=== PATIENT | male | born 1930 | race Caucasian/White ===

== ENCOUNTER → 2017-02-20 | Outpatient (CLI) | payer BC ==
[~2017-02-20] MED LIST: AMLODIPINE PO; ASPI81TA28 PO; ATOR80TA PO; CHOL20009 PO; CIPR250T3 PO; DOCU50CA10 PO; FLUT1AER5 INH; GLIP5TAB3 PO; ISOS60TA2 PO; LOSA50TA6 PO; METHPOW7 PO; METO-551 PO; METR-162 PO; NTRGSL/4 UT; POLY335025 PO; SNT/10 PO; ZNTT/150 PO
--- NOTE | 2017-02-20 13:08 | DIAGNOSTIC IMAGING REPORT ---
CT SCAN OF THE ABDOMEN AND PELVIS WITHOUT CONTRAST CLINICAL HISTORY: DIVERTICULITIS LEFT LOWER QUADRANT ABDOMINAL PAIN COMPARISON STUDY: 01/13/2015 TECHNIQUE: CT scan of the abdomen and pelvis was performed from the lung bases to the proximal femurs. Images are reviewed in the axial, sagittal, and coronal planes. IV contrast was not administered for this examination. A dose lowering technique was utilized adhering to the principles of ALARA. CT DOSE: 975.52 mGycm FINDINGS: Lower chest: Is calcified right lower lobe granuloma. There is dependent interstitial thickening. There is a stable 5 mm left lower lobe point nodule. Liver: The unenhanced liver is normal in size, contour, and attenuation. There is no intrahepatic biliary ductal dilatation. Gallbladder: Cholelithiasis Spleen: There is scattered granulomatous calcifications. Pancreas: Unremarkable. Adrenal glands: Unremarkable. Kidneys: The right kidney appears surgically absent. There are 2 dominant left renal cyst measuring 36 mm and 36 mm respectively. No renal or ureteral calculi are visualized. There is minimal left-sided perinephric stranding. Bowel: There are no transition zones indicate bowel obstruction. There is no acute diverticulitis. By history the appendix is surgically absent. Peritoneum: There is no intraperitoneal free air or abdominal ascites. There is small fat-containing inguinal hernias. Vasculature: The abdominal aorta is normal in course and caliber. Adenopathy: None. Pelvic viscera: The bladder is decompressed. There is mild perivesical stranding similar to the prior study. The prostate is mildly enlarged. Skeletal structures: No destructive osseous lesions are seen. IMPRESSION: 1. Surgically absent right kidney 2. Left renal cysts 3. Cholelithiasis 4. No renal, ureteral, or bladder calculi identified 5. Stable mild left-sided perinephric stranding 6. No evidence of acute diverticulitis 7. No evidence of bowel obstruction. No evidence of free air Electronically signed by: Mark Mckeon M.D. 02/20/2017 1:07 PM Dictated Date/Time: 02/20/2017 1:02 PM
== END | disposition home or self-care (01) ==
LOC: C.CTS 10:40
PROVIDERS: ATTEND Internal Medicine
DX: K57.32 Diverticulitis of large intestine without perforation or abscess without bleeding (principal)

== ENCOUNTER → 2017-09-18 | Outpatient (CLI) | payer BC ==
[~2017-09-18] MED LIST changes: +RANI150T85 PO; -ZNTT/150 PO
== END | disposition home or self-care (01) ==
LOC: C.PATHSPEC 17:10
PROVIDERS: ATTEND Urology
DX: C67.9 Malignant neoplasm of bladder, unspecified (principal); N40.1 Benign prostatic hyperplasia with lower urinary tract symptoms

== ENCOUNTER 2019-01-01 17:23 | Inpatient (IN) ==
--- OUTSIDE RECORDS SUMMARY | 2019-01-01 17:26 | External Medical Summary | Continuity of Care Document ---
:1930 Author Name Geovanny Lobo, Provider Address Unavailable Unavailable , Care Team Providers Name Role Phone Unavailable Unavailable Unavailable LIBERTAD WORTHY Unavailable Unavailable Unavailable Unavailable Unavailable Problems BPH (benign prostatic hyperplasia) (600.00) (N40.0) Cataract (366.9) (H26.9) Acquired renal cyst of left kidney (593.2) (N28.1) Bilateral kidney stones (592.0) (N20.0) Seborrheic keratosis (702.19) (L82.1) Dyslipidemia (272.4) (E78.5) Anginal pain (413.9) (I20.9) Chronic kidney disease, stage 3 (585.3) (N18.3) Controlled diabetes mellitus (250.00) (E11.9) Chronic hypertension (401.9) (I10) Nasal congestion (478.19) (R09.81) Constipation (564.00) (K59.00) Esophageal reflux (530.81) (K21.9) Type 2 diabetes mellitus (250.00) (E11.9) Insomnia (780.52) (G47.00) Chronic ischemic heart disease (414.9) (I25.9) Pulmonary nodule (793.11) (R91.1) Asthma (493.90) (J45.909) Cough (786.2) (R05) 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 , M.D. Refills: 0 glipiZIDE 5 MG Oral Tablet; TAKE 1 TABLET TWICE DAILY. , M.D . Refills: 0 Isosorbide Mononitrate 30 MG TB24 , M.D. Refills: 0 Aspirin 81 MG TABS , M.D. Refills: 0 Tradjenta TABS , M.D. Refills: 0 Iron TABS , M.D. Refills: 0 amLODIPine Besylate 5 MG Oral Tablet , M.D. Refills: 0 Mirtazapine 15 MG Oral Tablet , M.D. Refills: 0 Ciprofloxacin HCl TABS , M.D. Refills: 0 Citrucel POWD; USE DIRECTED. takes once daily , M.D. Refills: 0 MiraLax Oral Powder; MIX 17 GRAMS IN 8 OUNCES OF WATER AND DRINK ONCE DAILY. , M.D. 510 GM Bottle Quantity: 2 Refills: 5 Atorvastatin Calcium 80 MG Oral Tablet; TAKE 1 TABLET AT BED TIME. , M.D. Refills: 0 Vitamin D3 2000 UNIT Oral Tablet; take 1 tab daily , M.D. Refills: 0 raNITIdine HCl - 150 MG Oral Capsule; TAKE 1 CAPSULE E VERY 12 HOURS DAILY. , M.D. Refills: 0 Metoprolol Tartrate 50 MG Oral Tablet; TAKE 1 TABLET EVERY DAILY. , M.D. Quantity: 60 Refills: 5 Losartan Potassium 50 MG Oral Tablet; TAKE 1 TABLET DAILY. , M.D. Quantity: 90 Refills: 3 Procedures History of CABG Status: Completed History of Appendectomy Status: Complete d History of Card Cath Post-Proc Data: ___ Lesions Successfull y Status: Completed Dilated History of Nephrectomy Status: Completed History of Ureterectomy Status: Complete d History of Colonoscopy (Fiberoptic) Stat us: Completed History of Cystoscopy With Biopsy Status : Completed Immunizations Influenza On: 2013 Family History Mother Family history of cardiac disorder (V17.49) (Z82.49) Status: Active Family history of diabetes mellitus (V18.0) (Z83.3) Status: Active Father Family history of cardiac disorder (V17.49) (Z82.49) Status: Active Social History - Smoking Status Former smoker Plan of Treatment Planned Observations Planned Goals not documented Results No Known Results Results not documented Encounters Appointment; Broderick Delgadillo M.D. 01-Jan-2018 10:10 Encounter Diagnosis: Problem not documented Appointment; Urology, Room 8 01-Jan-2018 10:00 Encounter Diagnosis: Problem not documented Appointment; Urology, Room 8 06-Dec-2017 10:30 Encounter Diagnosis: Problem not documented Appointment; Broderick Delgadillo M.D. 18-Sep-2017 14:00 Encounter Diagnosis: Problem not documented
[2019-01-01] MEDS ORDERED: SODIUM CHLORIDE 0.9% 1000ML 1,000 ML IV SCH (18:15)
[2019-01-01 18:25] LABS: Hematocrit (blood only) 29.7 % (42-52); Mean Corpuscular Hemoglobin 31.5 pg (25-34); Mean Corpuscular Hgb Conc 33.7 g/dL (32-36); Mean Corpuscular Volume 93.7 fL (80-100); Mean Platelet Volume 10.3 fL (7.4-10.4); Platelet Count 338 K/uL (130-400); RDW Coefficient of Variation 14.9 % (11.5-14.5); Red Blood Count 3.17 M/uL (4.7-6.1); White Blood Count 10.11 K/uL (4.8-10.8)
--- NOTE | 2019-01-01 18:35 | XRay Report ---
XR chest 1V portable CLINICAL HISTORY: 88 years-old Male presenting with weakness. TECHNIQUE: Portable upright AP view of the chest was obtained. COMPARISON: 02/09/2015. FINDINGS: Median sternotomy wires and mediastinal surgical clips. Atherosclerosis of the aortic arch. Excellent mildly enlarged. Pulmonary vascular prominence. A calcified granuloma is noted at the right lung bas e as on prior exam. Mild reticular and irregular linear opacities at the left lung base. No large eff usion or pneumothorax. Degenerative changes of the thoracic spine. Upper abdomen normal. IMPRESSION: 1. Mild cardiomegaly and mild volume overload. 2. Irregular reticular and linear opacities at the left lung base may represent atelectasis, scarrin g, or a developing infiltrate. Consider PA and lateral views for better assessment. Electronically signed by: Pasquale Haynes M.D. 01/01/2019 6:34 PM
[2019-01-01 18:37] LABS: INR 1.1 (0.9-1.1); Prothrombin Time 11.5 Seconds (9.0-12.0)
[2019-01-01 18:48] LABS: Basophils # (auto) 0.02 K/uL (0-0.2); Basophils % (auto) 0.2 %; Eosinophils # (auto) 0.03 K/uL (0-0.5); Eosinophils % (auto) 0.3 %; Immature Granulocytes # (auto) 0.03 K/uL (0.00-0.02); Immature Granulocytes % (auto) 0.3 %; Lymphocytes # (auto) 0.79 K/uL (1.2-3.4); Lymphocytes % (auto) 7.8 %; Monocytes # (auto) 1.07 K/uL (0.11-0.59); Monocytes % (auto) 10.6 %; Neutrophils # (auto) 8.17 K/uL (1.4-6.5); Neutrophils % (auto) 80.8 %; Polychromasia 1+; Toxic Granulation 1+
[2019-01-01 18:49] LABS: Alanine Aminotransferase 56 U/L (12-78); Albumin Globulin Ratio 0.6 (0.9-2); Albumin Level 2.4 gm/dl (3.4-5.0); Aspartate Aminotransferase 40 U/L (15-37); BUN Creatinine Ratio 24.9 (10-20); Blood Urea Nitrogen 57 mg/dl (7-18); Calcium 9.2 mg/dl (8.5-10.1); Carbon Dioxide 22 mmol/L (21-32); Chloride 107 mmol/L (98-107); Creatinine Clr Calc Pharmacy 23.9 ml/min; Est GFR (African American) 28.6; Est GFR (Non-African American) 24.7; Globulin 4.3 gm/dl (2.5-4.0); Glucose 275 mg/dl (70-99); Magnesium 2.6 mg/dl (1.8-2.4); Potassium 4.3 mmol/L (3.5-5.1); Sodium 137 mmol/L (136-145); Total Protein 6.7 gm/dl (6.4-8.2)
[2019-01-01 18:58] LABS: Alkaline Phosphatase 120 U/L (45-117); Bilirubin,Total 0.9 mg/dl (0.2-1); Creatine Kinase 80 U/L (39-308); Troponin I < 0.015 ng/ml (0-0.045)
[2019-01-01 19:03] LABS: Appearance Urine Turbid (Clear); Bacteria Urine Automated Negative (Negative); Blood Urine 3+ (Negative); Color Urine Red; Epithelial Cell Urine Auto >30 /lpf (0-5); Glucose Urine UA Trace (Negative); Ketones Urine Negative (Negative); Leukocyte Esterase Urine 2+ (Negative); Nitrite Urine Positive (Negative); Protein Urine 2+ (Negative); Specific Gravity Urine 1.024 (1.000-1.030); Urobilinogen Urine Negative (Negative); WBC Urine Automated >30 /hpf (0-5)
[2019-01-01 19:14] LABS: Bilirubin Urine Negative (Negative); Ictotest Urine Negative (Negative)
[2019-01-01 19:20] LABS: RBC Urine Automated >30 /hpf (0-4)
[2019-01-01 19:23] LABS: Renal Epithelial Cells Urine 0-5 /lpf (0-5)
[2019-01-01] MEDS ORDERED: LEVOFLOXACIN/D5W 750 MG/150 ML BAG IV SCH (19:30)
[2019-01-01] MEDS ORDERED: METOPROLOL TARTRATE 1 MG/ML VIAL IV STA (19:39)
--- NOTE | 2019-01-01 19:45 | Emergency Department Note ---
Entered by Yaz Mancia acting as a scribe for Frankie Hanley DO History of Present Illness General Chief complaint: Hematuria Stated complaint: HEMATURIA Time Seen by Provider: 01/01/19 17:45 Source: patient History of Present Illness Onset (ago): day(s) 3 Location: head (Weakness) Pain Consistency: + other (Persistent) Quality: + other (Weakness) Exacerbated By: + other (Immunotherapy treatments) Associated symptoms: + loss of appetite, + weakness and + other (Positive frequent bowel movements, bleeding from anus. Negative abdominal pain.) The patient is a 88 year old male presenting to the Emergency Department complaining of persistent weakness starting 3 days ago. The patient reports that he has been experiencing frequent bowel movements. He states that he has about 6 bowel movements per day and that this has been going on for the past 3 days. He explains that there is bright red blood coming from his rectum. He notes that he is weak and has lost his appetite. He adds that he has no history of hemorrhoids. He denies abdominal pain. 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 She states that the patient gets immunotherapy treatments at [facility] every 3 weeks and usually doesnt feel well after. She explains that his last treatment was 2 weeks ago and that the patient got 2 units of blood at that time because his hemoglobin was 8.5. She notes that the patient has been experiencing hematuria. She adds that the patient isnt currently on a blood thinner. Home Medications Home Medications Medication Instructions Recorded Confirmed Type acetaminophen [Tylenol Extra 500 mg PO Q6H PRN 01/01/19 01/01/19 History Strength] allopurinol 0 mg PO QAM 01/01/19 01/01/19 History amlodipine 5 mg PO QAM 01/01/19 01/01/19 History atorvastatin 80 mg PO QAM 01/01/19 01/01/19 History cholecalciferol (vitamin D3) 2,000 unit PO 01/01/19 01/01/19 History [Vitamin D3] docusate sodium [Colace] 100 mg PO QAM 01/01/19 01/01/19 History ferrous sulfate 325 mg PO 01/01/19 01/01/19 History glipizide 10 mg PO BID 01/01/19 01/01/19 History isosorbide mononitrate 180 mg PO QAM 01/01/19 01/01/19 History linagliptin [Tradjenta] 5 mg PO QAM 01/01/19 01/01/19 History methylcellulose (laxative) 2 g PO QAM 01/01/19 01/01/19 History metoprolol tartrate 50 mg PO QAM 01/01/19 01/01/19 History mirtazapine 15 mg PO HS PRN 01/01/19 01/01/19 History nitroglycerin [Nitrostat] 0.4 mg SUBLINGUAL UD 01/01/19 01/01/19 History oxybutynin chloride 5 mg PO TID PRN 01/01/19 01/01/19 History polyethylene glycol 3350 [Miralax] 17 g PO QAM 01/01/19 01/01/19 History ranitidine HCl 150 mg PO BID 01/01/19 01/01/19 History tamsulosin 0.4 mg PO HS 01/01/19 01/01/19 History Allergies Allergy/AdvReac Type Severity Reaction Status Date / Time erythromycin base AdvReac Mild upset Verified 01/01/19 18:25 stomach BCG VACCINE AdvReac Unknown "painful" Uncoded 01/01/19 18:25 Past Med/Surg History Medical History Coronary artery disease (Chronic) "s/p CABG 2006" History of bladder carcinoma (Chronic) History of prostate cancer (Chronic) History of renal cell carcinoma (Chronic) Hypertension (Chronic) BPH (benign prostatic hyperplasia) (Chronic) Diverticular disease of colon (Chronic) Dyslipidemia (Chronic) Asthma (Chronic) Surgical History Status post cardiac catheterization (Chronic) "01/13/2010 [facility] [place] 60[place]70% stenosis left main 100% occlusion RCA severe proximal disease diagonal patent MENDOZA to LAD and SVG's to RCA and circ" Status post cataract extraction (Chronic) Status post coronary artery bypass grafting (Chronic) "2006 [place]: MENDOZA-LAD, SVG-RCA, SVG-circ" Status post nephrectomy (Chronic) "[facility] ~ 2013 renal Ca" Status post appendectomy (Chronic) Social History Feels Safe at Home: Yes Smoking Status: Former smoker Review of Systems See HPI for pertinent positives & negatives. and A total of 10 systems reviewed and were otherwise negative Physical Exam Vital Signs Vital Signs - 24 hr 01/01/19 17:25 01/01/19 17:47 01/01/19 17:50 Temperature 36.8 C Temperature Source Oral Sepsis Recent Fever Within 48 Hours No Sepsis Action Taken by Nursing No Action Required Pulse Rate 117 H 110 H 97 H Pulse Rate [Apical] Pulse Rate from SpO2 Sensor Pulse Rhythm Regular Pulse Rhythm [Apical] Pulse Strength Normal Respiratory Rate 28 H 27 H 28 H Respiratory Effort / Characteristics Non-Labored Respiratory Depth Normal Respiratory Pattern Regular Blood Pressure 131/82 Blood Pressure [Left Arm] Blood Pressure Mean 98 Blood Pressure Mean [Left Arm] Blood Pressure Position Sitting Pulse Oximetry 96 Oxygen Delivery Method Room Air 01/01/19 18:00 01/01/19 18:10 01/01/19 18:20 Temperature Temperature Source Sepsis Recent Fever Within 48 Hours Sepsis Action Taken by Nursing Pulse Rate 113 H 127 H 100 H Pulse Rate [Apical] Pulse Rate from SpO2 Sensor Pulse Rhythm Pulse Rhythm [Apical] Pulse Strength Respiratory Rate 30 H 27 H 24 Respiratory Effort / Characteristics Respiratory Depth Respiratory Pattern Blood Pressure Blood Pressure [Left Arm] Blood Pressure Mean Blood Pressure Mean [Left Arm] Blood Pressure Position Pulse Oximetry Oxygen Delivery Method 01/01/19 18:30 01/01/19 18:40 01/01/19 18:47 Temperature Temperature Source Sepsis Recent Fever Within 48 Hours Sepsis Action Taken by Nursing Pulse Rate 120 H 115 H 101 H Pulse Rate [Apical] 113 H Pulse Rate from SpO2 Sensor 128 H Pulse Rhythm Pulse Rhythm [Apical] Irregular Pulse Strength Respiratory Rate 25 H 25 H 28 H Respiratory Effort / Characteristics Non-Labored Spontaneous Respiratory Depth Normal Respiratory Pattern Regular Blood Pressure 141/85 H Blood Pressure [Left Arm] 141/85 H Blood Pressure Mean 103 Blood Pressure Mean [Left Arm] 103 Blood Pressure Position Pulse Oximetry 94 Oxygen Delivery Method Room Air 01/01/19 18:50 01/01/19 19:00 01/01/19 19:10 Temperature Temperature Source Sepsis Recent Fever Within 48 Hours Sepsis Action Taken by Nursing Pulse Rate 121 H 106 H 132 H Pulse Rate [Apical] Pulse Rate from SpO2 Sensor 120 H 137 H Pulse Rhythm Pulse Rhythm [Apical] Pulse Strength Respiratory Rate 25 H 25 H 29 H Respiratory Effort / Characteristics Respiratory Depth Respiratory Pattern Blood Pressure 149/95 H Blood Pressure [Left Arm] Blood Pressure Mean 113 Blood Pressure Mean [Left Arm] Blood Pressure Position Pulse Oximetry 94 94 Oxygen Delivery Method 01/01/19 19:20 01/01/19 19:30 01/01/19 19:40 Temperature 37.0 C Temperature Source Oral Sepsis Recent Fever Within 48 Hours Sepsis Action Taken by Nursing Pulse Rate 108 H 113 H 105 H Pulse Rate [Apical] Pulse Rate from SpO2 Sensor 113 H 111 H 117 H Pulse Rhythm Pulse Rhythm [Apical] Pulse Strength Respiratory Rate 27 H 28 H 30 H Respiratory Effort / Characteristics Respiratory Depth Respiratory Pattern Blood Pressure 143/98 H Blood Pressure [Left Arm] Blood Pressure Mean 113 Blood Pressure Mean [Left Arm] Blood Pressure Position Pulse Oximetry 93 95 94 Oxygen Delivery Method 01/01/19 19:50 01/01/19 20:00 01/01/19 20:10 Temperature Temperature Source Sepsis Recent Fever Within 48 Hours Sepsis Action Taken by Nursing Pulse Rate 114 H 109 H 118 H Pulse Rate [Apical] Pulse Rate from SpO2 Sensor 118 H 105 H 109 H Pulse Rhythm Pulse Rhythm [Apical] Pulse Strength Respiratory Rate 29 H 27 H 26 H Respiratory Effort / Characteristics Respiratory Depth Respiratory Pattern Blood Pressure 123/94 Blood Pressure [Left Arm] Blood Pressure Mean 103 Blood Pressure Mean [Left Arm] Blood Pressure Position Pulse Oximetry 95 95 94 Oxygen Delivery Method 01/01/19 20:15 Temperature Temperature Source Sepsis Recent Fever Within 48 Hours Sepsis Action Taken by Nursing Pulse Rate 111 H Pulse Rate [Apical] Pulse Rate from SpO2 Sensor 111 H Pulse Rhythm Pulse Rhythm [Apical] Pulse Strength Respiratory Rate 27 H Respiratory Effort / Characteristics Respiratory Depth Respiratory Pattern Blood Pressure 124/82 Blood Pressure [Left Arm] Blood Pressure Mean 96 Blood Pressure Mean [Left Arm] Blood Pressure Position Pulse Oximetry 94 Oxygen Delivery Method CONSTITUTIONAL/VITAL SIGNS: Reviewed / noted above. GENERAL: Patient is tired appearing. INTEGUMENTARY: Warm and dry. Slightly pale. HEAD: Normocephalic. EYES: without scleral icterus or trauma. ENT/OROPHARYNX: clear and moist. LYMPHADENOPATHY/NECK: Is supple without lymphadenopathy or meningismus. RESPIRATORY: Lungs clear and equal. CARDIOVASCULAR: Regular rate and rhythm. GI/ABDOMEN: Soft and nontender. No organomegaly or pulsatile mass. No rebound or guarding. Normal bowel sounds. EXTREMITIES: Warm and well perfused. BACK: No CVA tenderness. NEUROLOGICAL: Intact without focal deficits. PSYCHIATRIC: normal affect. MUSCULOSKELETAL: Normally developed with good muscle tone. Course 1747: The patient was evaluated in room B9, and a complete history and physical examination were performed. 1928: I discussed the patient's case with Dr. Jeff [facility]. He will evaluate the patient for further management. 1931: I updated the patient at this time. Consultations Consultation #1: I discussed the patient's case with Dr. Jeff manzano. He will evaluate the patient for further management. Time: : Administered Medications Discontinued Medications Sodium Chloride (Nss 1000ml) 1,000 mls @ 999 mls/hr IV .Q1H1M ULISES Stop: 01/01/19 19:15 Last Admin: 01/01/19 18:49 Dose: 999 mls/hr Documented by: [id number] Levofloxacin/Dextrose (Levaquin/D5w) 750 mg in 150 mls @ 100 mls/hr IV Q24H ULISES Stop: 01/03/19 19:29 Last Infusion: 01/01/19 20:45 Dose: 0 mls/hr Documented by: [id number] Admin: 01/01/19 19:35 Dose: 100 mls/hr Documented by: [id number] Metoprolol Tartrate (Lopressor) 2.5 mg IV NOW STA Stop: 01/01/19 19:40 Last Admin: 01/01/19 20:00 Dose: 2.5 mg Documented by: [id number] Medical Decision Making Differential Diagnosis Differential includes acute coronary syndrome, myocardial infarction, CVA, TIA, anemia, infection, pneumonia, UTI, pyelonephritis, poor nutrition, dehydration, electrolyte disturbance,hypoglycemia. Medical Records Attestation: I reviewed the patient's medical records. Home Medications Current Medication List: was personally reviewed by me Laboratory Data Attestation: I reviewed the patient's lab results. Result diagrams: 01/01/19 18:14 01/01/19 18:14 Lab Results 01/01/19 01/01/19 01/01/19 Range/Units 18:14 18:14 18:14 WBC 10.11 (4.8-10.8) K/uL RBC 3.17 L (4.7-6.1) M/uL Hgb 10.0 L (14.0-18.0) g/dL Hct 29.7 L (42-52) % MCV 93.7 (80-100) fL MCH 31.5 (25-34) pg MCHC 33.7 (32-36) g/dL RDW Std Deviation 51.0 H (36.4-46.3) fL RDW Coeff of Froilan 14.9 H (11.5-14.5) % Plt Count 338 (130-400) K/uL MPV 10.3 (7.4-10.4) fL Immature Gran % (Auto) 0.3 % Neut % (Auto) 80.8 % Lymph % (Auto) 7.8 % Carver % (Auto) 10.6 % Eos % (Auto) 0.3 % Baso % (Auto) 0.2 % Immature Gran # (Auto) 0.03 H (0.00-0.02) K/uL Neut # (Auto) 8.17 H (1.4-6.5) K/uL Lymph # (Auto) 0.79 L (1.2-3.4) K/uL Carver # (Auto) 1.07 H (0.11-0.59) K/uL Eos # (Auto) 0.03 (0-0.5) K/uL Baso # (Auto) 0.02 (0-0.2) K/uL Toxic Granulation 1+ Polychromasia 1+ PT 11.5 (9.0-12.0) Seconds INR 1.1 (0.9-1.1) Sodium 137 (136-145) mmol/L Potassium 4.3 (3.5-5.1) mmol/L Chloride 107 (98-107) mmol/L Carbon Dioxide 22 (21-32) mmol/L Anion Gap 8.0 (3-11) BUN 57 H (7-18) mg/dl Creatinine 2.31 H (0.6-1.4) mg/dl Est Cr Clr Drug Dosing 23.9 ml/min Est GFR ( Amer) 28.6 Est GFR (Non-Af Amer) 24.7 BUN/Creatinine Ratio 24.9 H (10-20) Glucose 275 H (70-99) mg/dl POC Lactic Acid Tristen (0.90-1.70) mmol/L Calcium 9.2 (8.5-10.1) mg/dl Magnesium 2.6 H (1.8-2.4) mg/dl Total Bilirubin 0.9 (0.2-1) mg/dl AST 40 H (15-37) U/L ALT 56 (12-78) U/L Alkaline Phosphatase 120 H (45-117) U/L Total Creatine Kinase 80 (39-308) U/L Troponin I < 0.015 (0-0.045) ng/ml Total Protein 6.7 (6.4-8.2) gm/dl Albumin 2.4 L (3.4-5.0) gm/dl Globulin 4.3 H (2.5-4.0) gm/dl Albumin/Globulin Ratio 0.6 L (0.9-2) TSH 1.060 (0.300-4.500) uIu/ml Urine Color Urine Appearance (Clear) Urine pH (4.5-7.5) Ur Specific [place] (1.000-1.030) Urine Protein (Negative) Urine Glucose (UA) (Negative) Urine Ketones (Negative) Urine Blood (Negative) Urine Nitrite (Negative) Urine Bilirubin (Negative) Urine Urobilinogen (Negative) Ur Leukocyte Esterase (Negative) Urine WBC (Auto) (0-5) /hpf Urine RBC (Auto) (0-4) /hpf U Hyaline Cast (Auto) (0-5) /lpf U Epithel Cells (Auto) (0-5) /lpf Urine Bacteria (Auto) (Negative) Ur Renal Epithelial Cell (0-5) /lpf Urine Yeast 01/01/19 01/01/19 Range/Units 18:22 Unknown WBC (4.8-10.8) K/uL RBC (4.7-6.1) M/uL Hgb (14.0-18.0) g/dL Hct (42-52) % MCV (80-100) fL MCH (25-34) pg MCHC (32-36) g/dL RDW Std Deviation (36.4-46.3) fL RDW Coeff of Froilan (11.5-14.5) % Plt Count (130-400) K/uL MPV (7.4-10.4) fL Immature Gran % (Auto) % Neut % (Auto) % Lymph % (Auto) % Carver % (Auto) % Eos % (Auto) % Baso % (Auto) % Immature Gran # (Auto) (0.00-0.02) K/uL Neut # (Auto) (1.4-6.5) K/uL Lymph # (Auto) (1.2-3.4) K/uL Carver # (Auto) (0.11-0.59) K/uL Eos # (Auto) (0-0.5) K/uL Baso # (Auto) (0-0.2) K/uL Toxic Granulation Polychromasia PT (9.0-12.0) Seconds INR (0.9-1.1) Sodium (136-145) mmol/L Potassium (3.5-5.1) mmol/L Chloride (98-107) mmol/L Carbon Dioxide (21-32) mmol/L Anion Gap (3-11) BUN (7-18) mg/dl Creatinine (0.6-1.4) mg/dl Est Cr Clr Drug Dosing ml/min Est GFR ( Amer) Est GFR (Non-Af Amer) BUN/Creatinine Ratio (10-20) Glucose (70-99) mg/dl POC Lactic Acid Tristen 1.04 (0.90-1.70) mmol/L Calcium (8.5-10.1) mg/dl Magnesium (1.8-2.4) mg/dl Total Bilirubin (0.2-1) mg/dl AST (15-37) U/L ALT (12-78) U/L Alkaline Phosphatase (45-117) U/L Total Creatine Kinase (39-308) U/L Troponin I (0-0.045) ng/ml Total Protein (6.4-8.2) gm/dl Albumin (3.4-5.0) gm/dl Globulin (2.5-4.0) gm/dl Albumin/Globulin Ratio (0.9-2) TSH (0.300-4.500) uIu/ml Urine Color Red Urine Appearance Turbid A (Clear) Urine pH 5.0 (4.5-7.5) Ur Specific [place] 1.024 (1.000-1.030) Urine Protein 2+ H (Negative) Urine Glucose (UA) Trace H (Negative) Urine Ketones Negative (Negative) Urine Blood 3+ H (Negative) Urine Nitrite Positive A (Negative) Urine Bilirubin Negative (Negative) Urine Urobilinogen Negative (Negative) Ur Leukocyte Esterase 2+ H (Negative) Urine WBC (Auto) >30 H (0-5) /hpf Urine RBC (Auto) >30 H (0-4) /hpf U Hyaline Cast (Auto) 1-5 (0-5) /lpf U Epithel Cells (Auto) >30 H (0-5) /lpf Urine Bacteria (Auto) Negative (Negative) Ur Renal Epithelial Cell 0-5 (0-5) /lpf Urine Yeast Not Reportable Imaging Data Radiologist's Impression: Radiology results as stated below per my review and the radiologist's interpretation: XR chest 1V portable CLINICAL HISTORY: 88 years-old Male presenting with weakness. TECHNIQUE: Portable upright AP view of the chest was obtained. COMPARISON: 02/09/2015. FINDINGS: Median sternotomy wires and mediastinal surgical clips. Atherosclerosis of the aortic arch. Excellent mildly enlarged. Pulmonary vascular prominence. A calcified granuloma is noted at the right lung base as on prior exam. Mild reticular and irregular linear opacities at the left lung base. No large effusion or pneumothorax. Degenerative changes of the thoracic spine. Upper abdomen normal. IMPRESSION: 1. Mild cardiomegaly and mild volume overload. 2. Irregular reticular and linear opacities at the left lung base may represent atelectasis, scarring, or a developing infiltrate. Consider PA and lateral views for better assessment. Electronically signed by: Pasquale Haynes M.D. 01/01/2019 6:34 PM ECG Data Attestation: I personally reviewed and interpreted this ECG as follows: Indication: weakness Rate (beats per minute): 116 Rhythm: atrial fibrillation Findings: + RBBB; no ST elevation Comparison ECG Date: from (02/09/15) Change: the following changes noted (A-fib is new compared to prior.) Blood Pressure Blood Pressure Findings: Elevated blood pressure Blood Pressure Disposition: further management by hospitalist [facility] Narrative This is a 88-year-old male who presents to the ED with a chief complaint of feeling worn out and having generalized weakness. The patient also reports that he has had soft stools about 6 times per day. He states that he noticed a little blood in the stool today. It was mostly on his underwear. The patient also has a history of right nephrectomy. 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 He gets this every 3 weeks. He last had it last . The patient's hemoglobin at that time was 8.5. He was given 2 units of blood at that time. The patient has had cystoscopy by urologist 2 weeks ago at [facility]. The patient's vital signs reveal tachycardia. He looks a little pale on exam. He otherwise appears tired and falls asleep easily. His twelve-lead EKG shows A. fib at a rate of 116. The patient does have a history of A. fib starting this past June. His chest x-ray may show an infiltrate versus atelectasis. Urine shows evidence of urinary tract infection. Hemoglobin is 10. BUN is 57 and creatinine is 2.3. The daughter states that this creatinine is baseline for the patient. Glucose is 275. Magnesium is 2.6. Troponin was negative. The patient was hydrated with some IV fluids. He was also given IV Levaquin. The patient was seen by the hospitalist for further inpatient evaluation and care. Impression & Plan UTI (urinary tract infection), Weakness, Pneumonia Discharge Plan Visit Data Chief Complaint: Hematuria Stated Complaint: HEMATURIA ED Provider: Fraknie Hanley Discharge Problem: UTI (urinary tract infection), Weakness, Pneumonia Patient Disposition: Being Evaluated by Hospitalist Forms Stand Alone Forms: My [facility] Prescriptions Prescriptions: No Action atorvastatin 80 mg Tablet 80 mg PO QAM RF: 0 polyethylene glycol 3350 [Miralax] 17 gram Powder In Packet 17 g PO QAM RF: 0 glipizide 10 mg Tablet 10 mg PO BID RF: 0 amlodipine 5 mg Tablet 5 mg PO QAM RF: 0 allopurinol 100 mg Tablet PO QAM RF: 0 acetaminophen [Tylenol Extra Strength] 500 mg Tablet 500 mg PO Q6H PRN (Reason: Pain) RF: 0 isosorbide mononitrate 60 mg Tablet Extended Release 24 Hr 180 mg PO QAM RF: 0 tamsulosin 0.4 mg capsule 0.4 mg PO HS RF: 0 ferrous sulfate 325 mg (65 mg iron) Tablet 325 mg PO HS RF: 0 ranitidine HCl 150 mg Tablet 150 mg PO BID RF: 0 metoprolol tartrate 50 mg Tablet 50 mg PO QAM RF: 0 nitroglycerin [Nitrostat] 0.4 mg Tablet, Sublingual 0.4 mg sublingual UD RF: 0 docusate sodium [Colace] 100 mg Capsule 100 mg PO QAM RF: 0 mirtazapine 15 mg Tablet 15 mg PO HS PRN (Reason: Sleep) RF: 0 oxybutynin chloride 5 mg tablet 5 mg PO TID PRN (Reason: Muscle Spasm) RF: 0 methylcellulose (laxative) Powder 2 g PO QAM RF: 0 cholecalciferol (vitamin D3) [Vitamin D3] 2,000 unit Tablet 2,000 unit PO HS RF: 0 Tradjenta 5 mg tablet 5 mg PO QAM RF: 0 Referrals Referrals: Reed Real DO [Primary Care Provider] - Discharge Problem: UTI (urinary tract infection) Qualifiers: Urinary tract infection type: site unspecified Hematuria presence: with hematuria Qualified Code(s): N39.0 - Urinary tract infection, site not specified Pneumonia Qualifiers: Pneumonia type: due to unspecified organism Laterality: unspecified laterality Lung location: unspecified part of lung Qualified Code(s): J18.9 - Pneumonia, unspecified organism The scribe's documentation has been prepared under my direction and personally reviewed by me in its entirety. I confirm that the note above accurately reflects all work, treatment, procedures, and medical decision making performed by me.
[2019-01-01] MEDS ORDERED: PIPERACILL/TAZOBAC CONSULT ACTIVE PRN (20:09)
[2019-01-01] MEDS ORDERED: PIPERACILLIN/TAZOBACTAM 4.5 GM/120 ML BAG IV ONE (20:09)
--- NOTE | 2019-01-01 20:40 | History & Physical Report ---
Date of Service January 01, 2019 Assessment & Plan (1) Atrial fibrillation with rapid ventricular response: New onset A. fib found on preop cardiac testing in [place] June 2018 as per patient Patient currently not on anticoagulation. Multifactorial : Complicated UTI, hx recent instrumentation for recurrent urothelial carcinoma status post surgery ongoing immunotherapy Painless LGIB possibly laxative induced, immunotherapy related rule out C. difficile hx diverticulosis, colonic polyps as per records No sepsis for now Pulmonary congestion on x-ray Patient denies CP, S OB ? CHF hx CAD status post CABG hypertension, slightly elevated hyperlipidemia on statin Rx CRI, creatinine at baseline chronic anemia, hemoglobin at baseline after transfusion last week DM 2 on oral meds, BSG is markedly elevated at home as per patient most recent outpatient hemoglobin A1c was 6.1 last November 2018 past tobacco abuse PCU Increase beta-dian to appropriate twice daily frequency Retrieve outpatient Cardiology records from [place] TTE RE pulmonary congestion on CXR rule out CHF May need inpatient cardiology eval pending 2D echo results, outpatient cardiology records acquisition CT abdomen pelvis RE hematuria Follow urine cultures, IV Zosyn (hx Enterococcus on previous urine cultures) Stool C. difficile Hold home laxatives for now Trend H&H, transfuse PRBC if hemoglobin less than 8 and/or for symptomatic anemia Basal insulin, ISS BG goal 1 40-1 80, update hemoglobin A1c given recent elevation of blood sugars DVT prophylaxis. SCDs RE L GIB Full code Patient requesting updates from providers. Mrs. Rosanne Torres, contact #[phone]. History of Present Illness Chief Complaint: Weakness, rectal bleeding Primary Care Provider: Reed Real, History obtained from patient, family, and records. History somewhat limited from patient by hearing impairment and episodic lethargy. Medical history significant for CAD status post CABG, A. fib not on anticoagulation as per patient/family, hypertension, hyperlipidemia, recurrent urothelial carcinoma (initially R collecting system w/ recent recurrence later noted L collecting system last 08/2018) status post surgery status post BCG ongoing immunotherapy, CRI (baseline creatinine of 1.6), chronic anemia (baseline hemoglobin of 10), DM 2 on oral meds, history diverticulosis/colonic polyps as per records, past tobacco abuse. Recent confinement October 2014 for chest pain. Last June 2018, patient found to have A. fib on preop testing by [place] [employer] for contemplated ureteroscopic biopsy procedure at [facility] slated 08/2018. No discussion regarding anticoagulation as per patient . 3 weeks ago, patient had cystoscopy and left ureteral stent exchange at [facility]. Preop MRI abdomen pelvis December 04 showed slightly limited evaluation secondary to left ureteral stent. No evidence of metastatic disease in the abdomen pelvis. Transient postop hematuria noted as per records. Patient seen on follow-up [place] [facility] [place]. Hemoglobin noted to be 8 as per patient's for which patient was transfused 2 units of packed RBC. Patient also completed third immunotherapy session. The last few days, patient noted to be sick as per patient . Patient somewhat weak, very tired, episodic sleepiness and disorientation. Poor appetite. Blood sugars 200-300s. Loose bloody stools without abdominal pain. Gross hematuria noted without fever and chills. Patient denies chest pain, S OB, Unable to see PCP for visit. At the ER, patient received Levaquin for UTI. 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 Allergies Allergy/AdvReac Type Severity Reaction Status Date / Time erythromycin base AdvReac Mild upset Verified 01/01/19 18:25 stomach BCG (Bacillus AdvReac PAINFUL Verified 01/01/19 22:17 [place]) vacc Home Medications Home Medications Medication Instructions Recorded Confirmed Type acetaminophen [Tylenol Extra 500 mg PO Q6H PRN 01/01/19 01/01/19 History Strength] allopurinol 0 mg PO QAM 01/01/19 01/01/19 History amlodipine 5 mg PO QAM 01/01/19 01/01/19 History atorvastatin 80 mg PO QAM 01/01/19 01/01/19 History cholecalciferol (vitamin D3) 2,000 unit PO HS 01/01/19 01/01/19 History [Vitamin D3] docusate sodium [Colace] 100 mg PO QAM 01/01/19 01/01/19 History ferrous sulfate 325 mg PO HS 01/01/19 01/01/19 History glipizide 10 mg PO BID 01/01/19 01/01/19 History isosorbide mononitrate 180 mg PO QAM 01/01/19 01/01/19 History linagliptin [Tradjenta] 5 mg PO QAM 01/01/19 01/01/19 History methylcellulose (laxative) 2 g PO QAM 01/01/19 01/01/19 History metoprolol tartrate 50 mg PO QAM 01/01/19 01/01/19 History mirtazapine 15 mg PO HS PRN 01/01/19 01/01/19 History nitroglycerin [Nitrostat] 0.4 mg SUBLINGUAL UD 01/01/19 01/01/19 History oxybutynin chloride 5 mg PO TID PRN 01/01/19 01/01/19 History polyethylene glycol 3350 [Miralax] 17 g PO QAM 01/01/19 01/01/19 History ranitidine HCl 150 mg PO BID 01/01/19 01/01/19 History tamsulosin 0.4 mg PO HS 01/01/19 01/01/19 History Past Med/Surg History Medical History Coronary artery disease (Chronic) "s/p CABG 2006" History of bladder carcinoma (Chronic) History of prostate cancer (Chronic) History of renal cell carcinoma (Chronic) Hypertension (Chronic) BPH (benign prostatic hyperplasia) (Chronic) Diverticular disease of colon (Chronic) Dyslipidemia (Chronic) Asthma (Chronic) Surgical History Status post cardiac catheterization (Chronic) "01/13/2010 [facility]: 60-70% stenosis left main 100% occlusion RCA severe proximal disease diagonal patent MENDOZA to LAD and SVG's to RCA and circ" Status post cataract extraction (Chronic) Status post coronary artery bypass grafting (Chronic) "2006 [place]: MENDOZA-LAD, SVG-RCA, SVG-circ" Status post nephrectomy (Chronic) "[facility] ~ 2013 renal Ca" Status post appendectomy (Chronic) Social History Preferred Language: Persian 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 Supervisor Required: No Beliefs That Will Affect Care: None Current Living Situation: Spouse Other Information That Helps Us Care for You: No Feels Safe at Home: Yes Smoking Status: Former smoker Tobacco Type: cigarettes ; Do You Dip or Chew Tobacco: No ; Second Hand Exposure: No ; Tobacco Cessation Education Requested by Patient: No Hx Alcohol Use: No Hx Substance Use: No Review of Systems Review of Systems: Could not be reliably obtained Physical Exam Physical Exam: GENERAL: Lethargic, slightly hard of hearing, obese, no respiratory distress SKIN: Pallor , warm HEENT: Pale palpebral conjunctivae, no ptosis, dry buccal mucosa NECK : Supple, short neck, no tenderness CHEST : Decreased breath sounds, no tenderness HEART : Tachycardic, irregular no obvious murmurs ABDOMEN: Some distention, nontender EXTREMITIES : No LE swelling, no LE tenderness, no other conspicuous deformities noted NEUROLOGIC : Lethargic, slightly hard of hearing, no facial asymmetry, no other gross focality Results & Data Vital Signs (Past 12 Hours) Vital Signs Temp Pulse Pulse Resp BP BP Pulse Ox 01/01/19 20:15 111 H 27 H 124/82 94 01/01/19 20:10 118 H 26 H 94 01/01/19 20:00 109 H 27 H 123/94 95 01/01/19 19:50 114 H 29 H 95 01/01/19 19:40 37.0 C 105 H 30 H 94 01/01/19 19:30 113 H 28 H 143/98 H 95 01/01/19 19:20 108 H 27 H 93 01/01/19 19:10 132 H 29 H 94 01/01/19 19:00 106 H 25 H 149/95 H 01/01/19 18:50 121 H 25 H 94 01/01/19 18:47 101 H 113 H 28 H 141/85 H 141/85 H 94 01/01/19 18:40 115 H 25 H 01/01/19 18:30 120 H 25 H 01/01/19 18:20 100 H 24 01/01/19 18:10 127 H 27 H 01/01/19 18:00 113 H 30 H 01/01/19 17:50 97 H 28 H 01/01/19 17:47 110 H 27 H 01/01/19 17:25 36.8 C 117 H 28 H 131/82 96 Laboratory Results Laboratory Results WBC 10.11 K/uL (4.8-10.8) 01/01/19 18:14 RBC 3.17 M/uL (4.7-6.1) L 01/01/19 18:14 Hgb 10.0 g/dL (14.0-18.0) L 01/01/19 18:14 Hct 29.7 % (42-52) L 01/01/19 18:14 MCV 93.7 fL (80-100) 01/01/19 18:14 MCH 31.5 pg (25-34) 01/01/19 18:14 MCHC 33.7 g/dL (32-36) 01/01/19 18:14 RDW Std Deviation 51.0 fL (36.4-46.3) H 01/01/19 18:14 RDW Coeff of [place] 14.9 % (11.5-14.5) H 01/01/19 18:14 Plt Count 338 K/uL (130-400) 01/01/19 18:14 MPV 10.3 fL (7.4-10.4) 01/01/19 18:14 Immature Gran % (Auto) 0.3 % 01/01/19 18:14 Neut % (Auto) 80.8 % 01/01/19 18:14 Lymph % (Auto) 7.8 % 01/01/19 18:14 [place] % (Auto) 10.6 % 01/01/19 18:14 Eos % (Auto) 0.3 % 01/01/19 18:14 Baso % (Auto) 0.2 % 01/01/19 18:14 Immature Gran # (Auto) 0.03 K/uL (0.00-0.02) H 01/01/19 18:14 Neut # (Auto) 8.17 K/uL (1.4-6.5) H 01/01/19 18:14 Lymph # (Auto) 0.79 K/uL (1.2-3.4) L 01/01/19 18:14 Louisa # (Auto) 1.07 K/uL (0.11-0.59) H 01/01/19 18:14 Eos # (Auto) 0.03 K/uL (0-0.5) 01/01/19 18:14 Baso # (Auto) 0.02 K/uL (0-0.2) 01/01/19 18:14 Toxic Granulation 1+ 01/01/19 18:14 Polychromasia 1+ 01/01/19 18:14 PT 11.5 Seconds (9.0-12.0) 01/01/19 18:14 INR 1.1 (0.9-1.1) 01/01/19 18:14 Sodium 137 mmol/L (136-145) 01/01/19 18:14 Potassium 4.3 mmol/L (3.5-5.1) 01/01/19 18:14 Chloride 107 mmol/L (98-107) 01/01/19 18:14 Carbon Dioxide 22 mmol/L (21-32) 01/01/19 18:14 Anion Gap 8.0 (3-11) 01/01/19 18:14 BUN 57 mg/dl (7-18) H 01/01/19 18:14 Creatinine 2.31 mg/dl (0.6-1.4) H 01/01/19 18:14 Est Cr Clr Drug Dosing 23.9 ml/min 01/01/19 18:14 Est GFR ( Amer) 28.6 01/01/19 18:14 Est GFR (Non-Af Amer) 24.7 01/01/19 18:14 BUN/Creatinine Ratio 24.9 (10-20) H 01/01/19 18:14 Glucose 275 mg/dl (70-99) H 01/01/19 18:14 POC Lactic Acid Tristen 1.04 mmol/L (0.90-1.70) 01/01/19 18:22 Calcium 9.2 mg/dl (8.5-10.1) 01/01/19 18:14 Magnesium 2.6 mg/dl (1.8-2.4) H 01/01/19 18:14 Total Bilirubin 0.9 mg/dl (0.2-1) 01/01/19 18:14 AST 40 U/L (15-37) H 01/01/19 18:14 ALT 56 U/L (12-78) 01/01/19 18:14 Alkaline Phosphatase 120 U/L (45-117) H 01/01/19 18:14 Total Creatine Kinase 80 U/L (39-308) 01/01/19 18:14 Troponin I < 0.015 ng/ml (0-0.045) 01/01/19 18:14 Total Protein 6.7 gm/dl (6.4-8.2) 01/01/19 18:14 Albumin 2.4 gm/dl (3.4-5.0) L 01/01/19 18:14 Globulin 4.3 gm/dl (2.5-4.0) H 01/01/19 18:14 Albumin/Globulin Ratio 0.6 (0.9-2) L 01/01/19 18:14 TSH 1.060 uIu/ml (0.300-4.500) 01/01/19 18:14 Urine Color Red 01/01/19 Unknown Urine Appearance Turbid (Clear) A 01/01/19 Unknown Urine pH 5.0 (4.5-7.5) 01/01/19 Unknown Ur Specific [place] 1.024 (1.000-1.030) 01/01/19 Unknown Urine Protein 2+ (Negative) H 01/01/19 Unknown Urine Glucose (UA) Trace (Negative) H 01/01/19 Unknown Urine Ketones Negative (Negative) 01/01/19 Unknown Urine Blood 3+ (Negative) H 01/01/19 Unknown Urine Nitrite Positive (Negative) A 01/01/19 Unknown Urine Bilirubin Negative (Negative) 01/01/19 Unknown Urine Urobilinogen Negative (Negative) 01/01/19 Unknown Ur Leukocyte Esterase 2+ (Negative) H 01/01/19 Unknown Urine WBC (Auto) >30 /hpf (0-5) H 01/01/19 Unknown Urine RBC (Auto) >30 /hpf (0-4) H 01/01/19 Unknown U Hyaline Cast (Auto) 1-5 /lpf (0-5) 01/01/19 Unknown U Epithel Cells (Auto) >30 /lpf (0-5) H 01/01/19 Unknown Urine Bacteria (Auto) Negative (Negative) 01/01/19 Unknown Ur Renal Epithelial Cell 0-5 /lpf (0-5) 01/01/19 Unknown Urine Yeast Not Reportable 01/01/19 Unknown Diagnostic Findings Chest x-ray showed 1. Mild cardiomegaly and mild volume overload. 2. Irregular reticular and linear opacities at the left lung base may represent atelectasis, scarring, or a developing infiltrate. EKG as per my interpretation : Rate 115, A. fib, LAD, LAFB, RBBB, nonspecific T wave abnormalities inferior leads CT head: Chronic small vessel ischemic change. No acute intracranial abnormality.
[2019-01-01] MEDS ORDERED: XOPENEX/ATROVENT 1.25mg/0.5MG NEB COMBO NEB STA (21:36)
--- NOTE | 2019-01-01 21:40 | CT Scan Report ---
CT head/brain wo con CLINICAL HISTORY: 88 years-old Male presenting with lethargy. TECHNIQUE: Multidetector CT imaging of the head was performed without the use of intravenous contrast . IV contrast: None. One or more dose lowering techniques were used consistent with the principles of ALARA (as low as reasonably achievable), including automatic exposure control, mA or kV adjustment t o individual patient size, and/or use of iterative reconstruction. COMPARISON: None. CT DOSE (mGy.cm): The estimated cumulative dose is 1074.96 mGy.cm. 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 Proportional ventricular and sulcal prominence, likely age-related parenchymal volume loss. No hemorr елена. Periventricular and subcortical white matter hypoattenuation, nonspecific but likely indicative of chronic small vessel ischemic change. No acute territorial infarct. No mass effect or midline braulio ft. No extra-axial fluid collection. Paranasal sinuses and mastoid air cells clear. Calvarium intact. IMPRESSION: 1. Chronic small vessel ischemic change. No acute intracranial abnormality. Electronically signed by: Pasquale Haynes M.D. 01/01/2019 9:37 PM
[2019-01-01] MEDS ORDERED: LEVALBUTEROL 1.25MG/0.5ML NEB INH STA (21:41)
[2019-01-01] MEDS ORDERED: IPRATROPIUM BROMIDE NEB SOLN 0.02% 2.5 ML VIAL INH STA (21:41)
[2019-01-01] MEDS ORDERED: PROMETHAZINE HCL 12.5 MG in SODIUM CHLORIDE 0.9% 50 ML IV PRN (22:08)
[2019-01-01] MEDS ORDERED: TRAMADOL HCL 50 MG TABLET PO PRN (22:08)
[2019-01-01] MEDS ORDERED: CARBOHYDRATES FOR HYPOGLYCEMIA PO PRN (22:08)
[2019-01-01] MEDS ORDERED: GLUCOSE 10 TABS/TUBE PO PRN (22:08)
[2019-01-01] MEDS ORDERED: GLUCAGON FOR INJ 1 MG VIAL SQ PRN (22:08)
[2019-01-01] MEDS ORDERED: TAMSULOSIN HCL 0.4 MG CAP PO SCH (22:08)
[2019-01-01] MEDS ORDERED: METOPROLOL TARTRATE 50 MG TAB PO SCH (22:08)
[2019-01-01] MEDS ORDERED: DEXTROSE 50% 50 ML SYRINGE IV PRN (22:08)
[2019-01-01] MEDS ORDERED: NITROGLYCERIN SL 0.4 MG/TAB TAB SL PRN (22:08)
[2019-01-01] MEDS ORDERED: GLUCOSE 40% GEL 15 GM TUBE PO PRN (22:08)
[2019-01-01] MEDS ORDERED: FERROUS SULFATE 325 MG TAB PO SCH (22:30)
[2019-01-01 22:34] LABS: Hematocrit (blood only) 29.1 % (42-52); Hemoglobin 9.7 g/dL (14.0-18.0)
[2019-01-01] MEDS: INSULIN ASPART 100 UNITS/ML 3 ML PEN SC SCH (22:51)
[2019-01-02] MEDS ORDERED: INSULIN GLARGINE SOLOSTAR 100 UNITS/ML 3 ML PEN SQ STA (00:03)
[2019-01-02] MEDS: ACETAMINOPHEN 325 MG TAB PO PRN ×2 (00:06→16:35)
[2019-01-02] MEDS: PIPERACILLIN/TAZOBACTAM 3.375 GM in DEXTROSE 5% 100 ML IV SCH ×3 (02:01→18:38)
--- NOTE | 2019-01-02 04:47 | Hospitalist Progress Note ---
Date of Service January 02, [address] of CT abdomen pelvis initial read results. Large mixed density fluid collection adjacent to left kidney measuring 12 x 12 x 7 cm representing subcapsular hematoma. Mass-effect and compression of left kidney. Hemorrhage extending into an exophytic cyst in the inferior left kidney measuring 4.9 cm. Differential diagnosis includes subcapsular abscess although less likely. Distal portion of left double-J ureteral stent appears to be satisfactory position. Upper coil appears to be in the extrarenal pelvis/UPJ. No hydronephrosis. Status post right nephrectomy. Diverticulosis. AP Subcapsular hematoma, left kidney Recent outpatient urologic procedure at [facility] [place] Urology consult Case discussed with Dr. Kaur. She recommends continuing present management. May need transfer to [facility] [place] if patient becomes septic. Will relay to AM provider. Results & Data Vital Signs (Past 12 Hours) Vital Signs Temp Pulse Pulse Resp BP BP BP 01/02/19 04:13 36.9 C 111 H 17 120/79 01/01/19 23:34 37.0 C 108 H 18 137/90 01/01/19 23:20 129 H 01/01/19 22:29 112 H 01/01/19 22:12 37.5 C 131 H 22 156/98 H 01/01/19 21:27 110 H 01/01/19 21:20 108 H 28 H 01/01/19 21:15 116 H 28 H 134/86 01/01/19 21:10 100 H 27 H 01/01/19 21:00 116 H 28 H 140/96 01/01/19 20:50 121 H 29 H 01/01/19 20:45 141 H 30 H 136/95 01/01/19 20:30 111 H 28 H 148/81 H 01/01/19 20:20 122 H 27 H 01/01/19 20:15 111 H 27 H 124/82 01/01/19 20:10 118 H 26 H 01/01/19 20:00 109 H 27 H 123/94 01/01/19 19:50 114 H 29 H 01/01/19 19:40 37.0 C 105 H 30 H 01/01/19 19:30 113 H 28 H 143/98 H 01/01/19 19:20 108 H 27 H 01/01/19 19:10 132 H 29 H 01/01/19 19:00 106 H 25 H 149/95 H 01/01/19 18:50 121 H 25 H 01/01/19 18:47 101 H 113 H 28 H 141/85 H 141/85 H 01/01/19 18:40 115 H 25 H 01/01/19 18:30 120 H 25 H 01/01/19 18:20 100 H 24 01/01/19 18:10 127 H 27 H 01/01/19 18:00 113 H 30 H 01/01/19 17:50 97 H 28 H 01/01/19 17:47 110 H 27 H 01/01/19 17:25 36.8 C 117 H 28 H 131/82 Pulse Ox 01/02/19 04:13 95 01/01/19 23:34 93 01/01/19 23:20 01/01/19 22:29 01/01/19 22:12 94 01/01/19 21:27 01/01/19 21:20 94 01/01/19 21:15 95 01/01/19 21:10 95 01/01/19 21:00 94 01/01/19 20:50 95 01/01/19 20:45 96 01/01/19 20:30 95 01/01/19 20:20 95 01/01/19 20:15 94 01/01/19 20:10 94 01/01/19 20:00 95 01/01/19 19:50 95 01/01/19 19:40 94 01/01/19 19:30 95 01/01/19 19:20 93 01/01/19 19:10 94 01/01/19 19:00 01/01/19 18:50 94 01/01/19 18:47 94 01/01/19 18:40 01/01/19 18:30 01/01/19 18:20 01/01/19 18:10 01/01/19 18:00 01/01/19 17:50 01/01/19 17:47 01/01/19 17:25 96
[2019-01-02] MEDS ORDERED: METOPROLOL TARTRATE 50 MG TAB PO SCH ×3 (05:00→22:00)
[2019-01-02 05:26] LABS: Hematocrit (blood only) 29.5 % (42-52); Hemoglobin 9.9 g/dL (14.0-18.0); Mean Corpuscular Hemoglobin 31.8 pg (25-34); Mean Corpuscular Hgb Conc 33.6 g/dL (32-36); Mean Corpuscular Volume 94.9 fL (80-100); Mean Platelet Volume 10.4 fL (7.4-10.4); Platelet Count 343 K/uL (130-400); RDW Coefficient of Variation 14.9 % (11.5-14.5); RDW Standard Deviation 50.4 fL (36.4-46.3); Red Blood Count 3.11 M/uL (4.7-6.1); White Blood Count 10.11 K/uL (4.8-10.8)
[2019-01-02] MEDS ORDERED: ALBUMIN 25% 50 ML IV ONE (05:45)
[2019-01-02 05:56] LABS: Basophils # (auto) 0.02 K/uL (0-0.2); Basophils % (auto) 0.2 %; Echinocytes 2+; Eosinophils # (auto) 0.05 K/uL (0-0.5); Eosinophils % (auto) 0.5 %; Immature Granulocytes # (auto) 0.06 K/uL (0.00-0.02); Immature Granulocytes % (auto) 0.6 %; Lymphocytes # (auto) 0.98 K/uL (1.2-3.4); Lymphocytes % (auto) 9.7 %; Monocytes # (auto) 1.03 K/uL (0.11-0.59); Monocytes % (auto) 10.2 %; Neutrophils # (auto) 7.97 K/uL (1.4-6.5); Neutrophils % (auto) 78.8 %; Toxic Granulation 2+
[2019-01-02 05:59] LABS: BUN Creatinine Ratio 26.8 (10-20); Creatinine Clr Calc Pharmacy 26.3 ml/min; Est GFR (African American) 31.9; Est GFR (Non-African American) 27.5; Potassium 4.4 mmol/L (3.5-5.1)
[2019-01-02] MEDS ORDERED: METOPROLOL TARTRATE 25 MG TAB PO ONE (06:00)
[2019-01-02 06:36] LABS: Estimated Average Glucose 160 mg/dl; Hemoglobin A1C 7.2 % (4.5-5.6)
--- NOTE | 2019-01-02 07:01 | CT Scan Report ---
CT abd pelvis wo con CT DOSE: 1731.28 mGy.cm HISTORY: Bleeding hematuria TECHNIQUE: Multiaxial CT images of the abdomen and pelvis were performed without contrast. A dose lo wering technique was utilized adhering to the principles of ALARA. COMPARISON STUDY: 02/20/2017 FINDINGS: Interval development of a left pleural effusion. Mild bibasilar interstitial prominence. Interval development of a large left renal subcapsular hematoma. This shows components of active as w ell as pre-existing bleeding. This measures 12 cm at maximum. Interval placement of a left ureteral stent. Proximal aspect of the stent is within the inferior aspe ct of the left renal pelvis. Moderate perinephric fat stranding. Partial hemorrhage of a upper pole as well as lower pole left ejrome al cyst. Trace amount of perinephric hepatic free fluid. Several gallstones. Nonobstructive bowel pattern. Postoperative changes to the anterior mid abdomen. Bladder is midline. No significant anteromedial trace amount of free fluid within the pelvic cul-de-s ac. IMPRESSION: 1. A large left perinephric and/or subcapsular hematoma. 2. This has maximum dimensions of 12 cm with progressive infiltrative change of the perinephric fat. 3. Left ureteral stent within the left ureter. 4. Gallstones. 5. Trace amount of free fluid within the paracolic gutter and pelvic regions. 6. Unchanging findings of a right nephrectomy. 7. Left pleural effusion. The above report was generated using voice recognition software. It may contain grammatical, syntax or spelling errors. Electronically signed by: Phil Rebolledo M.D. 01/02/2019 6:59 AM
[2019-01-02] MEDS ORDERED: PERFLUTREN LIPID MICROSPHERE (DEFINITY) IV ONE (07:07)
[2019-01-02] MEDS: INSULIN ASPART 100 UNITS/ML 3 ML PEN SC SCH ×3 (07:49→17:13)
[2019-01-02] MEDS ORDERED: PNEUMOCOCCAL POLYSACCHARIDES 25 MCG/0.5 ML VIAL/SYR IM ONE (08:00)
[2019-01-02] MEDS ORDERED: PNEUMOCOCCAL ADMINISTRATION CHARGE ONE (08:00)
[2019-01-02] MEDS ORDERED: AMLODIPINE BESYLATE 5 MG TAB PO SCH (09:00)
[2019-01-02] MEDS ORDERED: PANTOprazole 40 MG TAB PO SCH (09:00)
[2019-01-02] MEDS ORDERED: ISOSORBIDE MONO EXTENDED REL 60 MG TABCR PO SCH (09:00)
[2019-01-02] MEDS ORDERED: ALLOPURINOL 100 MG TAB PO SCH (09:00)
[2019-01-02] MEDS ORDERED: ATORVASTATIN 40 MG TAB PO SCH (09:00)
--- NOTE | 2019-01-02 09:33 | Gastrointestinal Consultation ---
Date of Consultation January 02, 2019 Assessment & Plan (1) Weakness: 88 year old male with history of CAD s/p CABG, HTN, T2DM, dyslipidemia, AFIB not on AC, recurrent urothelial carcinoma s/p surgery status post BCG ongoing immunotherapy, chronic anemia w/ baseline hemoglobin of 10 who is ad mitted w/ weakness, hematuria and painless rectal bleeding limited to the toilet tissue/water w/ semi-formed brown stools. He is currently tolerating a clear liquid diet. DDX disccused, hemorrhoidal, infectious, diverticular, polyp etc. He has remained hemodynamically stable w/ stable VS and HGB overnight, - Agree w/ stool culture and stool for c.diff if bleeding persists - Trend HGB - Monitor and document all GI output - Transfuse PRN - No role for IV PPI - No plan for endoscopic evaluation today Consider OP EGD/Colonoscopy pending clinical course for evaluation of chronic anemia Thank you for allowing us to participate in the care of this patient. Please call with any acute changes, questions or concerns. Please see addendum below with additional recommendation from my supervising physician. Present on Admission?: Yes Supervising Physician Co-Signing Physician Notes I saw and evaluated the patient. We are consulted for question of scant hematochezia. The patient has a history of recurrent bladder cancer and is on chemotherapy presently. He denies having dark sticky stool coffee-ground emesis hematemesis nor recurrence of the bleeding. His last colonoscopy was performed in 2009 and notable for mild diverticulosis in addition to hemorrhoids. His past surgical history is notable for a sigmoid colectomy performed as a result of diverticular disease. Physical examination Patient is somewhat ill-appearing, somewhat weakened Abdomen: Soft nontender Impression: Patient with a history of anemia likely related to his bladder cancer and perhaps ongoing chemotherapy. He does have a history of scant hematochezia we are certainly happy to provide endoscopic evaluation for this over the next few weeks as an outpatient. The patient and his are somewhat reluctant to undergo bowel prep at the present time given his weakened condition. They would prefer to see our office in the next few weeks to discuss endoscopic evaluation. Recommendations Consider use of MiraLAX 17 g 1 time daily Patient to follow-up with our office as an outpatient to arrange outpatient colonoscopy and upper endoscopy per his and his 's wishes Please call with any additional questions or concerns during the remainder of the hospital admission History of Present Illness Reason for Consultation: rectal bleeding Requesting Physician: Amanda Attending Physician: Layo Patel MD History of Present Illness 88 year old male with history of CAD s/p CABG, HTN, T2DM, dyslipidemia, AFIB not on AC, recurrent urothelial carcinoma s/p surgery status post BCG ongoing immunotherapy, chronic anemia w/ baseline hemoglobin of 10 who presented through the ED for evaluation of weakness, hematuria and rectal bleeding - GI asked to evaluate. Pt was seen and evaluated, chart reviewed. He is awake, alert and oriented x 3 althouhg appears to be a poor historian. He notes that he typically moves his bowels daily. Over the past few months he has had smaller, more frequent stoosl w/ sensation of incomplete evacuation and some straining. He notes his stools are brown but over the past few days has had some BRB limited to the toilet tissue or the toilet bowl water. He notes his stools have remained brown. Denies any melena. No rectal pain/pressure. No abdominal pain. No nausea, vomiting. Has had decreased appetite of recent but notes that his weight has gone up. No CP. Does have chronic SOB. Just finished a clear liquid tray. CT: Interval development of a left pleural effusion. Mild bibasilar interstitial prominence. Interval development of a large left renal subcapsular hematoma. This shows components of active as well as pre-existing bleeding. This measures 12 cm at maximum. Interval placement of a left ureteral stent. Proximal aspect of the stent is within the inferior aspect of the left renal pelvis. Moderate perinephric fat stranding. Partial hemorrhage of a upper pole as well as lower pole left renal cyst. Trace amount of perinephric hepatic free fluid. Several gallstones. Nonobstructive bowel pattern. Postoperative changes to the anterior mid abdomen. Bladder is midline. No significant anteromedial trace amount of free fluid within the pelvic cul-de-sac. Colon 2010: One 2 mm polyp in the sigmoid colon. Resected and retrieved. Diverticulosis from sigmoid to descending colon. The exam was otherwise normal to the cecum. Allergies Allergy/AdvReac Type Severity Reaction Status Date / Time erythromycin base AdvReac Mild upset Verified 01/01/19 18:25 stomach BCG (Bacillus AdvReac PAINFUL Verified 01/01/19 22:17 [place]Catalino) vacc Home Medications Home Medications Medication Instructions Recorded Confirmed Type acetaminophen [Tylenol Extra 500 mg PO Q6H PRN 01/01/19 01/01/19 History Strength] allopurinol 0 mg PO QAM 01/01/19 01/01/19 History amlodipine 5 mg PO QAM 01/01/19 01/01/19 History atorvastatin 80 mg PO QAM 01/01/19 01/01/19 History cholecalciferol (vitamin D3) 2,000 unit PO HS 01/01/19 01/01/19 History [Vitamin D3] docusate sodium [Colace] 100 mg PO QAM 01/01/19 01/01/19 History ferrous sulfate 325 mg PO HS 01/01/19 01/01/19 History glipizide 10 mg PO BID 01/01/19 01/01/19 History isosorbide mononitrate 180 mg PO QAM 01/01/19 01/01/19 History linagliptin [Tradjenta] 5 mg PO QAM 01/01/19 01/01/19 History methylcellulose (laxative) 2 g PO QAM 01/01/19 01/01/19 History metoprolol tartrate 50 mg PO QAM 01/01/19 01/01/19 History mirtazapine 15 mg PO HS PRN 01/01/19 01/01/19 History nitroglycerin [Nitrostat] 0.4 mg SUBLINGUAL UD 01/01/19 01/01/19 History oxybutynin chloride 5 mg PO TID PRN 01/01/19 01/01/19 History polyethylene glycol 3350 [Miralax] 17 g PO QAM 01/01/19 01/01/19 History ranitidine HCl 150 mg PO BID 01/01/19 01/01/19 History tamsulosin 0.4 mg PO HS 01/01/19 01/01/19 History Patient History Medical History Coronary artery disease (Chronic) "s/p CABG 2006" History of bladder carcinoma (Chronic) History of prostate cancer (Chronic) History of renal cell carcinoma (Chronic) Hypertension (Chronic) BPH (benign prostatic hyperplasia) (Chronic) Diverticular disease of colon (Chronic) Dyslipidemia (Chronic) Asthma (Chronic) Surgical History Status post cardiac catheterization (Chronic) "01/13/2010 [facility]: 60-70% stenosis left main 100% occlusion RCA severe proximal disease diagonal patent MENDOZA to LAD and SVG's to RCA and circ" Status post cataract extraction (Chronic) Status post coronary artery bypass grafting (Chronic) "2006 [place]: MENDOZA-LAD, SVG-RCA, SVG-circ" Status post nephrectomy (Chronic) "[facility] ~ 2013 renal Ca" Status post appendectomy (Chronic) Social History Preferred Language: Ethiopian Communication Ability: Effective 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 Beliefs That Will Affect Care: None Current Living Situation: Spouse Other Information That Helps Us Care for You: No Feels Safe at Home: Yes Smoking Status: Former smoker Tobacco Type: cigarettes ; Do You Dip or Chew Tobacco: No ; Second Hand Exposure: No ; Tobacco Cessation Education Requested by Patient: No Hx Alcohol Use: No Hx Substance Use: No Review of Systems Constitutional: no fever, no chills and no fatigue Respiratory: + dyspnea (chronic, unchanged); no cough and no chest congestion Cardiovascular: + dyspnea; no chest pain and no chest pain at rest Gastrointestinal: + change in bowel habits and + blood in stools (BRB on toilet tissue or in toilet bowl with semi-formed brown stools); no abdominal pain and no melena Physical Exam Constitutional: WD/WN, vitals as above Neck: trachea midline Respiratory: normal respiratory effort, lungs clear to auscultation Cardiovascular: Rate/Rhythm: regular rate and regular rhythm Gastrointestinal (Abdomen): normal bowel sounds, soft, nontender, no hepatosplenomegaly Results & Data Vital Signs (Past 12 Hours) Vital Signs Temp Pulse Pulse Resp BP BP Pulse Ox 01/02/19 07:42 37.3 C 111 H 12 129/86 94 01/02/19 06:25 92 H 126/81 01/02/19 04:13 36.9 C 111 H 17 120/79 95 01/01/19 23:34 37.0 C 108 H 18 137/90 93 01/01/19 23:20 129 H 01/01/19 22:29 112 H 01/01/19 22:12 37.5 C 131 H 22 156/98 H 94 Laboratory Results 01/02/19 01/02/19 01/02/19 Range/Units 07:32 04:56 04:56 WBC 10.11 (4.8-10.8) K/uL RBC 3.11 L (4.7-6.1) M/uL Hgb 9.9 L (14.0-18.0) g/dL Hct 29.5 L (42-52) % MCV 94.9 (80-100) fL MCH 31.8 (25-34) pg MCHC 33.6 (32-36) g/dL RDW Std Deviation 50.4 H (36.4-46.3) fL RDW Coeff of Froilan 14.9 H (11.5-14.5) % Plt Count 343 (130-400) K/uL MPV 10.4 (7.4-10.4) fL Immature Gran % (Auto) 0.6 % Neut % (Auto) 78.8 % Lymph % (Auto) 9.7 % Meeker % (Auto) 10.2 % Eos % (Auto) 0.5 % Baso % (Auto) 0.2 % Immature Gran # (Auto) 0.06 H (0.00-0.02) K/uL Neut # (Auto) 7.97 H (1.4-6.5) K/uL Lymph # (Auto) 0.98 L (1.2-3.4) K/uL Meeker # (Auto) 1.03 H (0.11-0.59) K/uL Eos # (Auto) 0.05 (0-0.5) K/uL Baso # (Auto) 0.02 (0-0.2) K/uL Toxic Granulation 2+ Polychromasia Echinocytes 2+ PT (9.0-12.0) Seconds INR (0.9-1.1) Sodium 138 (136-145) mmol/L Potassium 4.4 (3.5-5.1) mmol/L Chloride 108 H (98-107) mmol/L Carbon Dioxide 23 (21-32) mmol/L Anion Gap 7.0 (3-11) BUN 57 H (7-18) mg/dl Creatinine 2.11 H (0.6-1.4) mg/dl Est Cr Clr Drug Dosing 26.3 ml/min Est GFR ( Amer) 31.9 Est GFR (Non-Af Amer) 27.5 BUN/Creatinine Ratio 26.8 H (10-20) Glucose 221 H (70-99) mg/dl POC Glucose 237 H (70-99) Estimat Average Glucose mg/dl Hemoglobin A1c (4.5-5.6) % POC Lactic Acid Tristen (0.90-1.70) mmol/L Calcium 9.0 (8.5-10.1) mg/dl Magnesium (1.8-2.4) mg/dl Total Bilirubin (0.2-1) mg/dl AST (15-37) U/L ALT (12-78) U/L Alkaline Phosphatase (45-117) U/L Ammonia (11-32) umol/L Total Creatine Kinase (39-308) U/L Troponin I (0-0.045) ng/ml Total Protein (6.4-8.2) gm/dl Albumin (3.4-5.0) gm/dl Globulin (2.5-4.0) gm/dl Albumin/Globulin Ratio (0.9-2) TSH (0.300-4.500) uIu/ml Urine Color Urine Appearance (Clear) Urine pH (4.5-7.5) Ur Specific Vernon (1.000-1.030) Urine Protein (Negative) Urine Glucose (UA) (Negative) Urine Ketones (Negative) Urine Blood (Negative) Urine Nitrite (Negative) Urine Bilirubin (Negative) Urine Urobilinogen (Negative) Ur Leukocyte Esterase (Negative) Urine WBC (Auto) (0-5) /hpf Urine RBC (Auto) (0-4) /hpf U Hyaline Cast (Auto) (0-5) /lpf U Epithel Cells (Auto) (0-5) /lpf Urine Bacteria (Auto) (Negative) Ur Renal Epithelial Cell (0-5) /lpf Urine Yeast Blood Type Antibody Screen Antibody Identification Antibody ID Comment 01/02/19 01/02/19 01/01/19 Range/Units 04:56 00:22 Unknown WBC (4.8-10.8) K/uL RBC (4.7-6.1) M/uL Hgb (14.0-18.0) g/dL Hct (42-52) % MCV (80-100) fL MCH (25-34) pg MCHC (32-36) g/dL RDW Std Deviation (36.4-46.3) fL RDW Coeff of Froilan (11.5-14.5) % Plt Count (130-400) K/uL MPV (7.4-10.4) fL Immature Gran % (Auto) % Neut % (Auto) % Lymph % (Auto) % Meeker % (Auto) % Eos % (Auto) % Baso % (Auto) % Immature Gran # (Auto) (0.00-0.02) K/uL Neut # (Auto) (1.4-6.5) K/uL Lymph # (Auto) (1.2-3.4) K/uL Meeker # (Auto) (0.11-0.59) K/uL Eos # (Auto) (0-0.5) K/uL Baso # (Auto) (0-0.2) K/uL Toxic Granulation Polychromasia Echinocytes PT (9.0-12.0) Seconds INR (0.9-1.1) Sodium (136-145) mmol/L Potassium (3.5-5.1) mmol/L Chloride (98-107) mmol/L Carbon Dioxide (21-32) mmol/L Anion Gap (3-11) BUN (7-18) mg/dl Creatinine (0.6-1.4) mg/dl Est Cr Clr Drug Dosing ml/min Est GFR ( Amer) Est GFR (Non-Af Amer) BUN/Creatinine Ratio (10-20) Glucose (70-99) mg/dl POC Glucose 226 H (70-99) Estimat Average Glucose 160 mg/dl Hemoglobin A1c 7.2 H (4.5-5.6) % POC Lactic Acid Tristen (0.90-1.70) mmol/L Calcium (8.5-10.1) mg/dl Magnesium (1.8-2.4) mg/dl Total Bilirubin (0.2-1) mg/dl AST (15-37) U/L ALT (12-78) U/L Alkaline Phosphatase (45-117) U/L Ammonia (11-32) umol/L Total Creatine Kinase (39-308) U/L Troponin I (0-0.045) ng/ml Total Protein (6.4-8.2) gm/dl Albumin (3.4-5.0) gm/dl Globulin (2.5-4.0) gm/dl Albumin/Globulin Ratio (0.9-2) TSH (0.300-4.500) uIu/ml Urine Color Red Urine Appearance Turbid A (Clear) Urine pH 5.0 (4.5-7.5) Ur Specific [place] 1.024 (1.000-1.030) Urine Protein 2+ H (Negative) Urine Glucose (UA) Trace H (Negative) Urine Ketones Negative (Negative) Urine Blood 3+ H (Negative) Urine Nitrite Positive A (Negative) Urine Bilirubin Negative (Negative) Urine Urobilinogen Negative (Negative) Ur Leukocyte Esterase 2+ H (Negative) Urine WBC (Auto) >30 H (0-5) /hpf Urine RBC (Auto) >30 H (0-4) /hpf U Hyaline Cast (Auto) 1-5 (0-5) /lpf U Epithel Cells (Auto) >30 H (0-5) /lpf Urine Bacteria (Auto) Negative (Negative) Ur Renal Epithelial Cell 0-5 (0-5) /lpf Urine Yeast Not Reportable Blood Type Antibody Screen Antibody Identification Antibody ID Comment 01/01/19 01/01/19 01/01/19 Range/Units 22:44 22:20 22:20 WBC (4.8-10.8) K/uL RBC (4.7-6.1) M/uL Hgb 9.7 L (14.0-18.0) g/dL Hct 29.1 L (42-52) % MCV (80-100) fL MCH (25-34) pg MCHC (32-36) g/dL RDW Std Deviation (36.4-46.3) fL RDW Coeff of Froilan (11.5-14.5) % Plt Count (130-400) K/uL MPV (7.4-10.4) fL Immature Gran % (Auto) % Neut % (Auto) % Lymph % (Auto) % Meeker % (Auto) % Eos % (Auto) % Baso % (Auto) % Immature Gran # (Auto) (0.00-0.02) K/uL Neut # (Auto) (1.4-6.5) K/uL Lymph # (Auto) (1.2-3.4) K/uL Meeker # (Auto) (0.11-0.59) K/uL Eos # (Auto) (0-0.5) K/uL Baso # (Auto) (0-0.2) K/uL Toxic Granulation Polychromasia Echinocytes PT (9.0-12.0) Seconds INR (0.9-1.1) Sodium (136-145) mmol/L Potassium (3.5-5.1) mmol/L Chloride (98-107) mmol/L Carbon Dioxide (21-32) mmol/L Anion Gap (3-11) BUN (7-18) mg/dl Creatinine (0.6-1.4) mg/dl Est Cr Clr Drug Dosing ml/min Est GFR ( Amer) Est GFR (Non-Af Amer) BUN/Creatinine Ratio (10-20) Glucose (70-99) mg/dl POC Glucose 293 H (70-99) Estimat Average Glucose mg/dl Hemoglobin A1c (4.5-5.6) % POC Lactic Acid Tristen (0.90-1.70) mmol/L Calcium (8.5-10.1) mg/dl Magnesium (1.8-2.4) mg/dl Total Bilirubin (0.2-1) mg/dl AST (15-37) U/L ALT (12-78) U/L Alkaline Phosphatase (45-117) U/L Ammonia < 10.0 L (11-32) umol/L Total Creatine Kinase (39-308) U/L Troponin I (0-0.045) ng/ml Total Protein (6.4-8.2) gm/dl Albumin (3.4-5.0) gm/dl Globulin (2.5-4.0) gm/dl Albumin/Globulin Ratio (0.9-2) TSH (0.300-4.500) uIu/ml Urine Color Urine Appearance (Clear) Urine pH (4.5-7.5) Ur Specific Vernon (1.000-1.030) Urine Protein (Negative) Urine Glucose (UA) (Negative) Urine Ketones (Negative) Urine Blood (Negative) Urine Nitrite (Negative) Urine Bilirubin (Negative) Urine Urobilinogen (Negative) Ur Leukocyte Esterase (Negative) Urine WBC (Auto) (0-5) /hpf Urine RBC (Auto) (0-4) /hpf U Hyaline Cast (Auto) (0-5) /lpf U Epithel Cells (Auto) (0-5) /lpf Urine Bacteria (Auto) (Negative) Ur Renal Epithelial Cell (0-5) /lpf Urine Yeast Blood Type Antibody Screen Antibody Identification Antibody ID Comment 01/01/19 01/01/19 01/01/19 Range/Units 18:22 18:14 18:14 WBC (4.8-10.8) K/uL RBC (4.7-6.1) M/uL Hgb (14.0-18.0) g/dL Hct (42-52) % MCV (80-100) fL MCH (25-34) pg MCHC (32-36) g/dL RDW Std Deviation (36.4-46.3) fL RDW Coeff of Froilan (11.5-14.5) % Plt Count (130-400) K/uL MPV (7.4-10.4) fL Immature Gran % (Auto) % Neut % (Auto) % Lymph % (Auto) % Meeker % (Auto) % Eos % (Auto) % Baso % (Auto) % Immature Gran # (Auto) (0.00-0.02) K/uL Neut # (Auto) (1.4-6.5) K/uL Lymph # (Auto) (1.2-3.4) K/uL Meeker # (Auto) (0.11-0.59) K/uL Eos # (Auto) (0-0.5) K/uL Baso # (Auto) (0-0.2) K/uL Toxic Granulation Polychromasia Echinocytes PT (9.0-12.0) Seconds INR (0.9-1.1) Sodium 137 (136-145) mmol/L Potassium 4.3 (3.5-5.1) mmol/L Chloride 107 (98-107) mmol/L Carbon Dioxide 22 (21-32) mmol/L Anion Gap 8.0 (3-11) BUN 57 H (7-18) mg/dl Creatinine 2.31 H (0.6-1.4) mg/dl Est Cr Clr Drug Dosing 23.9 ml/min Est GFR ( Amer) 28.6 Est GFR (Non-Af Amer) 24.7 BUN/Creatinine Ratio 24.9 H (10-20) Glucose 275 H (70-99) mg/dl POC Glucose (70-99) Estimat Average Glucose mg/dl Hemoglobin A1c (4.5-5.6) % POC Lactic Acid Tristen 1.04 (0.90-1.70) mmol/L Calcium 9.2 (8.5-10.1) mg/dl Magnesium 2.6 H (1.8-2.4) mg/dl Total Bilirubin 0.9 (0.2-1) mg/dl AST 40 H (15-37) U/L ALT 56 (12-78) U/L Alkaline Phosphatase 120 H (45-117) U/L Ammonia (11-32) umol/L Total Creatine Kinase 80 (39-308) U/L Troponin I < 0.015 (0-0.045) ng/ml Total Protein 6.7 (6.4-8.2) gm/dl Albumin 2.4 L (3.4-5.0) gm/dl Globulin 4.3 H (2.5-4.0) gm/dl Albumin/Globulin Ratio 0.6 L (0.9-2) TSH 1.060 (0.300-4.500) uIu/ml Urine Color Urine Appearance (Clear) Urine pH (4.5-7.5) Ur Specific Vernon (1.000-1.030) Urine Protein (Negative) Urine Glucose (UA) (Negative) Urine Ketones (Negative) Urine Blood (Negative) Urine Nitrite (Negative) Urine Bilirubin (Negative) Urine Urobilinogen (Negative) Ur Leukocyte Esterase (Negative) Urine WBC (Auto) (0-5) /hpf Urine RBC (Auto) (0-4) /hpf U Hyaline Cast (Auto) (0-5) /lpf U Epithel Cells (Auto) (0-5) /lpf Urine Bacteria (Auto) (Negative) Ur Renal Epithelial Cell (0-5) /lpf Urine Yeast Blood Type O Positive Antibody Screen POSITIVE A Antibody Identification Pending Antibody ID Comment Pending 01/01/19 01/01/19 Range/Units 18:14 18:14 WBC 10.11 (4.8-10.8) K/uL RBC 3.17 L (4.7-6.1) M/uL Hgb 10.0 L (14.0-18.0) g/dL Hct 29.7 L (42-52) % MCV 93.7 (80-100) fL MCH 31.5 (25-34) pg MCHC 33.7 (32-36) g/dL RDW Std Deviation 51.0 H (36.4-46.3) fL RDW Coeff of Froilan 14.9 H (11.5-14.5) % Plt Count 338 (130-400) K/uL MPV 10.3 (7.4-10.4) fL Immature Gran % (Auto) 0.3 % Neut % (Auto) 80.8 % Lymph % (Auto) 7.8 % Meeker % (Auto) 10.6 % Eos % (Auto) 0.3 % Baso % (Auto) 0.2 % Immature Gran # (Auto) 0.03 H (0.00-0.02) K/uL Neut # (Auto) 8.17 H (1.4-6.5) K/uL Lymph # (Auto) 0.79 L (1.2-3.4) K/uL Meeker # (Auto) 1.07 H (0.11-0.59) K/uL Eos # (Auto) 0.03 (0-0.5) K/uL Baso # (Auto) 0.02 (0-0.2) K/uL Toxic Granulation 1+ Polychromasia 1+ Echinocytes PT 11.5 (9.0-12.0) Seconds INR 1.1 (0.9-1.1) Sodium (136-145) mmol/L Potassium (3.5-5.1) mmol/L Chloride (98-107) mmol/L Carbon Dioxide (21-32) mmol/L Anion Gap (3-11) BUN (7-18) mg/dl Creatinine (0.6-1.4) mg/dl Est Cr Clr Drug Dosing ml/min Est GFR ( Amer) Est GFR (Non-Af Amer) BUN/Creatinine Ratio (10-20) Glucose (70-99) mg/dl POC Glucose (70-99) Estimat Average Glucose mg/dl Hemoglobin A1c (4.5-5.6) % POC Lactic Acid Tristen (0.90-1.70) mmol/L Calcium (8.5-10.1) mg/dl Magnesium (1.8-2.4) mg/dl Total Bilirubin (0.2-1) mg/dl AST (15-37) U/L ALT (12-78) U/L Alkaline Phosphatase (45-117) U/L Ammonia (11-32) umol/L Total Creatine Kinase (39-308) U/L Troponin I (0-0.045) ng/ml Total Protein (6.4-8.2) gm/dl Albumin (3.4-5.0) gm/dl Globulin (2.5-4.0) gm/dl Albumin/Globulin Ratio (0.9-2) TSH (0.300-4.500) uIu/ml Urine Color Urine Appearance (Clear) Urine pH (4.5-7.5) Ur Specific [place] (1.000-1.030) Urine Protein (Negative) Urine Glucose (UA) (Negative) Urine Ketones (Negative) Urine Blood (Negative) Urine Nitrite (Negative) Urine Bilirubin (Negative) Urine Urobilinogen (Negative) Ur Leukocyte Esterase (Negative) Urine WBC (Auto) (0-5) /hpf Urine RBC (Auto) (0-4) /hpf U Hyaline Cast (Auto) (0-5) /lpf U Epithel Cells (Auto) (0-5) /lpf Urine Bacteria (Auto) (Negative) Ur Renal Epithelial Cell (0-5) /lpf Urine Yeast Blood Type Antibody Screen Antibody Identification Antibody ID Comment
[2019-01-02 12:09] LABS: Hematocrit (blood only) 28.9 % (42-52); Hemoglobin 9.9 g/dL (14.0-18.0)
[2019-01-02] MEDS ORDERED: METOPROLOL TARTRATE 50 MG TAB PO STA (14:47)
[2019-01-02] MEDS ORDERED: SODIUM CHLORIDE 0.9% 1000ML 1,000 ML IV SCH (14:50)
--- NOTE | 2019-01-02 15:02 | Cardiology Consultation ---
Date of Consultation January 02, 2019 Assessment & Plan (1) Atrial fibrillation with rapid ventricular response: (2) Coronary artery disease: (3) UTI (urinary tract infection): (4) Acute kidney injury superimposed on CKD: Atrial fibrillation with rapid ventricular response noted on telemetry. Heart rate exacerbated by volume depletion, anemia, UTI. Recommend gentle IV hydration with normal saline, 80 cc/h x 500 mL. Discontinue metoprolol 75 mg twice daily. Metoprolol 50 mg 3 times daily ordered. Patient will see 1 dose now. Continue telemetry monitoring. Repeat BMP in a.m. Replace electrolytes as indicated. Antibiotics per internal medicine. Anticoagulation currently contraindicated in the setting of hematuria and rectal bleeding. Continue to monitor H&H. Thank you for allowing to participate in the care of your patient. History of Present Illness Reason for Consultation: Atrial fibrillation with rapid ventricular response Requesting Physician: Dr. Patel Attending Physician: Layo Patel MD History of Present Illness 88-year-old patient admitted with weakness, and rectal bleeding. Cardiology consultation requested for management of rapid atrial fibrillation. Cardiac history significant for coronary artery disease status post coronary artery bypass grafting in 2006. Recent diagnosis of atrial fibrillation August 2018 while residing in [place]. Details of management unknown, although, patient was not prescribed anticoagulation at that time. Medical history significant for recurrent urothelial carcinoma treated with immunotherapy at [facility]. 3 weeks ago, patient underwent cystoscopy and left ureteral stent exchange at [facility]. No evidence of reported metastatic disease of the abdomen pelvis at that time. Continues to note problems with hematuria intermittently. Rectal bleeding noted on admission and gastroenterology consultation obtained. Patient found to be atrial fibrillation with rapid ventricular response on presentation. Resting 2D transthoracic echocardiogram demonstrates borderline reduced LV systolic function without significant valvular pathology. Patient admits to poor p.o. intake since admission. Notes lack of appetite. Denies orthopnea or PND. Chronic bilateral ankle edema unchanged. Outpatient dose of metoprolol 50 mg daily titrated to 75 mg twice daily today. His most recent dose of beta-dian was at 6 AM this morning. Telemetry demonstrates atrial fibrillation with heart rate ranging from 100 to 130 bpm. Patient denies any palpitations however becomes dyspneic with minimal exertion. Denies orthopnea or PND. No chest discomfort or tightness. 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 Most recently evaluated by [facility] [employer] cardiology in 2016 undergoing dobutamine stress echocardiography negative for inducible ischemia. Patient somewhat of a poor historian. present at bedside to aid with history. Allergies Allergy/AdvReac Type Severity Reaction Status Date / Time erythromycin base AdvReac Mild upset Verified 01/01/19 18:25 stomach BCG (Bacillus AdvReac PAINFUL Verified 01/01/19 22:17 Calmette-Catalino) vacc Home Medications Home Medications Medication Instructions Recorded Confirmed Type acetaminophen [Tylenol Extra 500 mg PO Q6H PRN 01/01/19 01/01/19 History Strength] allopurinol 0 mg PO QAM 01/01/19 01/01/19 History amlodipine 5 mg PO QAM 01/01/19 01/01/19 History atorvastatin 80 mg PO QAM 01/01/19 01/01/19 History cholecalciferol (vitamin D3) 2,000 unit PO HS 01/01/19 01/01/19 History [Vitamin D3] docusate sodium [Colace] 100 mg PO QAM 01/01/19 01/01/19 History ferrous sulfate 325 mg PO HS 01/01/19 01/01/19 History glipizide 10 mg PO BID 01/01/19 01/01/19 History isosorbide mononitrate 180 mg PO QAM 01/01/19 01/01/19 History linagliptin [Tradjenta] 5 mg PO QAM 01/01/19 01/01/19 History methylcellulose (laxative) 2 g PO QAM 01/01/19 01/01/19 History metoprolol tartrate 50 mg PO QAM 01/01/19 01/01/19 History mirtazapine 15 mg PO HS PRN 01/01/19 01/01/19 History nitroglycerin [Nitrostat] 0.4 mg SUBLINGUAL UD 01/01/19 01/01/19 History oxybutynin chloride 5 mg PO TID PRN 01/01/19 01/01/19 History polyethylene glycol 3350 [Miralax] 17 g PO QAM 01/01/19 01/01/19 History ranitidine HCl 150 mg PO BID 01/01/19 01/01/19 History tamsulosin 0.4 mg PO HS 01/01/19 01/01/19 History Patient History Medical History Coronary artery disease (Chronic) "s/p CABG 2006" History of bladder carcinoma (Chronic) History of prostate cancer (Chronic) History of renal cell carcinoma (Chronic) Hypertension (Chronic) BPH (benign prostatic hyperplasia) (Chronic) Diverticular disease of colon (Chronic) Dyslipidemia (Chronic) Asthma (Chronic) Surgical History Status post cardiac catheterization (Chronic) "01/13/2010 [facility]: 60-70% stenosis left main 100% occlusion RCA severe proximal disease diagonal patent MENDOZA to LAD and SVG's to RCA and circ" Status post cataract extraction (Chronic) Status post coronary artery bypass grafting (Chronic) "2006 [place]: MENDOZA-LAD, SVG-RCA, SVG-circ" Status post nephrectomy (Chronic) "[facility] ~ 2013 renal Ca" Status post appendectomy (Chronic) Social History Preferred Language: Urdu Communication Ability: Effective Manager Multicultural Required: No Beliefs That Will Affect Care: None Current Living Situation: Spouse Other Information That Helps Us Care for You: No Feels Safe at Home: Yes Smoking Status: Former smoker Tobacco Type: cigarettes ; Do You Dip or Chew Tobacco: No ; Second Hand Exposure: No ; Tobacco Cessation Education Requested by Patient: No Hx Alcohol Use: No Hx Substance Use: No Review of Systems Review of Systems: All systems reviewed & are unremarkable except as noted in HPI & below Physical Exam Physical Exam: General: NAD, AAO x3, well nourished. HEENT: Normocephalic. Atraumatic. Conjunctiva pink, no scleral icterus. Neck: No carotid bruits, the carotid upstrokes are brisk. No JVD. No HJR Heart: Regular normal S-1 and S-2 no S-3 or S-4 gallop. No murmurs or rub appreciated. PMI is not displaced. No RV heave. Lungs: Clear bilateral without rales , rhonchi, or wheeze. Abdomen: Normal bowel sounds. Soft. Nontender. No masses or organomegaly. No abdominal bruits. Extremities: No clubbing, cyanosis, or edema. Pulses: radial=2/4, Dorsalis pedis =2/4, posterior tibial=2/4. Neuro: Cranial nerves grossly intact. No focal motor deficit. Results & Data Vital Signs (Past 12 Hours) Vital Signs Temp Pulse Resp BP BP Pulse Ox 01/02/19 11:50 36.9 C 77 20 116/78 93 01/02/19 07:42 37.3 C 111 H 12 129/86 94 01/02/19 06:25 92 H 126/81 01/02/19 04:13 36.9 C 111 H 17 120/79 95 Laboratory Results Laboratory Results - last 24 hr 01/01/19 01/01/19 01/01/19 18:14 18:14 18:14 WBC 10.11 RBC 3.17 L Hgb 10.0 L Hct 29.7 L MCV 93.7 MCH 31.5 MCHC 33.7 RDW Std Deviation 51.0 H RDW Coeff of Froilan 14.9 H Plt Count 338 MPV 10.3 Immature Gran % (Auto) 0.3 Neut % (Auto) 80.8 Lymph % (Auto) 7.8 Dade % (Auto) 10.6 Eos % (Auto) 0.3 Baso % (Auto) 0.2 Immature Gran # (Auto) 0.03 H Neut # (Auto) 8.17 H Lymph # (Auto) 0.79 L Dade # (Auto) 1.07 H Eos # (Auto) 0.03 Baso # (Auto) 0.02 Toxic Granulation 1+ Polychromasia 1+ Echinocytes PT 11.5 INR 1.1 Sodium 137 Potassium 4.3 Chloride 107 Carbon Dioxide 22 Anion Gap 8.0 BUN 57 H Creatinine 2.31 H Est Cr Clr Drug Dosing 23.9 Est GFR ( Amer) 28.6 Est GFR (Non-Af Amer) 24.7 BUN/Creatinine Ratio 24.9 H Glucose 275 H POC Glucose Estimat Average Glucose Hemoglobin A1c POC Lactic Acid Tristen Calcium 9.2 Magnesium 2.6 H Total Bilirubin 0.9 AST 40 H ALT 56 Alkaline Phosphatase 120 H Ammonia Total Creatine Kinase 80 Troponin I < 0.015 Total Protein 6.7 Albumin 2.4 L Globulin 4.3 H Albumin/Globulin Ratio 0.6 L TSH 1.060 Urine Color Urine Appearance Urine pH Ur Specific Morral Urine Protein Urine Glucose (UA) Urine Ketones Urine Blood Urine Nitrite Urine Bilirubin Urine Urobilinogen Ur Leukocyte Esterase Urine WBC (Auto) Urine RBC (Auto) U Hyaline Cast (Auto) U Epithel Cells (Auto) Urine Bacteria (Auto) Ur Renal Epithelial Cell Urine Yeast Blood Type Antibody Screen Antibody Identification Antibody ID Comment 01/01/19 01/01/19 01/01/19 18:14 18:22 22:20 WBC RBC Hgb 9.7 L Hct 29.1 L MCV MCH MCHC RDW Std Deviation RDW Coeff of Froilan Plt Count MPV Immature Gran % (Auto) Neut % (Auto) Lymph % (Auto) Dade % (Auto) Eos % (Auto) Baso % (Auto) Immature Gran # (Auto) Neut # (Auto) Lymph # (Auto) Dade # (Auto) Eos # (Auto) Baso # (Auto) Toxic Granulation Polychromasia Echinocytes PT INR Sodium Potassium Chloride Carbon Dioxide Anion Gap BUN Creatinine Est Cr Clr Drug Dosing Est GFR ( Amer) Est GFR (Non-Af Amer) BUN/Creatinine Ratio Glucose POC Glucose Estimat Average Glucose Hemoglobin A1c POC Lactic Acid Tristen 1.04 Calcium Magnesium Total Bilirubin AST ALT Alkaline Phosphatase Ammonia Total Creatine Kinase Troponin I Total Protein Albumin Globulin Albumin/Globulin Ratio TSH Urine Color Urine Appearance Urine pH Ur Specific Morral Urine Protein Urine Glucose (UA) Urine Ketones Urine Blood Urine Nitrite Urine Bilirubin Urine Urobilinogen Ur Leukocyte Esterase Urine WBC (Auto) Urine RBC (Auto) U Hyaline Cast (Auto) U Epithel Cells (Auto) Urine Bacteria (Auto) Ur Renal Epithelial Cell Urine Yeast Blood Type O Positive Antibody Screen POSITIVE A Antibody Identification Anti-P1 Antibody ID Comment Pending 01/01/19 01/01/19 01/01/19 22:20 22:44 Unknown WBC RBC Hgb Hct MCV MCH MCHC RDW Std Deviation RDW Coeff of Froilan Plt Count MPV Immature Gran % (Auto) Neut % (Auto) Lymph % (Auto) Dade % (Auto) Eos % (Auto) Baso % (Auto) Immature Gran # (Auto) Neut # (Auto) Lymph # (Auto) Dade # (Auto) Eos # (Auto) Baso # (Auto) Toxic Granulation Polychromasia Echinocytes PT INR Sodium Potassium Chloride Carbon Dioxide Anion Gap BUN Creatinine Est Cr Clr Drug Dosing Est GFR ( Amer) Est GFR (Non-Af Amer) BUN/Creatinine Ratio Glucose POC Glucose 293 H Estimat Average Glucose Hemoglobin A1c POC Lactic Acid Tristen Calcium Magnesium Total Bilirubin AST ALT Alkaline Phosphatase Ammonia < 10.0 L Total Creatine Kinase Troponin I Total Protein Albumin Globulin Albumin/Globulin Ratio TSH Urine Color Red Urine Appearance Turbid A Urine pH 5.0 Ur Specific Morral 1.024 Urine Protein 2+ H Urine Glucose (UA) Trace H Urine Ketones Negative Urine Blood 3+ H Urine Nitrite Positive A Urine Bilirubin Negative Urine Urobilinogen Negative Ur Leukocyte Esterase 2+ H Urine WBC (Auto) >30 H Urine RBC (Auto) >30 H U Hyaline Cast (Auto) 1-5 U Epithel Cells (Auto) >30 H Urine Bacteria (Auto) Negative Ur Renal Epithelial Cell 0-5 Urine Yeast Not Reportable Blood Type Antibody Screen Antibody Identification Antibody ID Comment 01/02/19 01/02/19 01/02/19 00:22 04:56 04:56 WBC 10.11 RBC 3.11 L Hgb 9.9 L Hct 29.5 L MCV 94.9 MCH 31.8 MCHC 33.6 RDW Std Deviation 50.4 H RDW Coeff of Froilan 14.9 H Plt Count 343 MPV 10.4 Immature Gran % (Auto) 0.6 Neut % (Auto) 78.8 Lymph % (Auto) 9.7 Dade % (Auto) 10.2 Eos % (Auto) 0.5 Baso % (Auto) 0.2 Immature Gran # (Auto) 0.06 H Neut # (Auto) 7.97 H Lymph # (Auto) 0.98 L Dade # (Auto) 1.03 H Eos # (Auto) 0.05 Baso # (Auto) 0.02 Toxic Granulation 2+ Polychromasia Echinocytes 2+ PT INR Sodium Potassium Chloride Carbon Dioxide Anion Gap BUN Creatinine Est Cr Clr Drug Dosing Est GFR ( Amer) Est GFR (Non-Af Amer) BUN/Creatinine Ratio Glucose POC Glucose 226 H Estimat Average Glucose 160 Hemoglobin A1c 7.2 H POC Lactic Acid Tristen Calcium Magnesium Total Bilirubin AST ALT Alkaline Phosphatase Ammonia Total Creatine Kinase Troponin I Total Protein Albumin Globulin Albumin/Globulin Ratio TSH Urine Color Urine Appearance Urine pH Ur Specific Morral Urine Protein Urine Glucose (UA) Urine Ketones Urine Blood Urine Nitrite Urine Bilirubin Urine Urobilinogen Ur Leukocyte Esterase Urine WBC (Auto) Urine RBC (Auto) U Hyaline Cast (Auto) U Epithel Cells (Auto) Urine Bacteria (Auto) Ur Renal Epithelial Cell Urine Yeast Blood Type Antibody Screen Antibody Identification Antibody ID Comment 01/02/19 01/02/19 01/02/19 04:56 07:32 11:00 WBC RBC Hgb Hct MCV MCH MCHC RDW Std Deviation RDW Coeff of Froilan Plt Count MPV Immature Gran % (Auto) Neut % (Auto) Lymph % (Auto) Dade % (Auto) Eos % (Auto) Baso % (Auto) Immature Gran # (Auto) Neut # (Auto) Lymph # (Auto) Dade # (Auto) Eos # (Auto) Baso # (Auto) Toxic Granulation Polychromasia Echinocytes PT INR Sodium 138 Potassium 4.4 Chloride 108 H Carbon Dioxide 23 Anion Gap 7.0 BUN 57 H Creatinine 2.11 H Est Cr Clr Drug Dosing 26.3 Est GFR ( Amer) 31.9 Est GFR (Non-Af Amer) 27.5 BUN/Creatinine Ratio 26.8 H Glucose 221 H POC Glucose 237 H 232 H Estimat Average Glucose Hemoglobin A1c POC Lactic Acid Tristen Calcium 9.0 Magnesium Total Bilirubin AST ALT Alkaline Phosphatase Ammonia Total Creatine Kinase Troponin I Total Protein Albumin Globulin Albumin/Globulin Ratio TSH Urine Color Urine Appearance Urine pH Ur Specific Morral Urine Protein Urine Glucose (UA) Urine Ketones Urine Blood Urine Nitrite Urine Bilirubin Urine Urobilinogen Ur Leukocyte Esterase Urine WBC (Auto) Urine RBC (Auto) U Hyaline Cast (Auto) U Epithel Cells (Auto) Urine Bacteria (Auto) Ur Renal Epithelial Cell Urine Yeast Blood Type Antibody Screen Antibody Identification Antibody ID Comment 01/02/19 11:51 WBC RBC Hgb 9.9 L Hct 28.9 L MCV MCH MCHC RDW Std Deviation RDW Coeff of Froilan Plt Count MPV Immature Gran % (Auto) Neut % (Auto) Lymph % (Auto) Dade % (Auto) Eos % (Auto) Baso % (Auto) Immature Gran # (Auto) Neut # (Auto) Lymph # (Auto) Dade # (Auto) Eos # (Auto) Baso # (Auto) Toxic Granulation Polychromasia Echinocytes PT INR Sodium Potassium Chloride Carbon Dioxide Anion Gap BUN Creatinine Est Cr Clr Drug Dosing Est GFR ( Amer) Est GFR (Non-Af Amer) BUN/Creatinine Ratio Glucose POC Glucose Estimat Average Glucose Hemoglobin A1c POC Lactic Acid Tristen Calcium Magnesium Total Bilirubin AST ALT Alkaline Phosphatase Ammonia Total Creatine Kinase Troponin I Total Protein Albumin Globulin Albumin/Globulin Ratio TSH Urine Color Urine Appearance Urine pH Ur Specific Morral Urine Protein Urine Glucose (UA) Urine Ketones Urine Blood Urine Nitrite Urine Bilirubin Urine Urobilinogen Ur Leukocyte Esterase Urine WBC (Auto) Urine RBC (Auto) U Hyaline Cast (Auto) U Epithel Cells (Auto) Urine Bacteria (Auto) Ur Renal Epithelial Cell Urine Yeast Blood Type Antibody Screen Antibody Identification Antibody ID Comment ECG Additional Comments: ECG demonstrates atrial fibrillation with rapid ventricular response, right bundle branch block, left anterior fascicular block. (1) UTI (urinary tract infection) Hematuria presence: with hematuria Urinary tract infection type: site unspecified Qualified Code(s): N39.0 - Urinary tract infection, site not specified; R31.9 - Hematuria, unspecified
[2019-01-02] MEDS ORDERED: Nursing to Pharmacy Communication ONE ×2 (15:11→16:08)
[2019-01-02] MEDS ORDERED: METOPROLOL TARTRATE 50 MG TAB PO ONE (15:15)
[2019-01-02] MEDS ORDERED: LEVALBUTEROL HCL 0.63 MG/3 ML NEB NEB PRN (16:01)
[2019-01-02] MEDS ORDERED: METOPROLOL TARTRATE 1 MG/ML VIAL IV PRN (16:03)
--- NOTE | 2019-01-02 16:14 | Urology Consultation ---
Date of Consultation January 02, 2019 Assessment & Plan (1) Renal hematoma, left: I suspect this is a very rare complication from his recent ureteroscopy. It does not seem to be worsening. It will probably involute slowly over time. I think this is responsible for his 2 g hemoglobin drop. The hematoma is at risk to get infected. If he fevers he needs to be re-scanned and sent to [place] for possible IR drain placement His urine culture should be followed to determine if he needs antibiotics. His stent is in good position. His renal function seems to be at baseline even with the pressure of the renal hematoma. Further follow per his urologist in [place]. I suggest a copy of the CT be made available to patient to take to his next appointment. Present on Admission?: Yes History of Present Illness Reason for Consultation: left renal hematoma Requesting Physician: Dr Anton Attending Physician: Layo Patel MD History of Present Illness I am asked by Dr Anton to evaluate and treat patient for left subcapsular renal hematoam. He is admitted with several issues which are being evaluated concurrently. He had a long history of urothelial cancer and is s/p right nephroureterectomy remotely. 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 He had a redo left ureteroscopy with laser ablation of tumor and stent exchange at [place] about 2 weeks ago. he is also having iv infusions of an immunotherapy med at [place] q 3 weeks. He was noted to have increased left upper quadrant pain post-op 2 weeks ago but he has had diverticulitis in past and attributed it to this. He was noted to be anemic to 8g from his usual 10g last week and received 2 units pRBCs. He has held that HGb of [address] upon admission shows an appropriately positioned left ureteral stent and a large 12cm left subcaspular hematoma. There is no air to suggest infection of the collection. Serial labs to not suggest continue bleeding. He is not having pain today. Allergies Allergy/AdvReac Type Severity Reaction Status Date / Time erythromycin base AdvReac Mild upset Verified 01/01/19 18:25 stomach BCG (Bacillus AdvReac PAINFUL Verified 01/01/19 22:17 Calmette-Catalino) vacc Home Medications Home Medications Medication Instructions Recorded Confirmed Type acetaminophen [Tylenol Extra 500 mg PO Q6H PRN 08/29/19 08/29/19 History Strength] allopurinol 0 mg PO QAM 01/01/19 01/01/19 History amlodipine 5 mg PO QAM 01/01/19 01/01/19 History atorvastatin 80 mg PO QAM 01/01/19 01/01/19 History cholecalciferol (vitamin D3) 2,000 unit PO HS 01/01/19 01/01/19 History [Vitamin D3] docusate sodium [Colace] 100 mg PO QAM 01/01/19 01/01/19 History ferrous sulfate 325 mg PO HS 01/01/19 01/01/19 History glipizide 10 mg PO BID 01/01/19 01/01/19 History isosorbide mononitrate 180 mg PO QAM 01/01/19 01/01/19 History linagliptin [Tradjenta] 5 mg PO QAM 01/01/19 01/01/19 History methylcellulose (laxative) 2 g PO QAM 01/01/19 01/01/19 History metoprolol tartrate 50 mg PO QAM 01/01/19 01/01/19 History mirtazapine 15 mg PO HS PRN 01/01/19 01/01/19 History nitroglycerin [Nitrostat] 0.4 mg SUBLINGUAL UD 01/01/19 01/01/19 History oxybutynin chloride 5 mg PO TID PRN 01/01/19 01/01/19 History polyethylene glycol 3350 [Miralax] 17 g PO QAM 01/01/19 01/01/19 History ranitidine HCl 150 mg PO BID 01/01/19 01/01/19 History tamsulosin 0.4 mg PO HS 01/01/19 01/01/19 History Patient History Medical History Coronary artery disease (Chronic) "s/p CABG 2006" History of bladder carcinoma (Chronic) History of prostate cancer (Chronic) History of renal cell carcinoma (Chronic) Hypertension (Chronic) BPH (benign prostatic hyperplasia) (Chronic) Diverticular disease of colon (Chronic) Dyslipidemia (Chronic) Asthma (Chronic) Surgical History Status post cardiac catheterization (Chronic) "01/13/2010 [facility]: 60-70% stenosis left main 100% occlusion RCA severe proximal disease diagonal patent MENDOZA to LAD and SVG's to RCA and circ" Status post cataract extraction (Chronic) Status post coronary artery bypass grafting (Chronic) "2006 [place]: MENDOZA-LAD, SVG-RCA, SVG-circ" Status post nephrectomy (Chronic) "[facility] ~ 2013 renal Ca" Status post appendectomy (Chronic) Social History Preferred Language: Ukrainian Communication Ability: Effective Nuclear Unit Operator Required: No Beliefs That Will Affect Care: None Current Living Situation: Spouse Other Information That Helps Us Care for You: No Feels Safe at Home: Yes Smoking Status: Former smoker Tobacco Type: cigarettes ; Do You Dip or Chew Tobacco: No ; Second Hand Exposure: No ; Tobacco Cessation Education Requested by Patient: No Hx Alcohol Use: No Hx Substance Use: No Review of Systems Review of Systems: PMH- DM, HTN, urothelial cancer diverticulosis renal insufficiency PSH- right neprho-u, multiple left ureteroscopies Allergy- erthromycin, BCG Soc- no tobacco surrently no alcohol, has adult children , retired Fam Hx- not contributory due to advanced age ROS_ no fever no chills, + weakness, + excessive sleeping, fair to poor appetite, + hematuria post-op, + blood in stools, + loose stools, no chest pain, + SOB with exertion, no rash no siezures Physical Exam Constitutional: WD/WN, vitals as above + well hydrated, average body habitus, + frail appearing and comfortable Respiratory: able to speak in complete sentences; no respiratory distress, no labored breathing and no retractions Gastrointestinal (Abdomen): normal bowel sounds, soft, nontender, no hepatosplenomegaly Percussion/Palpation: abdomen soft; abdomen nontender and no guarding no ecchymosis left flank Skin: no rashes, warm and dry no calf tenderness no edema Psychiatric: A+Ox3, euthymic affect Results & Data Vital Signs (Past 12 Hours) Vital Signs Temp Pulse Pulse Resp BP BP Pulse Ox 01/02/19 15:44 37.5 C 113 H 20 151/102 H 93 01/02/19 11:50 36.9 C 77 20 116/78 93 01/02/19 07:42 37.3 C 111 H 12 129/86 94 01/02/19 06:25 92 H 126/81 01/02/19 04:13 36.9 C 111 H 17 120/79 95
--- NOTE | 2019-01-02 16:26 | XRay Report ---
XR chest 1V portable HISTORY: Shortness of breath. COMPARISON: Chest 01/01/2019. FINDINGS: No pneumothorax. The heart remains borderline enlarged. There are poststernotomy changes. S table calcified canal with the right lung base. Small left pleural effusion and left basilar densitie s have progressed. There is mild diffuse interstitial thickening which is similar to the prior study. This favors mild congestive change. IMPRESSION: 1. Interval progression of the small left pleural effusion and left basilar densities. This may repre sent atelectasis or pneumonia. 2. Mild congestive change persists. Electronically signed by: Angel Galvan M.D. 01/02/2019 4:25 PM
[2019-01-02] MEDS ORDERED: FUROSEMIDE 20 MG in SYRINGE 0 ML IV ONE (17:15)
[2019-01-02] MEDS ORDERED: VANCOMYCIN CONSULT ACTIVE PRN (18:06)
--- NOTE | 2019-01-02 18:14 | Hospitalist Progress Note ---
Date of Service January 02, 2019 Assessment & Plan (1) Atrial fibrillation with rapid ventricular response: Afib RVR H/O A. fib found on preop cardiac testing in [place] June 2018 Was on aspirin 81 mg daily previously Currently not on any anticoagulation Metoprolol was increased to 50 mg 3 times daily Lopressor PRN Currently aspirin on hold due to hematuria/renal subcapsular hematoma ECHO reviewed Appreciate Cardiology Input Left sub-capsular renal hematoma Suspected complication from recent redo left ureteroscopy with laser ablation of tumor and stent exchange at [place] about 2 weeks ago ---CT ABD:A large left perinephric and/or subcapsular hematoma. This has maximum dimensions of 12 cm with progressive infiltrative change of the perinephric fat. Left ureteral stent within the left ureter. Gallstones. Trace amount of free fluid within the paracolic gutter and pelvic regions. Unchanging findings of a right nephrectomy. Left pleural effusion. --Monitor H&H, Transfuse PRBC s PRN May need IR drain placement for possible infected hematoma Continue antibiotics for now Appreciate urology input May need repeat imaging if patient decompensates Plan to transfer to [facility] when bed available Complicate UTI Possible HCAP CXR:Interval progression of the small left pleural effusion and left basilar densities. This may represent atelectasis or pneumonia. Mild congestive change persists. Started on Vancomycin, Zosyn Blood/Urine cultures:pending Mild Volume Overload Saturating well on room air Monitor Volume status EF: 50% on ECHO Lasix PRN Painless rectal Bleeding (Possible Lower GI bleeding) H/O diverticulitis, polyps as per record Baseline Hb around 10 No active bleeding Aspirin held Started on Protonix Monitor H&H, transfuse PRBCs as needed No plan for emergent endoscopy, colonoscopy. Check stool culture, stool for C. difficile if bleeding persists Appreciate GI Input History of recurrent urothelial cancer S/P right nephroureterectomy CKD IV H/O redo left ureteroscopy with laser ablation of tumor and stent exchange at [place] about 2 weeks ago. Baseline Cr around 2.0 Currently on immunotherapy Follows with Oncology at [place] H/O CAD S/P CABG Aspirin on hold secondary to hematuria Continue metoprolol, isosorbide, Lipitor Hypertension Bp stable Continue current meds Hyperlipidemia on statin Rx Anemia of chronic disease Hb at baseline Monitor CBC DM II: Hold p.o. meds A1C 6.03 November 2018 Continue insulin sliding scale, basal insulin Monitor blood glucose levels Past tobacco abuse DVT Px: SCDs Re: Hematuria/Rectal Bleeding Code Status Full code Disposition: Transfer to [facility] for further management Accepted by Hospitalist Dr.Ami Lr and Urology (--Can be reached at [phone]) if patient decompensates Subjective Patient is seen and examined at bedside Complains of mild left lower quadrant abdominal pain No gross hematuria today Chest x-ray suggestive of congestion, and developing left basilar pneumonia Developed fever today Denies any chest pain, shortness of breath, dizziness, nausea Discussed with urology and GI today Plan to be transferred to [facility] for possible IR drain placement Patient is accepted by Dr. Lr (Hospitalist) and Dr. Shaw (Urology) at [facility] Review of Systems Review of Systems: All systems reviewed & are unremarkable except as noted in HPI & below Physical Exam Physical Exam: Physical Exam: Vitals signs as noted above General Appearance:Moderately built and nourished, ill appearing, mild respiratory distress Head: normocephalic, Atraumatic Eyes: normal inspection, EOMI Neck: supple, Trachea midline Respiratory/Chest: Normal breath sounds, + Scattered crackles Cardiovascular: Irregularly irregular rhythm, + tachycardia, No murmur Abdomen/GI:Soft, Non tender, Bowel sounds present Extremities/Musculoskelatal:normal inspection, B/L LE trace edema Neurologic/Psych:AAOX3, grossly no focal neurological deficits Skin: normal color, warm Results & Data Vital Signs (Past 12 Hours) Vital Signs Temp Pulse Pulse Pulse Resp BP BP 01/02/19 17:16 37.5 C 01/02/19 16:35 120 H 136/98 01/02/19 16:28 38.3 C H 120 H 26 H 136/98 01/02/19 15:44 37.5 C 113 H 20 151/102 H 01/02/19 11:50 36.9 C 77 20 01/02/19 07:42 37.3 C 111 H 12 01/02/19 06:25 92 H 126/81 BP Pulse Ox 01/02/19 17:16 01/02/19 16:35 01/02/19 16:28 92 01/02/19 15:44 93 01/02/19 11:50 116/78 93 01/02/19 07:42 129/86 94 01/02/19 06:25 Laboratory Results Short CBC 01/01/19 01/01/19 01/02/19 Range/Units 18:14 22:20 04:56 WBC 10.11 10.11 (4.8-10.8) K/uL Hgb 10.0 L 9.7 L 9.9 L (14.0-18.0) g/dL Hct 29.7 L 29.1 L 29.5 L (42-52) % Plt Count 338 343 (130-400) K/uL 01/02/19 Range/Units 11:51 WBC (4.8-10.8) K/uL Hgb 9.9 L (14.0-18.0) g/dL Hct 28.9 L (42-52) % Plt Count (130-400) K/uL BMP 01/01/19 01/02/19 18:14 04:56 Sodium 137 138 Potassium 4.3 4.4 Chloride 107 108 H Carbon Dioxide 22 23 BUN 57 H 57 H Creatinine 2.31 H 2.11 H Glucose 275 H 221 H Calcium 9.2 9.0 Cardiac Enzymes 01/01/19 Range/Units 18:14 Total Creatine Kinase 80 (39-308) U/L Troponin I < 0.015 (0-0.045) ng/ml Liver Function 01/01/19 Range/Units 18:14 Total Bilirubin 0.9 (0.2-1) mg/dl AST 40 H (15-37) U/L ALT 56 (12-78) U/L Alkaline Phosphatase 120 H (45-117) U/L Albumin 2.4 L (3.4-5.0) gm/dl Urine 01/01/19 Range/Units Unknown Urine Color Red Urine Appearance Turbid A (Clear) Urine pH 5.0 (4.5-7.5) Ur Specific [place] 1.024 (1.000-1.030) Urine Protein 2+ H (Negative) Urine Glucose (UA) Trace H (Negative) Diagnostic Findings CXR: 1. Interval progression of the small left pleural effusion and left basilar densities. This may represent atelectasis or pneumonia. 2. Mild congestive change persists.
[2019-01-02] MEDS ORDERED: VANCOMYCIN HCL 2,000 MG in SODIUM CHLORIDE 0.9% 500 ML IV STA (18:15)
--- NOTE | 2019-01-02 18:37 | Pharmacy Report ---
Pharmacy Abx Dose Short Note - Date of Service January 02, 2019 - Assessment & Plan Assessment 88 year old M already receiving IV Zosyn, now being started on Vancomycin for treatment of UTI, possible HCAP Day # 2 of antimicrobial therapy. * Patient with changing renal function; sCr was 2.31 mg/dL upon admission, now 2.11 mg/dL today. Unclear if he has baseline CKD. Estimated half-life is >24 hours. Will dose Vancomycin based on random levels due to uncertain renal function. Plan Vancomycin * Give Vancomycin 2000mg (~22mg/kg) IV x 1 as a loading dose * Goal trough level for UTI/HCAP : 15 to 20 mcg/mL * Random level ordered for: 01/02/19 with AM labs Pharmacy will continue to follow and will adjust dose/frequency as necessary. Thank you.
--- NOTE | 2019-01-02 18:45 | Discharge Summary ---
Date of Service January 02, 2019 Admission HPI Per Admitting Provider History obtained from patient, family, and records. History somewhat limited from patient by hearing impairment and episodic lethargy. Medical history significant for CAD status post CABG, A. fib not on anticoagulation as per patient/family, hypertension, hyperlipidemia, recurrent urothelial carcinoma (initially R collecting system 1990s w/ recent recurrence later noted L collecting system last 08/2018) status post surgery status post BCG ongoing immunotherapy, CRI (baseline creatinine of 1.6), chronic anemia (baseline hemoglobin of 10), DM 2 on oral meds, history diverticulosis/colonic polyps as per records, past tobacco abuse. Recent confinement October 2014 for chest pain. Last June 2018, patient found to have A. fib on preop testing by [place] rock room worker for contemplated ureteroscopic biopsy procedure at [facility] slated 08/2018. No discussion regarding anticoagulation as per patient . 3 weeks ago, patient had cystoscopy and left ureteral stent exchange at [facility]. Preop MRI abdomen pelvis December 04 showed slightly limited evaluation secondary to left ureteral stent. No evidence of metastatic disease in the abdomen pelvis. Transient postop hematuria noted as per records. Patient seen on follow-up at [facility] Oncology clinic last week. Hemoglobin noted to be 8 as per patient's for which patient was transfused 2 units of packed RBC. Patient also completed third immunotherapy session. The last few days, patient noted to be sick as per patient . Patient somewhat weak, very tired, episodic sleepiness and disorientation. Poor appetite. Blood sugars 200-300s. Loose bloody stools without abdominal pain. Gross hematuria noted without fever and chills. Patient denies chest pain, S OB, Unable to see PCP for visit. At the ER, patient received Levaquin for UTI. 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 Admission Exam Per Admitting Provider GENERAL: Lethargic, slightly hard of hearing, obese, no respiratory distress SKIN: Pallor , warm HEENT: Pale palpebral conjunctivae, no ptosis, dry buccal mucosa NECK : Supple, short neck, no tenderness CHEST : Decreased breath sounds, no tenderness HEART : Tachycardic, irregular no obvious murmurs ABDOMEN: Some distention, nontender EXTREMITIES : No LE swelling, no LE tenderness, no other conspicuous deformities noted NEUROLOGIC : Lethargic, slightly hard of hearing, no facial asymmetry, no other gross focality Principal Diagnosis Discharge Information Discharge Diagnosis Atrial fibrillation with rapid ventricular response Left sub-capsular renal hematoma Complicate UTI Possible HCAP Painless rectal Bleeding Discharge Goals Decrease discomfort,Improve disease control, Improve function Discharge Activity Limitations Per instructions/follow-up Discharge Data Allergies Allergy/AdvReac Type Severity Reaction Status Date / Time erythromycin base AdvReac Mild upset Verified 01/01/19 18:25 stomach BCG (Bacillus AdvReac PAINFUL Verified 01/01/19 22:17 [place]) vacc Consultations 01/01/19 20:13 ED Decision to Admit Stat 01/01/19 23:56 Consult Health Information Management Routine 01/02/19 04:44 Consult Urology Routine 01/02/19 07:53 Consult Gastroenterology Routine 01/02/19 13:57 Consult Cardiology Routine 01/02/19 18:27 Burn CD for patient Routine Procedures Performed CT ABD: 1. A large left perinephric and/or subcapsular hematoma. 2. This has maximum dimensions of 12 cm with progressive infiltrative change of the perinephric fat. 3. Left ureteral stent within the left ureter. 4. Gallstones. 5. Trace amount of free fluid within the paracolic gutter and pelvic regions. 6. Unchanging findings of a right nephrectomy. 7. Left pleural effusion. CT head: Chronic small vessel ischemic change. No acute intracranial abnormality. CXR: 1. Interval progression of the small left pleural effusion and left basilar densities. This may represent atelectasis or pneumonia. 2. Mild congestive change persists. Ordered Studies 01/01/19 20:39 CT head/brain wo con [facility] 01/02/19 02:07 CT abd pelvis wo con [facility] Hospital Course (1) Atrial fibrillation with rapid ventricular response: Afib RVR H/O A. fib found on preop cardiac testing in [place] June 2018 Was on aspirin 81 mg daily previously Currently not on any anticoagulation Metoprolol was increased to 50 mg 3 times daily Lopressor PRN Currently aspirin on hold due to hematuria/renal subcapsular hematoma ECHO reviewed Appreciate Cardiology Input Left sub-capsular renal hematoma Suspected complication from recent redo left ureteroscopy with laser ablation of tumor and stent exchange at [place] about 2 weeks ago ---CT ABD:A large left perinephric and/or subcapsular hematoma. This has maximum dimensions of 12 cm with progressive infiltrative change of the perinephric fat. Left ureteral stent within the left ureter. Gallstones. Trace amount of free fluid within the paracolic gutter and pelvic regions. Unchanging findings of a right nephrectomy. Left pleural effusion. --Monitor H&H, Transfuse PRBC s PRN May need IR drain placement for possible infected hematoma Continue antibiotics for now Appreciate urology input May need repeat imaging if patient decompensates Plan to transfer to [facility] when bed available Complicate UTI Possible HCAP CXR:Interval progression of the small left pleural effusion and left basilar densities. This may represent atelectasis or pneumonia. Mild congestive change persists. Started on Vancomycin, Zosyn Blood/Urine cultures:pending Mild Volume Overload Saturating well on room air Monitor Volume status EF: 50% on ECHO Lasix PRN Painless rectal Bleeding (Possible Lower GI bleeding) H/O diverticulitis, polyps as per record Baseline Hb around 10 No active bleeding Aspirin held Started on Protonix Monitor H&H, transfuse PRBCs as needed No plan for emergent endoscopy, colonoscopy. Check stool culture, stool for C. difficile if bleeding persists Appreciate GI Input History of recurrent urothelial cancer S/P right nephroureterectomy CKD IV H/O redo left ureteroscopy with laser ablation of tumor and stent exchange at [place] about 2 weeks ago. Baseline Cr around 2.0 Currently on immunotherapy Follows with Oncology at [place] H/O CAD S/P CABG Aspirin on hold secondary to hematuria Continue metoprolol, isosorbide, Lipitor Hypertension Bp stable Continue current meds Hyperlipidemia on statin Rx Anemia of chronic disease Hb at baseline Monitor CBC DM II: Hold p.o. meds A1C 6.03 November 2018 Continue insulin sliding scale, basal insulin Monitor blood glucose levels Past tobacco abuse DVT Px: SCDs Re: Hematuria/Rectal Bleeding Code Status Full code Disposition: Transfer to [facility] for further management Accepted by Hospitalist Dr.Ami Lr and Urology (--Can be reached at [phone]) if patient decompensates Family is updated about the patient's condition. Agrees with the above management and plan. Total Time Total Time Spent Total Time Spent (In Minutes): 45 minutes Total Time Includes: Examination of the Patient, Discharge Planning, Medication Reconciliation, Communication With Other Providers and Other Discharge Plan Discharge Items Patient Disposition: Transfer Acute Care Hospital Reason For Visit: RAPID AF Discharge Diagnosis: Atrial fibrillation with rapid ventricular response Left sub-capsular renal hematoma Complicate UTI Possible HCAP Painless rectal Bleeding Discharge Goals: Decrease discomfort, Improve disease control and Improve function Activity: Per 'Additional Instructions' section Exercise/Sports: Wait until after follow-up appointment Non-emergency contact: Primary Care Provider, Customer Service Advisor, Spray Ii Painter, Oncologist and Urologist Call non-emergency contact if: you have any medication questions, your symptoms worsen, your pain is not controlled, your pain is worsening, your pain is unusual for you, your pain is concerning for you and you have a fever Follow-up/Referrals: Reed Real, [Primary Care Provider] - Diet: Nothing by mouth Addtl Provider Instructions: Follow up with Dr.Ami Lr (Hospitalist) and (Urologist) at [facility] for further management Follow-up with your primary care physician Dr. Real in 1 week upon discharge from [facility] Follow-up with your remote control assembler for colonoscopy, endoscopy as outpatient Follow-up with your rock room worker for management of atrial fibrillation Follow-up with your oncologist as advised Seek immediate medical attention if your symptoms reoccur or worsen Prescriptions: New pantoprazole 40 mg Tablet,Delayed Release (Dr/Ec) 40 mg PO QAM 30 Days Qty: 30 RF: 0 Continued atorvastatin 80 mg Tablet 80 mg PO QAM RF: 0 polyethylene glycol 3350 [Miralax] 17 gram Powder In Packet 17 g PO QAM RF: 0 glipizide 10 mg Tablet 10 mg PO BID RF: 0 amlodipine 5 mg Tablet 5 mg PO QAM RF: 0 allopurinol 100 mg Tablet PO QAM RF: 0 acetaminophen [Tylenol Extra Strength] 500 mg Tablet 500 mg PO Q6H PRN (Reason: Pain) RF: 0 isosorbide mononitrate 60 mg Tablet Extended Release 24 Hr 180 mg PO QAM RF: 0 tamsulosin 0.4 mg capsule 0.4 mg PO HS RF: 0 ferrous sulfate 325 mg (65 mg iron) Tablet 325 mg PO HS RF: 0 ranitidine HCl 150 mg Tablet 150 mg PO BID RF: 0 metoprolol tartrate 50 mg Tablet 50 mg PO QAM RF: 0 nitroglycerin [Nitrostat] 0.4 mg Tablet, Sublingual 0.4 mg sublingual UD RF: 0 docusate sodium [Colace] 100 mg Capsule 100 mg PO QAM RF: 0 mirtazapine 15 mg Tablet 15 mg PO HS PRN (Reason: Sleep) RF: 0 oxybutynin chloride 5 mg tablet 5 mg PO TID PRN (Reason: Muscle Spasm) RF: 0 methylcellulose (laxative) Powder 2 g PO QAM RF: 0 cholecalciferol (vitamin D3) [Vitamin D3] 2,000 unit Tablet 2,000 unit PO HS RF: 0 Tradjenta 5 mg tablet 5 mg PO QAM RF: 0 Stand-Alone Forms: [facility] Discharge Orders: Discharge Order (Routine); Ordered 01/02/19 Ordered By: Layo Patel Admission Data Admit Date/Time: 01/01/19 20:44 Attending Provider: Layo Patel Admit Provider: Zheng Aguilar Primary Care Provider: Reed Real Other Providers: Zheng Aguilar ; Katie Kaur ; Papo Robbins ; Andrew Mackay Service: Telemetry
[2019-01-03] MEDS ORDERED: INSULIN GLARGINE SOLOSTAR 100 UNITS/ML 3 ML PEN SQ SCH (09:00)
== END 2019-01-02 20:38 | disposition short-term general hospital (02) | DRG 308 ==
LOC: ED 17:23 → 2E 20:44
DX: N39.0 Urinary tract infection, site not specified; Z79.84 Long term (current) use of oral hypoglycemic drugs; Y83.9 Surgical procedure, unspecified as the cause of abnormal reaction of the patient, or of later complication, without mention of misadventure at the time of the procedure; N99.840 Postprocedural hematoma of a genitourinary system organ or structure following a genitourinary system procedure; N17.9 Acute kidney failure, unspecified; D63.8 Anemia in other chronic diseases classified elsewhere; E87.70 Fluid overload, unspecified; I12.9 Hypertensive chronic kidney disease with stage 1 through stage 4 chronic kidney disease, or unspecified chronic kidney disease; Z87.891 Personal history of nicotine dependence; I48.91 Unspecified atrial fibrillation; T81.40XA Infection following a procedure, unspecified, initial encounter; N18.9 Chronic kidney disease, unspecified; C67.9 Malignant neoplasm of bladder, unspecified; R53.1 Weakness; K92.1 Melena; E78.5 Hyperlipidemia, unspecified; E11.22 Type 2 diabetes mellitus with diabetic chronic kidney disease; Z95.1 Presence of aortocoronary bypass graft; J18.9 Pneumonia, unspecified organism; Z79.899 Other long term (current) drug therapy; I25.10 Atherosclerotic heart disease of native coronary artery without angina pectoris

== ENCOUNTER 2019-01-30 13:53 | Inpatient (IN) ==
[2019-01-30] MEDS ORDERED: SODIUM CHLORIDE 0.9% 1000ML 250 ML IV ONE (14:24)
[2019-01-30 14:25] LABS: iSTAT Hemoglobin 9.2 g/dl (14.0-18.0); iSTAT Ionized Calcium 1.03 mmol/l (1.12-1.32); iSTAT Potassium 3.3 mEq/L (3.3-5.0)
[2019-01-30] MEDS ORDERED: SODIUM CHLORIDE 0.9% 1000ML 1,000 ML IV SCH (14:30)
[2019-01-30 14:41] LABS: INR 1.1 (0.9-1.1); Prothrombin Time 11.6 Seconds (9.0-12.0)
[2019-01-30 14:46] LABS: Albumin Level 2.1 gm/dl (3.4-5.0); BUN Creatinine Ratio 7.6 (10-20); Calcium 8.3 mg/dl (8.5-10.1); Creatinine Clr Calc Pharmacy 26.2 ml/min; Est GFR (Non-African American) 29.3; Magnesium 1.9 mg/dl (1.8-2.4); Potassium 3.3 mmol/L (3.5-5.1)
--- NOTE | 2019-01-30 14:53 | CT Scan Report ---
CT head/brain wo con CLINICAL HISTORY: 89 years-old Male with Fall.AMS.. Acute fall with altered mental status TECHNIQUE: Multiple axial CT images of the head were obtained without contrast. A dose lowering tech nique was utilized adhering to the principles of ALARA. CT DOSE: 638.56 mGycm COMPARISON: Head CT 01/01/2019. FINDINGS: No acute intracranial hemorrhage, midline shift, intracranial mass, hydrocephalus, territorial ischem ia or abnormal extra-axial collection. Age-related involutional changes. Patchy white matter hypodens ities suggest chronic microvascular ischemic disease. The calvarium is intact. Prior bilateral maxillary antrostomy with partial ethmoid air cell resectio n. Unchanged ovoid sclerotic lesion about the right supraorbital frontal bone, 6 mm is likely benign. Prior bilateral cataract repair. IMPRESSION: No acute intracranial abnormality or calvarial fracture. The above report was generated using voice recognition software. It may contain grammatical, syntax o r spelling errors. Electronically signed by: Rock Mckeon M.D. 01/30/2019 2:52 PM
[2019-01-30 14:56] LABS: ALC (manual) 0.44 K/uL (1.2-3.4); ANC (manual) 16.09 K/uL (1.4-6.5); Albumin Globulin Ratio 0.6 (0.9-2); Bilirubin,Total 0.6 mg/dl (0.2-1); Globulin 3.8 gm/dl (2.5-4.0); Hematocrit (blood only) 28.9 % (42-52); Hemoglobin 9.3 g/dL (14.0-18.0); Lymphocytes # (manual) 0.44 K/uL (1.2-3.4); Lymphocytes % (manual) 2.6 %; Mean Corpuscular Hemoglobin 28.5 pg (25-34); Mean Corpuscular Hgb Conc 32.2 g/dL (32-36); Mean Corpuscular Volume 88.7 fL (80-100); Mean Platelet Volume 10.8 fL (7.4-10.4); Monocytes # (manual) 0.29 K/uL (0.11-0.59); Monocytes % (manual) 1.7 %; Neutrophils # (manual) 16.09 K/uL (1.4-6.5); Neutrophils % (manual) 95.7 %; Ovalocytes 1+; Platelet Count 235 K/uL (130-400); Platelet Estimate Normal (Normal); RDW Coefficient of Variation 15.1 % (11.5-14.5); RDW Standard Deviation 49.1 fL (36.4-46.3); Red Blood Count 3.26 M/uL (4.7-6.1); Tear Drop Cells 1+; Thyroid Stimulating Hormone 1.42 uIu/ml (0.300-4.500); Total Protein 5.9 gm/dl (6.4-8.2); White Blood Count 16.81 K/uL (4.8-10.8)
[2019-01-30] MEDS ORDERED: SODIUM CHLORIDE 0.9% 1000ML 1,000 ML IV ONE (14:56)
[2019-01-30] MEDS ORDERED: DAPTOmycin 425 MG in SYRINGE 0 ML IV ONE (14:56)
[2019-01-30] MEDS ORDERED: PIPERACILL/TAZOBAC CONSULT ACTIVE PRN ×2 (14:56→21:13)
[2019-01-30] MEDS ORDERED: PIPERACILLIN/TAZOBACTAM 4.5 GM/120 ML BAG IV ONE (14:56)
[2019-01-30 15:14] LABS: Appearance Urine Turbid (Clear); Bacteria Urine Automated Negative (Negative); Blood Urine 3+ (Negative); Color Urine Orange; Epithelial Cell Urine Auto 0-5 /lpf (0-5); Glucose Urine UA Negative (Negative); Ketones Urine Trace (Negative); Leukocyte Esterase Urine 3+ (Negative); Nitrite Urine Positive (Negative); Protein Urine 2+ (Negative); RBC Urine Automated >30 /hpf (0-4); Specific Gravity Urine 1.019 (1.000-1.030); Urobilinogen Urine Negative (Negative); WBC Urine Automated >30 /hpf (0-5)
--- NOTE | 2019-01-30 15:14 | CT Scan Report ---
CT OF THE ABDOMEN AND PELVIS WITHOUT CONTRAST CLINICAL HISTORY: AMS, hypotension. 12.8x6.4cm perinephric hematoma COMPARISON STUDY: CT of the abdomen and pelvis January 02, 2019. TECHNIQUE: Axial images of the abdomen and pelvis were obtained without IV contrast. Images were revi ewed in the axial, sagittal, and coronal planes. Automated exposure control was utilized for the debby dy. A dose lowering technique was utilized adhering to the principles of ALARA. FINDINGS: A small left pleural effusion with associated atelectasis is similar to CT of January 02. Evaluation of the abdomen and pelvis is suboptimal on this unenhanced exam. There are gallstones within the gallbladder without evidence for acute cholecystitis. Granulomas within the liver and sple en are noted. There is no biliary or pancreatic ductal dilatation. A left ureteral stent is in place. There is mild dilatation of the left ureter. No ureteral calculi are identified. Large left subcapsu lar fluid collection has increased in size since CT of January 02, 2019. This now measures 12.2 x 9.3 x 13.7 cm. It previously measured 11.5 x 7.6 x 12.2 cm. A component extends along the lateral aspect of the left psoas. Mild adjacent infiltration is unchanged. Minimal nondependent low-attenuation mate rial within this collection is noted. The attenuation of this collection has decreased since prior CT . The right kidney is surgically absent. Minimal presacral infiltration is noted. Is no evidence for a bowel obstruction. There are no suspicious osseous lesions. IMPRESSION: 1. Mild increase in size of a large left renal subcapsular fluid collection since CT of January 02. Attenuation of this evolving hematoma has decreased. Minimal nondependent low-attenuation materia l within this collection could reflect trace gas or fat and an infected hematoma cannot be excluded. Increase in size of the small associated fluid collection along the lateral aspect of the left psoas muscle. Stable mild adjacent infiltration. The findings could be correlated with clinical evidence fo r an infectious process. 2. Left ureteral stent in place with mild ureteral dilatation. No ureteral calculi. 3. Small left pleural effusion. 4. Cholelithiasis without evidence for acute cholecystitis. Electronically signed by: Prakash Bee M.D. 01/30/2019 3:13 PM
[2019-01-30 15:23] LABS: Bilirubin Urine Negative (Negative); Ictotest Urine Negative (Negative)
--- NOTE | 2019-01-30 15:37 | XRay Report ---
XR chest 1V portable HISTORY: 89 years-old Male weakness, AMS acute weakness with altered mental status COMPARISON: Chest radiograph 01/02/2019 TECHNIQUE: Portable AP view of the chest FINDINGS: Cardiac silhouette is enlarged, unchanged. Prior median sternotomy. Calcified plaque of the thoracic aortic arch. A right pectoral dual lumen hemodialysis catheter is noted with distal tip terminating i n the expected location of the right atrium. No pneumothorax. Calcified granuloma of the lateral righ t lung base. Ill-defined left lung base opacities with blunting of left costophrenic angle appears un changed. No overt pulmonary edema. Degenerative changes of the shoulders and spine. IMPRESSION: 1. Cardiomegaly without overt pulmonary edema. 2. Persistent left lung base opacities suggestive of atelectasis or pneumonia with probable trace lef t pleural effusion. The above report was generated using voice recognition software. It may contain grammatical, syntax o r spelling errors. Electronically signed by: Rock Mckeon M.D. 01/30/2019 3:36 PM
--- NOTE | 2019-01-30 18:30 | History & Physical Report ---
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 fib not on anticoagulation as per patient/family wishes, hypertension, hyperlipidemia, recurrent urothelial carcinoma (initially R collecting system 1990s w/ recent recurrence later noted L collecting system last 08/2018) s/p surgery and ongoing immunotherapy, chronic anemia, DM II, recent left renal subcapsular fluid collection and hematoma presented to ER from [facility] for altered mental status. Patient with recent hospitalization at [facility] and transferred to [facility] for left renal subcapsular fluid collection and hematoma with questionable surrounding infection. Reported while at [facility] no IR intervention required and patient was treated with Zosyn and doxycycline. In ER patient afebrile, P: 147, BP: 90/51, RR: 28, 94% on room air. Patient received 1 L NSS bolus then ran out 125 mL/h, daptomycin, Zosyn. Patient vitals improved to pulse varying low 100s to 120, RR: 20, BP: 105/53 WBC: 16, POC lactic acid: 3.6. UA: 3+nitrite, >30 WBC, >30 RBC CXR: Cardiomegaly without overt pulmonary edema. Persistent left lung base opacities suggestive of atelectasis or pneumonia with probable trace left pleural effusion. CT ABD/PELVIS: 1. Mild increase in size of a large left renal subcapsular fluid collection since CT of January 02, 2019. Attenuation of this evolving hematoma has decreased. Minimal nondependent low-attenuation material within this collection could reflect trace gas or fat and an infected hematoma cannot be excluded. Increase in size of the small associated fluid collection along the lateral aspect of the left psoas muscle. Stable mild adjacent infiltration. The findings could be correlated with clinical evidence for an infectious process. 2. Left ureteral stent in place with mild ureteral dilatation. No ureteral calculi. 3. Small left pleural effusion. DDX: sepsis secondary to UTI vs infected hematoma -Pending urine culture -Blood cultures -trend lactic acid -Zosyn, daptomycin -Will hold on further IVF currently secondary to improved BP and patient with ES RD on HD -Spoke with urology Dr Kaur - She reports will be out of town this weekend and suggests pt to be seen by his urologist in [place] -Spoke with Dr Milly Maldonado at [facility] who is tongue and groove machine feeder for pt's urologist Dr Linn to discuss case and CT abd/pelvis findings and discussed that we will not have urology coverage this weekend. Dr Maldonado states that pt does not currently except patient as states nothing would be different in the initial 24- hour hospital course and recommends antibiotics for 24 hours and if patient is not improving clinically or any worsening to call her back as she is tongue and groove machine feeder all weekend to further discuss case. Phone number: -LI consult -monitor CBC, BMP (2) Metabolic encephalopathy: Pt with altered mental status in setting of sepsis CT HEAD: No acute intracranial abnormality or calvarial fracture. -hold Seroquel tonight -monitor (3) Atrial fibrillation with rapid ventricular response: H/O a-fib not on anticoagulation secondary to pt and family wishes Recent atrial fibrillation RVR requiring Cardizem drip during hospitalization at [facility]. Recent echo 12/2018: EF 50% In ER initial pulse 147 down to low 100s after 1 L NSS -Continue metoprolol succinate p.o. -Lopressor IV as needed HR>120 -Cardiology consult (4) Hypotension: Reported noted hypotension while at rehab and is reported patient's BP meds have been discontinued In ER BP: 90/51 up to 105/53 after 1L NSS bolus -Monitor BP -Hold on additional IVF at this time since ESRD on HD (5) 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: Had MARI during recent hospitalization. Patient was started on hemodialysis during hospitalization at [facility] On HD on MWF schedule Had HD today on 01/30/19 -Nephrology consult (6) CAD (coronary artery disease): Follow troponin -Continue metoprolol -Hold statin while on (7) Diabetes mellitus, type II: A1c: 7.3 on 12/2018 -Continue Lantus 6 units HS -NovoLog sliding scale per protocol DVT Prophylaxis -SCDs Full Code as per discussion with pt's Follows with Dr Real for routine care Pt was seen and care coordinated with Dr Sibley. 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 fib not on anticoagulation as per patient/family wishes, hypertension, hyperlipidemia, recurrent urothelial carcinoma (initially R collecting system 1990s w/ recent recurrence later noted L collecting system last 08/2018) s/p surgery and ongoing immunotherapy, chronic anemia, DM II, recent left renal subcapsular fluid collection and hematoma presented to ER from [facility] for altered mental status. History obtained from and previous inpatient and outpatient record review. patient with recent hospitalization at [facility] and transferred to [facility] for left renal subcapsular fluid collection and hematoma with question surrounding infection. Reported while at [facility] no IR intervention required and patient was treated with Zosyn and doxycycline. It is reported that patient developed atrial fibrillation RVR requiring Cardizem drip. Had MARI. Patient was started on hemodialysis. Patient was discharged to [facility]. There it is reported that patient has been having hypotension and some of his BP medications have been altered. Reported SBP in the 90s and pt was started on midodrine. Reported that patient had a fall yesterday and hit his head and reported since patient has had altered mental status. Had dialysis today. Reports patient still makes urine and has been urinating past several days. Patient's reports has had intermittent altered mental status with neuro sepsis in the past. She states while patient has been in rehab he has "not been as sharp as he was previously" however was alert and oriented. Unsure if there has been a cough or fevers. Unsure when last BM. In ER patient afebrile, P: 147, BP: 90/51, RR: 28, 94% on room air. Patient received 1 L NSS bolus then ran out 125 mL/h, daptomycin, Zosyn. Patient vitals improved to pulse varying low 100s to 120, RR: 20, BP: 105/53 Allergies Allergy/AdvReac Type Severity Reaction Status Date / Time erythromycin base AdvReac Mild upset Verified 01/30/19 16:32 stomach BCG (Bacillus AdvReac PAINFUL Verified 01/30/19 16:32 [place]) vacc Home Medications Home Medications Medication Instructions Recorded Confirmed Type atorvastatin 80 mg PO PM 01/30/19 01/30/19 History cholecalciferol (vitamin D3) 2,000 unit PO HS 01/30/19 01/30/19 History [Vitamin D3] famotidine [Pepcid] 20 mg PO UD 01/30/19 01/30/19 History insulin aspart U-100 [Novolog 1 sliding scale dose SUBCUT 01/30/19 01/30/19 History U-100 Insulin aspart] USEASDIRECTD insulin glargine [Lantus U-100 6 unit SUBCUT HS 01/30/19 01/30/19 History Insulin] ipratropium-albuterol 3 ml INHALATION QID PRN 01/30/19 01/30/19 History metoprolol succinate 50 mg PO DAILY 01/30/19 01/30/19 History midodrine 5 mg PO TID 01/30/19 01/30/19 History quetiapine [Seroquel] 12.5 mg PO HS 01/30/19 01/30/19 History sevelamer HCl 800 mg PO DAILY 01/30/19 01/30/19 History tamsulosin 0.4 mg PO HS 01/30/19 01/30/19 History umeclidinium [Incruse Ellipta] 1 inh INHALATION DAILY 01/30/19 01/30/19 History Past Med/Surg History Medical History Coronary artery disease (Chronic) "s/p CABG 2006" History of bladder carcinoma (Chronic) History of prostate cancer (Chronic) History of renal cell carcinoma (Chronic) Hypertension (Chronic) BPH (benign prostatic hyperplasia) (Chronic) Diverticular disease of colon (Chronic) Dyslipidemia (Chronic) Asthma (Chronic) CHF (congestive heart failure) Cancer of ureter Diabetes Hematoma of kidney Hypotension Surgical History Status post cardiac catheterization (Chronic) "01/13/2010 [facility]: 60-70% stenosis left main 100% occlusion RCA severe proximal disease diagonal patent MENDOZA to LAD and SVG's to RCA and circ" Status post cataract extraction (Chronic) Status post coronary artery bypass grafting (Chronic) "2006 [place]: MENDOZA-LAD, SVG-RCA, SVG-circ" Status post nephrectomy (Chronic) "[facility] 2013 renal Ca" Status post appendectomy (Chronic) Hx of CABG Family History Other Coronary heart disease Social History Preferred Language: [place] Communication Ability: Effective Blog Writer Required: No Beliefs That Will Affect Care: None Current Living Situation: Spouse Feels Safe at Home: Yes Smoking Status: Unknown if ever smoked Hx Alcohol Use: No Hx Substance Use: No Review of Systems Review of Systems: Unobtainable due to cognitive status Physical Exam Physical Exam: General: lethargic, pleasantly confused, WDWN Head: normocephalic, atraumatic Eyes: PERRL, EOM's intact, conjunctiva non-injected, anicteric ENT: normal inspection external ears, nose, mucous membranes moist Neck: supple, trachea midline Lungs: clear, no respiratory distress, no wheezing/rhonchi/rales CV: RRR, no murmur, no pretibial edema Abd: normal BS, soft, non-tender Ext: no cyanosis, no calf tenderness Neuro: Alert but lethargic, oriented to self and knows , knows in hospital but does know location, not oriented to year however knows the president. Skin: warm, dry Results & Data Vital Signs (Past 12 Hours) Vital Signs Temp Pulse Pulse Resp BP BP Pulse Ox 01/30/19 16:48 121 H 105/53 L 01/30/19 16:34 120 H 18 97/59 L 96 01/30/19 15:38 110 H 20 90/52 L 95 01/30/19 14:24 95 01/30/19 13:55 36.5 C 147 H 28 H 90/51 L 94 Laboratory Results Short CBC 01/30/19 Range/Units 14:10 WBC 16.81 H (4.8-10.8) K/uL Hgb 9.3 L (14.0-18.0) g/dL Hct 28.9 L (42-52) % Plt Count 235 (130-400) K/uL BMP 01/30/19 14:10 Sodium 136 Potassium 3.3 L Chloride 97 L Carbon Dioxide 29 BUN 15 Creatinine 1.99 H Glucose 145 H Calcium 8.3 L Cardiac Enzymes 01/30/19 Range/Units 14:10 Total Creatine Kinase 66 (39-308) U/L Liver Function 01/30/19 Range/Units 14:10 Total Bilirubin 0.6 (0.2-1) mg/dl AST 40 H (15-37) U/L ALT 39 (12-78) U/L Alkaline Phosphatase 144 H (45-117) U/L Albumin 2.1 L (3.4-5.0) gm/dl Urine 01/30/19 Range/Units 15:00 Urine Color [place] Urine Appearance Turbid A (Clear) Urine pH 5.0 (4.5-7.5) Ur Specific [place] 1.019 (1.000-1.030) Urine Protein 2+ H (Negative) Urine Glucose (UA) Negative (Negative) Diagnostic Findings CXR: IMPRESSION: 1. Cardiomegaly without overt pulmonary edema. 2. Persistent left lung base opacities suggestive of atelectasis or pneumonia with probable trace left pleural effusion. CT HEAD: IMPRESSION: No acute intracranial abnormality or calvarial fracture. CT ABD/PELVIS: IMPRESSION: 1. Mild increase in size of a large left renal subcapsular fluid collection since CT of January 02, 2019. Attenuation of this evolving hematoma has decreased. Minimal nondependent low-attenuation material within this collection could reflect trace gas or fat and an infected hematoma cannot be excluded. Increase in size of the small associated fluid collection along the lateral aspect of the left psoas muscle. Stable mild adjacent infiltration. The findings could be correlated with clinical evidence for an infectious process. 2. Left ureteral stent in place with mild ureteral dilatation. No ureteral calculi. 3. Small left pleural effusion. 4. Cholelithiasis without evidence for acute cholecystitis. Code Status & VTE Plan VTE Prophylaxis Plan VTE Prophylaxis will be ordered: Yes Supervising Physician Co-Signing Physician Notes I saw this patient with the physician assistant coach, I participated in the history, physical, review of systems, and physical exam. I reviewed the medications with the patient and the physician assistant coach and helped reconcile the medications. I helped take a detailed family and social history as well. I formulated the assessment and plan personally with the physician assistant coach and went over it with the patient. ROS-Offered no reliable history Physical Exam Gen-AAO x 1, NAD, Afebrile, Altered Head-NCAT, EOMI, PERRLA, Anicteric Sclera, No Posterior Pharyngeal Erythema Neck-Supple, No JVD, No Thyromegaly, No Masses, No LAD, No Bruits Lungs-Clear to Auscultation Bilaterally, No Rales, No Rhonchi, No Wheezing, No Crepitus Chest-No S4, +S1, +S2, No S3, No Murmurs, No Rubs, No Gallops, No Ectopy Abdomen-Soft, Bowel Sounds Present, Non Tender, Non Distended, No Hepatomegaly, No Splenomegaly, No Palpable Masses, No Rebound, No Rigidity, No Guarding Musculoskeletal-Full Range of Motion Bilaterally, No CVAT Extremities-No Cyanosis, No Clubbing, No Edema Nuero-Cranial Nerves II-XII grossly intact, Motor WNL, DTRs WNL, Strength WNL, Non Focal Psych-Altered (1) Sepsis Sepsis acute organ dysfunction status: unspecified Sepsis type: sepsis due to unspecified organism Qualified Code(s): A41.9 - Sepsis, unspecified organism
[2019-01-30] MEDS ORDERED: SODIUM CHLORIDE 0.9% 1000ML 500 ML IV ONE (19:20)
[2019-01-30] MEDS ORDERED: GLUCOSE 40% GEL 15 GM TUBE PO PRN (20:35)
[2019-01-30] MEDS ORDERED: GLUCOSE 10 TABS/TUBE PO PRN (20:35)
[2019-01-30] MEDS ORDERED: ALBUT/IPRATROP 3MG/0.5MG NEB 3 ML VIAL INH PRN (20:35)
[2019-01-30] MEDS ORDERED: METOPROLOL TARTRATE 1 MG/ML VIAL IV PRN (20:35)
[2019-01-30] MEDS ORDERED: CARBOHYDRATES FOR HYPOGLYCEMIA PO PRN (20:35)
[2019-01-30] MEDS ORDERED: DEXTROSE 50% 50 ML SYRINGE IV PRN (20:35)
[2019-01-30] MEDS ORDERED: GLUCAGON FOR INJ 1 MG VIAL SQ PRN (20:35)
[2019-01-30] MEDS ORDERED: ACETAMINOPHEN 325 MG TAB PO PRN (20:35)
[2019-01-30] MEDS ORDERED: DAPTOMYCIN CONSULT ACTIVE PRN (21:09)
[2019-01-30] MEDS: INSULIN ASPART 100 UNITS/ML 3 ML PEN SC SCH (21:45)
[2019-01-30] MEDS: TAMSULOSIN HCL 0.4 MG CAP PO SCH (21:46)
[2019-01-30] MEDS: INSULIN GLARGINE SOLOSTAR 100 UNITS/ML 3 ML PEN SQ SCH (21:47)
[2019-01-30] MEDS: PIPERACILLIN/TAZOBACTAM 3.375 GM in DEXTROSE 5% 100 ML IV SCH (21:47)
--- NOTE | 2019-01-30 22:40 | Emergency Department Note ---
Entered by Malathi Lr acting as a scribe for ED Provider Note CHIEF COMPLAINT: Altered mental status HISTORY OF PRESENT ILLNESS: The patient is a 89 year old male who presents to the Emergency Room with complaints of altered mental status that started 1 day ago. Per son, the patient fell yesterday and has been altered ever since. The patient son states that he does not believe the patient suffered any injuries from the fall. Per son, the patient was recently hospitalized for 3 weeks at [facility] for kidney issues. The patients son states that he visited the patient at dialysis this morning, and he seemed more lethargic than usual. Per son, the patent has a history of syncope secondary to low blood pressure. The patient's son states that he does not believe the patient has had a fever. History limited secondary to altered mental status. Records were reviewed and it appears that the patient has a 12.5 x 6.5 cm perinephric hematoma. REVIEW OF SYSTEMS: See HPI for pertinent positives and negatives. HPI and ROS limited secondary to altered mental status. PMHx/PSHx: Hypotension, cancer of ureter, CHF, CABG, coronary artery disease, hematoma of kidney. SOCIAL HISTORY: Patient lives at home. PHYSICAL EXAM: GENERAL: Awake, sleepy, somewhat arousable well-appearing, in no distress HENT: Normocephalic, atraumatic. Oropharynx unremarkable. EYES: PERRL. Normal conjunctiva. Sclera non-icteric. NECK: Inspection normal. Non-tender. Supple. No nuchal rigidity. FROM. No ma sses. RESPIRATORY: Clear to auscultation. No wheezes. No rales. Normal respiratory effort. CARDIAC: Tachycardic rate. Irregular rhythm. No murmurs. No rubs. Extremities warm and well perfused. Pulses equal. No JVD. GI: Soft, non-distended. No tenderness to palpation. No rebound or guarding. No masses. RECTAL: Deferred. MUSCULOSKELETAL: Dialysis catheter in right upper chest. Atraumatic. Chest examination reveals no tenderness. The back is symmetrical on inspection without obvious abnormality. There is no CVA tenderness to palpation. No joint edema. LOWER EXTREMITIES: 1+ lower extremity edema. Calves are equal size bilaterally and non-tender. No discoloration. NEURO: Sensorium altered. No sensory or motor deficits noted. SKIN: No rash or jaundice noted EMERGENCY DEPARTMENT COURSE: 1403: Past medical records reviewed. The patient was evaluated in room A3, and a complete history and physical examination were performed. 1447: I was updated and made aware that the patient has an elevated lactate 1507: I updated the patient on the test results. I paged the [facility] Hospitalist. 1534: I discussed the patient's case with Luzma Lama PA-C[facility] the [facility] for further management. 1548: I updated the patient on the plan. He verbally agrees and understands. 1614: I discussed the patient's case with Dr. Maldonado- Urology. She recommends giving the patient antibiotics. She states that the patient can stay here, but recommends transfer if his condition worsens. 1658: I spoke with Dr. Cullen who is the doctor currently treating the patient's medical conditions at [facility]. She updated me about the patient's past few days with her and told me that she is computer operations supervisor all weekend if we need to contact her. MEDICAL DECISION MAKING: Prior records/ancillary studies reviewed and summarized above. Nursing notes reviewed and agree them. Additional history obtained from family and treating provider at [facility]. The patient's history was concerning for altered mental status. Differential diagnosis: Etiologies such as infection, hypoglycemia, electrolyte abnormalities, cardiac sources, intracerebral event, toxicologic, neurologic, as well as others were entertained. Physical examination: As above. Altered mental status. ER treatment provided: IV Lock Normal saline hydration with normal saline. Bolus of 250 mL and then 125 mL an hour IV. Additional bolus of 1000 mL and 500 mL given. IV Zosyn IV daptomycin On reassessment the patient felt better. He was still confused but was more awake and alert. Diagnostics interpretation by me: ECG: No acute ischemia. The labs revealed a significant leukocytosis of 16,000. Chemistry panel did show some renal insufficiency consistent with baseline. Urinalysis concerning for infection. First lactate elevated over 3. Repeat lactate after fluids and antibiotics was much improved down to 1.4. Blood and urine cultures pending. Imaging studies: CT scan of the head was performed and was negative. Chest x-ray shows some basilar atelectasis/consolidation CT scan of the abdomen and pelvis reveal a slightly enlarged and involving left perinephric hematoma. Radiology raise some concern about infection present. Consultation: I did consult with the hospitalist service. Given his findings they asked that [facility] be contacted. I did discuss the case with Dr. Maldonado. Diagnostics, history and presentation reviewed. She agreed with IV antibiotics and felt that that was the most appropriate aspect for treatment and that he could remain here at this facility. She is available all weekend if transfer is necessary. I did discuss the case with the [facility] hospitalist team about the consult and recommendation. They evaluated the patient in the emergency department for further care. IMPRESSION: Sepsis, metabolic encephalopathy, left perinephric hematoma, lactic acidosis, leukocytosis, anemia. PLAN: Being evaluated by Hospitalist CRITICAL CARE: I have personally spent 40 minutes of critical care time in the direct management of this patient. This includes bedside care, interpretation of diagnostic studies, and testing, discussion with consultants, and family members, and other required patient management activities. This 40 minutes is in excess of all separately billable procedures. The scribe's documentation has been prepared under my direction and personally reviewed by me in its entirety. I confirm that the note above accurately reflects all work, treatment, procedures, and medical decision making performed by me. Impression & Plan Sepsis, Metabolic encephalopathy, Perinephric hematoma, Lactic acidosis, L eukocytosis, Anemia Past Med/Surg History Medical History Coronary artery disease (Chronic) "s/p CABG 2006" History of bladder carcinoma (Chronic) History of prostate cancer (Chronic) History of renal cell carcinoma (Chronic) Hypertension (Chronic) BPH (benign prostatic hyperplasia) (Chronic) Diverticular disease of colon (Chronic) Dyslipidemia (Chronic) Asthma (Chronic) CHF (congestive heart failure) Cancer of ureter Diabetes Hematoma of kidney Hypotension Surgical History Status post cardiac catheterization (Chronic) "01/13/2010 [facility] [place]: 60-70% stenosis left main 100% occlusion RCA severe proximal disease diagonal patent MENDOZA to LAD and SVG's to RCA and circ" Status post cataract extraction (Chronic) Status post coronary artery bypass grafting (Chronic) "2006 [place]: MENDOZA-LAD, SVG-RCA, SVG-circ" Status post nephrectomy (Chronic) "[facility] ~ 2013 renal Ca" Status post appendectomy (Chronic) Hx of CABG Family History Other Coronary heart disease Social History Preferred Language: Divehi Communication Ability: Effective Multifocal Button Grinder Required: No Beliefs That Will Affect Care: None Current Living Situation: Rehab Other Information That Helps Us Care for You: No Feels Safe at Home: Yes Safety Concerns: Feels Safe At This Time Smoking Status: Former smoker Tobacco Type: cigarettes ; Second Hand Exposure: No ; Hx Alcohol Use: No Hx Substance Use: No Results & Data Vital Signs Vital Signs - 24 hr 01/30/19 13:55 01/30/19 14:24 01/30/19 15:38 Temperature 36.5 C Temperature Source Oral Sepsis Recent Fever Within 48 Hours No Sepsis New/Unexplained Change in Mental Status Yes Sepsis Action Taken by Nursing No Action Required Pulse Rate 147 H Pulse Rate [Right Finger] 110 H Pulse Rhythm Irregular Pulse Rhythm [Right Finger] Pulse Strength Normal Pulse Strength [Right Finger] Normal Respiratory Rate 28 H 20 Respiratory Effort / Characteristics Non-Labored Spontaneous Non-Labored Spontaneous Respiratory Depth Normal Normal Respiratory Pattern Regular Tachypnea Regular Blood Pressure 90/51 L Blood Pressure [Right Arm] 90/52 L Blood Pressure Mean 64 Blood Pressure Mean [Right Arm] 64 Blood Pressure Position Sitting Blood Pressure Position [Right Arm] Lying Pulse Oximetry 94 95 95 Oxygen Delivery Method Room Air Room Air Room Air 01/30/19 16:34 01/30/19 16:48 Temperature Temperature Source Sepsis Recent Fever Within 48 Hours Sepsis New/Unexplained Change in Mental Status Sepsis Action Taken by Nursing Pulse Rate Pulse Rate [Right Finger] 120 H 121 H Pulse Rhythm Pulse Rhythm [Right Finger] Regular Pulse Strength Pulse Strength [Right Finger] Normal Respiratory Rate 18 Respiratory Effort / Characteristics Non-Labored Spontaneous Respiratory Depth Normal Respiratory Pattern Regular Blood Pressure Blood Pressure [Right Arm] 97/59 L 105/53 L Blood Pressure Mean Blood Pressure Mean [Right Arm] 71 70 Blood Pressure Position Blood Pressure Position [Right Arm] Lying Lying Pulse Oximetry 96 Oxygen Delivery Method Room Air Home Medications Current Medication List: was personally reviewed by me Laboratory Data Attestation: I reviewed the patient's lab results. Result diagrams: 01/30/19 14:10 01/30/19 14:10 Lab Results 01/30/19 01/30/19 01/30/19 Range/Units 14:10 14:10 14:10 WBC 16.81 H (4.8-10.8) K/uL RBC 3.26 L (4.7-6.1) M/uL Hgb 9.3 L (14.0-18.0) g/dL POC Hgb (14.0-18.0) g/dl Hct 28.9 L (42-52) % POC Hct (42-52) % MCV 88.7 (80-100) fL MCH 28.5 (25-34) pg MCHC 32.2 (32-36) g/dL RDW Std Deviation 49.1 H (36.4-46.3) fL RDW Coeff of Froilan 15.1 H (11.5-14.5) % Plt Count 235 (130-400) K/uL MPV 10.8 H (7.4-10.4) fL Neutrophils % (Manual) 95.7 % Lymphocytes % (Manual) 2.6 % Monocytes % (Manual) 1.7 % Neutrophils # (Manual) 16.09 H (1.4-6.5) K/uL Total Absolute Neuts 16.09 H (1.4-6.5) K/uL Lymphocytes # (Manual) 0.44 L (1.2-3.4) K/uL Total Abs Lymphocytes 0.44 L (1.2-3.4) K/uL Monocytes # (Manual) 0.29 (0.11-0.59) K/uL Platelet Estimate Normal (Normal) Tear Drop Cells 1+ Ovalocytes 1+ PT 11.6 (9.0-12.0) Seconds INR 1.1 (0.9-1.1) POC Sodium (135-144) mEq/L Sodium 136 (136-145) mmol/L POC Potassium (3.3-5.0) mEq/L Potassium 3.3 L (3.5-5.1) mmol/L POC Chloride (101-112) mEq/L Chloride 97 L (98-107) mmol/L Carbon Dioxide 29 (21-32) mmol/L POC Total CO2 (24-31) mEq/l Anion Gap 10.0 (3-11) POC Anion Gap (16-25) mmol/L POC BUN (7-18) mg/dl BUN 15 (7-18) mg/dl Creatinine 1.99 H (0.6-1.4) mg/dl POC Creatinine (0.6-1.3) mg/dl Est Cr Clr Drug Dosing 26.2 ml/min Est GFR ( Amer) 34.0 Est GFR (Non-Af Amer) 29.3 BUN/Creatinine Ratio 7.6 L (10-20) Glucose 145 H (70-99) mg/dl POC Glucose (other) (70-99) mg/dl POC Lactic Acid Tristen (0.90-1.70) mmol/L Calcium 8.3 L (8.5-10.1) mg/dl POC Ioniz Calcium Anette (1.12-1.32) mmol/l Magnesium 1.9 (1.8-2.4) mg/dl Total Bilirubin 0.6 (0.2-1) mg/dl AST 40 H (15-37) U/L ALT 39 (12-78) U/L Alkaline Phosphatase 144 H (45-117) U/L Total Creatine Kinase 66 (39-308) U/L Total Protein 5.9 L (6.4-8.2) gm/dl Albumin 2.1 L (3.4-5.0) gm/dl Globulin 3.8 (2.5-4.0) gm/dl Albumin/Globulin Ratio 0.6 L (0.9-2) TSH 1.420 (0.300-4.500) uIu/ml Urine Color Urine Appearance (Clear) Urine pH (4.5-7.5) Ur Specific [place] (1.000-1.030) Urine Protein (Negative) Urine Glucose (UA) (Negative) Urine Ketones (Negative) Urine Blood (Negative) Urine Nitrite (Negative) Urine Bilirubin (Negative) Urine Urobilinogen (Negative) Ur Leukocyte Esterase (Negative) Urine WBC (Auto) (0-5) /hpf Urine RBC (Auto) (0-4) /hpf U Hyaline Cast (Auto) (0-5) /lpf U Epithel Cells (Auto) (0-5) /lpf Urine Bacteria (Auto) (Negative) Blood Type Antibody Screen 09/27/19 09/27/19 09/27/19 Range/Units 14:11 14:38 14:42 WBC (4.8-10.8) K/uL RBC (4.7-6.1) M/uL Hgb (14.0-18.0) g/dL POC Hgb 9.2 L (14.0-18.0) g/dl Hct (42-52) % POC Hct 27 L (42-52) % MCV (80-100) fL MCH (25-34) pg MCHC (32-36) g/dL RDW Std Deviation (36.4-46.3) fL RDW Coeff of Froilan (11.5-14.5) % Plt Count (130-400) K/uL MPV (7.4-10.4) fL Neutrophils % (Manual) % Lymphocytes % (Manual) % Monocytes % (Manual) % Neutrophils # (Manual) (1.4-6.5) K/uL Total Absolute Neuts (1.4-6.5) K/uL Lymphocytes # (Manual) (1.2-3.4) K/uL Total Abs Lymphocytes (1.2-3.4) K/uL Monocytes # (Manual) (0.11-0.59) K/uL Platelet Estimate (Normal) Tear Drop Cells Ovalocytes PT (9.0-12.0) Seconds INR (0.9-1.1) POC Sodium 135 (135-144) mEq/L Sodium (136-145) mmol/L POC Potassium 3.3 (3.3-5.0) mEq/L Potassium (3.5-5.1) mmol/L POC Chloride 93 L (101-112) mEq/L Chloride (98-107) mmol/L Carbon Dioxide (21-32) mmol/L POC Total CO2 31 (24-31) mEq/l Anion Gap (3-11) POC Anion Gap 14.0 L (16-25) mmol/L POC BUN 13 (7-18) mg/dl BUN (7-18) mg/dl Creatinine (0.6-1.4) mg/dl POC Creatinine 2.0 H (0.6-1.3) mg/dl Est Cr Clr Drug Dosing ml/min Est GFR ( Amer) Est GFR (Non-Af Amer) BUN/Creatinine Ratio (10-20) Glucose (70-99) mg/dl POC Glucose (other) 144 H (70-99) mg/dl POC Lactic Acid Tristen 3.62 H (0.90-1.70) mmol/L Calcium (8.5-10.1) mg/dl POC Ioniz Calcium Anette 1.03 L (1.12-1.32) mmol/l Magnesium (1.8-2.4) mg/dl Total Bilirubin (0.2-1) mg/dl AST (15-37) U/L ALT (12-78) U/L Alkaline Phosphatase (45-117) U/L Total Creatine Kinase (39-308) U/L Total Protein (6.4-8.2) gm/dl Albumin (3.4-5.0) gm/dl Globulin (2.5-4.0) gm/dl Albumin/Globulin Ratio (0.9-2) TSH (0.300-4.500) uIu/ml Urine Color Urine Appearance (Clear) Urine pH (4.5-7.5) Ur Specific [place] (1.000-1.030) Urine Protein (Negative) Urine Glucose (UA) (Negative) Urine Ketones (Negative) Urine Blood (Negative) Urine Nitrite (Negative) Urine Bilirubin (Negative) Urine Urobilinogen (Negative) Ur Leukocyte Esterase (Negative) Urine WBC (Auto) (0-5) /hpf Urine RBC (Auto) (0-4) /hpf U Hyaline Cast (Auto) (0-5) /lpf U Epithel Cells (Auto) (0-5) /lpf Urine Bacteria (Auto) (Negative) Blood Type O Positive Antibody Screen NEGATIVE 01/30/19 Range/Units 15:00 WBC (4.8-10.8) K/uL RBC (4.7-6.1) M/uL Hgb (14.0-18.0) g/dL POC Hgb (14.0-18.0) g/dl Hct (42-52) % POC Hct (42-52) % MCV (80-100) fL MCH (25-34) pg MCHC (32-36) g/dL RDW Std Deviation (36.4-46.3) fL RDW Coeff of Froilan (11.5-14.5) % Plt Count (130-400) K/uL MPV (7.4-10.4) fL Neutrophils % (Manual) % Lymphocytes % (Manual) % Monocytes % (Manual) % Neutrophils # (Manual) (1.4-6.5) K/uL Total Absolute Neuts (1.4-6.5) K/uL Lymphocytes # (Manual) (1.2-3.4) K/uL Total Abs Lymphocytes (1.2-3.4) K/uL Monocytes # (Manual) (0.11-0.59) K/uL Platelet Estimate (Normal) Tear Drop Cells Ovalocytes PT (9.0-12.0) Seconds INR (0.9-1.1) POC Sodium (135-144) mEq/L Sodium (136-145) mmol/L POC Potassium (3.3-5.0) mEq/L Potassium (3.5-5.1) mmol/L POC Chloride (101-112) mEq/L Chloride (98-107) mmol/L Carbon Dioxide (21-32) mmol/L POC Total CO2 (24-31) mEq/l Anion Gap (3-11) POC Anion Gap (16-25) mmol/L POC BUN (7-18) mg/dl BUN (7-18) mg/dl Creatinine (0.6-1.4) mg/dl POC Creatinine (0.6-1.3) mg/dl Est Cr Clr Drug Dosing ml/min Est GFR ( Amer) Est GFR (Non-Af Amer) BUN/Creatinine Ratio (10-20) Glucose (70-99) mg/dl POC Glucose (other) (70-99) mg/dl POC Lactic Acid Tristen (0.90-1.70) mmol/L Calcium (8.5-10.1) mg/dl POC Ioniz Calcium Anette (1.12-1.32) mmol/l Magnesium (1.8-2.4) mg/dl Total Bilirubin (0.2-1) mg/dl AST (15-37) U/L ALT (12-78) U/L Alkaline Phosphatase (45-117) U/L Total Creatine Kinase (39-308) U/L Total Protein (6.4-8.2) gm/dl Albumin (3.4-5.0) gm/dl Globulin (2.5-4.0) gm/dl Albumin/Globulin Ratio (0.9-2) TSH (0.300-4.500) uIu/ml Urine Color Bond Urine Appearance Turbid A (Clear) Urine pH 5.0 (4.5-7.5) Ur Specific [place] 1.019 (1.000-1.030) Urine Protein 2+ H (Negative) Urine Glucose (UA) Negative (Negative) Urine Ketones Trace H (Negative) Urine Blood 3+ H (Negative) Urine Nitrite Positive A (Negative) Urine Bilirubin Negative (Negative) Urine Urobilinogen Negative (Negative) Ur Leukocyte Esterase 3+ H (Negative) Urine WBC (Auto) >30 H (0-5) /hpf Urine RBC (Auto) >30 H (0-4) /hpf U Hyaline Cast (Auto) 1-5 (0-5) /lpf U Epithel Cells (Auto) 0-5 (0-5) /lpf Urine Bacteria (Auto) Negative (Negative) Blood Type Antibody Screen Administered Medications Piperacillin Sod/Tazobactam (Sod 3.375 gm/ Dextrose) 115 mls @ 28.75 mls/hr IV Q12H ULISES; Protocol Stop: 02/09/19 21:59 Last Admin: 01/30/19 21:47 Dose: 28.8 mls/hr Documented by: [id number] Insulin Aspart (Novolog Flexpen) 0 units SC ACHS ULISES Stop: 03/01/19 20:59 Last Admin: 01/30/19 21:45 Dose: Not Given Documented by: [id number] Cosigned by: [id number] Insulin Glargine (Lantus Solostar Pen) 6 units SQ HS ULISES Stop: 03/01/19 20:59 Last Admin: 01/30/19 21:47 Dose: 6 units Documented by: [id number] Cosigned by: [id number] Miscellaneous (Order Awaiting Action) 1 ea N/A QS ULISES Stop: 03/01/19 21:29 Last Admin: 01/30/19 21:50 Dose: Not Given Documented by: [id number] Admin: 01/30/19 21:50 Dose: Not Given Documented by: [id number] Tamsulosin HCl (Flomax) 0.4 mg PO HS ULISES Stop: 03/01/19 20:59 Last Admin: 01/30/19 21:46 Dose: Not Given Documented by: [id number] Discontinued Medications Sodium Chloride (Nss 1000ml) 250 mls @ 999 mls/hr IV .Q16M ONE Stop: 01/30/19 14:39 Last Infusion: 01/30/19 15:01 Dose: 0 mls/hr Documented by: [id number] Infusion: 01/30/19 14:45 Dose: 999 mls/hr Documented by: [id number] Infusion: 01/30/19 14:34 Dose: 0 mls/hr Documented by: [id number] Admin: 01/30/19 14:30 Dose: 999 mls/hr Documented by: [id number] Sodium Chloride (Nss 1000ml) 1,000 mls @ 125 mls/hr IV .Q8H ULISES Stop: 01/30/19 22:29 Last Infusion: 01/30/19 20:36 Dose: 0 mls/hr Documented by: [id number] Infusion: 01/30/19 19:25 Dose: 0 mls/hr Documented by: [id number] Admin: 01/30/19 15:48 Dose: 125 mls/hr Documented by: [id number] Piperacillin Sod/Tazobactam Sod (Zosyn) 4.5 gm in 120 mls @ 240 mls/hr IV NOW ONE Stop: 01/30/19 15:25 Last Infusion: 01/30/19 15:48 Dose: 0 mls/hr Documented by: [id number] Admin: 01/30/19 15:12 Dose: 240 mls/hr Documented by: [id number] Daptomycin 425 mg/ Syringe 8.5 mls @ 4.25 mls/min IV NOW ONE; Protocol Stop: 01/30/19 14:57 Last Admin: 01/30/19 15:51 Dose: 4.25 mls/min Documented by: [id number] Sodium Chloride (Nss 1000ml) 1,000 mls @ 999 mls/hr IV .Q1H1M ONE Stop: 01/30/19 15:56 Last Infusion: 01/30/19 16:37 Dose: 0 mls/hr Documented by: [id number] Admin: 01/30/19 15:12 Dose: 999 mls/hr Documented by: [id number] Sodium Chloride (Nss 1000ml) 500 mls @ 999 mls/hr IV .Q31M ONE Stop: 01/30/19 19:50 Last Infusion: 01/30/19 19:57 Dose: 0 mls/hr Documented by: [id number] Admin: 01/30/19 19:25 Dose: 999 mls/hr Documented by: [id number] Imaging Data Radiologist's Impression: Radiology results as stated below per my review and the radiologist's interpretation: CT head/brain wo con CLINICAL HISTORY: 89 years-old Male with Fall.AMS.. Acute fall with altered mental status TECHNIQUE: Multiple axial CT images of the head were obtained without contrast. A dose lowering technique was utilized adhering to the principles of ALARA. CT DOSE: 638.56 mGycm COMPARISON: Head CT 01/01/2019. FINDINGS: No acute intracranial hemorrhage, midline shift, intracranial mass, hydrocephalus, territorial ischemia or abnormal extra-axial collection. Age- related involutional changes. Patchy white matter hypodensities suggest chronic microvascular ischemic disease. The calvarium is intact. Prior bilateral maxillary antrostomy with partial ethmoid air cell resection. Unchanged ovoid sclerotic lesion about the right supraorbital frontal bone, 6 mm is likely benign. Prior bilateral cataract repair. IMPRESSION: No acute intracranial abnormality or calvarial fracture. The above report was generated using voice recognition software. It may contain grammatical, syntax or spelling errors. Electronically signed by: Rock Mckeon M.D. 01/30/2019 2:[address] OF THE ABDOMEN AND PELVIS WITHOUT CONTRAST CLINICAL HISTORY: AMS, hypotension. 12.8x6.4cm perinephric hematoma COMPARISON STUDY: CT of the abdomen and pelvis January 02, 2019. TECHNIQUE: Axial images of the abdomen and pelvis were obtained without IV contrast. Images were reviewed in the axial, sagittal, and coronal planes. Automated exposure control was utilized for the study. A dose lowering technique was utilized adhering to the principles of ALARA. FINDINGS: A small left pleural effusion with associated atelectasis is similar to CT of January 02, 2019. Evaluation of the abdomen and pelvis is suboptimal on this unenhanced exam. There are gallstones within the gallbladder without evidence for acute cholecystitis. Granulomas within the liver and spleen are not ed. There is no biliary or pancreatic ductal dilatation. A left ureteral stent is in place. There is mild dilatation of the left ureter. No ureteral calculi are identified. Large left subcapsular fluid collection has increased in size since CT of January 02, 2019. This now measures 12.2 x 9.3 x 13.7 cm. It previously measured 11.5 x 7.6 x 12.2 cm. A component extends along the lateral aspect of the left psoas. Mild adjacent infiltration is unchanged. Minimal nondependent low-attenuation material within this collection is noted. The attenuation of this collection has decreased since prior CT. The right kidney is surgically absent. Minimal presacral infiltration is noted. Is no evidence for a bowel obstruction. There are no suspicious osseous lesions. IMPRESSION: 1. Mild increase in size of a large left renal subcapsular fluid collection since CT of January 02, 2019. Attenuation of this evolving hematoma has decreased. Minimal nondependent low-attenuation material within this collection could reflect trace gas or fat and an infected hematoma cannot be excluded. Increase in size of the small associated fluid collection along the lateral aspect of the left psoas muscle. Stable mild adjacent infiltration. The findings could be correlated with clinical evidence for an infectious process. 2. Left ureteral stent in place with mild ureteral dilatation. No ureteral calculi. 3. Small left pleural effusion. 4. Cholelithiasis without evidence for acute cholecystitis. Electronically signed by: Prakash Bee M.D. 01/30/2019 3:13 PM XR chest 1V portable HISTORY: 89 years-old Male weakness, AMS acute weakness with altered mental status COMPARISON: Chest radiograph 01/02/2019 TECHNIQUE: Portable AP view of the chest FINDINGS: Cardiac silhouette is enlarged, unchanged. Prior median sternotomy. Calcified plaque of the thoracic aortic arch. A right pectoral dual lumen hemodialysis catheter is noted with distal tip terminating in the expected location of the right atrium. No pneumothorax. Calcified granuloma of the lateral right lung base. Ill-defined left lung base opacities with blunting of left costophrenic angle appears unchanged. No overt pulmonary edema. Degenerative changes of the shoulders and spine. IMPRESSION: 1. Cardiomegaly without overt pulmonary edema. 2. Persistent left lung base opacities suggestive of atelectasis or pneumonia with probable trace left pleural effusion. The above report was generated using voice recognition software. It may contain grammatical, syntax or spelling errors. Electronically signed by: Rock Mckeon M.D. 01/30/2019 3:36 PM ECG Data Attestation: I personally reviewed and interpreted this ECG as follows: Indication: altered mental status Rate (beats per minute): 131 Rhythm: atrial fibrillation (with RVR) Findings: + LAFB, + PVC and + RBBB; no ST elevation Blood Pressure Blood Pressure Findings: Low blood pressure Blood Pressure Disposition: further management by hospitalist Discharge Plan Visit Data *Final* Discharge Date/Time: 01/30/19 20:14 Chief Complaint: Altered Mental Status ED Provider: Samson Lopez Discharge Problem: Sepsis, Metabolic encephalopathy, Perinephric hematoma, Lactic acidosis, Leukocytosis, Anemia Patient Disposition: Admitted As Inpatient Discharge Instructions Interventions: ED Discharge Assessment Last Done: 01/30/19 20:14 Discharge Problem: Sepsis Qualifiers: Sepsis type: sepsis due to unspecified organism Sepsis acute organ dysfunction status: unspecified Qualified Code(s): A41.9 - Sepsis, unspecified organism Leukocytosis Qualifiers: Leukocytosis type: unspecified Qualified Code(s): D72.829 - Elevated white blood cell count, unspecified Anemia Qualifiers: Anemia type: unspecified type Qualified Code(s): D64.9 - Anemia, unspecified The scribe's documentation has been prepared under my direction and personally reviewed by me in its entirety. I confirm that the note above accurately reflects all work, treatment, procedures, and medical decision making performed by me.
[2019-01-31 06:58] LABS: BUN Creatinine Ratio 8.4 (10-20); Calcium 7.9 mg/dl (8.5-10.1); Est GFR (African American) 18.1; Est GFR (Non-African American) 15.6; Potassium 3.3 mmol/L (3.5-5.1)
[2019-01-31 07:12] LABS: ALC (manual) 0.44 K/uL (1.2-3.4); ANC (manual) 11.82 K/uL (1.4-6.5); Eosinophils # (manual) 0.11 K/uL (0-0.5); Eosinophils % (manual) 0.9 %; Hematocrit (blood only) 24.5 % (42-52); Hemoglobin 7.9 g/dL (14.0-18.0); Lymphocytes # (manual) 0.44 K/uL (1.2-3.4); Lymphocytes % (manual) 3.5 %; Mean Corpuscular Hemoglobin 28.9 pg (25-34); Mean Corpuscular Hgb Conc 32.2 g/dL (32-36); Mean Corpuscular Volume 89.7 fL (80-100); Mean Platelet Volume 10.6 fL (7.4-10.4); Monocytes # (manual) 0.33 K/uL (0.11-0.59); Monocytes % (manual) 2.6 %; Neutrophils # (manual) 11.82 K/uL (1.4-6.5); Platelet Count 215 K/uL (130-400); Platelet Estimate Normal (Normal); RBC Morphology Unremarkable; RDW Coefficient of Variation 15.4 % (11.5-14.5); RDW Standard Deviation 50.2 fL (36.4-46.3); Red Blood Count 2.73 M/uL (4.7-6.1); White Blood Count 12.71 K/uL (4.8-10.8)
[2019-01-31] MEDS: INSULIN ASPART 100 UNITS/ML 3 ML PEN SC SCH ×4 (07:43→21:04)
[2019-01-31] MEDS: SEVELAMER HCL 800 MG TABLET PO SCH (07:44)
[2019-01-31] MEDS: MIDODRINE HCL 2.5 MG TAB PO SCH ×3 (07:44→17:15)
--- NOTE | 2019-01-31 07:44 | Urology Consultation ---
Date of Consultation January 31, 2019 Assessment & Plan (1) Perinephric hematoma: Perinephric hematoma long conversation with patient. Extensive review of history and recent events. Based Largely on charting and notes as patient does have some issues remember recent events. Reviewed imaging by myself and agree with radiology read. Patient appears to have a very large hematoma on the left which has increased in size since previous imaging. There are multiple areas that appear to be different from previous imaging and possibly gas formation within the fluid collection. Has not definitively turned into abscess however with events and possible UTI and altered mental status would be very concerned for this possibly progressing to an abscess. Is on broad-spectrum antibiotics. Patient is on dialysis. Is being managed for his multiple medical issues by the primary team. Would recommend continuing with broad-spectrum antibiotics. Will likely need this for a prolonged course. Would likely be looking at at least weeks of antibiotics if not longer. If patient's condition worsens, if vital signs start to destabilize, if white count increases, or if patient develops any fevers, the next step would be immediate interventional radiology drain placement. This may be needed in an emergent fashion. Agree with maximum drainage maintaining both ureteral stent and catheter. Currently draining clear but dark yellow. Will be available for any new or bothersome issues that develop. And will assist with observation. Repeat imaging likely in the next 1 to 2 days. Or immediately if condition worsens. Need to watch for gas formation within the large fluid collection. (2) Sepsis: History of Present Illness Attending Physician: Layo Patel MD History of Present Illness Acute consultation consultation on patient admitted for severe sepsis. Long complicated history of urologic issues. 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 Has been in and out of the hospital for the last few weeks for multiple issues largely related to a very large hematoma on the left kidney after ureteroscopy. Patient has been monitored for possible infection of this large fluid collection. Most recently was admitted with altered mental status and acute changes. Previously has been seen by [facility] urology at our facility. Patient has been stabilized. Last evening there was conversation a possible transfer to a higher level of care as there is concern for possible gas formation within this large hematoma/fluid collection very concerning for possible development of abscess. Patient has been on broad-spectrum antibiotics. At the time last evening it sounds that it was decided not to transfer the patient and to attempt IV antibiotics for management. Currently the patient is not with any major complaints. Has a improvement of his altered mental status. But is unable to give much information as far as recent history and events leading up to acute area. Does have occasional discomfort in flank and back into her groin. Left side significantly worse than right No recent fevers. Has stabilized his vitals. Pain comes in waves to back into flank and down into pelvis. Allergies Allergy/AdvReac Type Severity Reaction Status Date / Time erythromycin base AdvReac Mild upset Verified 01/30/19 16:32 stomach BCG (Bacillus AdvReac PAINFUL Verified 01/30/19 16:32 Calmette-Catalino) vacc Home Medications Home Medications Medication Instructions Recorded Confirmed Type atorvastatin 80 mg PO PM 01/30/19 01/30/19 History cholecalciferol (vitamin D3) 2,000 unit PO HS 01/30/19 01/30/19 History [Vitamin D3] famotidine [Pepcid] 20 mg PO UD 01/30/19 01/30/19 History insulin aspart U-100 [Novolog 1 sliding scale dose SUBCUT 01/30/19 01/30/19 History U-100 Insulin aspart] USEASDIRECTD insulin glargine [Lantus U-100 6 unit SUBCUT HS 01/30/19 01/30/19 History Insulin] ipratropium-albuterol 3 ml INHALATION QID PRN 01/30/19 01/30/19 History metoprolol succinate 50 mg PO DAILY 01/30/19 01/30/19 History midodrine 5 mg PO TID 01/30/19 01/30/19 History quetiapine [Seroquel] 12.5 mg PO HS 01/30/19 01/30/19 History sevelamer HCl 800 mg PO DAILY 01/30/19 01/30/19 History tamsulosin 0.4 mg PO HS 01/30/19 01/30/19 History umeclidinium [Incruse Ellipta] 1 inh INHALATION DAILY 01/30/19 01/30/19 History Patient History Medical History Coronary artery disease (Chronic) "s/p CABG 2006" History of bladder carcinoma (Chronic) History of prostate cancer (Chronic) History of renal cell carcinoma (Chronic) Hypertension (Chronic) BPH (benign prostatic hyperplasia) (Chronic) Diverticular disease of colon (Chronic) Dyslipidemia (Chronic) Asthma (Chronic) CHF (congestive heart failure) Cancer of ureter Diabetes Hematoma of kidney Hypotension Surgical History Status post cardiac catheterization (Chronic) "01/13/2010 [facility]: 60-70% stenosis left main 100% occlusion RCA severe proximal disease diagonal patent MENDOZA to LAD and SVG's to RCA and circ" Status post cataract extraction (Chronic) Status post coronary artery bypass grafting (Chronic) "2006 [place]: MENDOZA-LAD, SVG-RCA, SVG-circ" Status post nephrectomy (Chronic) "[facility] ~ 2013 renal Ca" Status post appendectomy (Chronic) Hx of CABG Family History Other Coronary heart disease Social History Preferred Language: [place] Communication Ability: Effective Supervisor [place] Required: No Beliefs That Will Affect Care: None Current Living Situation: Rehab Other Information That Helps Us Care for You: No Feels Safe at Home: Yes Safety Concerns: Feels Safe At This Time Smoking Status: Former smoker Tobacco Type: cigarettes ; Second Hand Exposure: No ; Hx Alcohol Use: No Hx Substance Use: No Review of Systems Review of Systems: All systems reviewed & are unremarkable except as noted in HPI & below Physical Exam Physical Exam: General: Alert in no acute distress. AMS largely improved. Advanced age. HEENT: Normocephalic Atraumatic. Inspection normal. Cranial Nerves 2-12 Grossly intact. Normal inspection of face. Normal inspection of neck. Psychologic: Normal affect. Respiratory: Nonlabored. No use of accessory muscles. No tachypnea or dyspnea. Cardiovascular: No tachycardia Skin: [place] and Dry. No rashes or visible lesions. Extremities/Lymphatics: No edema Abdomen: Soft Non-distended. No rebound or guarding. : Moderate flank discomfort on left Results & Data Vital Signs (Past 12 Hours) Vital Signs Temp Pulse Pulse Resp BP BP BP 01/31/19 07:07 36.8 C 122 H 20 127/63 01/31/19 04:03 36.7 C 119 H 20 112/67 01/30/19 23:04 36.7 C 110 H 18 108/64 01/30/19 20:14 110 H 89/53 L 01/30/19 20:00 37.1 C 119 H 20 127/60 Pulse Ox 01/31/19 07:07 95 01/31/19 04:03 95 01/30/19 23:04 94 01/30/19 20:14 95 01/30/19 20:00 94 PG Care Time/CCT Total # of Minutes Spent Total Time Spent with Patient: Total time spent is greater than 50% in coordination of care (as documented) at patient's floor/unit and/or counseling patient: (1) Sepsis Sepsis acute organ dysfunction status: unspecified Sepsis type: sepsis due to unspecified organism Qualified Code(s): A41.9 - Sepsis, unspecified organism
[2019-01-31] MEDS ORDERED: POTASSIUM CHLORIDE 10 MEQ TABCR PO STA (08:05)
--- NOTE | 2019-01-31 08:47 | Cardiology Consultation ---
Date of Consultation January 31, 2019 Assessment & Plan (1) Atrial fibrillation with rapid ventricular response: (2) Sepsis: (3) Hypotension: (4) UTI (urinary tract infection): (5) Anemia: (6) Hypokalemia: Complex 89-year-old patient admitted with change of mental status and sepsis s econdary to urinary tract infection. Atrial fibrillation with rapid ventricular response and hypotension noted on admission. Recommend discontinuation of Toprol-XL and transition to metoprolol tartrate 25 mg every 6 hours. Continue to monitor heart rate and blood pressure closely. Consider additional IV hydration with recurrent hypotension , however, recommend collaboration with nephrology prior to additional IVF. Anticoagulation will not be initiated due to recent hematuria, left subcapsular renal fluid collection and hematoma, evidence of lower GI bleeding, fall with head trauma, and worsening anemia. Recommend maintain hemoglobin greater than 8.0 given hemodynamic instability, chronic coronary disease, and rapid atrial fibrillation. Replace electrolytes as needed. Consider nephrology consultation. Antibiotics per internal medicine. Thank you for allowing me to participate in the care of your patient. History of Present Illness Reason for Consultation: Atrial fibrillation with rapid ventricular response Requesting Physician: Dr. Patel Attending Physician: Layo Patel MD History of Present Illness 88-year-old patient admitted through the emergency department secondary to altered mental status. Patient is a poor historian. History obtained primarily from chart. Patient recently hospitalized in December and transferred to [facility] for treatment of left renal subcapsular fluid collection and hematoma. Evaluated by the undersigned during recent hospitalization due to rapid atrial fibrillation. Patient not chronically anticoagulated due to hematuria, recent evidence of lower GI bleeding, fall risk, and chronic anemia. He was recently started on hemodialysis while under treatment at [facility]. Discharge to [facility] where he reportedly suffered hypotension and started on midodrine. Suffered a fall on 01/29/2019 striking his head. No acute pathology per CT on admission. Carries history of coronary artery disease status post coronary artery bypass grafting in 2006. Patient treated with IV fluid and antibiotics since admission. Blood pressure has improved. Treated with metoprolol 50 mg 3 times daily during recent hospitalization at [facility] with reports of IV Cardizem infusion while at [facility]. Current outpatient dose of beta-dian is Toprol-XL 50 mg once daily. Patient denies chest pain or shortness of breath currently. He is confused. Oriented to person only. Telemetry demonstrates atrial fibrillation with rapid ventricular response and heart rates ranging from 110 to 125 bpm. Blood pressure is stable. Allergies Allergy/AdvReac Type Severity Reaction Status Date / Time erythromycin base AdvReac Mild upset Verified 01/30/19 16:32 stomach BCG (Bacillus AdvReac PAINFUL Verified 01/30/19 16:32 Calmet[place]-Catalino) vacc Home Medications Home Medications Medication Instructions Recorded Confirmed Type atorvastatin 80 mg PO PM 01/30/19 01/30/19 History cholecalciferol (vitamin D3) 2,000 unit PO HS 01/30/19 01/30/19 History [Vitamin D3] famotidine [Pepcid] 20 mg PO UD 01/30/19 01/30/19 History insulin aspart U-100 [Novolog 1 sliding scale dose SUBCUT 01/30/19 01/30/19 History U-100 Insulin aspart] USEASDIRECTD insulin glargine [Lantus U-100 6 unit SUBCUT HS 01/30/19 01/30/19 History Insulin] ipratropium-albuterol 3 ml INHALATION QID PRN 01/30/19 01/30/19 History metoprolol succinate 50 mg PO DAILY 01/30/19 01/30/19 History midodrine 5 mg PO TID 01/30/19 01/30/19 History quetiapine [Seroquel] 12.5 mg PO HS 01/30/19 01/30/19 History sevelamer HCl 800 mg PO DAILY 01/30/19 01/30/19 History tamsulosin 0.4 mg PO HS 01/30/19 01/30/19 History umeclidinium [Incruse Ellipta] 1 inh INHALATION DAILY 01/30/19 01/30/19 History Patient History Medical History Coronary artery disease (Chronic) "s/p CABG 2006" History of bladder carcinoma (Chronic) History of prostate cancer (Chronic) History of renal cell carcinoma (Chronic) Hypertension (Chronic) BPH (benign prostatic hyperplasia) (Chronic) Diverticular disease of colon (Chronic) Dyslipidemia (Chronic) Asthma (Chronic) CHF (congestive heart failure) Cancer of ureter Diabetes Hematoma of kidney Hypotension Surgical History Status post cardiac catheterization (Chronic) "01/13/2010 [facility]: 60-70% stenosis left main 100% occlusion RCA severe proximal disease diagonal patent MENDOZA to LAD and SVG's to RCA and circ" Status post cataract extraction (Chronic) Status post coronary artery bypass grafting (Chronic) "2006 [place]: MENDOZA-LAD, SVG-RCA, SVG-circ" Status post nephrectomy (Chronic) "[facility] ~ 2013 renal Ca" Status post appendectomy (Chronic) Hx of CABG Family History Other Coronary heart disease Social History Preferred Language: Italian Communication Ability: Effective Shop Director Required: No Beliefs That Will Affect Care: None marital status: Current Living Situation: Rehab Other Information That Helps Us Care for You: No Feels Safe at Home: Yes Safety Concerns: Feels Safe At This Time Smoking Status: Former smoker Tobacco Type: cigarettes ; Second Hand Exposure: No ; Hx Alcohol Use: No Hx Substance Use: No Review of Systems Review of Systems: Unobtainable due to mental health condition and Unobtainable due to cognitive status Physical Exam Physical Exam: General: NAD, awake and alert, oriented to person only, well nourished. HEENT: Normocephalic. Atraumatic. Conjunctiva pink, no scleral icterus. Neck: No carotid bruits, the carotid upstrokes are brisk. No JVD. No HJR Heart: Irregular rhythm, tachycardic. Normal S-1 and S-2. No murmurs or rub appreciated. PMI is not displaced. No RV heave. Lungs: Scattered rhonchi, no wheeze. Abdomen: Normal bowel sounds. Soft. Nontender. No masses or organomegaly. No abdominal bruits. Extremities: No clubbing, cyanosis, or edema. Pulses: radial=2/4, Dorsalis pedis =2/4, posterior tibial=2/4. Neuro: Cranial nerves grossly intact. No focal motor deficit. Patient is confused. Results & Data Vital Signs (Past 12 Hours) Vital Signs Temp Pulse Resp BP Pulse Ox 01/31/19 07:07 36.8 C 122 H 20 127/63 95 01/31/19 04:03 36.7 C 119 H 20 112/67 95 01/30/19 23:04 36.7 C 110 H 18 108/64 94 Laboratory Results Laboratory Results - last 24 hr 01/30/19 01/30/19 01/30/19 14:10 14:10 14:10 WBC 16.81 H RBC 3.26 L Hgb 9.3 L POC Hgb Hct 28.9 L POC Hct MCV 88.7 MCH 28.5 MCHC 32.2 RDW Std Deviation 49.1 H RDW Coeff of Froilan 15.1 H Plt Count 235 MPV 10.8 H Neutrophils % (Manual) 95.7 Lymphocytes % (Manual) 2.6 Monocytes % (Manual) 1.7 Eosinophils % (Manual) Neutrophils # (Manual) 16.09 H Total Absolute Neuts 16.09 H Lymphocytes # (Manual) 0.44 L Total Abs Lymphocytes 0.44 L Monocytes # (Manual) 0.29 Eosinophils # (Manual) Platelet Estimate Normal RBC Morphology Tear Drop Cells 1+ Ovalocytes 1+ PT 11.6 INR 1.1 POC Sodium Sodium 136 POC Potassium Potassium 3.3 L POC Chloride Chloride 97 L Carbon Dioxide 29 POC Total CO2 Anion Gap 10.0 POC Anion Gap POC BUN BUN 15 Creatinine 1.99 H POC Creatinine Est Cr Clr Drug Dosing 26.2 Est GFR ( Amer) 34.0 Est GFR (Non-Af Amer) 29.3 BUN/Creatinine Ratio 7.6 L Glucose 145 H POC Glucose POC Glucose (other) POC Lactic Acid Tristen Lactate Calcium 8.3 L POC Ioniz Calcium Anette Phosphorus Magnesium 1.9 Total Bilirubin 0.6 AST 40 H ALT 39 Alkaline Phosphatase 144 H Total Creatine Kinase 66 Total Protein 5.9 L Albumin 2.1 L Globulin 3.8 Albumin/Globulin Ratio 0.6 L TSH 1.420 Urine Color Urine Appearance Urine pH Ur Specific [place] Urine Protein Urine Glucose (UA) Urine Ketones Urine Blood Urine Nitrite Urine Bilirubin Urine Urobilinogen Ur Leukocyte Esterase Urine WBC (Auto) Urine RBC (Auto) U Hyaline Cast (Auto) U Epithel Cells (Auto) Urine Bacteria (Auto) Blood Type Antibody Screen 01/30/19 01/30/19 01/30/19 14:11 14:38 14:42 WBC RBC Hgb POC Hgb 9.2 L Hct POC Hct 27 L MCV MCH MCHC RDW Std Deviation RDW Coeff of Froilan Plt Count MPV Neutrophils % (Manual) Lymphocytes % (Manual) Monocytes % (Manual) Eosinophils % (Manual) Neutrophils # (Manual) Total Absolute Neuts Lymphocytes # (Manual) Total Abs Lymphocytes Monocytes # (Manual) Eosinophils # (Manual) Platelet Estimate RBC Morphology Tear Drop Cells Ovalocytes PT INR POC Sodium 135 Sodium POC Potassium 3.3 Potassium POC Chloride 93 L Chloride Carbon Dioxide POC Total CO2 31 Anion Gap POC Anion Gap 14.0 L POC BUN 13 BUN Creatinine POC Creatinine 2.0 H Est Cr Clr Drug Dosing Est GFR ( Amer) Est GFR (Non-Af Amer) BUN/Creatinine Ratio Glucose POC Glucose POC Glucose (other) 144 H POC Lactic Acid Tristen 3.62 H Lactate Calcium POC Ioniz Calcium Anette 1.03 L Phosphorus Magnesium Total Bilirubin AST ALT Alkaline Phosphatase Total Creatine Kinase Total Protein Albumin Globulin Albumin/Globulin Ratio TSH Urine Color Urine Appearance Urine pH Ur Specific [place] Urine Protein Urine Glucose (UA) Urine Ketones Urine Blood Urine Nitrite Urine Bilirubin Urine Urobilinogen Ur Leukocyte Esterase Urine WBC (Auto) Urine RBC (Auto) U Hyaline Cast (Auto) U Epithel Cells (Auto) Urine Bacteria (Auto) Blood Type O Positive Antibody Screen NEGATIVE 01/30/19 01/30/19 01/30/19 15:00 20:42 21:19 WBC RBC Hgb POC Hgb Hct POC Hct MCV MCH MCHC RDW Std Deviation RDW Coeff of Froilan Plt Count MPV Neutrophils % (Manual) Lymphocytes % (Manual) Monocytes % (Manual) Eosinophils % (Manual) Neutrophils # (Manual) Total Absolute Neuts Lymphocytes # (Manual) Total Abs Lymphocytes Monocytes # (Manual) Eosinophils # (Manual) Platelet Estimate RBC Morphology Tear Drop Cells Ovalocytes PT INR POC Sodium Sodium POC Potassium Potassium POC Chloride Chloride Carbon Dioxide POC Total CO2 Anion Gap POC Anion Gap POC BUN BUN Creatinine POC Creatinine Est Cr Clr Drug Dosing Est GFR ( Amer) Est GFR (Non-Af Amer) BUN/Creatinine Ratio Glucose POC Glucose 147 H POC Glucose (other) POC Lactic Acid Tristen Lactate 1.7 Calcium POC Ioniz Calcium Anette Phosphorus Magnesium Total Bilirubin AST ALT Alkaline Phosphatase Total Creatine Kinase Total Protein Albumin Globulin Albumin/Globulin Ratio TSH Urine Color [place] Urine Appearance Turbid A Urine pH 5.0 Ur Specific [place] 1.019 Urine Protein 2+ H Urine Glucose (UA) Negative Urine Ketones Trace H Urine Blood 3+ H Urine Nitrite Positive A Urine Bilirubin Negative Urine Urobilinogen Negative Ur Leukocyte Esterase 3+ H Urine WBC (Auto) >30 H Urine RBC (Auto) >30 H U Hyaline Cast (Auto) 1-5 U Epithel Cells (Auto) 0-5 Urine Bacteria (Auto) Negative Blood Type Antibody Screen 01/31/19 01/31/19 01/31/19 05:57 05:57 07:41 WBC 12.71 H RBC 2.73 L Hgb 7.9 L POC Hgb Hct 24.5 L POC Hct MCV 89.7 MCH 28.9 MCHC 32.2 RDW Std Deviation 50.2 H RDW Coeff of Froilan 15.4 H Plt Count 215 MPV 10.6 H Neutrophils % (Manual) 93.0 Lymphocytes % (Manual) 3.5 Monocytes % (Manual) 2.6 Eosinophils % (Manual) 0.9 Neutrophils # (Manual) 11.82 H Total Absolute Neuts 11.82 H Lymphocytes # (Manual) 0.44 L Total Abs Lymphocytes 0.44 L Monocytes # (Manual) 0.33 Eosinophils # (Manual) 0.11 Platelet Estimate Normal RBC Morphology Unremarkable Tear Drop Cells Ovalocytes PT INR POC Sodium Sodium 138 POC Potassium Potassium 3.3 L POC Chloride Chloride 101 Carbon Dioxide 26 POC Total CO2 Anion Gap 11.0 POC Anion Gap POC BUN BUN 28 H D Creatinine 3.35 H D POC Creatinine Est Cr Clr Drug Dosing 14.0 Est GFR ( Amer) 18.1 Est GFR (Non-Af Amer) 15.6 BUN/Creatinine Ratio 8.4 L Glucose 166 H POC Glucose 180 H POC Glucose (other) POC Lactic Acid Tristen Lactate Calcium 7.9 L POC Ioniz Calcium Anette Phosphorus 3.0 Magnesium 2.0 Total Bilirubin AST ALT Alkaline Phosphatase Total Creatine Kinase Total Protein Albumin Globulin Albumin/Globulin Ratio TSH Urine Color Urine Appearance Urine pH Ur Specific [place] Urine Protein Urine Glucose (UA) Urine Ketones Urine Blood Urine Nitrite Urine Bilirubin Urine Urobilinogen Ur Leukocyte Esterase Urine WBC (Auto) Urine RBC (Auto) U Hyaline Cast (Auto) U Epithel Cells (Auto) Urine Bacteria (Auto) Blood Type Antibody Screen (1) UTI (urinary tract infection) Hematuria presence: with hematuria Urinary tract infection type: site unspecified Qualified Code(s): N39.0 - Urinary tract infection, site not specified; R31.9 - Hematuria, unspecified (2) Anemia Anemia type: unspecified type Qualified Code(s): D64.9 - Anemia, unspecified (3) Sepsis Sepsis acute organ dysfunction status: unspecified Sepsis type: sepsis due to unspecified organism Qualified Code(s): A41.9 - Sepsis, unspecified organism
[2019-01-31] MEDS ORDERED: METOPROLOL SUCC 50MG EXT REL TAB PO SCH (09:00)
[2019-01-31] MEDS: PIPERACILLIN/TAZOBACTAM 3.375 GM in DEXTROSE 5% 100 ML IV SCH ×2 (09:46→21:04)
--- NOTE | 2019-01-31 10:09 | Nephrology Consultation ---
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 He is now requiring dialysis for the past 2 weeks. He is on a Saturday schedule. Last dialysis was yesterday. Patient still with no signs of renal recovery. Electrolytes are stable today and no signs of volume overload. No indication for dialysis today. We will dialyze him on Saturday. (2) Anemia: Patient with multifactorial anemia including chronic inflammation and perinephric hematoma. Monitor and transfuse as needed. No role for Epogen in setting of cancer history (3) Sepsis: Patient with sepsis likely infected perinephric hematoma. Continue antibiotics per primary team. Renally dose antibiotics for GFR less than 25 mL/min (4) Perinephric hematoma: Patient with perinephric hematoma and possible infection. Urology is on board. They recommend conservative management with antibiotics. We will continue to monitor for possible abscess formation. He might require IR drainage. 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 fib not on anticoagulation as per patient/family wishes, hypertension, hyperlipidemia, recurrent urothelial carcinoma (initially R collecting system 1990s w/ recent recurrence later noted L collecting system last 08/2018) s/p surgery and ongoing immunotherapy, chronic anemia, DM II and recent left renal subcapsular hematoma who was admitted on 01/30/2019 with altered mental status. Patient was rehabbing at [facility] after long hospitalization at [facility] for sepsis and left subcapsular renal hematoma. He was treated conservatively with antibiotics. He has been doing well at [facility]. His last dialysis was on 01/30/2019. This morning he feels better denies any shortness of breath. No leg swelling. He has a Graf catheter and not making much urine. He is intermittently confused during the interview. He has a tunneled dialysis catheter on the right IJ. Allergies Allergy/AdvReac Type Severity Reaction Status Date / Time erythromycin base AdvReac Mild upset Verified 01/30/19 16:32 stomach BCG (Bacillus AdvReac PAINFUL Verified 01/30/19 16:32 Calmette-Catalino) vacc Home Medications Home Medications Medication Instructions Recorded Confirmed Type atorvastatin 80 mg PO PM 01/30/19 01/30/19 History cholecalciferol (vitamin D3) 2,000 unit PO HS 01/30/19 01/30/19 History [Vitamin D3] famotidine [Pepcid] 20 mg PO UD 01/30/19 01/30/19 History insulin aspart U-100 [Novolog 1 sliding scale dose SUBCUT 01/30/19 01/30/19 History U-100 Insulin aspart] USEASDIRECTD insulin glargine [Lantus U-100 6 unit SUBCUT HS 01/30/19 01/30/19 History Insulin] ipratropium-albuterol 3 ml INHALATION QID PRN 01/30/19 01/30/19 History metoprolol succinate 50 mg PO DAILY 01/30/19 01/30/19 History midodrine 5 mg PO TID 01/30/19 01/30/19 History quetiapine [Seroquel] 12.5 mg PO HS 01/30/19 01/30/19 History sevelamer HCl 800 mg PO DAILY 01/30/19 01/30/19 History tamsulosin 0.4 mg PO HS 01/30/19 01/30/19 History umeclidinium [Incruse Ellipta] 1 inh INHALATION DAILY 01/30/19 01/30/19 History Patient History Medical History Coronary artery disease (Chronic) "s/p CABG 2006" History of bladder carcinoma (Chronic) History of prostate cancer (Chronic) History of renal cell carcinoma (Chronic) Hypertension (Chronic) BPH (benign prostatic hyperplasia) (Chronic) Diverticular disease of colon (Chronic) Dyslipidemia (Chronic) Asthma (Chronic) CHF (congestive heart failure) Cancer of ureter Diabetes Hematoma of kidney Hypotension Surgical History Status post cardiac catheterization (Chronic) "01/13/2010 [facility]: 60-70% stenosis left main 100% occlusion RCA severe proximal disease diagonal patent MENDOZA to LAD and SVG's to RCA and circ" Status post cataract extraction (Chronic) Status post coronary artery bypass grafting (Chronic) "2006 [place]: MENDOZA-LAD, SVG-RCA, SVG-circ" Status post nephrectomy (Chronic) "[facility] ~ 2013 renal Ca" Status post appendectomy (Chronic) Hx of CABG Family History Other Coronary heart disease Social History Preferred Language: Estonian Communication Ability: Effective Legal Consultant Required: No Beliefs That Will Affect Care: None Current Living Situation: Rehab Other Information That Helps Us Care for You: No Feels Safe at Home: Yes Safety Concerns: Feels Safe At This Time Smoking Status: Former smoker Tobacco Type: cigarettes ; Second Hand Exposure: No ; Hx Alcohol Use: No Hx Substance Use: No Review of Systems Review of Systems: All systems reviewed & are unremarkable except as noted in HPI & below Physical Exam Physical Exam: General exam: Appears comfortable, no acute distress HEENT: Pupils are equal and reactive to light Neck: No JVD, neck is supple trachea is midline Respiratory system: Clear breath sounds bilaterally. Gastrointestinal: Abdomen is soft, non distended, non tender, bowel sounds are present CVS: Regular rate and rhythm. No murmurs, rubs or gallops Musculoskeletal: No joint or muscle tenderness Extremities: Non tender, no edema, peripheral pulses are present Neuro: Patient knows that he is in local hospital but says the year is 1999 and month of March, no tremors, no focal neurological deficits Skin: No rashes Access: Right tunneled IJ Results & Data Vital Signs (Past 12 Hours) Vital Signs Temp Pulse Resp BP Pulse Ox 01/31/19 07:07 36.8 C 122 H 20 127/63 95 01/31/19 04:03 36.7 C 119 H 20 112/67 95 01/30/19 23:04 36.7 C 110 H 18 108/64 94 Laboratory Results Laboratory Results - last 24 hr 01/30/19 01/30/19 01/30/19 14:10 14:10 14:10 WBC 16.81 H RBC 3.26 L Hgb 9.3 L POC Hgb Hct 28.9 L POC Hct MCV 88.7 MCH 28.5 MCHC 32.2 RDW Std Deviation 49.1 H RDW Coeff of Froilan 15.1 H Plt Count 235 MPV 10.8 H Neutrophils % (Manual) 95.7 Lymphocytes % (Manual) 2.6 Monocytes % (Manual) 1.7 Eosinophils % (Manual) Neutrophils # (Manual) 16.09 H Total Absolute Neuts 16.09 H Lymphocytes # (Manual) 0.44 L Total Abs Lymphocytes 0.44 L Monocytes # (Manual) 0.29 Eosinophils # (Manual) Platelet Estimate Normal RBC Morphology Tear Drop Cells 1+ Ovalocytes 1+ PT 11.6 INR 1.1 POC Sodium Sodium 136 POC Potassium Potassium 3.3 L POC Chloride Chloride 97 L Carbon Dioxide 29 POC Total CO2 Anion Gap 10.0 POC Anion Gap POC BUN BUN 15 Creatinine 1.99 H POC Creatinine Est Cr Clr Drug Dosing 26.2 Est GFR ( Amer) 34.0 Est GFR (Non-Af Amer) 29.3 BUN/Creatinine Ratio 7.6 L Glucose 145 H POC Glucose POC Glucose (other) POC Lactic Acid Tristen Lactate Calcium 8.3 L POC Ioniz Calcium Anette Phosphorus Magnesium 1.9 Total Bilirubin 0.6 AST 40 H ALT 39 Alkaline Phosphatase 144 H Total Creatine Kinase 66 Total Protein 5.9 L Albumin 2.1 L Globulin 3.8 Albumin/Globulin Ratio 0.6 L TSH 1.420 Urine Color Urine Appearance Urine pH Ur Specific Stow Urine Protein Urine Glucose (UA) Urine Ketones Urine Blood Urine Nitrite Urine Bilirubin Urine Urobilinogen Ur Leukocyte Esterase Urine WBC (Auto) Urine RBC (Auto) U Hyaline Cast (Auto) U Epithel Cells (Auto) Urine Bacteria (Auto) Blood Type Antibody Screen 01/30/19 01/30/19 01/30/19 14:11 14:38 14:42 WBC RBC Hgb POC Hgb 9.2 L Hct POC Hct 27 L MCV MCH MCHC RDW Std Deviation RDW Coeff of Froilan Plt Count MPV Neutrophils % (Manual) Lymphocytes % (Manual) Monocytes % (Manual) Eosinophils % (Manual) Neutrophils # (Manual) Total Absolute Neuts Lymphocytes # (Manual) Total Abs Lymphocytes Monocytes # (Manual) Eosinophils # (Manual) Platelet Estimate RBC Morphology Tear Drop Cells Ovalocytes PT INR POC Sodium 135 Sodium POC Potassium 3.3 Potassium POC Chloride 93 L Chloride Carbon Dioxide POC Total CO2 31 Anion Gap POC Anion Gap 14.0 L POC BUN 13 BUN Creatinine POC Creatinine 2.0 H Est Cr Clr Drug Dosing Est GFR ( Amer) Est GFR (Non-Af Amer) BUN/Creatinine Ratio Glucose POC Glucose POC Glucose (other) 144 H POC Lactic Acid Tristen 3.62 H Lactate Calcium POC Ioniz Calcium Anette 1.03 L Phosphorus Magnesium Total Bilirubin AST ALT Alkaline Phosphatase Total Creatine Kinase Total Protein Albumin Globulin Albumin/Globulin Ratio TSH Urine Color Urine Appearance Urine pH Ur Specific Stow Urine Protein Urine Glucose (UA) Urine Ketones Urine Blood Urine Nitrite Urine Bilirubin Urine Urobilinogen Ur Leukocyte Esterase Urine WBC (Auto) Urine RBC (Auto) U Hyaline Cast (Auto) U Epithel Cells (Auto) Urine Bacteria (Auto) Blood Type O Positive Antibody Screen NEGATIVE 01/30/19 01/30/19 01/30/19 15:00 20:42 21:19 WBC RBC Hgb POC Hgb Hct POC Hct MCV MCH MCHC RDW Std Deviation RDW Coeff of Froilan Plt Count MPV Neutrophils % (Manual) Lymphocytes % (Manual) Monocytes % (Manual) Eosinophils % (Manual) Neutrophils # (Manual) Total Absolute Neuts Lymphocytes # (Manual) Total Abs Lymphocytes Monocytes # (Manual) Eosinophils # (Manual) Platelet Estimate RBC Morphology Tear Drop Cells Ovalocytes PT INR POC Sodium Sodium POC Potassium Potassium POC Chloride Chloride Carbon Dioxide POC Total CO2 Anion Gap POC Anion Gap POC BUN BUN Creatinine POC Creatinine Est Cr Clr Drug Dosing Est GFR ( Amer) Est GFR (Non-Af Amer) BUN/Creatinine Ratio Glucose POC Glucose 147 H POC Glucose (other) POC Lactic Acid Tristen Lactate 1.7 Calcium POC Ioniz Calcium Anette Phosphorus Magnesium Total Bilirubin AST ALT Alkaline Phosphatase Total Creatine Kinase Total Protein Albumin Globulin Albumin/Globulin Ratio TSH Urine Color [place] Urine Appearance Turbid A Urine pH 5.0 Ur Specific Stow 1.019 Urine Protein 2+ H Urine Glucose (UA) Negative Urine Ketones Trace H Urine Blood 3+ H Urine Nitrite Positive A Urine Bilirubin Negative Urine Urobilinogen Negative Ur Leukocyte Esterase 3+ H Urine WBC (Auto) >30 H Urine RBC (Auto) >30 H U Hyaline Cast (Auto) 1-5 U Epithel Cells (Auto) 0-5 Urine Bacteria (Auto) Negative Blood Type Antibody Screen 01/31/19 01/31/19 01/31/19 05:57 05:57 07:41 WBC 12.71 H RBC 2.73 L Hgb 7.9 L POC Hgb Hct 24.5 L POC Hct MCV 89.7 MCH 28.9 MCHC 32.2 RDW Std Deviation 50.2 H RDW Coeff of Froilan 15.4 H Plt Count 215 MPV 10.6 H Neutrophils % (Manual) 93.0 Lymphocytes % (Manual) 3.5 Monocytes % (Manual) 2.6 Eosinophils % (Manual) 0.9 Neutrophils # (Manual) 11.82 H Total Absolute Neuts 11.82 H Lymphocytes # (Manual) 0.44 L Total Abs Lymphocytes 0.44 L Monocytes # (Manual) 0.33 Eosinophils # (Manual) 0.11 Platelet Estimate Normal RBC Morphology Unremarkable Tear Drop Cells Ovalocytes PT INR POC Sodium Sodium 138 POC Potassium Potassium 3.3 L POC Chloride Chloride 101 Carbon Dioxide 26 POC Total CO2 Anion Gap 11.0 POC Anion Gap POC BUN BUN 28 H D Creatinine 3.35 H D POC Creatinine Est Cr Clr Drug Dosing 14.0 Est GFR ( Amer) 18.1 Est GFR (Non-Af Amer) 15.6 BUN/Creatinine Ratio 8.4 L Glucose 166 H POC Glucose 180 H POC Glucose (other) POC Lactic Acid Tristen Lactate Calcium 7.9 L POC Ioniz Calcium Anette Phosphorus 3.0 Magnesium 2.0 Total Bilirubin AST ALT Alkaline Phosphatase Total Creatine Kinase Total Protein Albumin Globulin Albumin/Globulin Ratio TSH Urine Color Urine Appearance Urine pH Ur Specific Stow Urine Protein Urine Glucose (UA) Urine Ketones Urine Blood Urine Nitrite Urine Bilirubin Urine Urobilinogen Ur Leukocyte Esterase Urine WBC (Auto) Urine RBC (Auto) U Hyaline Cast (Auto) U Epithel Cells (Auto) Urine Bacteria (Auto) Blood Type Antibody Screen (1) Anemia Anemia type: unspecified type Qualified Code(s): D64.9 - Anemia, unspecified (2) Sepsis Sepsis acute organ dysfunction status: unspecified Sepsis type: sepsis due to unspecified organism Qualified Code(s): A41.9 - Sepsis, unspecified organism
[2019-01-31] MEDS: METOPROLOL TARTRATE 25 MG TAB PO SCH ×2 (11:46→17:15)
[2019-01-31] MEDS ORDERED: ALUMINUM/MAGNESIUM/SIMETH (MAALOX MAX) 30 ML UDC PO PRN (11:49)
[2019-01-31] MEDS ORDERED: SODIUM CHLORIDE 0.9% 250 ML IV PRN (12:08)
--- NOTE | 2019-01-31 13:09 | Hospitalist Progress Note ---
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 fib not on anticoagulation as per patient/family wishes, hypertension, hyperlipidemia, recurrent urothelial carcinoma (initially R collecting system 1990s w/ recent recurrence later noted L collecting system last 08/2018) s/p surgery and ongoing immunotherapy, chronic anemia, DM II, recent left renal subcapsular fluid collection and hematoma presented to [facility] for altered mental status. Sepsis Likely Sources:Pneumonia, Infected Hematoma --CXR: Cardiomegaly without overt pulmonary edema. Persistent left lung base opacities suggestive of atelectasis or pneumonia with probable trace left pleural effusion. --CT ABD:Mild increase in size of a large left renal subcapsular fluid collection since CT of January 02, 2019. Attenuation of this evolving hematoma has decreased. Minimal nondependent low-attenuation material within this collection could reflect trace gas or fat and an infected hematoma cannot be excluded. Increase in size of the small associated fluid collection along the lateral aspect of the left psoas muscle. Stable mild adjacent infiltration. The findings could be correlated with clinical evidence for an infectious process. Left ureteral stent in place with mild ureteral dilatation. No ureteral calculi. Small left pleural effusion. --Normal Lactate Levels --Received IV fluids --Blood cultures pending --Urine Culture: No growth --Continue empiric IV antibiotics--daptomycin, Zosyn Day #2 --Appreciate Urology Input --If patient's clinical condition worsens, need to be transferred to tertiary care center for drainage of infected hematoma by interventional radiology --Plan to repeat imaging in 1 to 2 days --ID consulted as well (2) Metabolic encephalopathy: Metabolic encephalopathy likely secondary to bowel CT HEAD: No acute intracranial abnormality or calvarial fracture. Seroquel held for now--Resume as able (3) Atrial fibrillation with rapid ventricular response: Afib RVR H/O A-fib Not on anticoagulation secondary renal subcapsular hematoma, and Patient/family Preference Recent echo 12/2018: EF 50% Continue metoprolol--increased to 25 mg Q6H Appreciate Cardiology Input Patient is asymptomatic (4) Hypotension: Has been hypotensive recently Blood pressure transiently improved with IV fluids Monitor (5) 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: Acute Kidney Injury on CKD IV H/O solitary kidney due to nephrectomy for urothelial cancer Likely ATN due to sepsis Recently started on hemodialysis during hospitalization at [facility] On HD on MWF schedule Had HD today on 01/30/19 Appreciate Nephrology Input Dialysis as per nephrology (6) CAD (coronary artery disease): Continue metoprolol Hold statin while on Daptomycin Hypokalemia: Replace electrolytes as needed (7) Diabetes mellitus, type II: A1c: 7.3 on 12/2018 Continue ISS, Lantus Monitor BGs DVT Px SCDs Re: Subcapsular hematoma Disposition: To be determined Subjective Patient is seen and examined at bedside Mental status improved today Denies any chest pain, shortness of breath, dizziness, nausea, abdominal pain, hematuria Discussed with family in detail Plan to give 1 unit of blood today Tachycardic, A. fib on monitor No other complaints Review of Systems Review of Systems: All systems reviewed & are unremarkable except as noted in HPI & below Physical Exam Physical Exam: Physical Exam: Vitals signs as noted above General Appearance:Moderately built and nourished Head: normocephalic, Atraumatic Eyes: normal inspection, EOMI Neck: supple, Trachea midline Respiratory/Chest: Normal breath sounds, CTA Cardiovascular: Irregularly irregular, tachycardia, No murmur Abdomen/GI:Soft, Non tender, Bowel sounds present Extremities/Musculoskelatal:normal inspection, no edema Neurologic/Psych:grossly no focal neurological deficits, oriented to place, person Skin: normal color, warm Results & Data Vital Signs (Past 12 Hours) Vital Signs Temp Pulse Resp BP Pulse Ox 01/31/19 11:12 36.7 C 107 H 18 89/54 L 96 01/31/19 07:07 36.8 C 122 H 20 127/63 95 01/31/19 04:03 36.7 C 119 H 20 112/67 95 Laboratory Results Short CBC 01/30/19 01/31/19 Range/Units 14:10 05:57 WBC 16.81 H 12.71 H (4.8-10.8) K/uL Hgb 9.3 L 7.9 L (14.0-18.0) g/dL Hct 28.9 L 24.5 L (42-52) % Plt Count 235 215 (130-400) K/uL BMP 01/30/19 01/31/19 14:10 05:57 Sodium 136 138 Potassium 3.3 L 3.3 L Chloride 97 L 101 Carbon Dioxide 29 26 BUN 15 28 H D Creatinine 1.99 H 3.35 H D Glucose 145 H 166 H Calcium 8.3 L 7.9 L Cardiac Enzymes 01/30/19 Range/Units 14:10 Total Creatine Kinase 66 (39-308) U/L Liver Function 01/30/19 Range/Units 14:10 Total Bilirubin 0.6 (0.2-1) mg/dl AST 40 H (15-37) U/L ALT 39 (12-78) U/L Alkaline Phosphatase 144 H (45-117) U/L Albumin 2.1 L (3.4-5.0) gm/dl Urine 01/30/19 Range/Units 15:00 Urine Color [place] Urine Appearance Turbid A (Clear) Urine pH 5.0 (4.5-7.5) Ur Specific [place] 1.019 (1.000-1.030) Urine Protein 2+ H (Negative) Urine Glucose (UA) Negative (Negative) (1) Sepsis Sepsis acute organ dysfunction status: unspecified Sepsis type: sepsis due to unspecified organism Qualified Code(s): A41.9 - Sepsis, unspecified organism
[2019-01-31] MEDS: FAMOTIDINE 20 MG TAB PO SCH ×2 (13:28→21:06)
[2019-01-31 16:18] LABS: Hematocrit (blood only) 24.6 % (42-52); Hemoglobin 7.9 g/dL (14.0-18.0)
[2019-01-31] MEDS: LACTOBACILLUS ACIDOPHILUS (FLORANEX) TAB PO SCH ×2 (17:14→21:07)
[2019-01-31] MEDS ORDERED: INFLUENZA ADMINISTRATION CHARGE ONE (20:15)
[2019-01-31] MEDS ORDERED: INFLUENZA VIRUS QUAD VACCINE 0.5 ML SYR IM ONE (20:15)
[2019-01-31] MEDS ORDERED: CHOLECALCIFEROL 1,000 UNITS TAB PO SCH (21:00)
[2019-01-31] MEDS: INSULIN GLARGINE SOLOSTAR 100 UNITS/ML 3 ML PEN SQ SCH (21:05)
[2019-01-31] MEDS: TAMSULOSIN HCL 0.4 MG CAP PO SCH (21:06)
[2019-01-31 21:58] LABS: Hematocrit (blood only) 29.4 % (42-52); Hemoglobin 9.4 g/dL (14.0-18.0)
[2019-02-01] MEDS: METOPROLOL TARTRATE 25 MG TAB PO SCH ×3 (00:05→12:20)
[2019-02-01 06:28] LABS: Hematocrit (blood only) 27.4 % (42-52); Hemoglobin 8.9 g/dL (14.0-18.0); Mean Corpuscular Hgb Conc 32.5 g/dL (32-36); Mean Corpuscular Volume 89.3 fL (80-100); Mean Platelet Volume 10.6 fL (7.4-10.4); Platelet Count 206 K/uL (130-400); RDW Coefficient of Variation 15.2 % (11.5-14.5); RDW Standard Deviation 49.1 fL (36.4-46.3); Red Blood Count 3.07 M/uL (4.7-6.1); White Blood Count 12.12 K/uL (4.8-10.8)
[2019-02-01 06:57] LABS: BUN Creatinine Ratio 10.8 (10-20); Creatinine Clr Calc Pharmacy 12.8 ml/min; Est GFR (African American) 14.5; Est GFR (Non-African American) 12.5; Potassium 3.8 mmol/L (3.5-5.1)
--- NOTE | 2019-02-01 07:37 | Infectious Disease Consult ---
Date of Consultation February 01, 2019 Assessment & Plan (1) Renal hematoma, left: cultures negative, wbc improving, could be elevated due to hematoma. if blood cultures remain negative in am, would suggest follow off of abx. History of Present Illness Attending Physician: Layo Patel MD pt admitted with change in mental status from snf. confused on my exam. Has been afebrile since admission. recent diagnosis or urothelial cancer, urology following. has hematoma around left kidney, ct done in ER, enlarged in size, [id number]. denies pain. was placed on IV zosyn and Dapto, tolerating well. blood and urine cultures negative. wbc 12, creat 1.9, on HD. C diff negative this admission. stent on left side in place. denies cp, sob, tee, cough, no abd pain, no n/v/d. eating well Allergies Allergy/AdvReac Type Severity Reaction Status Date / Time erythromycin base AdvReac Mild upset Verified 01/30/19 16:32 stomach BCG (Bacillus AdvReac PAINFUL Verified 01/30/19 16:32 Calmette-Catalino) vacc Home Medications Home Medications Medication Instructions Recorded Confirmed Type atorvastatin 80 mg PO PM 01/30/19 01/30/19 History cholecalciferol (vitamin D3) 2,000 unit PO HS 01/30/19 01/30/19 History [Vitamin D3] famotidine [Pepcid] 20 mg PO UD 01/30/19 01/30/19 History insulin aspart U-100 [Novolog 1 sliding scale dose SUBCUT 01/30/19 01/30/19 History U-100 Insulin aspart] USEASDIRECTD insulin glargine [Lantus U-100 6 unit SUBCUT HS 01/30/19 01/30/19 History Insulin] ipratropium-albuterol 3 ml INHALATION QID PRN 01/30/19 01/30/19 History metoprolol succinate 50 mg PO DAILY 01/30/19 01/30/19 History midodrine 5 mg PO TID 01/30/19 01/30/19 History quetiapine [Seroquel] 12.5 mg PO HS 01/30/19 01/30/19 History sevelamer HCl 800 mg PO DAILY 01/30/19 01/30/19 History tamsulosin 0.4 mg PO HS 01/30/19 01/30/19 History umeclidinium [Incruse Ellipta] 1 inh INHALATION DAILY 01/30/19 01/30/19 History Patient History Medical History Coronary artery disease (Chronic) "s/p CABG 2006" History of bladder carcinoma (Chronic) History of prostate cancer (Chronic) History of renal cell carcinoma (Chronic) Hypertension (Chronic) BPH (benign prostatic hyperplasia) (Chronic) Diverticular disease of colon (Chronic) Dyslipidemia (Chronic) Asthma (Chronic) CHF (congestive heart failure) Cancer of ureter Diabetes Hematoma of kidney Hypotension Surgical History Status post cardiac catheterization (Chronic) "01/13/2010 [facility]: 60-70% stenosis left main 100% occlusion RCA severe proximal disease diagonal patent MENDOZA to LAD and SVG's to RCA and circ" Status post cataract extraction (Chronic) Status post coronary artery bypass grafting (Chronic) "2006 [place]: MENDOZA-LAD, SVG-RCA, SVG-circ" Status post nephrectomy (Chronic) "[facility] ~ 2013 renal Ca" Status post appendectomy (Chronic) Hx of CABG Family History Other Coronary heart disease Social History Preferred Language: Barbadian Communication Ability: Effective Chief Digital Officer Required: No Beliefs That Will Affect Care: None marital status: Current Living Situation: Rehab Other Information That Helps Us Care for You: No Feels Safe at Home: Yes Safety Concerns: Feels Safe At This Time Smoking Status: Former smoker Tobacco Type: cigarettes ; Second Hand Exposure: No ; Hx Alcohol Use: No Hx Substance Use: No Review of Systems Review of Systems: All systems reviewed & are unremarkable except as noted in HPI & below Physical Exam Constitutional: WD/WN, vitals as above Eyes: PERRL, conjunctivae normal, anicteric sclerae ENMT: external ear and nose normal, oropharynx normal Neck: normal visual inspection Respiratory: normal respiratory effort, lungs clear to auscultation Cardiovascular: RRR, no murmur, no edema Gastrointestinal (Abdomen): normal bowel sounds, soft, nontender, no hepatosplenomegaly Musculoskeletal: no cyanosis or clubbing, extremities motor strength 5/5 Skin: no rashes, warm and dry Psychiatric: A+Ox3, euthymic affect Results & Data Vital Signs (Past 12 Hours) Vital Signs Temp Pulse Pulse Resp BP BP Pulse Ox 02/01/19 07:30 36.8 C 114 H 18 98/57 L 95 02/01/19 05:02 37 C 114 H 22 97/60 L 95 02/01/19 00:02 36.9 C 91 H 24 92/56 L 95 01/31/19 22:20 117 H 01/31/19 20:20 36.8 C 104 H 20 94/53 L 95 Laboratory Results Microbiology 01/30/19 14:38 Blood Aerobic Blood Culture - Preliminary No growth in Aerobic bottle after 24 hours. 01/30/19 14:38 Blood Anaerobic Blood Culture - Final 01/30/19 14:10 Blood Aerobic Blood Culture - Preliminary No growth in Aerobic bottle after 24 hours. 01/30/19 14:10 Blood Anaerobic Blood Culture - Preliminary No growth in Anaerobic bottle after 24 hours. 01/30/19 15:00 Urine,Straight Cath Urine Culture - Preliminary No growth - Less than 1,000 colonies/mL, Final report to follow. PG Care Time/CCT Total # of Minutes Spent Total Time Spent with Patient: Total time spent is greater than 50% in coordination of care (as documented) at patient's floor/unit and/or counseling patient:
[2019-02-01] MEDS: INSULIN ASPART 100 UNITS/ML 3 ML PEN SC SCH ×3 (08:00→17:27)
[2019-02-01] MEDS: LACTOBACILLUS ACIDOPHILUS (FLORANEX) TAB PO SCH ×3 (08:00→17:24)
[2019-02-01] MEDS: MIDODRINE HCL 2.5 MG TAB PO SCH ×3 (08:01→17:24)
[2019-02-01] MEDS: SEVELAMER HCL 800 MG TABLET PO SCH (08:01)
[2019-02-01] MEDS: FAMOTIDINE 20 MG TAB PO SCH (08:01)
[2019-02-01] MEDS ORDERED: TRAZODONE HCL 50 MG TAB PO PRN (09:30)
[2019-02-01] MEDS ORDERED: SODIUM CHLORIDE 0.9% 250 ML IV ONE (09:32)
--- NOTE | 2019-02-01 09:32 | Cardiology Progress Note ---
Date of Service February 01, 2019 Assessment & Plan (1) Atrial fibrillation with rapid ventricular response: (2) Sepsis: (3) Hypotension: (4) UTI (urinary tract infection): (5) Anemia: Patient has not received dose of metoprolol since yesterday. Hold parameters adjusted due to chronic hypotension. 25 mg ordered x 1 now. If subsequent hypotension ensues, will reduce dose to 12.5 mg every 6 hours. Patient received 1 unit of packed red cells yesterday with subsequent improvement of hemoglobin. Recommend maintaining hemoglobin greater than 8.0. Discussed case with internal medicine , due to poor p.o. intake and ongoing diarrhea recommend gentle hydration with IV normal saline. Continue to monitor closely. Antibiotics per infectious disease and IM. Follow cultures. Thank you for allowing me to participate in the care of your patient. I will continue to follow during ho spitalization. Subjective Patient seen and examined the bedside. More alert this morning however confusion reported by nursing. Patient has not received a dose of metoprolol since yesterday at approximately 4 PM. He became hypotensive after that dose. Nurse reports poor p.o. intake and diarrhea. Patient denies chest pain or shortness of breath. No palpitations or lightheadedness. Remains somewhat confused and oriented to person only. Review of Systems Review of Systems: Unobtainable due to cognitive status Physical Exam Physical Exam: General: NAD, awake and alert, oriented to person only, well nourished. HEENT: Normocephalic. Atraumatic. Conjunctiva pink, no scleral icterus. Neck: No carotid bruits, the carotid upstrokes are brisk. No JVD. No HJR Heart: Irregular rhythm, tachycardic. Normal S-1 and S-2. No murmurs or rub appreciated. PMI is not displaced. No RV heave. Lungs: Scattered rhonchi, no wheeze. Abdomen: Normal bowel sounds. Soft. Nontender. No masses or organomegaly. No abdominal bruits. Extremities: No clubbing, cyanosis, or edema. Pulses: radial=2/4, Dorsalis pedis =2/4, posterior tibial=2/4. Neuro: Cranial nerves grossly intact. No focal motor deficit. Confused. Results & Data Vital Signs (Past 12 Hours) Vital Signs Temp Pulse Pulse Resp BP Pulse Ox 02/01/19 09:14 124 H 02/01/19 07:30 36.8 C 114 H 18 98/57 L 95 02/01/19 05:02 37 C 114 H 22 97/60 L 95 02/01/19 00:02 36.9 C 91 H 24 92/56 L 95 01/31/19 22:20 117 H Laboratory Results Laboratory Results - last 24 hr 01/30/19 01/31/19 01/31/19 14:38 11:10 13:27 WBC RBC Hgb Hct MCV MCH MCHC RDW Std Deviation RDW Coeff of Froilan Plt Count MPV Sodium Potassium Chloride Carbon Dioxide Anion Gap BUN Creatinine Est Cr Clr Drug Dosing Est GFR ( Amer) Est GFR (Non-Af Amer) BUN/Creatinine Ratio Glucose POC Glucose 171 H Calcium Stl C. diff Tox B Gene Negative Cdiff Gene Blood Type O Positive Antibody Screen NEGATIVE Crossmatch See Detail 01/31/19 01/31/19 01/31/19 16:08 16:34 19:59 WBC RBC Hgb 7.9 L Hct 24.6 L MCV MCH MCHC RDW Std Deviation RDW Coeff of Froilan Plt Count MPV Sodium Potassium Chloride Carbon Dioxide Anion Gap BUN Creatinine Est Cr Clr Drug Dosing Est GFR ( Amer) Est GFR (Non-Af Amer) BUN/Creatinine Ratio Glucose POC Glucose 170 H 164 H Calcium Stl C. diff Tox B Gene Blood Type Antibody Screen Crossmatch 01/31/19 02/01/19 02/01/19 21:45 06:06 06:06 WBC 12.12 H RBC 3.07 L Hgb 9.4 L 8.9 L Hct 29.4 L 27.4 L MCV 89.3 MCH 29.0 MCHC 32.5 RDW Std Deviation 49.1 H RDW Coeff of Forilan 15.2 H Plt Count 206 MPV 10.6 H Sodium 138 Potassium 3.8 D Chloride 103 Carbon Dioxide 26 Anion Gap 9.0 BUN 44 H D Creatinine 4.03 H D Est Cr Clr Drug Dosing 12.8 Est GFR ( Amer) 14.5 Est GFR (Non-Af Amer) 12.5 BUN/Creatinine Ratio 10.8 Glucose 131 H POC Glucose Calcium 8.0 L Stl C. diff Tox B Gene Blood Type Antibody Screen Crossmatch 02/01/19 07:28 WBC RBC Hgb Hct MCV MCH MCHC RDW Std Deviation RDW Coeff of Froilan Plt Count MPV Sodium Potassium Chloride Carbon Dioxide Anion Gap BUN Creatinine Est Cr Clr Drug Dosing Est GFR ( Amer) Est GFR (Non-Af Amer) BUN/Creatinine Ratio Glucose POC Glucose 131 H Calcium Stl C. diff Tox B Gene Blood Type Antibody Screen Crossmatch (1) Sepsis Sepsis acute organ dysfunction status: unspecified Sepsis type: sepsis due to unspecified organism Qualified Code(s): A41.9 - Sepsis, unspecified organism (2) Hypotension Hypotension type: idiopathic hypotension Qualified Code(s): I95.0 - Idiopathic hypotension (3) UTI (urinary tract infection) Hematuria presence: with hematuria Urinary tract infection type: site unspecified Qualified Code(s): N39.0 - Urinary tract infection, site not specified; R31.9 - Hematuria, unspecified (4) Anemia Anemia type: unspecified type Qualified Code(s): D64.9 - Anemia, unspecified
[2019-02-01] MEDS: PIPERACILLIN/TAZOBACTAM 3.375 GM in DEXTROSE 5% 100 ML IV SCH (10:20)
[2019-02-01] MEDS: LOPERAMIDE HCL 2 MG CAP PO PRN ×2 (10:20→12:15)
--- NOTE | 2019-02-01 15:30 | Hospitalist Progress Note ---
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 fib not on anticoagulation as per patient/family wishes, hypertension, hyperlipidemia, recurrent urothelial carcinoma (initially R collecting system 1990s w/ recent recurrence later noted L collecting system last 08/2018) s/p surgery and ongoing immunotherapy, chronic anemia, DM II, recent left renal subcapsular fluid collection and hematoma presented to from [facility] for altered mental status. Perinephric Hematoma Possible Sepsis Likely Sources:Pneumonia, Infected Hematoma --CXR: Cardiomegaly without overt pulmonary edema. Persistent left lung base opacities suggestive of atelectasis or pneumonia with probable trace left pleural effusion. --CT ABD:Mild increase in size of a large left renal subcapsular fluid collection since CT of January 02, 2019. Attenuation of this evolving hematoma has decreased. Minimal nondependent low-attenuation material within this collection could reflect trace gas or fat and an infected hematoma cannot be excluded. Increase in size of the small associated fluid collection along the lateral aspect of the left psoas muscle. Stable mild adjacent infiltration. The findings could be correlated with clinical evidence for an infectious process. Left ureteral stent in place with mild ureteral dilatation. No ureteral calculi. Small left pleural effusion. --Normal Lactate Levels --Received IV fluids --Blood cultures: No growth to date --Urine Culture: No growth --Continue empiric IV antibiotics--daptomycin, Zosyn Day #3 --Appreciate Urology Input --If patient's clinical condition worsens, need to be transferred to tertiary care center for drainage of infected hematoma by interventional radiology --Plan to repeat imaging in 1 to 2 days --Appreciate ID input --Check procalcitonin in a.m. --Leukocytosis likely secondary to hematoma as per ID --Consider tapering down/discontinuing antibiotics if no obvious source of Infection (2) Metabolic encephalopathy: Metabolic encephalopathy likely secondary to above CT HEAD: No acute intracranial abnormality or calvarial fracture. 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 Likely ATN due to sepsis Recently started on hemodialysis during hospitalization at [place] On HD on MWF schedule Had HD today on 01/30/19 Appreciate Nephrology Input Dialysis as per nephrology (6) CAD (coronary artery disease): Continue metoprolol Hold statin while on Daptomycin Hypokalemia: Replace electrolytes as needed (7) Diabetes mellitus, type II: A1c: 7.3 on 12/2018 Continue ISS, Lantus Monitor BGs DVT Px SCDs Re: Subcapsular hematoma Disposition: To be determined Subjective Patient is seen and examined at bedside Intermittently confused as per staff Poor sleep overnight No new complaints Has diarrhea Denies any chest pain, shortness of breath, dizziness, nausea, abdominal pain, hematuria Discussed with family today Review of Systems Review of Systems: All systems reviewed & are unremarkable except as noted in HPI & below Physical Exam Physical Exam: Physical Exam: Vitals signs as noted above General Appearance:Moderately built and nourished Head: normocephalic, Atraumatic Eyes: normal inspection, EOMI Neck: supple, Trachea midline Respiratory/Chest: Normal breath sounds, CTA Cardiovascular: Irregularly irregular, tachycardia, No murmur Abdomen/GI:Soft, Non tender, Bowel sounds present Extremities/Musculoskelatal:normal inspection, no edema Neurologic/Psych:grossly no focal neurological deficits, oriented to place, person Skin: normal color, warm Results & Data Vital Signs (Past 12 Hours) Vital Signs Temp Pulse Pulse Resp BP BP Pulse Ox 02/01/19 13:45 37.0 C 112 H 22 82/45 L 88/56 L 96 02/01/19 09:14 124 H 02/01/19 07:30 36.8 C 114 H 18 98/57 L 95 02/01/19 05:02 37 C 114 H 22 97/60 L 95 Laboratory Results Short CBC 01/31/19 01/31/19 02/01/19 Range/Units 16:08 21:45 06:06 WBC 12.12 H (4.8-10.8) K/uL Hgb 7.9 L 9.4 L 8.9 L (14.0-18.0) g/dL Hct 24.6 L 29.4 L 27.4 L (42-52) % Plt Count 206 (130-400) K/uL BMP 02/01/19 06:06 Sodium 138 Potassium 3.8 D Chloride 103 Carbon Dioxide 26 BUN 44 H D Creatinine 4.03 H D Glucose 131 H Calcium 8.0 L (1) Sepsis Sepsis acute organ dysfunction status: unspecified Sepsis type: sepsis due to unspecified organism Qualified Code(s): A41.9 - Sepsis, unspecified organism (2) Hypotension Hypotension type: idiopathic hypotension Qualified Code(s): I95.0 - Idiopathic hypotension
[2019-02-01] MEDS ORDERED: DAPTOmycin 400 MG in SYRINGE 0 ML IV SCH (16:00)
--- NOTE | 2019-02-01 19:09 | Discharge Summary ---
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 fib not on anticoagulation as per patient/family wishes, hypertension, hyperlipidemia, recurrent urothelial carcinoma (initially R collecting system 1990s w/ recent recurrence later noted L collecting system last 08/2018) s/p surgery and ongoing immunotherapy, chronic anemia, DM II, recent left renal subcapsular fluid collection and hematoma presented to ER from [facility] for altered mental status. History obtained from and previous inpatient and outpatient record review. patient with recent hospitalization at [facility] and transferred to [facility] for left renal subcapsular fluid collection and hematoma with question surrounding infection. Reported while at [facility] no IR intervention required and patient was treated with Zosyn and doxycycline. It is reported that patient developed atrial fibrillation RVR requiring Cardizem drip. Had MARI. Patient was started on hemodialysis. Patient was discharged to [facility]. There it is reported that patient has been having hypotension and some of his BP medications have been altered. Reported SBP in the 90s and pt was started on midodrine. Reported that patient had a fall yesterday and hit his head and reported since patient has had altered mental status. Had dialysis today. Reports patient still makes urine and has been urinating past several days. Patient's reports has had intermittent altered mental status with neuro sepsis in the past. She states while patient has been in rehab he has "not been as sharp as he was previously" however was alert and oriented. Unsure if there has been a cough or fevers. Unsure when last BM. In ER patient afebrile, P: 147, BP: 90/51, RR: 28, 94% on room air. Patient received 1 L NSS bolus then ran out 125 mL/h, daptomycin, Zosyn. Patient vitals improved to pulse varying low 100s to 120, RR: 20, BP: 105/53 Admission Exam Per Admitting Provider General: lethargic, pleasantly confused, WDWN Head: normocephalic, atraumatic Eyes: PERRL, EOM's intact, conjunctiva non-injected, anicteric ENT: normal inspection external ears, nose, mucous membranes moist Neck: supple, trachea midline Lungs: clear, no respiratory distress, no wheezing/rhonchi/rales CV: RRR, no murmur, no pretibial edema Abd: normal BS, soft, non-tender Ext: no cyanosis, no calf tenderness Neuro: Alert but lethargic, oriented to self and knows , knows in hospital but does know location, not oriented to year however knows the president. Skin: warm, dry Principal Diagnosis Sepsis Perinephric Hematoma--Likely infected Afib RVR Metabolic Encephalopathy CKD--on Hemodialysis Discharge Data Allergies Allergy/AdvReac Type Severity Reaction Status Date / Time erythromycin base AdvReac Mild upset Verified 01/30/19 16:32 stomach BCG (Bacillus AdvReac PAINFUL Verified 01/30/19 16:32 [place]Catal[place]) vacc Consultations 01/30/19 19:36 ED Decision to Admit Stat 01/30/19 20:35 Consult Cardiology Routine Consult Case Management - Discharge Planning Routine Consult Infectious Diseases Routine Consult Nephrology Routine Consult Urology Routine 01/31/19 12:04 Burn CD for patient Routine Procedures Performed CT ABD: 1. Mild increase in size of a large left renal subcapsular fluid collection since CT of January 02, 2019. Attenuation of this evolving hematoma has decreased. Minimal nondependent low-attenuation material within this collection could reflect trace gas or fat and an infected hematoma cannot be excluded. Increase in size of the small associated fluid collection along the lateral aspect of the left psoas muscle. Stable mild adjacent infiltration. The findings could be correlated with clinical evidence for an infectious process. 2. Left ureteral stent in place with mild ureteral dilatation. No ureteral calculi. 3. Small left pleural effusion. 4. Cholelithiasis without evidence for acute cholecystitis. CT Head: No acute intracranial abnormality or calvarial fracture. CXR: 1. Cardiomegaly without overt pulmonary edema. 2. Persistent left lung base opacities suggestive of atelectasis or pneumonia with probable trace left pleural effusion. 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 fib not on anticoagulation as per patient/family wishes, hypertension, hyperlipidemia, recurrent urothelial carcinoma (initially R collecting system w/ recent recurrence later noted L collecting system last 08/2018) s/p surgery and ongoing immunotherapy, chronic anemia, DM II, recent left renal subcapsular fluid collection and hematoma presented to [facility] for altered mental status. Perinephric Hematoma Possible Sepsis Likely Sources:Pneumonia, Infected Hematoma --CXR: Cardiomegaly without overt pulmonary edema. Persistent left lung base opacities suggestive of atelectasis or pneumonia with probable trace left pleural effusion. --CT ABD:Mild increase in size of a large left renal subcapsular fluid collection since CT of January 02, 2019. Attenuation of this evolving hematoma has decreased. Minimal nondependent low-attenuation material within this collection could reflect trace gas or fat and an infected hematoma cannot be excluded. Increase in size of the small associated fluid collection along the lateral aspect of the left psoas muscle. Stable mild adjacent infiltration. The findings could be correlated with clinical evidence for an infectious process. Left ureteral stent in place with mild ureteral dilatation. No ureteral calculi. Small left pleural effusion. --Normal Lactate Levels --Received IV fluids --Blood cultures: No growth to date --Urine Culture: No growth --Continue empiric IV antibiotics--daptomycin, Zosyn Day #3 --Appreciate Urology Input --If patient's clinical condition worsens, need to be transferred to tertiary care center for drainage of infected hematoma by interventional radiology --Plan to repeat imaging in 1 to 2 days --Appreciate ID input --Check procalcitonin in a.m. --Leukocytosis likely secondary to hematoma as per ID (2) Metabolic encephalopathy: Metabolic encephalopathy likely secondary to above CT HEAD: No acute intracranial abnormality or calvarial fracture. 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 Discussed with ICU team, Urologist Dr.Susan Maldonado at [facility]. Given the possibility that the Perinephric hematoma could have infected, discussed with [facility] Water Truck Driver--. Also discussed with Dr.Susan Watkins (Urology ) and Dr.Venu Pfeiffer (Water Truck Driver) at [facility] for possible need for drainage by IR. Patient is accepted for further management at [facility] by Dr.Venu Pfeiffer--Water Truck Driver. Patient's family informed of the patient's change in condition. If transportation get delayed, Patient will be planned to be transferred to ICU for close monitoring and consult Water Truck Driver for further management. Will change him to NPO. Total Time Total Time Spent Total Time Spent (In Minutes): 45 minutes Total Time Includes: Examination of the Patient, Discharge Planning, Medication Reconciliation, Communication With Other Providers and Other Discharge Plan Discharge Items Patient Disposition: Transfer Acute Care Hospital Reason For Visit: SEPSIS Discharge Diagnosis: Sepsis Perinephric Hematoma--Likely infected Afib RVR Metabolic Encephalopathy CKD--on Hemodialysis Activity: Per Instructions section Non-emergency contact: Primary Care Provider, Specialist and Urologist Call non-emergency contact if: you have any medication questions, your symptoms worsen, your pain is not controlled, your pain is worsening, your pain is unusual for you, your pain is concerning for you and you have a fever Follow-up/Referrals: Reed Real, DO [Primary Care Provider] - Diet: Carb Consistent or DM2 and Dialysis Renal Addtl Attending Provider Instructions: Follow up with Dr.Susan Maldonado (Urology ) and Dr.Venu Pfeiffer (Water Truck Driver) at [facility] for further management Pending Studies at Discharge: Yes Studies:: Blood Culture Stand-Alone Forms: [facility] Sk[facility] Items Patient informed of condition?: Yes DNR: No Discharge Level of Care: Other Communicable Disease: No Discharge Prognosis: Deteriorating Lines: Peripheral IV Urinary Catheter: Yes Medications and DC Order Prescriptions: New metoprolol tartrate 25 mg Tablet 25 mg PO Q6 Qty: 0 RF: 0 Continued Novolog U-100 Insulin aspart 100 unit/mL Solution 1 sliding scale dose SUBCUT USEASDIRECTD RF: 0 quetiapine [Seroquel] 25 mg Tablet 12.5 mg PO HS RF: 0 atorvastatin 80 mg Tablet 80 mg PO PM RF: 0 ipratropium-albuterol 0.5 mg-3 mg(2.5 mg base)/3 mL Solution For Nebulization 3 ml INHALATION QID PRN (Reason: Shortness Of Breath Or Wheezing) RF: 0 Lantus U-100 Insulin 100 unit/mL Solution 6 unit SUBCUT HS RF: 0 sevelamer HCl 800 mg Tablet 800 mg PO DAILY RF: 0 midodrine 5 mg Tablet 5 mg PO TID RF: 0 famotidine [Pepcid] 20 mg Tablet 20 mg PO UD RF: 0 tamsulosin 0.4 mg Capsule 0.4 mg PO HS RF: 0 cholecalciferol (vitamin D3) [Vitamin D3] 2,000 unit Tablet 2,000 unit PO HS RF: 0 Incruse Ellipta 62.5 mcg/actuation Blister With Device 1 inh INHALATION DAILY RF: 0 Discontinued metoprolol succinate 50 mg Tablet Extended Release 24 Hr 50 mg PO DAILY RF: 0 Discharge Orders: Discharge Order (Routine); Ordered 02/01/19 Ordered By: Layo Patel Admission Data Admit Date/Time: 01/30/19 18:27 Attending Provider: Layo Patel Admit Provider: Trever Sibley Primary Care Provider: Reed Real Other Providers: Trever Sibley ; Andrew Bernal ; Katie Canseco ; Jaime Whaley ; Jeramy Jacques II
[2019-02-01] MEDS ORDERED: METOPROLOL TARTRATE 1 MG/ML VIAL IV STA (19:49)
--- NOTE | 2019-02-01 20:22 | History & Physical Report ---
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 Dillard is a 89-year-old male with past medical history significant for DM type II, CKD stage IV on HD Saturday, CAD as/P CABG, A. fib not anticoagulated, HLD, and recurrent urothelial carcinoma with last recurrence 08/22 and is as/P surgery and ongoing immunotherapy, who recently was discharged from [facility] for a left renal subcapsular fluid collection and hematoma. He presented to the emergency department 01/30 from [facility] with altered mental status and was being treated for sepsis. There was questionable infection of the renal subcapsular fluid collection during his hospitalization [facility] and he was treated with Zosyn and doxycycline. Patient initially improved but as of this afternoon his condition appears to be worse. He has become more lethargic and confused and is now in A. fib RVR. Primary team has coordinated transfer to [facility] for possible drainage of presumed infected hematoma with IR. Due to transfer delays with [facility], patient was transferred to ICU for further management while awaiting transfer. On arrival to the ICU the patient is confused and is unable to participate in subjective portion of exam. He remains in A. fib RVR on monitor, but is otherw ise hemodynamically stable without need for drips or supplemental oxygen at this time. Patient to remain in ICU pending transfer to [facility]. Update: [facility] given that [facility] and [facility] teams were significantly delayed. ETA for transport now 20 minutes. Patient was given 5 mg IV metoprolol for A. fib RVR without improvement and was then placed on diltiazem drip for transport. Allergies Allergy/AdvReac Type Severity Reaction Status Date / Time erythromycin base AdvReac Mild upset Verified 01/30/19 16:32 stomach BCG (Bacillus AdvReac PAINFUL Verified 01/30/19 16:32 [place]) vacc Home Medications Home Medications Medication Instructions Recorded Confirmed Type atorvastatin 80 mg PO PM 01/30/19 01/30/19 History cholecalciferol (vitamin D3) 2,000 unit PO HS 01/30/19 01/30/19 History [Vitamin D3] famotidine [Pepcid] 20 mg PO UD 01/30/19 01/30/19 History insulin aspart U-100 [Novolog 1 sliding scale dose SUBCUT 01/30/19 01/30/19 History U-100 Insulin aspart] USEASDIRECTD insulin glargine [Lantus U-100 6 unit SUBCUT HS 01/30/19 01/30/19 History Insulin] ipratropium-albuterol 3 ml INHALATION QID PRN 01/30/19 01/30/19 History metoprolol succinate 50 mg PO DAILY 01/30/19 01/30/19 History midodrine 5 mg PO TID 01/30/19 01/30/19 History quetiapine [Seroquel] 12.5 mg PO HS 01/30/19 01/30/19 History sevelamer HCl 800 mg PO DAILY 01/30/19 01/30/19 History tamsulosin 0.4 mg PO HS 01/30/19 01/30/19 History umeclidinium [Incruse Ellipta] 1 inh INHALATION DAILY 01/30/19 01/30/19 History Past Med/Surg History Medical History Coronary artery disease (Chronic) "s/p CABG 2006" History of bladder carcinoma (Chronic) History of prostate cancer (Chronic) History of renal cell carcinoma (Chronic) Hypertension (Chronic) BPH (benign prostatic hyperplasia) (Chronic) Diverticular disease of colon (Chronic) Dyslipidemia (Chronic) Asthma (Chronic) CHF (congestive heart failure) Cancer of ureter Diabetes Hematoma of kidney Hypotension Surgical History Status post cardiac catheterization (Chronic) "01/13/[address] [facility]: 60-70% stenosis left main 100% occlusion RCA severe proximal disease diagonal patent MENDOZA to LAD and SVG's to RCA and circ" Status post cataract extraction (Chronic) Status post coronary artery bypass grafting (Chronic) "2006 [place]: MENDOZA-LAD, SVG-RCA, SVG-circ" Status post nephrectomy (Chronic) "[facility] ~ 2013 renal Ca" Status post appendectomy (Chronic) Hx of CABG Family History Other Coronary heart disease Social History Preferred Language: Guatemalan Communication Ability: Effective Livestock Haulier Required: No Beliefs That Will Affect Care: None marital status: Current Living Situation: Rehab Feels Safe at Home: Yes Smoking Status: Former smoker Tobacco Type: cigarettes ; Second Hand Exposure: No ; Hx Alcohol Use: No Hx Substance Use: No Review of Systems Review of Systems: Unobtainable due to cognitive status Physical Exam Eyes: PERRL, conjunctivae normal, anicteric sclerae ENMT: external ear and nose normal, oropharynx normal Neck: trachea midline, no thyromegaly Respiratory: normal respiratory effort, lungs clear to auscultation Cardiovascular: Vessels: no JVD Extremities: normal capillary refill A. fib RVR Gastrointestinal (Abdomen): Normal bowel sounds, abdomen tender with palpation, abdomen nondistended Musculoskeletal: no cyanosis or clubbing, extremities motor strength 5/5 Skin: no rashes, warm and dry Neurologic: Patient confused, PERRLA, cough gag corneals intact Psychiatric: Patient disoriented Results & Data Vital Signs (Past 12 Hours) Vital Signs Temp Pulse Pulse Resp BP BP Pulse Ox 02/01/19 18:24 37.9 C H 155 H 14 119/72 93 02/01/19 15:22 36.8 C 99 H 31 H 106/54 L 96 02/01/19 13:45 37.0 C 112 H 22 82/45 L 88/56 L 96 02/01/19 09:14 124 H Code Status & VTE Plan VTE Prophylaxis Plan VTE Prophylaxis will be ordered: Yes Critical Care Time Critical Care Time: Yes Total Critical Care Time: 35 PG Care Time/CCT Total # of Minutes Spent Total Time Spent with Patient: Total time spent is greater than 50% in coordination of care (as documented) at patient's floor/unit and/or counseling patient: Critical Care Time: Yes Total Critical Care Time: 35 (1) UTI (urinary tract infection) Hematuria presence: with hematuria Urinary tract infection type: site unspecified Qualified Code(s): N39.0 - Urinary tract infection, site not specified; R31.9 - Hematuria, unspecified (2) Sepsis Sepsis acute organ dysfunction status: unspecified Sepsis type: sepsis due to unspecified organism Qualified Code(s): A41.9 - Sepsis, unspecified organism
[2019-02-01] MEDS ORDERED: dilTIAZem HCL 125 MG in DEXTROSE 5% 100 ML IV SCH (21:00)
[2019-02-01] MEDS ORDERED: QUETIAPINE FUMARATE 25 MG TABLET PO SCH (21:00)
[2019-02-02] MEDS ORDERED: FAMOTIDINE 20 MG TAB PO SCH (09:00)
--- NOTE | 2019-02-05 13:01 | Coding Query ---
CODING QUERY To promote full compliance with coding requirements relating to patient care, provider participation is requested in all cases of senior web engineer uncertainty. Please assist us with the question(s) below: Coding Question(s): 1. Please specify below, in your clinical opinion, regarding the Left Perinephric Hematoma and it's likely infection. LEFT PERINEPHRIC HEMATOMA ( ) likely a postprocedural complication ( ) Not a postprocedural complication ( X ) Other: Please Specify unknown LIKELY INFECTION OF THE LEFT PERINEPHRIC HEMATOMA ( ) likely a postprocedural complication ( x ) Not a postprocedural complication ( ) Other: Please Specify 2. Sepsis is documented in the record, and on the Discharge Summary, the likely sources are documented as Pneumonia, Infected Hematoma in the Hospital Course, however the Pneumonia was not listed in the Principal Diagnosis area. Please clarify below, in your clinical opinion. ( x ) likely sources of Sepsis are Pneumonia and/or Infected Perinephric Hematoma ( ) likely source of Sepsis is Infected Perinephric Hematoma and Pneumonia is ruled-out ( ) likely source(s) of Sepsis is Other: Please Specify Physician's Response(s): Thank you Madelyn Blake Principal Diagnosis: "that condition established after study, to be chiefly responsible for occasioning the admission of the patient to the hospital for care." Co-Existing Principal Diagnosis: "when two or more diagnoses equally meet the criteria for principal diagnosis as determined by the circumstances of admission, diagnostic work up, and/or therapy provided, and the Alphabetic Index, Tabular List, or another coding guideline does not provide sequencing direction, any one of the diagnoses may be sequenced first." "When the physician has documented what appears to be a current diagnosis in the body of the record, but has not included the diagnosis in the final diagnostic statement, the physician should be asked whether the diagnosis should be added." ([facility]oding [facility] 2 QTR90. p3-4) RODO
== END 2019-02-01 21:00 | disposition short-term general hospital (02) | DRG 871 ==
LOC: ED 13:53 → SUATTDRO 18:27 → 2E 18:27 → 1E 02-01 19:41
DX: Z99.2 Dependence on renal dialysis; D64.9 Anemia, unspecified; E87.6 Hypokalemia; Z88.1 Allergy status to other antibiotic agents; X58.XXXA Exposure to other specified factors, initial encounter; I50.9 Heart failure, unspecified; Z87.891 Personal history of nicotine dependence; R65.20 Severe sepsis without septic shock; N17.0 Acute kidney failure with tubular necrosis; Z79.899 Other long term (current) drug therapy; Z88.7 Allergy status to serum and vaccine; E78.5 Hyperlipidemia, unspecified; Z91.81 History of falling; N18.6 End stage renal disease; Z90.5 Acquired absence of kidney; N40.0 Benign prostatic hyperplasia without lower urinary tract symptoms; G47.00 Insomnia, unspecified; Z95.1 Presence of aortocoronary bypass graft; Z79.4 Long term (current) use of insulin; J18.9 Pneumonia, unspecified organism; E11.22 Type 2 diabetes mellitus with diabetic chronic kidney disease; I48.91 Unspecified atrial fibrillation; Z85.46 Personal history of malignant neoplasm of prostate; Z82.49 Family history of ischemic heart disease and other diseases of the circulatory system; J45.909 Unspecified asthma, uncomplicated; Z85.528 Personal history of other malignant neoplasm of kidney; R19.7 Diarrhea, unspecified; Z85.54 Personal history of malignant neoplasm of ureter; S37.022A Major contusion of left kidney, initial encounter; N15.8 Other specified renal tubulo-interstitial diseases; G93.41 Metabolic encephalopathy; I25.10 Atherosclerotic heart disease of native coronary artery without angina pectoris; A41.9 Sepsis, unspecified organism; E87.2 Acidosis; I13.2 Hypertensive heart and chronic kidney disease with heart failure and with stage 5 chronic kidney disease, or end stage renal disease

== ENCOUNTER 2019-02-23 09:40 | Inpatient (IN) ==
--- NOTE | 2019-02-23 10:23 | XRay Report ---
XR chest 1V portable CLINICAL HISTORY: 89 years-old Male presenting with Sepsis. TECHNIQUE: Portable upright AP view of the chest was obtained. COMPARISON: 01/30/2019. FINDINGS: Tunneled right internal jugular dialysis catheter terminates at the superior cavoatrial junction. Med franc sternotomy wires and mediastinal surgical clips noted. Atherosclerosis of the aortic arch. Cardia c silhouette mildly enlarged as on prior. Calcified granuloma suspected at the right costophrenic ang le. Improved aeration of the left lung base in comparison to prior. Minimal left basilar opacity jean paul ins. No new focal opacity. No large effusion or pneumothorax. Degenerative changes of the thoracic sp ine. Upper abdomen normal. IMPRESSION: 1. Improved aeration at the left lung base with minimal residual infiltrate. Underlying pneumonia no t excluded. 2. Mild cardiomegaly. No evidence of or volume overload or significant congestive change. Electronically signed by: Pasquale Haynes M.D. 02/23/2019 10:21 AM
[2019-02-23 10:35] LABS: Basophils # (auto) 0.02 K/uL (0-0.2); Basophils % (auto) 0.2 %; Eosinophils # (auto) 0.14 K/uL (0-0.5); Eosinophils % (auto) 1.7 %; Hematocrit (blood only) 31.5 % (42-52); Hemoglobin 9.8 g/dL (14.0-18.0); Immature Granulocytes # (auto) 0.03 K/uL (0.00-0.02); Immature Granulocytes % (auto) 0.4 %; Lymphocytes # (auto) 2.47 K/uL (1.2-3.4); Lymphocytes % (auto) 30.1 %; Mean Corpuscular Hemoglobin 27.3 pg (25-34); Mean Corpuscular Hgb Conc 31.1 g/dL (32-36); Mean Corpuscular Volume 87.7 fL (80-100); Mean Platelet Volume 10.5 fL (7.4-10.4); Monocytes # (auto) 0.52 K/uL (0.11-0.59); Monocytes % (auto) 6.3 %; Neutrophils # (auto) 5.03 K/uL (1.4-6.5); Neutrophils % (auto) 61.3 %; Platelet Count 222 K/uL (130-400); RDW Coefficient of Variation 16.2 % (11.5-14.5); RDW Standard Deviation 52.2 fL (36.4-46.3); Red Blood Count 3.59 M/uL (4.7-6.1); White Blood Count 8.21 K/uL (4.8-10.8)
[2019-02-23] MEDS ORDERED: VANCOMYCIN HCL 1,750 MG in SODIUM CHLORIDE 0.9% 500 ML IV ONE (10:40)
[2019-02-23] MEDS ORDERED: PIPERACILLIN/TAZOBACTAM 4.5 GM/120 ML BAG IV ONE (10:40)
[2019-02-23] MEDS ORDERED: VANCOMYCIN CONSULT ACTIVE PRN ×2 (10:40→16:06)
[2019-02-23] MEDS ORDERED: PIPERACILL/TAZOBAC CONSULT ACTIVE PRN ×2 (10:40→16:06)
[2019-02-23 10:48] LABS: INR 1.1 (0.9-1.1); Partial Thromboplastin Ratio 1.5; Partial Thromboplastin Time 40.9 Seconds (21.0-31.0); Prothrombin Time 11.4 Seconds (9.0-12.0)
[2019-02-23 10:53] LABS: Albumin Level 1.9 gm/dl (3.4-5.0); BUN Creatinine Ratio 8.9 (10-20); Calcium 8.2 mg/dl (8.5-10.1); Creatinine Clr Calc Pharmacy 13.7 ml/min; Est GFR (African American) 17.6; Est GFR (Non-African American) 15.2; Potassium 3.4 mmol/L (3.5-5.1)
[2019-02-23 10:56] LABS: Albumin Globulin Ratio 0.5 (0.9-2); Bilirubin,Total 0.4 mg/dl (0.2-1); Globulin 4.2 gm/dl (2.5-4.0); Total Protein 6.1 gm/dl (6.4-8.2)
--- NOTE | 2019-02-23 13:50 | History & Physical Report ---
Date of Service February 23, 2019 Assessment & Plan (1) Sepsis: Meeting SIRS criteria, pt presents with tachycardia, tachypnea, fever, hypotension WBC wnl and lactate wnl, however procal elevated (1.89) Pt having fever after HD for past week, was started on IV Abx, Rocephin 02/19, then switched to Zosyn on 02/20 Concern for dialysis cath line infection, vs. perinephritic abscess/ infection (seems stable per current CT) vs. other source, concern for endocarditis Blood cltx - obtained in ED, plan to culture tip of the catheter after removal Plan to remove HD line tomorrow AM (02/24) by vascular Will obtain Echo to r/o vegetations In ED started on vancomycin and zosyn was continued in ED Will continue vanco/zosyn, need for renally dosage, will consult pharm Will consult ID and will obtain records from [facility] where pt was hospitalized recently If pt does not improve after line removal and Abx, will need to explore perinephric fluid closer vs. other source (2) Anemia: chronic normocytic anemia, most likely secondary CKD/ anemia of chronic disease No signs of active bleeding current Hgb 9.8 Will cont. 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 Angelo, who will also cont. to follow while pt is admitted D/t his tenuous state no plan for HD at this time, nephrology cont. to follow Concern for HD line infection, plan for removal tomorrow AM (02/24/2019), will need temporary line placed prior to next HD Renal diet for now (NPO after MN) Cont. to monitor renal function Will try to avoid nephrotoxic agents, contrast, NSAIDs, etc, will renally dose meds as needed Mild electrolyte abnormalities Mild hypokalemia and hypocalcemia, likely secondary to above will cont. to monitor (4) Diabetes mellitus, type II: On insulin lantus 4 units qhs, will hold tonight, as this is quite low dose and pt will be npo after midnight will start pt on low SSI will continue to closely monitor and adjust as needed (5) Asthma: Hx of mild intermittent asthma At home/rehab on ellipta daily and duonebs prn, will cont. (6) Dyslipidemia: At home on atorvastatin, last dose this AM Will hold for tomorrow AM,prior to procedure as pt needs to be NPO Will resume after the procedure CAD s/p CABG at home/rehab on metoprolol and atorvastatin will continue metoprolol while inpt No current issues Afib Not on anticoagulation (per family/pt wishes) pt on metoprolol tartrate 25mg q12h, will cont. rate currently not well controlled, pt is tachycardic most likely 2/2 infectious process should resolve (back to baseline) after treating underlying condition (IV Abx, line removal etc.) (7) Constipation: No current issues At home takes bisacodyl prn, miralax prn, will continue Will continue to monitor (8) GERD (gastroesophageal reflux disease): At home on pantoprazole and famotidine, will continue No current issues (9) DVT prophylaxis: Currently resides at Rehab ([facility]) On subq heparin 5000 q8h, last dose this AM Will hold for now, as pt will undergo procedure (dialysis line removal) tomorrow (02/24) AM (10) Discharge planning issues: Currently resides at Rehab ([facility]) Plan for PT/OT eval prior to discharge History of Present Illness Primary Care Provider: Reed Real, 89-year-old male with diabetes mellitus type 2, 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 fib(not on anticoagulation), dyslipidemia, recurrent urothelial carcinoma (initially diagnosed in the ) status post right nephrectomy,with last recurrence in August 2018 status post surgery and immunotherapy, chronic anemia, history of left renal sub-capsular hematoma who presents today after evaluation by his game farm supervisor, Dr. Angelo, who was concerned of infectious process. Patient has had fevers for the past week after dialysis session, he would also become tachycardic and hypotensive. He was started initially on IV antibiotics by Dr. Cullen (can be contacted at her cell [phone]), physician at [facility]. He received Rocephin on February 19, then it was switched to Zosyn. Recently patient was admitted to [facility] and also transferred to [facility] due to sepsis, altered mental status secondary to sepsis, concern for source of infection being left renal subcapsular hematoma. Per records available, he was transferred to [facility] for IR drainage however he was treated conservatively with IV antibiotics and discharged on February 11 back to [facility]. At this time omari alarcon does not have any mental status changes, and overall says he feels well. He did have fevers of 102-103 F after each dialysis session for the past week, patient himself denies any chills, sweats, weakness, dizziness, nausea, vomiting, abdominal pain, chest pain, difficulty breathing. He states that he feels well overall. In the ED patient was found tachycardic in low 100s (and in A. fib), tachypneic with respirations over 20 per minute, with systolic blood pressures in the 90s and low 100s. White blood cell count and lactate within normal limits, however pro calcitonin elevated at 1.89. CT of the abdomen and pelvis showed essentially unchanged images without any notable progression. He received IV antibiotics, vancomycin and Zosyn. Allergies Allergy/AdvReac Type Severity Reaction Status Date / Time erythromycin base AdvReac Mild upset Verified 02/23/19 11:00 stomach BCG (Bacillus AdvReac PAINFUL Verified 02/23/19 11:00 [place]) vacc Home Medications Home Medications Medication Instructions Recorded Confirmed Type atorvastatin 80 mg PO DAILY 01/30/19 02/23/19 History cholecalciferol (vitamin D3) 2,000 unit PO DAILY 01/30/19 02/23/19 History [Vitamin D3] famotidine [Pepcid] 20 mg PO 3XWK 01/30/19 02/23/19 History insulin aspart U-100 [Novolog 0 unit SUBCUT ACHS 01/30/19 02/23/19 History U-100 Insulin aspart] insulin glargine [Lantus U-100 4 unit SUBCUT HS 01/30/19 02/23/19 History Insulin] ipratropium-albuterol 3 ml INHALATION QID PRN 01/30/19 02/23/19 History umeclidinium [Incruse Ellipta] 1 inh INHALATION DAILY 01/30/19 02/23/19 History acetaminophen [Tylenol Extra 500 mg PO Q4H PRN 02/17/19 02/23/19 History Strength] bisacodyl 10 mg CO DAILY PRN 02/17/19 02/23/19 History dextromethorphan-guaifenesin 10 ml PO Q4H PRN 02/17/19 02/23/19 History dextrose 50 % in water (D50W) 50 % IV DIRECTED PRN 02/17/19 02/23/19 History glucagon 1 mg SUBCUT DIRECTED PRN 02/17/19 02/23/19 History heparin (porcine) 5,000 unit SUBCUT Q8H 02/17/19 02/23/19 History heparin (porcine) 400 unit IV DIRECTED PRN 02/17/19 02/23/19 History melatonin 6 mg PO HS PRN 02/17/19 02/23/19 History pantoprazole [Protonix] 40 mg PO BIDM 02/17/19 02/23/19 History polyethylene glycol 3350 [Miralax] 17 g PO DAILY PRN 02/17/19 02/23/19 History sennosides-docusate sodium 1 tab PO BID PRN 02/17/19 02/23/19 History [Senokot-S] sodium phosphates [Fleet Enema] 118 ml CO DAILY PRN 02/17/19 02/23/19 History metoprolol tartrate 25 mg PO Q12 02/23/19 02/23/19 History piperacillin-tazobactam [Zosyn] 2.25 g IV Q12 02/23/19 02/23/19 History Past Med/Surg History Family History Mother Heart disease Father Heart disease Social History Preferred Language: Nicaraguan Communication Ability: Effective Manager Bar Required: No Beliefs That Will Affect Care: None marital status: Current Living Situation: Rehab Current Living Situation Comment: at [facility] Other Information That Helps Us Care for You: No Feels Safe at Home: Yes Safety Concerns: Feels Safe At This Time Smoking Status: Former smoker Tobacco Type: cigarettes ; Second Hand Exposure: No ; Hx Alcohol Use: No Hx Substance Use: No Review of Systems Constitutional: + fever (after HD) and + fatigue; no sweats and no body aches Eyes: no eye pain, no photophobia and no worsening vision Ear, Nose, Mouth, Throat: no dizziness, no nasal discharge, no snoring, no sore throat and no dysphagia Respiratory: no dyspnea, no dyspnea on exertion, no hemoptysis and no pain on inspiration Cardiovascular: no chest pain with activity, no dyspnea at rest and no edema Gastrointestinal: no abdominal pain, no nausea, no vomiting, no constipation and no melena Genitourinary: no dysuria and no flank pain Musculoskeletal: no back pain, no neck pain, no swelling, no myalgia and no muscle weakness Integumentary: no rash, no lesions, no wounds, no erythema and no yellowing of the skin Neurologic: no loss of sensation, no tingling, no numbness and no radiating pain Psychiatric: no depression and no anxiety Endocrine: no polydipsia, no polyphagia and no polyuria Hematologic / Lymphatic: no lymphadenopathy and no unexplained weight loss Allergy / Immunological: no throat swelling, no urticaria and no dyspnea Physical Exam Constitutional: well developed, well nourished and + ill appearing Eyes: PERRL, conjunctivae normal, anicteric sclerae + anicteric sclerae ENMT: external ear and nose normal, oropharynx normal Neck: supple, no cervical lad, full ROM Respiratory: normal respiratory effort; does not use accessory muscles Auscultation: + crackles (b/l); no wheezes Cardiovascular: Rate/Rhythm: + tachycardic (irregular) Heart Sounds: no murmur Extremities: + edema (mild 1+ above ankles) Chest (Breasts): Chest: + vascular access device or port (on the Right side, no erythema, edema or any drainage noted) Gastrointestinal (Abdomen): Inspection/Auscultation: abdomen normal to inspection and normal bowel sounds; abdomen not distended Percussion/Palpation: abdomen soft; abdomen nontender, no guarding and abdomen not rigid Musculoskeletal: Head/Neck/Chest: normocephalic, head atraumatic and neck supple Extremities: extremities normal to inspection and + abnormal muscle tone Skin: no rashes, warm and dry splinter hemorrhage -R thumb Neurologic: PERRL, EOMI, accommodation nl, no face palsy, no dysarthria no sensory loss noted Psychiatric: A+Ox3, euthymic affect Speech: normal rate/rhythm/volume of speech Genitourinary: no CVA tenderness Lymphatic: + lymphedema (mild 1+ above ankles); no cervical lymphadenopathy Results & Data Vital Signs (Past 12 Hours) Vital Signs Temp Pulse Pulse Resp BP BP Pulse Ox 02/23/19 12:43 97 H 24 101/60 96 02/23/19 12:42 94 H 28 H 101/60 96 02/23/19 10:59 86 20 95/51 L 97 02/23/19 10:42 88 22 95/54 L 96 02/23/19 09:47 36.5 C 102 H 20 93/59 L 97 Laboratory Results 02/23/19 02/23/19 02/23/19 Range/Units 16:18 10:24 10:24 WBC (4.8-10.8) K/uL RBC (4.7-6.1) M/uL Hgb (14.0-18.0) g/dL Hct (42-52) % MCV (80-100) fL MCH (25-34) pg MCHC (32-36) g/dL RDW Std Deviation (36.4-46.3) fL RDW Coeff of Froilan (11.5-14.5) % Plt Count (130-400) K/uL MPV (7.4-10.4) fL Immature Gran % (Auto) % Neut % (Auto) % Lymph % (Auto) % [place] % (Auto) % Eos % (Auto) % Baso % (Auto) % Immature Gran # (Auto) (0.00-0.02) K/uL Neut # (Auto) (1.4-6.5) K/uL Lymph # (Auto) (1.2-3.4) K/uL [place] # (Auto) (0.11-0.59) K/uL Eos # (Auto) (0-0.5) K/uL Baso # (Auto) (0-0.2) K/uL PT (9.0-12.0) Seconds INR (0.9-1.1) APTT (21.0-31.0) Seconds PTT Ratio Sodium (136-145) mmol/L Potassium (3.5-5.1) mmol/L Chloride (98-107) mmol/L Carbon Dioxide (21-32) mmol/L Anion Gap (3-11) BUN (7-18) mg/dl Creatinine (0.6-1.4) mg/dl Est Cr Clr Drug Dosing ml/min Est GFR ( Amer) Est GFR (Non-Af Amer) BUN/Creatinine Ratio (10-20) Glucose (70-99) mg/dl POC Glucose 133 H (70-99) Lactate 1.9 (0.4-2.0) mmol/L Calcium (8.5-10.1) mg/dl Total Bilirubin (0.2-1) mg/dl AST (15-37) U/L ALT (12-78) U/L Alkaline Phosphatase (45-117) U/L Total Protein (6.4-8.2) gm/dl Albumin (3.4-5.0) gm/dl Globulin (2.5-4.0) gm/dl Albumin/Globulin Ratio (0.9-2) Procalcitonin 1.89 H (0-0.5) ng/ml 02/23/19 02/23/19 02/23/19 Range/Units 10:24 10:24 10:24 WBC 8.21 (4.8-10.8) K/uL RBC 3.59 L (4.7-6.1) M/uL Hgb 9.8 L (14.0-18.0) g/dL Hct 31.5 L (42-52) % MCV 87.7 (80-100) fL MCH 27.3 (25-34) pg MCHC 31.1 L (32-36) g/dL RDW Std Deviation 52.2 H (36.4-46.3) fL RDW Coeff of Froilan 16.2 H (11.5-14.5) % Plt Count 222 (130-400) K/uL MPV 10.5 H (7.4-10.4) fL Immature Gran % (Auto) 0.4 % Neut % (Auto) 61.3 % Lymph % (Auto) 30.1 % [place] % (Auto) 6.3 % Eos % (Auto) 1.7 % Baso % (Auto) 0.2 % Immature Gran # (Auto) 0.03 H (0.00-0.02) K/uL Neut # (Auto) 5.03 (1.4-6.5) K/uL Lymph # (Auto) 2.47 (1.2-3.4) K/uL [place] # (Auto) 0.52 (0.11-0.59) K/uL Eos # (Auto) 0.14 (0-0.5) K/uL Baso # (Auto) 0.02 (0-0.2) K/uL PT 11.4 (9.0-12.0) Seconds INR 1.1 (0.9-1.1) APTT 40.9 H (21.0-31.0) Seconds PTT Ratio 1.5 Sodium 140 (136-145) mmol/L Potassium 3.4 L (3.5-5.1) mmol/L Chloride 103 (98-107) mmol/L Carbon Dioxide 30 (21-32) mmol/L Anion Gap 7.0 (3-11) BUN 31 H (7-18) mg/dl Creatinine 3.43 H (0.6-1.4) mg/dl Est Cr Clr Drug Dosing 13.7 ml/min Est GFR ( Amer) 17.6 Est GFR (Non-Af Amer) 15.2 BUN/Creatinine Ratio 8.9 L (10-20) Glucose 178 H (70-99) mg/dl POC Glucose (70-99) Lactate (0.4-2.0) mmol/L Calcium 8.2 L (8.5-10.1) mg/dl Total Bilirubin 0.4 (0.2-1) mg/dl AST 35 (15-37) U/L ALT 23 (12-78) U/L Alkaline Phosphatase 137 H (45-117) U/L Total Protein 6.1 L (6.4-8.2) gm/dl Albumin 1.9 L (3.4-5.0) gm/dl Globulin 4.2 H (2.5-4.0) gm/dl Albumin/Globulin Ratio 0.5 L (0.9-2) Procalcitonin (0-0.5) ng/ml Diagnostic Findings CXR (02/23/2019) FINDINGS: Tunneled right internal jugular dialysis catheter terminates at the superior cavoatrial junction. Median sternotomy wires and mediastinal surgical clips noted. Atherosclerosis of the aortic arch. Cardiac silhouette mildly enlarged as on prior. Calcified granuloma suspected at the right costophrenic angle. Improved aeration of the left lung base in comparison to prior. Minimal left basilar opacity remains. No new focal opacity. No large effusion or pneumothorax. Degenerative changes of the thoracic spine. Upper abdomen normal. IMPRESSION: 1. Improved aeration at the left lung base with minimal residual infiltrate. Underlying pneumonia not excluded. 2. Mild cardiomegaly. No evidence of or volume overload or significant congestive change. CT Abdomen/Pelvis (02/23/2019) IMPRESSION: 1. Similar appearance of the involving left renal subcapsular hematoma. 2. Stable appearance of the nondependent low density within the exophytic cyst at the upper pole the left kidney likely representing posttraumatic fat necrosis associated with a prior exophytic cyst. 3. No left hydronephrosis. Left ureteral stent remains in place with reactive urothelial change likely related to the stent. Correlate with urinalysis to exclude the presence of superimposed infection. 4. Surgically absent right kidney. 5. Moderate left pleural effusion with passive atelectasis as on prior. 6. Presumably dependent changes at the right lung base are also atelectasis. 7. Evidence of old granulomatous disease. Code Status & VTE Plan Code Status Full code - discussed with the pt at the bedside and his Rosanne over the phone (paperwork from [facility] DNR) VTE Prophylaxis Plan VTE Prophylaxis will be ordered: Yes Reason for no VTE drug order: Contraindicated (1) Anemia Anemia type: unspecified type Qualified Code(s): D64.9 - Anemia, unspecified (2) Sepsis Sepsis acute organ dysfunction status: unspecified Sepsis type: sepsis due to unspecified organism Qualified Code(s): A41.9 - Sepsis, unspecified organism
--- NOTE | 2019-02-23 13:50 | CT Scan Report ---
CT abd pelvis wo con CLINICAL HISTORY: 89 years-old Male presenting with hx of perinephric hematoma vs. infection. TECHNIQUE: Multidetector CT of the abdomen and pelvis was performed without the use of intravenous co ntrast. IV contrast: None. One or more dose lowering techniques were used consistent with the princip les of ALARA (as low as reasonably achievable), including automatic exposure control, mA or kV adjust ment to individual patient size, and/or use of iterative reconstruction. COMPARISON: 01/30/2019. CT DOSE (mGy.cm): The estimated cumulative dose is 449.69 mGy.cm. FINDINGS: Quantitative Equity Head topogram: Unremarkable. Lung bases: Partially visualized tip of a central venous catheter terminates in the right atrium. Cor onary artery and aortic valve calcification. Normal heart size. Trace right and moderate simple left pleural effusion. Extensive passive atelectasis in the lung bases more so on the left. Calcified gran uloma in the right lower lobe. Liver: Normal morphology. Normal density. Punctate calcification suggest a history of granulomatous d isease Biliary: No gross biliary ductal dilatation allowing for noncontrast technique. Gallbladder contains gallstones. Pancreas: Moderate parenchymal atrophy. Spleen: Punctate calcification suggest a history of granulomatous disease. Adrenal glands: Normal noncontrast appearance. Kidneys and ureters: The right kidney is surgically absent. The left kidney demonstrates a subcapsula r fluid collection as on prior exam, measuring up to 12.3 x 8.4 cm in maximal axial dimensions, previ ously 12.2 x 9.3. This may have perinephric extension inferiorly. Redemonstration of the round exophy tic component at the superior pole the right kidney with nondependent low density rim. This is at the site of a prior exophytic simple cyst and most likely represents posttraumatic changes of the cyst. The nondependent low density is unchanged from prior and is doubtful to represent gas. More likely th is represents trace fat likely fat necrosis in the posttraumatic setting. Compression of the left jerome al parenchyma as on prior exam. A left ureteral stent remains in place with reactive urothelial thick ening. No left hydronephrosis. Bladder: Incompletely evaluated secondary to underdistention. Left ureteral stent terminates in the b ladder. Pelvic organs: Prostate enlargement likely secondary to benign prostatic hyperplasia. Bowel: Limited diverticulosis of the proximal sigmoid colon. The appendix is likely surgically absent . No bowel obstruction. Postsurgical changes of an enteroenteric anastomosis in the right anterior ab domen. Peritoneal cavity: No free fluid or intraperitoneal gas. Presacral fat infiltration and/or fluid may represent edema related to the left renal pathology and is similar to prior. Lymph nodes: No gross lymphadenopathy allowing for noncontrast technique. Vasculature: Atherosclerosis of the normal caliber abdominal aorta. Abdominal wall: Multiple foci of gas within the subcutaneous fat of the anterior abdominal wall likel y relate to medication administration. Gynecomastia also noted. Musculoskeletal: Degenerative changes of the spine. Partially visualized median sternotomy IMPRESSION: 1. Similar appearance of the involving left renal subcapsular hematoma. 2. Stable appearance of the nondependent low density within the exophytic cyst at the upper pole the left kidney likely representing posttraumatic fat necrosis associated with a prior exophytic cyst. 3. No left hydronephrosis. Left ureteral stent remains in place with reactive urothelial change like ly related to the stent. Correlate with urinalysis to exclude the presence of superimposed infection. 4. Surgically absent right kidney. 5. Moderate left pleural effusion with passive atelectasis as on prior. 6. Presumably dependent changes at the right lung base are also atelectasis. 7. Evidence of old granulomatous disease. Electronically signed by: Pasquale Haynes M.D. 02/23/2019 1:48 PM
[2019-02-23] MEDS ORDERED: POLYETHYLENE (MIRALAX) 17 GM PACK PO PRN (16:06)
[2019-02-23] MEDS ORDERED: DEXTROSE 50% 50 ML SYRINGE IV PRN ×2 (16:06→18:00)
[2019-02-23] MEDS ORDERED: ACETAMINOPHEN 500 MG TAB PO PRN (16:06)
[2019-02-23] MEDS ORDERED: DOCUSATE SODIUM/SENNA 50/8.6MG TAB PO PRN (16:06)
[2019-02-23] MEDS ORDERED: bisacodyL 10 MG SUPP PR PRN (16:06)
[2019-02-23] MEDS ORDERED: NON-FORMULARY MEDICATION (Melatonin 6 MG) PO PRN (16:06)
[2019-02-23] MEDS ORDERED: GLUCAGON 1 MG SQ PRN (16:06)
[2019-02-23] MEDS ORDERED: ALBUT/IPRATROP 3MG/0.5MG NEB 3 ML VIAL INH PRN (16:06)
[2019-02-23] MEDS ORDERED: GUAIFENESIN/DEXTROM SYRUP 200MG/20MG 10ML UDC PO PRN (16:06)
[2019-02-23] MEDS ORDERED: HEPARIN (PORCINE) 1000 UNIT/ML 10 ML (CATH LAB USE ONLY) IV PRN (16:06)
--- NOTE | 2019-02-23 16:26 | Emergency Department Note ---
Entered by Malathi Gross acting as a scribe for History of Present Illness General Chief complaint: Fever Stated complaint: SPIKING TEMPS AFTER DIALYSIS Time Seen by Provider: 02/23/19 10:00 Source: patient and other (nursing staff) History of Present Illness Onset (ago): day(s) 2 Severity: moderate (103) Pain Consistency: + intermittent Maximum Pain Intensity: 0 Quality: + other (fever) Exacerbated By: + other (dialysis) Associated symptoms: + denies other symptoms (sore throat, ear pain, congestion, leg pain) and + cough; no nausea/vomiting The patient is an 89 year old female w/ PMHx a-fib, pneumonia, sepsis, CKD, anemia, DM, CAD, bladder cancer, prostate cancer, renal cancer, cancer of the ureter, HTN, BPH, dyslipidemia, CHF, GERD, GI bleed, and a nephrectomy who presents to the ED w/ CC of intermittent fevers starting 2 days ago. Per nursing staff, the patient is coming from [facility] after spiking a fever of 103 after dialysis on Saturday. They report that it apparently is reoccurring. The patient states that he feels fine and is unsure when he gets dialysis. He notes that he cannot remember when he last had dialysis. He notes that he does have a cath in his right chest for his dialysis. He notes that he does still make a small amount of urine. The patient complains of a chronic cough. The patient denies missing his medications, sore throat, ear pain, congestion, getting a flu shot today, nausea, vomiting, and leg pain. Home Medications Home Medications Medication Instructions Recorded Confirmed Type atorvastatin 80 mg PO DAILY 01/30/19 02/23/19 History cholecalciferol (vitamin D3) 2,000 unit PO DAILY 01/30/19 02/23/19 History [Vitamin D3] famotidine [Pepcid] 20 mg PO 3XWK 01/30/19 02/23/19 History insulin aspart U-100 [Novolog 0 unit SUBCUT ACHS 01/30/19 02/23/19 History U-100 Insulin aspart] insulin glargine [Lantus U-100 4 unit SUBCUT HS 01/30/19 02/23/19 History Insulin] ipratropium-albuterol 3 ml INHALATION QID PRN 01/30/19 02/23/19 History umeclidinium [Incruse Ellipta] 1 inh INHALATION DAILY 01/30/19 02/23/19 History acetaminophen [Tylenol Extra 500 mg PO Q4H PRN 02/17/19 02/23/19 History Strength] bisacodyl 10 mg CO DAILY PRN 02/17/19 02/23/19 History dextromethorphan-guaifenesin 10 ml PO Q4H PRN 02/17/19 02/23/19 History dextrose 50 % in water (D50W) 50 % IV DIRECTED PRN 02/17/19 02/23/19 History glucagon 1 mg SUBCUT DIRECTED PRN 02/17/19 02/23/19 History heparin (porcine) 5,000 unit SUBCUT Q8H 02/17/19 02/23/19 History heparin (porcine) 400 unit IV DIRECTED PRN 02/17/19 02/23/19 History melatonin 6 mg PO HS PRN 02/17/19 02/23/19 History pantoprazole [Protonix] 40 mg PO BIDM 02/17/19 02/23/19 History polyethylene glycol 3350 [Miralax] 17 g PO DAILY PRN 02/17/19 02/23/19 History sennosides-docusate sodium 1 tab PO BID PRN 02/17/19 02/23/19 History [Senokot-S] sodium phosphates [Fleet Enema] 118 ml CO DAILY PRN 02/17/19 02/23/19 History metoprolol tartrate 25 mg PO Q12 02/23/19 02/23/19 History piperacillin-tazobactam [Zosyn] 2.25 g IV Q12 02/23/19 02/23/19 History Allergies Allergy/AdvReac Type Severity Reaction Status Date / Time erythromycin base AdvReac Mild upset Verified 02/23/19 11:00 stomach BCG (Bacillus AdvReac PAINFUL Verified 02/23/19 11:00 [place]) vacc Past Med/Surg History Medical History Chronic a-fib (Chronic) with RVR-no AC secondary to perinephrotic hematoma/GI bleed-rate controlled with metoprolol Anemia (Chronic) GERD (gastroesophageal reflux disease) (Chronic) Atrial fibrillation with rapid ventricular response Acute kidney injury superimposed on CKD Renal hematoma, left Sepsis (Acute) Anemia (Chronic) 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 Diabetes mellitus, type II (Chronic) Coronary artery disease (Chronic) "s/p CABG 2006" History of bladder carcinoma History of prostate cancer History of renal cell carcinoma Hypertension (Chronic) BPH (benign prostatic hyperplasia) (Chronic) Diverticular disease of colon (Chronic) Dyslipidemia (Chronic) Asthma (Chronic) Diabetes (Chronic) insulin dependent Arm pain, left CHF (congestive heart failure) Cancer of ureter Chest pain Generalized weakness H/O: GI bleed Hematoma of kidney Hypertension Left upper limb pain Leukocytosis Metabolic encephalopathy Neck pain Oliguria Perinephric hematoma Perinephric hematoma Pneumonia UTI (urinary tract infection) Vascular dialysis catheter in place Weakness Surgical History Status post cardiac catheterization "01/13/2010 [facility]: 60-70% stenosis left main 100% occlusion RCA severe proximal disease diagonal patent MENDOZA to LAD and SVG's to RCA and circ" Status post cataract extraction Status post coronary artery bypass grafting "2006 [place]: MENDOZA-LAD, SVG-RCA, SVG-circ" Status post nephrectomy "[facility] ~ 2013 renal Ca" Status post appendectomy H/O transurethral resection of prostate History of colon resection Hx of CABG Hx of CABG Hx of tonsillectomy S/p nephrectomy RIGHT Family History Other Coronary heart disease Social History Preferred Language: Israeli Communication Ability: Effective [employer]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 and A total of 10 systems reviewed and were otherwise negative Physical Exam Vital Signs Vital Signs - 24 hr 02/23/19 09:47 02/23/19 10:42 02/23/19 10:59 Temperature 36.5 C Temperature Source Oral Sepsis Recent Fever Within 48 Hours Yes Sepsis Action Taken by Nursing No Action Required Pulse Rate 102 H Pulse Rate [Apical] 88 86 Respiratory Rate 20 22 20 Respiratory Effort / Characteristics Non-Labored Non-Labored Respiratory Depth Normal Normal Blood Pressure 93/59 L Blood Pressure [Left Arm] 95/54 L 95/51 L Blood Pressure Mean 70 Blood Pressure Mean [Left Arm] 67 65 Pulse Oximetry 97 96 97 Oxygen Delivery Method Room Air Room Air Room Air 02/23/19 12:42 02/23/19 12:43 02/23/19 14:00 Temperature Temperature Source Sepsis Recent Fever Within 48 Hours Sepsis Action Taken by Nursing Pulse Rate Pulse Rate [Apical] 94 H 97 H 98 H Respiratory Rate 28 H 24 20 Respiratory Effort / Characteristics Non-Labored Non-Labored Respiratory Depth Normal Normal Blood Pressure Blood Pressure [Left Arm] 101/60 101/60 110/55 L Blood Pressure Mean Blood Pressure Mean [Left Arm] 73 73 73 Pulse Oximetry 96 96 96 Oxygen Delivery Method Room Air Room Air Room Air GENERAL: Well appearing, well nourished, NAD, non-toxic. Wearing glasses. EYE EXAM: Normal conjunctiva. PERRL, no anisocoria and EOM's grossly intact w/o pain. OROPHARYNX: Moist mucous membranes. Grossly normal dentition. NECK: Supple, no nuchal rigidity, no adenopathy, non-tender. No signs of meningismus. LUNGS: Clear to auscultation. Normal chest wall mechanics. HEART: NSR, no MRG. CHEST: Subclavian Permacath in place. Scant blood. No drainage. No erythema. Well healed sternotomy scar. ABDOMEN: Abdomen soft, non-tender, normo-active bowel sounds, no masses, no rebound or guarding. BACK: No CVA TTP. SKIN: No rashes and no bruising. UPPER EXTREMITIES: Upper extremities are grossly normal. LOWER EXTREMITIES: No pitting edema. No calf pain. NEURO EXAM: A&O x3, cranial nerves II-XII grossly intact, normal speech, moves all 4 extremities on command w/o issue. Course 1013: Past medical records reviewed. The patient was evaluated in room C9. A c omplete history and physical exam was performed. 1133: I discussed the patient's case with KAMERON Camargo. She will evaluate the patient for further management under Dr. Reji Dinhist's service. 1214: I reevaluated the patient and updated him on his test results and the treatment plan. 1223: I spoke to the patient's on the phone at this time. I updated her on the treatment plan with her and explained why we needed to bring him in. 1310: I reevaluated the patient and his is at bedside. I updated them on his test results and the treatment plan. Administered Medications Discontinued Medications Piperacillin Sod/Tazobactam Sod (Zosyn) 4.5 gm in 120 mls @ 240 mls/hr IV NOW ONE Stop: 02/23/19 11:09 Last Infusion: 02/23/19 12:41 Dose: 0 mls/hr Documented by: [id number] Admin: 02/23/19 11:19 Dose: 240 mls/hr Documented by: [id number] Vancomycin HCl 1,750 mg/ (Sodium Chloride) 535 mls @ 200 mls/hr IV NOW ONE Stop: 02/23/19 13:20 Last Admin: 02/23/19 12:41 Dose: 200 mls/hr Documented by: [id number] Medical Decision Making Differential Diagnosis Differential diagnosis: Etiologies such as viral syndrome, otitis, pharyngitis, pneumonia, influenza, meningitis, urinary tract infection, sepsis, bacteremia, as well as others were entertained. Medical Records Attestation: I reviewed the patient's medical records. Home Medications Current Medication List: was personally reviewed by me Laboratory Data Attestation: I reviewed the patient's lab results. Result diagrams: 02/23/19 10:24 02/23/19 10:24 Lab Results 02/23/19 02/23/19 02/23/19 Range/Units 10:24 10:24 10:24 WBC 8.21 (4.8-10.8) K/uL RBC 3.59 L (4.7-6.1) M/uL Hgb 9.8 L (14.0-18.0) g/dL Hct 31.5 L (42-52) % MCV 87.7 (80-100) fL MCH 27.3 (25-34) pg MCHC 31.1 L (32-36) g/dL RDW Std Deviation 52.2 H (36.4-46.3) fL RDW Coeff of Froilan 16.2 H (11.5-14.5) % Plt Count 222 (130-400) K/uL MPV 10.5 H (7.4-10.4) fL Immature Gran % (Auto) 0.4 % Neut % (Auto) 61.3 % Lymph % (Auto) 30.1 % Levy % (Auto) 6.3 % Eos % (Auto) 1.7 % Baso % (Auto) 0.2 % Immature Gran # (Auto) 0.03 H (0.00-0.02) K/uL Neut # (Auto) 5.03 (1.4-6.5) K/uL Lymph # (Auto) 2.47 (1.2-3.4) K/uL Levy # (Auto) 0.52 (0.11-0.59) K/uL Eos # (Auto) 0.14 (0-0.5) K/uL Baso # (Auto) 0.02 (0-0.2) K/uL PT 11.4 (9.0-12.0) Seconds INR 1.1 (0.9-1.1) APTT 40.9 H (21.0-31.0) Seconds PTT Ratio 1.5 Sodium 140 (136-145) mmol/L Potassium 3.4 L (3.5-5.1) mmol/L Chloride 103 (98-107) mmol/L Carbon Dioxide 30 (21-32) mmol/L Anion Gap 7.0 (3-11) BUN 31 H (7-18) mg/dl Creatinine 3.43 H (0.6-1.4) mg/dl Est Cr Clr Drug Dosing 13.7 ml/min Est GFR ( Amer) 17.6 Est GFR (Non-Af Amer) 15.2 BUN/Creatinine Ratio 8.9 L (10-20) Glucose 178 H (70-99) mg/dl Lactate (0.4-2.0) mmol/L Calcium 8.2 L (8.5-10.1) mg/dl Total Bilirubin 0.4 (0.2-1) mg/dl AST 35 (15-37) U/L ALT 23 (12-78) U/L Alkaline Phosphatase 137 H (45-117) U/L Total Protein 6.1 L (6.4-8.2) gm/dl Albumin 1.9 L (3.4-5.0) gm/dl Globulin 4.2 H (2.5-4.0) gm/dl Albumin/Globulin Ratio 0.5 L (0.9-2) Procalcitonin (0-0.5) ng/ml 02/23/19 02/23/19 Range/Units 10:24 10:24 WBC (4.8-10.8) K/uL RBC (4.7-6.1) M/uL Hgb (14.0-18.0) g/dL Hct (42-52) % MCV (80-100) fL MCH (25-34) pg MCHC (32-36) g/dL RDW Std Deviation (36.4-46.3) fL RDW Coeff of Froilan (11.5-14.5) % Plt Count (130-400) K/uL MPV (7.4-10.4) fL Immature Gran % (Auto) % Neut % (Auto) % Lymph % (Auto) % Levy % (Auto) % Eos % (Auto) % Baso % (Auto) % Immature Gran # (Auto) (0.00-0.02) K/uL Neut # (Auto) (1.4-6.5) K/uL Lymph # (Auto) (1.2-3.4) K/uL Levy # (Auto) (0.11-0.59) K/uL Eos # (Auto) (0-0.5) K/uL Baso # (Auto) (0-0.2) K/uL PT (9.0-12.0) Seconds INR (0.9-1.1) APTT (21.0-31.0) Seconds PTT Ratio Sodium (136-145) mmol/L Potassium (3.5-5.1) mmol/L Chloride (98-107) mmol/L Carbon Dioxide (21-32) mmol/L Anion Gap (3-11) BUN (7-18) mg/dl Creatinine (0.6-1.4) mg/dl Est Cr Clr Drug Dosing ml/min Est GFR ( Amer) Est GFR (Non-Af Amer) BUN/Creatinine Ratio (10-20) Glucose (70-99) mg/dl Lactate 1.9 (0.4-2.0) mmol/L Calcium (8.5-10.1) mg/dl Total Bilirubin (0.2-1) mg/dl AST (15-37) U/L ALT (12-78) U/L Alkaline Phosphatase (45-117) U/L Total Protein (6.4-8.2) gm/dl Albumin (3.4-5.0) gm/dl Globulin (2.5-4.0) gm/dl Albumin/Globulin Ratio (0.9-2) Procalcitonin 1.89 H (0-0.5) ng/ml Imaging Data Radiologist's Impression: Radiology results as stated below per my review and the radiologist's interpretation: XR chest 1V portable CLINICAL HISTORY: 89 years-old Male presenting with Sepsis. TECHNIQUE: Portable upright AP view of the chest was obtained. COMPARISON: 01/30/2019. FINDINGS: Tunneled right internal jugular dialysis catheter terminates at the superior cavoatrial junction. Median sternotomy wires and mediastinal surgical clips noted. Atherosclerosis of the aortic arch. Cardiac silhouette mildly enlarged as on prior. Calcified granuloma suspected at the right costophrenic angle. Improved aeration of the left lung base in comparison to prior. Minimal left basilar opacity remains. No new focal opacity. No large effusion or pneumothorax. Degenerative changes of the thoracic spine. Upper abdomen normal. IMPRESSION: 1. Improved aeration at the left lung base with minimal residual infiltrate. Underlying pneumonia not excluded. 2. Mild cardiomegaly. No evidence of or volume overload or significant congestive change. Electronically signed by: Pasquale Haynes M.D. 02/23/2019 10:21 AM Blood Pressure Blood Pressure Findings: Normal blood pressure Blood Pressure Disposition: did not require urgent referral MDM Narrative The patient is an 89 year old female w/ PMHx a-fib, pneumonia, sepsis, CKD, anemia, DM, CAD, bladder cancer, prostate cancer, renal cancer, cancer of the ureter, HTN, BPH, dyslipidemia, CHF, GERD, GI bleed, and a nephrectomy who presents to the ED w/ CC of intermittent fevers starting 2 days ago. Patient was seen and evaluated the bedside. The patient does have a known history of ESRD on dialysis. The patient has a concern for spiking temperatures during dialysis. I did try to attempt to obtain immediate blood cultures along with broad-spectrum antibiotics lactate and blood work. There was an attempt in order to obtain a line culture but this was unable to be done as protocol requires the dialysis nurse to draw the culture they are currently monitoring dialysis patients. Patient's blood work is chronic and stable anemia. Normal white count. The patient's pro-Emil is elevated. Kidney function is abnormal but this is chronic. Potassium does not need to be treated. Lactate was less than 2. Patient did receive some additional fluids. I did speak the on-call hospitalist agreed to further evaluate treat the patient. Patient was admitted to the medicine service. Impression & Plan Central line infection, Anemia, ESRD on dialysis, Fever Discharge Plan Visit Data *Final* Discharge Date/Time: 02/23/19 15:01 Chief Complaint: Fever Stated Complaint: SPIKING TEMPS AFTER DIALYSIS ED Provider: Yaakov Man Discharge Problem: Central line infection, Anemia, ESRD on dialysis, Fever Patient Disposition: Admitted As Inpatient Discharge Instructions Interventions: ED Discharge Assessment Last Done: 02/23/19 15:01 Discharge Problem: Central line infection Qualifiers: Encounter type: initial encounter Qualified Code(s): T80.219A - Unspecified infection due to central venous catheter, initial encounter Anemia Qualifiers: Anemia type: due to chronic kidney disease Chronic kidney disease stage: on chronic dialysis Qualified Code(s): N18.6 - End stage renal disease Fever Qualifiers: Fever type: unspecified Qualified Code(s): R50.9 - Fever, unspecified The scribe's documentation has been prepared under my direction and personally reviewed by me in its entirety. I confirm that the note above accurately reflects all work, treatment, procedures, and medical decision making performed by me.
--- NOTE | 2019-02-23 17:04 | Nephrology Consultation ---
Date of Consultation February 23, 2019 Assessment & Plan (1) Intermittent fever: suspicious for occult line infection, since it has been occurring per outside providers only after HD (somewhat odd not happening during HD and no rigors reported) -blood cxs in process from today -recommend remove TDC and culture tip -recommend infectious diseases consultation and consideration of repeat TTE -pt getting vanco, zosyn per primary service -will need 48 hrs negative cultures before consideration of replacing TDC Present on Admission?: Yes (2) ESRD on dialysis: last HD was 02/21 w/ no fluid removal; mild hypokalemia today w/ otherwise acceptable chemistries, fluid status -chemistries, volume status acceptable today; would not do HD today -monitor daily for need for dialysis -- suspect he will continue to need it given minimal renal reserves >> s/p R nephrectomy and w/ L supcapsular hematoma w/ mass effect -he may be able to get through until 02/26 w/o need for dialysis; or may need temp cath Present on Admission?: Yes (3) Anemia: not an epo candidate given active urothelial ca -monitor q24-48 hrs, transfuse prn Present on Admission?: Yes (4) Renal hematoma, left: stable on imaging Present on Admission?: Yes (5) Status post nephrectomy: increases esrd risk Present on Admission?: Yes History of Present Illness Reason for Consultation: ESRD on dialysis w/ concern for occult line infection Requesting Physician: Dr Lopez Attending Physician: Stevie Lopez MD History of Present Illness 89 y/o M on HD via tunnelled dialysis catheter was sent from [facility] d/t recurrent F post HD to 102.5 -103.5 degrees for past 3 txs at least. Last HD was 02/21; he had no fluid removed that day d/t hypotension and tachycardia. Blood cxs at outside facility reported as negative; note however he was already on zosyn and had previously had rocephin per facility attending when these were drawn. Complex PMH: CAD s/p CABG, a fib not on AC, HTN, HL, recurrent urothelial carcinoma (initially R collecting system 1990s s/p R nephrectomy and w/ recent recurrence later noted L collecting system last 08/2018) status post surgery status post BCG and until December 2018 on immunotherapy, chronic anemia, DM 2, history diverticulosis/colonic polyps as per records, past tobacco abuse[facility] [place] Prior to January hospitlalization at [facility], he had CKD w/ baseline creatinine 1.6. In December 2018, pt had cystoscopy and left ureteral stent exchange at [facility]. He then had f/u w/ [facility] oncology clinic, received immunotherapy and 2 units pRBC. He presented to [facility] ER on 01/01 w/ pulmonary vascular congestion, A Fib w/ RVR. Work up for sepsis revealed [id number] supcapsular hematoma w/ mass effect and compression of L kidney; stent was in satisfactory position; also w/ complicated UTI and possible HCAP: transferred 01/02 to [facility]. During extended stay at [facility] in January, he developed ATN w/ dialysis dependence. He was d/c from [facility] to [facility] from where he was sent to [facility] on 01/30 for hypotension refractory to stopping bp meds/starting midodrine and for altered mental status: concern for sepsis and was transferred 02/01 to [facility] for possible drainage of hematoma. IR evaluated the pt at [facility] and did not feel that hematoma drainage indicated. he was treated w/ zosyn, doxycycline and d/c back to rehab. He has remained dialysis dependent and oliguric. ongoing issues w/ hypotension on HD and recently F as above. Allergies Allergy/AdvReac Type Severity Reaction Status Date / Time erythromycin base AdvReac Mild upset Verified 02/23/19 11:00 stomach BCG (Bacillus AdvReac PAINFUL Verified 02/23/19 11:00 Calmette-Catalino) vacc Home Medications Home Medications Medication Instructions Recorded Confirmed Type atorvastatin 80 mg PO DAILY 01/30/19 02/23/19 History cholecalciferol (vitamin D3) 2,000 unit PO DAILY 01/30/19 02/23/19 History [Vitamin D3] famotidine [Pepcid] 20 mg PO 3XWK 01/30/19 02/23/19 History insulin aspart U-100 [Novolog 0 unit SUBCUT ACHS 01/30/19 02/23/19 History U-100 Insulin aspart] insulin glargine [Lantus U-100 4 unit SUBCUT HS 01/30/19 02/23/19 History Insulin] ipratropium-albuterol 3 ml INHALATION QID PRN 01/30/19 02/23/19 History umeclidinium [Incruse Ellipta] 1 inh INHALATION DAILY 01/30/19 02/23/19 History acetaminophen [Tylenol Extra 500 mg PO Q4H PRN 02/17/19 02/23/19 History Strength] bisacodyl 10 mg [place] DAILY PRN 02/17/19 02/23/19 History dextromethorphan-guaifenesin 10 ml PO Q4H PRN 02/17/19 02/23/19 History dextrose 50 % in water (D50W) 50 % IV DIRECTED PRN 02/17/19 02/23/19 History glucagon 1 mg SUBCUT DIRECTED PRN 02/17/19 02/23/19 History heparin (porcine) 5,000 unit SUBCUT Q8H 02/17/19 02/23/19 History heparin (porcine) 400 unit IV DIRECTED PRN 02/17/19 02/23/19 History melatonin 6 mg PO HS PRN 02/17/19 02/23/19 History pantoprazole [Protonix] 40 mg PO BIDM 02/17/19 02/23/19 History polyethylene glycol 3350 [Miralax] 17 g PO DAILY PRN 02/17/19 02/23/19 History sennosides-docusate sodium 1 tab PO BID PRN 02/17/19 02/23/19 History [Senokot-S] sodium phosphates [Fleet Enema] 118 ml [place] DAILY PRN 02/17/19 02/23/19 History metoprolol tartrate 25 mg PO Q12 02/23/19 02/23/19 History piperacillin-tazobactam [Zosyn] 2.25 g IV Q12 02/23/19 02/23/19 History Patient History Medical History Chronic a-fib (Chronic) with RVR-no AC secondary to perinephrotic hematoma/GI bleed-rate controlled with metoprolol Anemia (Chronic) GERD (gastroesophageal reflux disease) (Chronic) Atrial fibrillation with rapid ventricular response Acute kidney injury superimposed on CKD Renal hematoma, left Sepsis (Acute) Anemia (Chronic) 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 Diabetes mellitus, type II (Chronic) Coronary artery disease (Chronic) "s/p CABG 2006" History of bladder carcinoma History of prostate cancer History of renal cell carcinoma Hypertension (Chronic) BPH (benign prostatic hyperplasia) (Chronic) Diverticular disease of colon (Chronic) Dyslipidemia (Chronic) Asthma (Chronic) Diabetes (Chronic) insulin dependent Arm pain, left CHF (congestive heart failure) Cancer of ureter Chest pain Generalized weakness H/O: GI bleed Hematoma of kidney Hypertension Left upper limb pain Leukocytosis Metabolic encephalopathy Neck pain Oliguria Perinephric hematoma Perinephric hematoma Pneumonia UTI (urinary tract infection) Vascular dialysis catheter in place Weakness Surgical History Status post cardiac catheterization "01/13/2010 [facility]: 60-70% stenosis left main 100% occlusion RCA severe proximal disease diagonal patent MENDOZA to LAD and SVG's to RCA and circ" Status post cataract extraction Status post coronary artery bypass grafting "2006 [place]: MENDOZA-LAD, SVG-RCA, SVG-circ" Status post nephrectomy "[facility] ~ 2013 renal Ca" Status post appendectomy H/O transurethral resection of prostate History of colon resection Hx of CABG Hx of CABG Hx of tonsillectomy S/p nephrectomy RIGHT Family History Mother Heart disease Father Heart disease Social History Preferred Language: Swedish Communication Ability: Effective Dialysis Nurse Required: No Beliefs That Will Affect Care: None marital status: Current Living Situation: Rehab Current Living Situation Comment: at [facility] Other Information That Helps Us Care for You: No Feels Safe at Home: Yes Safety Concerns: Feels Safe At This Time Smoking Status: Former smoker Tobacco Type: cigarettes ; Second Hand Exposure: No ; Hx Alcohol Use: No Hx Substance Use: No Review of Systems Review of Systems: All systems reviewed & are unremarkable except as noted in HPI & below pt not a reliable historian but able to say how he is feeling Constitutional: as per Subjective / HPI, + fever, + fatigue, + weakness and + anorexia (ate about half his supper) Eyes: no worsening vision Ear, Nose, Mouth, Throat: + hearing loss (chronic stable); no dry mouth Respiratory: no cough and no dyspnea Cardiovascular: no chest pain, no palpitations and no edema Gastrointestinal: + early satiety; no abdominal pain, no vomiting and no diarrhea/loose stools Genitourinary: + urinary frequency and + urinary hesitancy; no dysuria and no hematuria Musculoskeletal: + muscle weakness Integumentary: no rash and no non-healing lesions Neurologic: + unsteadiness, + generalized weakness and + confusion (intermittent reported in documents not by pt) Endocrine: + fatigue Hematologic / Lymphatic: no easy bleeding Physical Exam Constitutional: well developed and well nourished Eyes: EOM intact bilaterally ENMT: Ears: no external ear abnormality Nose: no external nose abnormality Mouth: + dry oral mucous membranes Neck: no nuchal rigidity Respiratory: normal respiratory effort Auscultation: + diminished lung sounds Gastrointestinal (Abdomen): Inspection/Auscultation: normal bowel sounds Percussion/Palpation: abdomen soft; abdomen nontender Musculoskeletal: Extremities: strength 5/5 throughout Skin: no rashes, warm and dry Neurologic: perez, fluent speech, no tremor Genitourinary: no chong Results & Data Vital Signs (Past 12 Hours) Vital Signs Temp Pulse Pulse Resp BP BP Pulse Ox 02/23/19 16:27 36.5 C 106 H 18 105/65 96 02/23/19 16:00 117 H 02/23/19 14:59 102 H 22 108/63 96 02/23/19 14:00 98 H 20 110/55 L 96 02/23/19 12:43 97 H 24 101/60 96 02/23/19 12:42 94 H 28 H 101/60 96 02/23/19 10:59 86 20 95/51 L 97 02/23/19 10:42 88 22 95/54 L 96 02/23/19 09:47 36.5 C 102 H 20 93/59 L 97 Laboratory Results 02/23/19 10:24 02/23/19 10:[address] abd/pelvis 1. Similar appearance of the involving left renal subcapsular hematoma. 2. Stable appearance of the nondependent low density within the exophytic cyst at the upper pole the left kidney likely representing posttraumatic fat necrosis associated with a prior exophytic cyst. 3. No left hydronephrosis. Left ureteral stent remains in place with reactive urothelial change likely related to the stent. Correlate with urinalysis to exclude the presence of superimposed infection. 4. Surgically absent right kidney. 5. Moderate left pleural effusion with passive atelectasis as on prior. 6. Presumably dependent changes at the right lung base are also atelectasis. 7. Evidence of old granulomatous disease. cxr 1. Improved aeration at the left lung base with minimal residual infiltrate. Underlying pneumonia not excluded. 2. Mild cardiomegaly. No evidence of or volume overload or significant congestive change. TTE EF 50%, a fib w/ intermittent RVR; m-mod TR; septal motion c/w conduction abnormality; no signficant mitral/aortic pathology (1) Anemia Anemia type: due to chronic kidney disease Chronic kidney disease stage: on chronic dialysis Qualified Code(s): N18.6 - End stage renal disease; D63.1 - Anemia in chronic kidney disease; Z99.2 - Dependence on renal dialysis
[2019-02-23] MEDS ORDERED: GLUCOSE 40% GEL 15 GM TUBE PO PRN (18:00)
[2019-02-23] MEDS ORDERED: GLUCOSE 10 TABS/TUBE PO PRN (18:00)
[2019-02-23] MEDS ORDERED: CARBOHYDRATES FOR HYPOGLYCEMIA PO PRN (18:00)
[2019-02-23] MEDS ORDERED: GLUCAGON FOR INJ 1 MG VIAL SQ PRN (18:00)
[2019-02-23] MEDS: INSULIN ASPART 100 UNITS/ML 3 ML PEN SC SCH ×2 (18:43→20:24)
[2019-02-23] MEDS: PANTOprazole 40 MG TAB PO SCH (18:52)
--- NOTE | 2019-02-23 19:56 | Pharmacy Report ---
Pharmacy Abx Dose Short Note - Date of Service February 23, 2019 - Assessment & Plan Assessment: 89 yo Male receiving VANC-IV for treatment of possible line infection/HD patient. * Day # 1 of antimicrobial therapy. Pertinent PMH: on hemodialysis (last treatment 02/21/19) Plan: Vanc-IV: * LOADING DOSE: VANC 1750 mg (~23mg/kg) IV x 1 in ED * VANC Random level with AM labs 02/24 to guide subsequent dosing Zosyn-IV: 4.5g IV load in ED, 3.375g IV CI q 12h for est CrCL <20mL/min. Pharmacy will continue to follow and will adjust dose/frequency as necessary. Thank you.
[2019-02-23] MEDS: METOPROLOL TARTRATE 25 MG TAB PO SCH (20:59)
[2019-02-23] MEDS: PIPERACILLIN/TAZOBACTAM 3.375 GM in DEXTROSE 5% 100 ML IV SCH (20:59)
[2019-02-23] MEDS ORDERED: FAMOTIDINE 20 MG TAB PO SCH (21:00)
[2019-02-23] MEDS ORDERED: PIPERACILLIN SODIUM/TAZOBACTAM 2.25 GM VIAL IV SCH (21:00)
[2019-02-23] MEDS ORDERED: INFLUENZA VACCINE HIGH DOSE 65+ 0.5 ML SYR IM ONE (21:45)
[2019-02-23] MEDS ORDERED: INFLUENZA ADMINISTRATION CHARGE ONE (21:45)
[2019-02-24 03:10] LABS: Bacteria Urine Automated Negative (Negative); Bilirubin Urine Negative (Negative); Blood Urine 3+ (Negative); Glucose Urine UA Negative (Negative); Ketones Urine Negative (Negative); Leukocyte Esterase Urine 3+ (Negative); Nitrite Urine Negative (Negative); Protein Urine 2+ (Negative); Specific Gravity Urine 1.014 (1.000-1.030); Urobilinogen Urine Negative (Negative); WBC Urine Automated >30 /hpf (0-5)
[2019-02-24 03:21] LABS: Appearance Urine Turbid (Clear); Color Urine Red
[2019-02-24 03:23] LABS: RBC Urine Automated >30 /hpf (0-4)
[2019-02-24 06:45] LABS: Basophils # (auto) 0.02 K/uL (0-0.2); Basophils % (auto) 0.3 %; Eosinophils # (auto) 0.18 K/uL (0-0.5); Eosinophils % (auto) 2.4 %; Hematocrit (blood only) 30.6 % (42-52); Hemoglobin 9.4 g/dL (14.0-18.0); Immature Granulocytes # (auto) 0.03 K/uL (0.00-0.02); Immature Granulocytes % (auto) 0.4 %; Lymphocytes # (auto) 1.97 K/uL (1.2-3.4); Lymphocytes % (auto) 26.7 %; Mean Corpuscular Hemoglobin 26.7 pg (25-34); Mean Corpuscular Hgb Conc 30.7 g/dL (32-36); Mean Corpuscular Volume 86.9 fL (80-100); Mean Platelet Volume 10.1 fL (7.4-10.4); Monocytes % (auto) 5.4 %; Neutrophils # (auto) 4.77 K/uL (1.4-6.5); Neutrophils % (auto) 64.8 %; Platelet Count 212 K/uL (130-400); RDW Coefficient of Variation 15.9 % (11.5-14.5); RDW Standard Deviation 50.7 fL (36.4-46.3); Red Blood Count 3.52 M/uL (4.7-6.1); White Blood Count 7.37 K/uL (4.8-10.8)
[2019-02-24 06:56] LABS: INR 1.1 (0.9-1.1); Partial Thromboplastin Time 27.3 Seconds (21.0-31.0); Prothrombin Time 11.4 Seconds (9.0-12.0)
[2019-02-24 07:17] LABS: BUN Creatinine Ratio 10.3 (10-20); Creatinine Clr Calc Pharmacy 13.8 ml/min; Est GFR (African American) 17.8; Est GFR (Non-African American) 15.3; Potassium 3.2 mmol/L (3.5-5.1)
[2019-02-24] MEDS: INSULIN ASPART 100 UNITS/ML 3 ML PEN SC SCH ×4 (08:11→20:35)
[2019-02-24] MEDS: PIPERACILLIN/TAZOBACTAM 3.375 GM in DEXTROSE 5% 100 ML IV SCH ×2 (08:11→20:31)
[2019-02-24] MEDS ORDERED: LIDOCAINE HCL 1% 20 ML VIAL ONE (08:17)
--- NOTE | 2019-02-24 08:20 | Consultation ---
Date of Consultation February 24, 2019 Assessment & Plan (1) Infection of hemodialysis tunneled catheter: Patient for removal of tunneled cathteter today and reinsertion on . I have discussed the risks options and benefits of the procedure with the patient. The patient understands the risks options and benefits and agrees to the procedure. History of Present Illness Reason for Consultation: Fever with tunneled dialyiss catheter Attending Physician: Billie Olea MD History of Present Illness Patient is an 89 year old male on hemodialysis via a tunneled dialysis catheter. He has been having intermittent fevers and was admitted for these fevers. He denies any chills or rigors when on dialysis. He recently had a nephrectomy which led to acute kidney injury. Allergies Allergy/AdvReac Type Severity Reaction Status Date / Time erythromycin base AdvReac Mild upset Verified 02/23/19 11:00 stomach BCG (Bacillus AdvReac PAINFUL Verified 02/23/19 11:00 Calmet[place]-Catalino) vacc Home Medications Home Medications Medication Instructions Recorded Confirmed Type atorvastatin 80 mg PO DAILY 01/30/19 02/23/19 History cholecalciferol (vitamin D3) 2,000 unit PO DAILY 01/30/19 02/23/19 History [Vitamin D3] famotidine [Pepcid] 20 mg PO 3XWK 01/30/19 02/23/19 History insulin aspart U-100 [Novolog 0 unit SUBCUT ACHS 01/30/19 02/23/19 History U-100 Insulin aspart] insulin glargine [Lantus U-100 4 unit SUBCUT HS 01/30/19 02/23/19 History Insulin] ipratropium-albuterol 3 ml INHALATION QID PRN 01/30/19 02/23/19 History umeclidinium [Incruse Ellipta] 1 inh INHALATION DAILY 01/30/19 02/23/19 History acetaminophen [Tylenol Extra 500 mg PO Q4H PRN 02/17/19 02/23/19 History Strength] bisacodyl 10 mg RI DAILY PRN 02/17/19 02/23/19 History dextromethorphan-guaifenesin 10 ml PO Q4H PRN 02/17/19 02/23/19 History dextrose 50 % in water (D50W) 50 % IV DIRECTED PRN 02/17/19 02/23/19 History glucagon 1 mg SUBCUT DIRECTED PRN 02/17/19 02/23/19 History heparin (porcine) 5,000 unit SUBCUT Q8H 02/17/19 02/23/19 History heparin (porcine) 400 unit IV DIRECTED PRN 02/17/19 02/23/19 History melatonin 6 mg PO HS PRN 02/17/19 02/23/19 History pantoprazole [Protonix] 40 mg PO BIDM 02/17/19 02/23/19 History polyethylene glycol 3350 [Miralax] 17 g PO DAILY PRN 02/17/19 02/23/19 History sennosides-docusate sodium 1 tab PO BID PRN 02/17/19 02/23/19 History [Senokot-S] sodium phosphates [Fleet Enema] 118 ml RI DAILY PRN 02/17/19 02/23/19 History metoprolol tartrate 25 mg PO Q12 02/23/19 02/23/19 History piperacillin-tazobactam [Zosyn] 2.25 g IV Q12 02/23/19 02/23/19 History Patient History Medical History Chronic a-fib (Chronic) with RVR-no AC secondary to perinephrotic hematoma/GI bleed-rate controlled with metoprolol Anemia (Chronic) GERD (gastroesophageal reflux disease) (Chronic) Atrial fibrillation with rapid ventricular response Acute kidney injury superimposed on CKD Renal hematoma, left Sepsis (Acute) Anemia (Chronic) 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 Diabetes mellitus, type II (Chronic) Coronary artery disease (Chronic) "s/p CABG 2006" History of bladder carcinoma History of prostate cancer History of renal cell carcinoma Hypertension (Chronic) BPH (benign prostatic hyperplasia) (Chronic) Diverticular disease of colon (Chronic) Dyslipidemia (Chronic) Asthma (Chronic) Diabetes (Chronic) insulin dependent Arm pain, left CHF (congestive heart failure) Cancer of ureter Chest pain Generalized weakness H/O: GI bleed Hematoma of kidney Hypertension Left upper limb pain Leukocytosis Metabolic encephalopathy Neck pain Oliguria Perinephric hematoma Perinephric hematoma Pneumonia UTI (urinary tract infection) Vascular dialysis catheter in place Weakness Surgical History Status post cardiac catheterization "01/13/2010 [facility]: 60-70% stenosis left main 100% occlusion RCA severe proximal disease diagonal patent MENDOZA to LAD and SVG's to RCA and circ" Status post cataract extraction Status post coronary artery bypass grafting "2006 [place]: MENDOZA-LAD, SVG-RCA, SVG-circ" Status post nephrectomy "[facility] ~ 2013 renal Ca" Status post appendectomy H/O transurethral resection of prostate History of colon resection Hx of CABG Hx of CABG Hx of tonsillectomy S/p nephrectomy RIGHT Family History Mother Heart disease Father Heart disease Social History Preferred Language: Latvian Communication Ability: Effective Public Relations Analyst Required: No Beliefs That Will Affect Care: None marital status: Current Living Situation: Rehab Current Living Situation Comment: at [facility] Other Information That Helps Us Care for You: No Feels Safe at Home: Yes Safety Concerns: Feels Safe At This Time Smoking Status: Former smoker Tobacco Type: cigarettes ; Second Hand Exposure: No ; Hx Alcohol Use: No Hx Substance Use: No Review of Systems Review of Systems: All systems reviewed & are unremarkable except as noted in HPI & below Constitutional: + fatigue and + weakness Ear, Nose, Mouth, Throat: + hearing loss Genitourinary: + urinary frequency and + urinary hesitancy Musculoskeletal: + muscle weakness Physical Exam Constitutional: WD/WN, vitals as above Respiratory: normal respiratory effort; no respiratory distress Cardiovascular: Rate/Rhythm: regular rate and regular rhythm Gastrointestinal (Abdomen): Inspection/Auscultation: abdomen normal to inspection Percussion/Palpation: abdomen soft; abdomen nontender Psychiatric: A+Ox3, euthymic affect Results & Data Vital Signs (Past 12 Hours) Vital Signs Temp Pulse Pulse Resp BP Pulse Ox 02/24/19 07:15 118 H 02/24/19 07:08 36.7 C 110 H 19 122/75 95 02/24/19 03:08 37.0 C 115 H 19 109/71 94 02/23/19 23:15 36.6 C 95 H 18 99/63 L 97
--- NOTE | 2019-02-24 08:32 | Pre Anesthesia Assessment ---
Date of Service February 24, 2019 Pre Sedation Assessment Vital Signs Temp Pulse Pulse Resp BP BP Pulse Ox 02/24/19 07:15 118 H 02/24/19 07:08 36.7 C 110 H 19 122/75 95 02/24/19 03:08 37.0 C 115 H 19 109/71 94 02/23/19 23:15 36.6 C 95 H 18 99/63 L 97 02/23/19 19:04 36.6 C 95 H 18 119/67 97 02/23/19 16:27 36.5 C 106 H 18 105/65 96 02/23/19 16:00 117 H 02/23/19 14:59 102 H 22 108/63 96 02/23/19 14:00 98 H 20 110/55 L 96 02/23/19 12:43 97 H 24 101/60 96 02/23/19 12:42 94 H 28 H 101/60 96 02/23/19 10:59 86 20 95/51 L 97 02/23/19 10:42 88 22 95/54 L 96 02/23/19 09:47 36.5 C 102 H 20 93/59 L 97 Cardiovascular RRR, no murmur, no edema Respiratory normal respiratory effort, lungs clear to auscultation Pre-Sedation Airway Assessment Smoking Status: Former smoker Hx Sleep Apnea: No Short, Thick Neck: No Thyromental Distance: > or= 3.5 Finger Breadths Oral Cavity: + WNL Mallampati Class: II ASA: ASA3 NPO Status Date of Last Intake of Fluids: 02/23/19 Time of Last Intake of Fluids: 23:00 Date of Last Intake of Solid Food: 02/23/19 Time of Last Intake of Solid Foods: 23:00 Procedure Planning Contraindications for Sedation: none Current Medications Reviewed: Yes Notes The planned sedation has been discussed with the patient. Informed Consent was obtained. I have identified the patient, determined the appropriateness of sedation and have assessed the patient immediately prior to the procedure. All medicine(s) and interventions are by my order.
[2019-02-24] MEDS ORDERED: fentaNYL citrate 100 MCG/2 ML VIAL ONE (08:38)
[2019-02-24] MEDS ORDERED: MIDAZOLAM HCL 1 MG/ML 2ML VIAL ONE (08:38)
--- NOTE | 2019-02-24 08:57 | Post Operative Brief Note ---
Immediate Post Op Note v1 Date of Surgery February 24, 2019 Pre & Post Diagnosis Operation Date: 02/24/19 08:30 Pre-Op Diagnosis: Infected Perm Cath Post-Op Diagnosis: Infected Perm Cath Operation Date: 02/26/19 13:00 <No data on this case meets the specified criteria> I identified the patient and participated in the time-out.: Yes Procedure Operation Date: 02/24/19 08:30 Actual Procedures p Perm Catheter Removal, Moderate Sedation 0849-(Right) - Cole Gomes MD Operation Date: 02/26/19 13:00 <No data on this case meets the specified criteria> Surgeon Cole Gomes MD Sample Washer MD Claribel Estimated Blood Loss 1 Findings Consistent with Post-Op Diagnosis Anesthesia Type RN Sedation Complications none Disposition Accompanied Patient To Recovery: No Disposition: Recovery Room
[2019-02-24] MEDS ORDERED: NON-FORMULARY MEDICATION (Umeclidinium [Incruse Ellipta] 1 PUFFS) INH SCH (09:00)
--- NOTE | 2019-02-24 09:03 | Operative Report ---
Post Operative Report Pre & Post Diagnosis Operation Date: 02/24/19 08:30 Pre-Op Diagnosis: Infected Perm Cath Post-Op Diagnosis: Infected Perm Cath Operation Date: 02/26/19 13:00 <No data on this case meets the specified criteria> I identified the patient and participated in the time-out.: Yes Procedure Operation Date: 02/24/19 08:30 Actual Procedures p Perm Catheter Removal, Moderate Sedation 0849-(Right) - Cole Gomes MD Operation Date: 02/26/19 13:00 <No data on this case meets the specified criteria> Surgeon Dr. Eliseo Jeffers MD Enrolled Agent Gio Jeffers Estimated Blood Loss 1 Findings See Below Permacath slid out easily pus or drainage from the tunnel site Specimens Catheter was sent for culture. Anesthesia Type RN Sedation Complications none Disposition Accompanied Patient To Recovery: No Disposition: Recovery Room Indications Rule out infected permacath. Description of Procedure The patient was taken to the angio suite and placed in the supine position. Patient was correctly identified. The right side of the neck, chest wall and catheter were prepped and draped in a sterile manner. Local anesthesia was then accomplished. Using sharp and blunt dissection, the cuff of the permcath was freed up from the surrounding fibrous tissue. The permcath and cuff were completely removed. Pressure was then applied and adequate hemostasis was obtained. A sterile dressing was then applied. The patient left the angio suite in good condition and tolerated the procedure well. The tip of the catheter was sent for culture. Dr. Gomes was present for the procedure. I attest to the content of the Intraoperative Record and any orders documented therein. Any exceptions are noted below.
--- NOTE | 2019-02-24 09:06 | Post Anesthesia Assessment ---
Date of Service February 24, 2019 Post Sedation Assessment Vital Signs Temp Pulse Pulse Resp BP BP Pulse Ox 02/24/19 09:04 117 H 18 107/61 96 02/24/19 08:59 107 H 20 110/64 96 02/24/19 08:54 105 H 20 110/64 100 02/24/19 08:49 104 H 24 122/64 100 02/24/19 08:44 110 H 20 114/79 99 02/24/19 08:38 36.9 C 109 H 18 119/72 97 02/24/19 07:15 118 H 02/24/19 07:08 36.7 C 110 H 19 122/75 95 02/24/19 03:08 37.0 C 115 H 19 109/71 94 02/23/19 23:15 36.6 C 95 H 18 99/63 L 97 02/23/19 19:04 36.6 C 95 H 18 119/67 97 02/23/19 16:27 36.5 C 106 H 18 105/65 96 02/23/19 16:00 117 H 02/23/19 14:59 102 H 22 108/63 96 02/23/19 14:00 98 H 20 110/55 L 96 02/23/19 12:43 97 H 24 101/60 96 02/23/19 12:42 94 H 28 H 101/60 96 02/23/19 10:59 86 20 95/51 L 97 02/23/19 10:42 88 22 95/54 L 96 02/23/19 09:47 36.5 C 102 H 20 93/59 L 97 Recovery Score Activity: Moves 4 extremities Respiration: Deep Breath/Cough Circulation: +/-20% PreAnes Value Consciousness: Arouseable (by name) Oxygen Saturation: > 92% On Room Air Post Anesthesia Score: 9 Discharge Sedation Level of Care: Fast Track Phase II Post Sedation Plan On clinical assessment, the patient appears to have tolerated the sedation without complications. Patient is recovering as anticipated. Patient will continue to be monitored by nursing and may be discharged when sedation discharge criteria are met per below protocol. Upon Completions of procedure and additional 15 minutes continue every 5 minute vital signs and the P.A.R. score; then discharge to a Phase I or Fast Track to Phase II per the following guidelines: * Discharge Patient to appropriate Phase II area if PAR is 8 or greater or return to pre- procedure baseline. The post - procedure orders will be as directed. * If PAR score is less than 8 or not return to pre-procedure baseline then roberto ent will follow Phase I monitoring till PAR is reached for Phase II. The Phase I may be done in procedure room or may call to secure a Phase I area. * If naloxone or flumazenil are used for reversal, hold in Phase I for continued monitoring from when last reversal dose was given for a minimum of 60 minutes or longer pending the nurse and/or physician discretion of patient condition before discharge to Phase II. Please call the Sedation Physician to re-evaluate and complete post-note for discharge to Phase II area. Do NOT discharge from procedure sedation or Phase 1 until post- sedation e valuation note is complete by procedure /sedation MD Sedation Discharge Instructions to be given to the patient at discharge to home.
--- NOTE | 2019-02-24 09:43 | Infectious Disease Consult ---
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 Given timing of fevers, infection of dialysis catheter certainly a distinct possibility, no catheter has been removed. Potentially could have infected hematoma or hematoma itself could contribute to fever. Pending further blood culture results and catheter tip cultures, patient to continue on broad-spectrum antibiotics. Will follow. 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 Also with history of end-stage renal disease on dialysis, chronic atrial fibrillation, coronary artery disease, type 2 diabetes mellitus. He was hospitalized in January with evidence of sepsis, was found to have a large left subcapsular hematoma involving the left kidney, was transferred to [facility] where he was treated with IV antibiotics and no intervention performed. Over the last week or so, patient has been having fever after dialysis up to 103.5. Blood cultures have been negative through this time. Was given a dose of ceftriaxone and restarted on Zosyn, but fevers have persisted and so patient was admitted to the hospital for further management. He is now status post removal of his hemodialysis catheter as potential source of this infection. States that he is feeling slightly better today. Denies any abdominal or flank pain. No nausea or vomiting, no diarrhea. Has minimal shortness of breath, no significant cough. Allergies Allergy/AdvReac Type Severity Reaction Status Date / Time erythromycin base AdvReac Mild upset Verified 02/23/19 11:00 stomach BCG (Bacillus AdvReac PAINFUL Verified 02/23/19 11:00 [place]) vacc Home Medications Home Medications Medication Instructions Recorded Confirmed Type atorvastatin 80 mg PO DAILY 01/30/19 02/23/19 History cholecalciferol (vitamin D3) 2,000 unit PO DAILY 01/30/19 02/23/19 History [Vitamin D3] famotidine [Pepcid] 20 mg PO 3XWK 01/30/19 02/23/19 History insulin aspart U-100 [Novolog 0 unit SUBCUT ACHS 01/30/19 02/23/19 History U-100 Insulin aspart] insulin glargine [Lantus U-100 4 unit SUBCUT HS 01/30/19 02/23/19 History Insulin] ipratropium-albuterol 3 ml INHALATION QID PRN 01/30/19 02/23/19 History umeclidinium [Incruse Ellipta] 1 inh INHALATION DAILY 01/30/19 02/23/19 History acetaminophen [Tylenol Extra 500 mg PO Q4H PRN 02/17/19 02/23/19 History Strength] bisacodyl 10 mg IN DAILY PRN 02/17/19 02/23/19 History dextromethorphan-guaifenesin 10 ml PO Q4H PRN 02/17/19 02/23/19 History dextrose 50 % in water (D50W) 50 % IV DIRECTED PRN 02/17/19 02/23/19 History glucagon 1 mg SUBCUT DIRECTED PRN 02/17/19 02/23/19 History heparin (porcine) 5,000 unit SUBCUT Q8H 02/17/19 02/23/19 History heparin (porcine) 400 unit IV DIRECTED PRN 02/17/19 02/23/19 History melatonin 6 mg PO HS PRN 02/17/19 02/23/19 History pantoprazole [Protonix] 40 mg PO BIDM 02/17/19 02/23/19 History polyethylene glycol 3350 [Miralax] 17 g PO DAILY PRN 02/17/19 02/23/19 History sennosides-docusate sodium 1 tab PO BID PRN 02/17/19 02/23/19 History [Senokot-S] sodium phosphates [Fleet Enema] 118 ml IN DAILY PRN 02/17/19 02/23/19 History metoprolol tartrate 25 mg PO Q12 02/23/19 02/23/19 History piperacillin-tazobactam [Zosyn] 2.25 g IV Q12 02/23/19 02/23/19 History Patient History Medical History Chronic a-fib (Chronic) with RVR-no AC secondary to perinephrotic hematoma/GI bleed-rate controlled with metoprolol Anemia (Chronic) GERD (gastroesophageal reflux disease) (Chronic) Atrial fibrillation with rapid ventricular response Acute kidney injury superimposed on CKD Renal hematoma, left Sepsis (Acute) Anemia (Chronic) 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 Diabetes mellitus, type II (Chronic) Coronary artery disease (Chronic) "s/p CABG 2006" History of bladder carcinoma History of prostate cancer History of renal cell carcinoma Hypertension (Chronic) BPH (benign prostatic hyperplasia) (Chronic) Diverticular disease of colon (Chronic) Dyslipidemia (Chronic) Asthma (Chronic) Diabetes (Chronic) insulin dependent Arm pain, left CHF (congestive heart failure) Cancer of ureter Chest pain Generalized weakness H/O: GI bleed Hematoma of kidney Hypertension Left upper limb pain Leukocytosis Metabolic encephalopathy Neck pain Oliguria Perinephric hematoma Perinephric hematoma Pneumonia UTI (urinary tract infection) Vascular dialysis catheter in place Weakness Surgical History Status post cardiac catheterization "01/13/2010 [facility]: 60-70% stenosis left main 100% occlusion RCA severe proximal disease diagonal patent MENDOZA to LAD and SVG's to RCA and circ" Status post cataract extraction Status post coronary artery bypass grafting "2006 [place]: MENDOZA-LAD, SVG-RCA, SVG-circ" Status post nephrectomy "[facility] 2013 renal Ca; s/p R nephrectomy" Status post appendectomy H/O transurethral resection of prostate History of colon resection Hx of CABG Hx of CABG Hx of tonsillectomy S/p nephrectomy RIGHT Family History Mother Heart disease Father Heart disease Social History Preferred Language: [place] Communication Ability: Effective Make Up Artist Required: No Beliefs That Will Affect Care: None marital status: Current Living Situation: Rehab Current Living Situation Comment: at [facility] Other Information That Helps Us Care for You: No Feels Safe at Home: Yes Safety Concerns: Feels Safe At This Time Smoking Status: Former smoker Tobacco Type: cigarettes ; Second Hand Exposure: No ; Hx Alcohol Use: No Hx Substance Use: No Review of Systems Review of Systems: All systems reviewed & are unremarkable except as noted in HPI & below Physical Exam Constitutional: WD/WN, vitals as above + ill appearing and comfortable; no acute distress Eyes: PERRL, conjunctivae normal, anicteric sclerae ENMT: external ear and nose normal, oropharynx normal Neck: trachea midline, no thyromegaly neck nontender Respiratory: normal respiratory effort, lungs clear to auscultation normal percussion; does not use accessory muscles Cardiovascular: Rate/Rhythm: + irregularly irregular Heart Sounds: normal S1 and normal S2; no gallop, no murmur and no cardiac rub Vessels: normal peripheral pulses; no JVD Extremities: + edema (Ankles) Gastrointestinal (Abdomen): normal bowel sounds, soft, nontender, no hepatosplenomegaly Musculoskeletal: no cyanosis or clubbing, extremities motor strength 5/5 Spine: thoracic spine normal to inspection and lumbar spine normal to inspection; no cervical spinal tenderness Skin: no rashes, warm and dry normal turgor and + wound (Surgical dressing intact); no lesions Neurologic: patellar DTR's 2+ bilat, sensation intact no focal motor deficits Psychiatric: A+Ox3, euthymic affect Orientation: cooperative Lymphatic: no cervical or axillary lymphadenopathy no inguinal lymphadenopathy Results & Data Vital Signs (Past 12 Hours) Vital Signs Temp Pulse Pulse Resp BP Pulse Ox 02/24/19 09:22 36.8 C 105 H 18 106/64 96 02/24/19 09:04 117 H 18 107/61 96 02/24/19 08:59 107 H 20 110/64 96 02/24/19 08:54 105 H 20 110/64 100 02/24/19 08:49 104 H 24 122/64 100 02/24/19 08:44 110 H 20 114/79 99 02/24/19 08:38 36.9 C 109 H 18 119/72 97 02/24/19 07:15 118 H 02/24/19 07:08 36.7 C 110 H 19 122/75 95 02/24/19 03:08 37.0 C 115 H 19 109/71 94 02/23/19 23:15 36.6 C 95 H 18 99/63 L 97 Laboratory Results Short CBC 02/23/19 02/24/19 Range/Units 10:24 06:32 WBC 8.21 7.37 (4.8-10.8) K/uL Hgb 9.8 L 9.4 L (14.0-18.0) g/dL Hct 31.5 L 30.6 L (42-52) % Plt Count 222 212 (130-400) K/uL BMP 02/23/19 02/24/19 10:24 06:32 Sodium 140 141 Potassium 3.4 L 3.2 L Chloride 103 105 Carbon Dioxide 30 28 BUN 31 H 35 H Creatinine 3.43 H 3.40 H Glucose 178 H 114 H Calcium 8.2 L 8.0 L Liver Function 02/23/19 Range/Units 10:24 Total Bilirubin 0.4 (0.2-1) mg/dl AST 35 (15-37) U/L ALT 23 (12-78) U/L Alkaline Phosphatase 137 H (45-117) U/L Albumin 1.9 L (3.4-5.0) gm/dl Urine 02/24/19 Range/Units Unknown Urine Color Red Urine Appearance Turbid A (Clear) Urine pH 7.0 (4.5-7.5) Ur Specific [place] 1.014 (1.000-1.030) Urine Protein 2+ H (Negative) Urine Glucose (UA) Negative (Negative) Diagnostic Findings CT abd pelvis wo con CLINICAL HISTORY: 89 years-old Male presenting with hx of perinephric hematoma vs. infection. TECHNIQUE: Multidetector CT of the abdomen and pelvis was performed without the use of intravenous contrast. IV contrast: None. One or more dose lowering techniques were used consistent with the principles of ALARA (as low as reasonably achievable), including automatic exposure control, mA or kV adjustment to individual patient size, and/or use of iterative reconstruction. COMPARISON: 01/30/2019. CT DOSE (mGy.cm): The estimated cumulative dose is 449.69 mGy.cm. FINDINGS: Sports Clerk topogram: Unremarkable. Lung bases: Partially visualized tip of a central venous catheter terminates in the right atrium. Coronary artery and aortic valve calcification. Normal heart size. Trace right and moderate simple left pleural effusion. Extensive passive atelectasis in the lung bases more so on the left. Calcified granuloma in the right lower lobe. Liver: Normal morphology. Normal density. Punctate calcification suggest a history of granulomatous disease Biliary: No gross biliary ductal dilatation allowing for noncontrast technique. Gallbladder contains gallstones. Pancreas: Moderate parenchymal atrophy. Spleen: Punctate calcification suggest a history of granulomatous disease. Adrenal glands: Normal noncontrast appearance. Kidneys and ureters: The right kidney is surgically absent. The left kidney demonstrates a subcapsular fluid collection as on prior exam, measuring up to 12.3 x 8.4 cm in maximal axial dimensions, previously 12.2 x 9.3. This may have perinephric extension inferiorly. Redemonstration of the round exophytic component at the superior pole the right kidney with nondependent low density rim. This is at the site of a prior exophytic simple cyst and most likely represents posttraumatic changes of the cyst. The nondependent low density is unchanged from prior and is doubtful to represent gas. More likely this represents trace fat likely fat necrosis in the posttraumatic setting. Compression of the left renal parenchyma as on prior exam. A left ureteral stent remains in place with reactive urothelial thickening. No left hydronephrosis. Bladder: Incompletely evaluated secondary to underdistention. Left ureteral sten t terminates in the bladder. Pelvic organs: Prostate enlargement likely secondary to benign prostatic hyperplasia. Bowel: Limited diverticulosis of the proximal sigmoid colon. The appendix is likely surgically absent. No bowel obstruction. Postsurgical changes of an enteroenteric anastomosis in the right anterior abdomen. Peritoneal cavity: No free fluid or intraperitoneal gas. Presacral fat in filtration and/or fluid may represent edema related to the left renal pathology and is similar to prior. Lymph nodes: No gross lymphadenopathy allowing for noncontrast technique. Vasculature: Atherosclerosis of the normal caliber abdominal aorta. Abdominal wall: Multiple foci of gas within the subcutaneous fat of the anterior abdominal wall likely relate to medication administration. Gynecomastia also noted. Musculoskeletal: Degenerative changes of the spine. Partially visualized median sternotomy IMPRESSION: 1. Similar appearance of the involving left renal subcapsular hematoma. 2. Stable appearance of the nondependent low density within the exophytic cyst at the upper pole the left kidney likely representing posttraumatic fat necrosis associated with a prior exophytic cyst. 3. No left hydronephrosis. Left ureteral stent remains in place with reactive urothelial change likely related to the stent. Correlate with urinalysis to exclude the presence of superimposed infection. 4. Surgically absent right kidney. 5. Moderate left pleural effusion with passive atelectasis as on prior. 6. Presumably dependent changes at the right lung base are also atelectasis. 7. Evidence of old granulomatous disease. Electronically signed by: Pasquale Haynes M.D. 02/23/2019 1:48 PM PG Care Time/CCT Total # of Minutes Spent Total Time Spent with Patient: Total time spent is greater than 50% in coordination of care (as documented) at patient's floor/unit and/or counseling patient:
[2019-02-24] MEDS: PANTOprazole 40 MG TAB PO SCH ×2 (09:47→18:12)
[2019-02-24] MEDS: METOPROLOL TARTRATE 25 MG TAB PO SCH ×2 (09:47→20:35)
--- NOTE | 2019-02-24 11:01 | Pharmacy Report ---
Pharmacy Abx Dose Short Note - Date of Service February 24, 2019 - Assessment & Plan Assessment * 89 year old M receiving VANCOMYCIN + ZOSYN for treatment of possible infected tunneled HD catheter * Pt taken to OR today for removal of perm cath * Pt does have h/o L subcapsular hematoma of L kidney * Day # 2 of antimicrobial therapy * No growth in BLCX's thus far. * Nasal MRSA screen was negative. * He remains afebrile, non-hypotensive. Tachycardia noted (h/o a fib) * Uncertain if pt will receive HD in near future Plan Vancomycin * 1750mg (23mg/kg) IV x 1 given yesterday * Random level this AM = 16.7 * Unclear if pt will receive HD today, if HD is planned today will give 500mg following HD * Goal trough level for infected IV cath : 15 to 20 mcg/mL * Will check random level w/ AM labs tomorrow Zosyn * BMI < 35, eCrCl < 20 : continue 3.375gm ext-infusion Q 12 hrs Pharmacy will continue to follow and will adjust dose/frequency as necessary. Thank you.
[2019-02-24] MEDS: TIOTROPIUM BROMIDE 5 PUFF/90 MCG INH INH SCH (11:30)
--- NOTE | 2019-02-24 16:35 | Hospitalist Progress Note ---
Date of Service February 24, 2019 Assessment & Plan (1) Sepsis: Meeting SIRS criteria, pt initially presented with tachycardia, tachypnea, fever, hypotension WBC wnl and lactate wnl, however procal elevated (1.89) Pt having fever after HD for past week, was started on IV Abx, Rocephin 02/19, then switched to Zosyn on 02/20 Concern for dialysis cath line infection, vs. perinephritic abscess/ infection (seems stable per current CT) vs. other source, concern for endocarditis Blood cltx - obtained in ED, also plan to culture tip of the catheter after removal Now s/p removal of HD line (02/24) by vascular Will obtain Echo to r/o vegetations In ED started on vancomycin and zosyn Will continue vanco/zosyn, need for renally dosage, pharm and ID consulted Will obtain records from [facility] where pt was hospitalized recently If pt does not improve after line removal and Abx, will need to explore perinephric fluid closer vs. other source (2) Anemia: chronic normocytic anemia, most likely secondary CKD/ anemia of chronic disease No signs of active bleeding current Hgb 9.9 Will cont. 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 Angelo cont. to follow (she also noted pt having post HD fevers, and recommended inpt eval and treatment) D/t his tenuous state no plan for HD at this time Concern for HD line infection, now pt is s/p cath. line removal (02/24/2019), will need temporary line placed prior to next HD Renal diet Cont. to monitor renal function Will try to avoid nephrotoxic agents, contrast, NSAIDs, etc, will renally dose meds as needed Mild electrolyte abnormalities Mild hypokalemia and hypocalcemia, likely secondary to above will cont. to monitor, and will replace as needed (4) Diabetes mellitus, type II: On insulin lantus 4 units qhs, held last night, d/t npo, will resume tonight will cont. low SSI will continue to closely monitor and adjust as needed (5) Asthma: Hx of mild intermittent asthma At home/rehab on ellipta daily and duonebs prn, will cont. (6) Dyslipidemia: At home on atorvastatin, will cont. CAD s/p CABG at home/rehab on metoprolol and atorvastatin will continue while inpt No current issues Afib Not on anticoagulation (per family/pt wishes) pt on metoprolol tartrate 25mg q12h, will cont. rate currently not well controlled, pt is tachycardic most likely 2/2 infectious process should resolve (back to baseline) after treating underlying condition (IV Abx, line removal etc.) will cont. to closely monitor on tele (7) Constipation: No current issues At home takes bisacodyl prn, miralax prn, will continue Will continue to monitor (8) GERD (gastroesophageal reflux disease): At home on pantoprazole and famotidine, will continue No current issues (9) DVT prophylaxis: Currently resides at Rehab ([facility]) On subq heparin 5000 q8h, last dose yesterday AM Held for procedure, will resume, and encourage ambulation (10) Discharge planning issues: Currently resides at Rehab ([facility]) Will obtain PT/OT eval prior to discharge Subjective No acute events overnight. Pt underwent HD catheter removal this morning, tolerated the procedure well. Pt examined at the bedside. He feels well, denies any chest pain, abd. pain, fever, chills, nausea, vomiting. Pt's sister at the bedside. Review of Systems Review of Systems: All systems reviewed - negative, pertinent see below Constitutional: no fever, no chills, no sweats and no fatigue Respiratory: no dyspnea Cardiovascular: no chest pain and no palpitations Gastrointestinal: no abdominal pain, no nausea and no vomiting Physical Exam Constitutional: well developed and well nourished; no acute distress Eyes: PERRL, conjunctivae normal, anicteric sclerae ENMT: external ear and nose normal, oropharynx normal Neck: trachea midline, no thyromegaly Respiratory: normal respiratory effort; does not use accessory muscles Auscultation: + crackles (mild b/l); no wheezes Cardiovascular: Rate/Rhythm: + tachycardic (irregular) Heart Sounds: no murmur Extremities: + edema (mild 1+ above ankles) Chest (Breasts): Chest: + vascular access device or port (was on the Right side, now removed,no erythema, edema or any drainage noted) Gastrointestinal (Abdomen): Inspection/Auscultation: abdomen normal to inspection and normal bowel sounds; abdomen not distended Percussion/Palpation: abdomen soft; abdomen nontender, no guarding and abdomen not rigid Musculoskeletal: Head/Neck/Chest: normocephalic, head atraumatic and neck supple Extremities: extremities normal to inspection; normal muscle tone moves all 4 extrem. w/o difficulty Skin: no rashes, warm and dry Neurologic: PERRL, EOMI, accommodation nl, no face palsy, no dysarthria Psychiatric: A+Ox3, euthymic affect Speech: normal rate/rhythm/volume of speech Genitourinary: no CVA tenderness Lymphatic: + lymphedema (mild 1+ above ankles); no cervical lymphadenopathy Results & Data Vital Signs (Past 12 Hours) Vital Signs Temp Pulse Pulse Resp BP Pulse Ox 02/24/19 15:33 36.6 C 104 H 16 107/72 96 02/24/19 11:18 36.5 C 108 H 18 93/57 L 96 02/24/19 09:46 97 H 104/63 02/24/19 09:22 36.8 C 105 H 18 106/64 96 02/24/19 09:21 107 H 02/24/19 09:04 117 H 18 107/61 96 02/24/19 08:59 107 H 20 110/64 96 02/24/19 08:54 105 H 20 110/64 100 02/24/19 08:49 104 H 24 122/64 100 02/24/19 08:44 110 H 20 114/79 99 02/24/19 08:38 36.9 C 109 H 18 119/72 97 02/24/19 07:15 118 H 02/24/19 07:08 36.7 C 110 H 19 122/75 95 Laboratory Results 02/24/19 02/24/19 02/24/19 Range/Units Unknown 11:15 08:10 WBC (4.8-10.8) K/uL RBC (4.7-6.1) M/uL Hgb (14.0-18.0) g/dL Hct (42-52) % MCV (80-100) fL MCH (25-34) pg MCHC (32-36) g/dL RDW Std Deviation (36.4-46.3) fL RDW Coeff of Froilan (11.5-14.5) % Plt Count (130-400) K/uL MPV (7.4-10.4) fL Immature Gran % (Auto) % Neut % (Auto) % Lymph % (Auto) % [place] % (Auto) % Eos % (Auto) % Baso % (Auto) % Immature Gran # (Auto) (0.00-0.02) K/uL Neut # (Auto) (1.4-6.5) K/uL Lymph # (Auto) (1.2-3.4) K/uL [place] # (Auto) (0.11-0.59) K/uL Eos # (Auto) (0-0.5) K/uL Baso # (Auto) (0-0.2) K/uL PT (9.0-12.0) Seconds INR (0.9-1.1) APTT (21.0-31.0) Seconds PTT Ratio Sodium (136-145) mmol/L Potassium (3.5-5.1) mmol/L Chloride (98-107) mmol/L Carbon Dioxide (21-32) mmol/L Anion Gap (3-11) BUN (7-18) mg/dl Creatinine (0.6-1.4) mg/dl Est Cr Clr Drug Dosing ml/min Est GFR ( Amer) Est GFR (Non-Af Amer) BUN/Creatinine Ratio (10-20) Glucose (70-99) mg/dl POC Glucose 162 H 120 H (70-99) Calcium (8.5-10.1) mg/dl Phosphorus (2.5-4.9) mg/dl Urine Color Red Urine Appearance Turbid A (Clear) Urine pH 7.0 (4.5-7.5) Ur Specific Standard 1.014 (1.000-1.030) Urine Protein 2+ H (Negative) Urine Glucose (UA) Negative (Negative) Urine Ketones Negative (Negative) Urine Blood 3+ H (Negative) Urine Nitrite Negative (Negative) Urine Bilirubin Negative (Negative) Urine Urobilinogen Negative (Negative) Ur Leukocyte Esterase 3+ H (Negative) Urine WBC (Auto) >30 H (0-5) /hpf Urine RBC (Auto) >30 H (0-4) /hpf U Hyaline Cast (Auto) 5-10 H (0-5) /lpf U Epithel Cells (Auto) 10-20 H (0-5) /lpf Urine Bacteria (Auto) Negative (Negative) Urine Yeast Not Reportable Nasal Screen MRSA (PCR) (Negative) Random Vancomycin mcg/ml 02/24/19 02/24/19 02/24/19 Range/Units 06:32 06:32 06:32 WBC (4.8-10.8) K/uL RBC (4.7-6.1) M/uL Hgb (14.0-18.0) g/dL Hct (42-52) % MCV (80-100) fL MCH (25-34) pg MCHC (32-36) g/dL RDW Std Deviation (36.4-46.3) fL RDW Coeff of Froilan (11.5-14.5) % Plt Count (130-400) K/uL MPV (7.4-10.4) fL Immature Gran % (Auto) % Neut % (Auto) % Lymph % (Auto) % [place] % (Auto) % Eos % (Auto) % Baso % (Auto) % Immature Gran # (Auto) (0.00-0.02) K/uL Neut # (Auto) (1.4-6.5) K/uL Lymph # (Auto) (1.2-3.4) K/uL [place] # (Auto) (0.11-0.59) K/uL Eos # (Auto) (0-0.5) K/uL Baso # (Auto) (0-0.2) K/uL PT 11.4 (9.0-12.0) Seconds INR 1.1 (0.9-1.1) APTT 27.3 (21.0-31.0) Seconds PTT Ratio 1.0 Sodium 141 (136-145) mmol/L Potassium 3.2 L (3.5-5.1) mmol/L Chloride 105 (98-107) mmol/L Carbon Dioxide 28 (21-32) mmol/L Anion Gap 8.0 (3-11) BUN 35 H (7-18) mg/dl Creatinine 3.40 H (0.6-1.4) mg/dl Est Cr Clr Drug Dosing 13.8 ml/min Est GFR ( Amer) 17.8 Est GFR (Non-Af Amer) 15.3 BUN/Creatinine Ratio 10.3 (10-20) Glucose 114 H (70-99) mg/dl POC Glucose (70-99) Calcium 8.0 L (8.5-10.1) mg/dl Phosphorus 3.0 (2.5-4.9) mg/dl Urine Color Urine Appearance (Clear) Urine pH (4.5-7.5) Ur Specific Standard (1.000-1.030) Urine Protein (Negative) Urine Glucose (UA) (Negative) Urine Ketones (Negative) Urine Blood (Negative) Urine Nitrite (Negative) Urine Bilirubin (Negative) Urine Urobilinogen (Negative) Ur Leukocyte Esterase (Negative) Urine WBC (Auto) (0-5) /hpf Urine RBC (Auto) (0-4) /hpf U Hyaline Cast (Auto) (0-5) /lpf U Epithel Cells (Auto) (0-5) /lpf Urine Bacteria (Auto) (Negative) Urine Yeast Nasal Screen MRSA (PCR) (Negative) Random Vancomycin 16.7 mcg/ml 02/24/19 02/23/19 02/23/19 Range/Units 06:32 20:03 16:53 WBC 7.37 (4.8-10.8) K/uL RBC 3.52 L (4.7-6.1) M/uL Hgb 9.4 L (14.0-18.0) g/dL Hct 30.6 L (42-52) % MCV 86.9 (80-100) fL MCH 26.7 (25-34) pg MCHC 30.7 L (32-36) g/dL RDW Std Deviation 50.7 H (36.4-46.3) fL RDW Coeff of Froilan 15.9 H (11.5-14.5) % Plt Count 212 (130-400) K/uL MPV 10.1 (7.4-10.4) fL Immature Gran % (Auto) 0.4 % Neut % (Auto) 64.8 % Lymph % (Auto) 26.7 % [place] % (Auto) 5.4 % Eos % (Auto) 2.4 % Baso % (Auto) 0.3 % Immature Gran # (Auto) 0.03 H (0.00-0.02) K/uL Neut # (Auto) 4.77 (1.4-6.5) K/uL Lymph # (Auto) 1.97 (1.2-3.4) K/uL [place] # (Auto) 0.40 (0.11-0.59) K/uL Eos # (Auto) 0.18 (0-0.5) K/uL Baso # (Auto) 0.02 (0-0.2) K/uL PT (9.0-12.0) Seconds INR (0.9-1.1) APTT (21.0-31.0) Seconds PTT Ratio Sodium (136-145) mmol/L Potassium (3.5-5.1) mmol/L Chloride (98-107) mmol/L Carbon Dioxide (21-32) mmol/L Anion Gap (3-11) BUN (7-18) mg/dl Creatinine (0.6-1.4) mg/dl Est Cr Clr Drug Dosing ml/min Est GFR ( Amer) Est GFR (Non-Af Amer) BUN/Creatinine Ratio (10-20) Glucose (70-99) mg/dl POC Glucose 139 H (70-99) Calcium (8.5-10.1) mg/dl Phosphorus (2.5-4.9) mg/dl Urine Color Urine Appearance (Clear) Urine pH (4.5-7.5) Ur Specific Standard (1.000-1.030) Urine Protein (Negative) Urine Glucose (UA) (Negative) Urine Ketones (Negative) Urine Blood (Negative) Urine Nitrite (Negative) Urine Bilirubin (Negative) Urine Urobilinogen (Negative) Ur Leukocyte Esterase (Negative) Urine WBC (Auto) (0-5) /hpf Urine RBC (Auto) (0-4) /hpf U Hyaline Cast (Auto) (0-5) /lpf U Epithel Cells (Auto) (0-5) /lpf Urine Bacteria (Auto) (Negative) Urine Yeast Nasal Screen MRSA (PCR) Negative (Negative) Random Vancomycin mcg/ml Medications Administered Current Inpatient Medications Acetaminophen (Tylenol) 500 mg PO Q4H PRN PRN Reason: Pain Stop: 03/25/19 16:05 Albuterol (Duoneb) 3 ml INH QID PRN PRN Reason: Shortness Of Breath Or Wheezing Stop: 03/25/19 16:05 Bisacodyl (Dulcolax) 10 mg UT DAILY PRN PRN Reason: Constipation Stop: 03/25/19 16:05 Dextrose (Dextrose 50%) 25 - 50 ml IV UD PRN; Protocol PRN Reason: Hypoglycemia Protocol Stop: 03/25/19 17:59 Famotidine (Pepcid) 20 mg PO TuThSa@2100 ULISES Stop: 03/26/19 20:59 Glucagon (Glucagen) 1 mg SQ UD PRN; Protocol PRN Reason: Hypoglycemia Protocol Stop: 03/25/19 17:59 Glucose (Glucose 40%) 15 - 30 gm PO UD PRN; Protocol PRN Reason: Hypoglycemia Protocol Stop: 03/25/19 17:59 Glucose (Dex4 Glucose) 4 - 8 tabs PO UD PRN; Protocol PRN Reason: Hypoglycemia Protocol Stop: 03/25/19 17:59 Guaifenesin/Dextromethorphan (Robitussin Cough-Chest Dm) 10 ml PO Q4H PRN PRN Reason: Cough Piperacillin Sod/Tazobactam (Sod 3.375 gm/ Dextrose) 115 mls @ 28.75 mls/hr IV Q12H ULISES; Protocol Stop: 02/25/19 19:59 Last Infusion: 02/24/19 12:11 Dose: Infused Documented by: Insulin Aspart (Novolog Flexpen) 0 units SC ACHS [facility] Stop: 03/25/19 16:29 Last Admin: 02/24/19 12:30 Dose: Not Given Documented by: Metoprolol Tartrate (Lopressor) 25 mg PO Q12 ULSIES Stop: 03/25/19 20:59 Last Admin: 02/24/19 09:47 Dose: 25 mg Documented by: Miscellaneous (Carbohydrates For Hypoglycemia) 15 - 30 gm PO UD PRN PRN Reason: Hypoglycemia Treatment Stop: 03/25/19 17:59 Miscellaneous Information (Consult) 1 ea N/A UD PRN PRN Reason: Consult Stop: 03/25/19 16:05 Miscellaneous Information (Consult) 1 ea N/A UD PRN PRN Reason: Consult Stop: 03/25/19 16:05 Pantoprazole Sodium (Protonix) 40 mg PO BIDM [facility] Stop: 03/25/19 16:59 Last Admin: 02/24/19 09:47 Dose: 40 mg Documented by: Polyethylene Glycol (Miralax Powder Packet) 17 gm PO DAILY PRN PRN Reason: Constipation Stop: 03/25/19 16:05 Senna/Docusate Sodium (Senokot S) 1 tab PO BID PRN PRN Reason: Constipation Stop: 03/25/19 16:05 Tiotropium [place] (Spiriva) 1 puffs INH DAILY ULISES Stop: 03/26/19 09:59 Last Admin: 02/24/19 11:30 Dose: 1 puffs Documented by: (1) Anemia Anemia type: unspecified type Qualified Code(s): D64.9 - Anemia, unspecified (2) Sepsis Sepsis acute organ dysfunction status: unspecified Sepsis type: sepsis due to unspecified organism Qualified Code(s): A41.9 - Sepsis, unspecified organism
--- NOTE | 2019-02-24 18:10 | Nephrology Progress Note ---
Date of Service February 24, 2019 Assessment & Plan (1) Intermittent fever: suspicious for occult line infection, since it has been occurring per outside providers only after HD (somewhat odd not happening during HD and no rigors reported) -blood cxs in process from today -rf/u pending TDC tip cx -infectious diseases following; recommend consideration of repeat TTE -pt getting vanco, zosyn per primary service -will need 48 hrs negative cultures before consideration of replacing TDC - rep lacement already tentatively scheduled (2) ESRD on dialysis: last HD was 02/21 w/ no fluid removal; mild hypokalemia today w/ otherwise acceptable chemistries, fluid status -chemistries, volume status acceptable today; would not do HD today -monitor daily for need for dialysis -- suspect he will continue to need it given minimal renal reserves >> s/p R nephrectomy and w/ L supcapsular hematoma w/ mass effect on L kidney -he may be able to get through until 02/26 w/o need for dialysis; or may need temp cath (3) Anemia: not an epo candidate given active urothelial ca -monitor q24-48 hrs, transfuse prn (4) Renal hematoma, left: stable on imaging (5) Status post nephrectomy: increases esrd risk Subjective seen on rounds this am shortly after TDC removed; pt lying flat on RA, no sob or orthopnea, no edema, no musculoskeletal - chest - abdominal pain; denies new/worrisome voiding concerns Review of Systems Review of Systems: All systems reviewed & are unremarkable except as noted in HPI & below Physical Exam Constitutional: well developed and well nourished lying flat on RA nad Eyes: EOM intact bilaterally ENMT: Ears: no external ear abnormality Nose: no external nose abnormality Mouth: + dry oral mucous membranes Neck: no nuchal rigidity Respiratory: normal respiratory effort Auscultation: + diminished lung sounds Cardiovascular: Rate/Rhythm: regular rhythm and + tachycardic Extremities: no edema Gastrointestinal (Abdomen): Inspection/Auscultation: normal bowel sounds Percussion/Palpation: abdomen soft; abdomen nontender Musculoskeletal: Extremities: strength 5/5 throughout Skin: no rashes, warm and dry Neurologic: [place], [place], fluent speech Psychiatric: A+Ox3, euthymic affect Speech: normal rate/rhythm/volume of speech Affect: + flat affect Insight: + limited insight Judgement: + limited judgement Results & Data Vital Signs (Past 12 Hours) Vital Signs Temp Pulse Pulse Resp BP Pulse Ox Pulse Ox 02/24/19 16:06 96 02/24/19 15:33 36.6 C 104 H 16 107/72 96 02/24/19 11:18 36.5 C 108 H 18 93/57 L 96 02/24/19 09:46 97 H 104/63 02/24/19 09:22 36.8 C 105 H 18 106/64 96 02/24/19 09:21 107 H 02/24/19 09:04 117 H 18 107/61 96 02/24/19 08:59 107 H 20 110/64 96 02/24/19 08:54 105 H 20 110/64 100 02/24/19 08:49 104 H 24 122/64 100 02/24/19 08:44 110 H 20 114/79 99 02/24/19 08:38 36.9 C 109 H 18 119/72 97 02/24/19 07:15 118 H 02/24/19 07:08 36.7 C 110 H 19 122/75 95 (1) Anemia Anemia type: due to chronic kidney disease Chronic kidney disease stage: on chronic dialysis Qualified Code(s): N18.6 - End stage renal disease; D63.1 - Anemia in chronic kidney disease; Z99.2 - Dependence on renal dialysis
[2019-02-24] MEDS: HEPARIN SOD 5,000 UNIT/0.5 ML VIAL SC SCH (20:32)
[2019-02-24] MEDS: INSULIN GLARGINE SOLOSTAR 100 UNITS/ML 3 ML PEN SC SCH (20:33)
[2019-02-24] MEDS: guaiFENesin 600 MG TABCR PO SCH (20:33)
[2019-02-24] MEDS: ATORVASTATIN 40 MG TAB PO SCH (20:34)
[2019-02-24] MEDS: FAMOTIDINE 20 MG TAB PO SCH (20:34)
[2019-02-25 07:43] LABS: Basophils # (auto) 0.02 K/uL (0-0.2); Basophils % (auto) 0.3 %; Eosinophils # (auto) 0.21 K/uL (0-0.5); Eosinophils % (auto) 2.9 %; Hemoglobin 9.4 g/dL (14.0-18.0); Immature Granulocytes # (auto) 0.04 K/uL (0.00-0.02); Immature Granulocytes % (auto) 0.6 %; Lymphocytes # (auto) 2.43 K/uL (1.2-3.4); Lymphocytes % (auto) 34.1 %; Mean Corpuscular Hemoglobin 26.9 pg (25-34); Mean Corpuscular Hgb Conc 31.3 g/dL (32-36); Mean Corpuscular Volume 85.7 fL (80-100); Mean Platelet Volume 10.3 fL (7.4-10.4); Monocytes # (auto) 0.39 K/uL (0.11-0.59); Monocytes % (auto) 5.5 %; Neutrophils # (auto) 4.04 K/uL (1.4-6.5); Neutrophils % (auto) 56.6 %; Platelet Count 213 K/uL (130-400); RDW Coefficient of Variation 15.9 % (11.5-14.5); RDW Standard Deviation 50.1 fL (36.4-46.3); White Blood Count 7.13 K/uL (4.8-10.8)
[2019-02-25] MEDS: INSULIN ASPART 100 UNITS/ML 3 ML PEN SC SCH ×4 (08:05→21:06)
[2019-02-25] MEDS: HEPARIN SOD 5,000 UNIT/0.5 ML VIAL SC SCH ×2 (08:05→21:10)
[2019-02-25] MEDS: METOPROLOL TARTRATE 25 MG TAB PO SCH ×2 (08:08→20:38)
[2019-02-25] MEDS: guaiFENesin 600 MG TABCR PO SCH ×2 (08:09→21:09)
[2019-02-25] MEDS: PIPERACILLIN/TAZOBACTAM 3.375 GM in DEXTROSE 5% 100 ML IV SCH (08:09)
[2019-02-25] MEDS: PANTOprazole 40 MG TAB PO SCH ×2 (08:09→17:11)
[2019-02-25] MEDS: TIOTROPIUM BROMIDE 5 PUFF/90 MCG INH INH SCH (08:09)
[2019-02-25 08:21] LABS: BUN Creatinine Ratio 10.5 (10-20); Calcium 8.2 mg/dl (8.5-10.1); Creatinine Clr Calc Pharmacy 13.9 ml/min; Est GFR (African American) 17.9; Est GFR (Non-African American) 15.5; Potassium 3.1 mmol/L (3.5-5.1)
[2019-02-25] MEDS ORDERED: VANCOMYCIN HCL 500 MG in 0.9 % SODIUM CHLORIDE 100 ML IV ONE (09:30)
--- NOTE | 2019-02-25 09:38 | Nephrology Progress Note ---
Date of Service February 25, 2019 Assessment & Plan (1) Intermittent fever: suspicious for occult line infection, since it has been occurring per outside providers only after HD (somewhat odd not happening during HD and no rigors reported) -blood, cath tip cxs in process / NGTD -infectious diseases following; recommend consideration of repeat TTE -pt getting namrata ortez per primary service -will need 48 hrs negative cultures before consideration of replacing TDC - replacement already tentatively scheduled >> HOWEVER if he continues to do as well as he has been may not medina into another TDC; will monitor (2) ESRD on dialysis: last HD was 02/21 w/ no fluid removal; mild hypokalemia today w/ otherwise acceptable chemistries, fluid status -chemistries, volume status acceptable today; would not do HD today -monitor daily for need for dialysis -- suspect he will continue to need it given minimal renal reserves >> s/p R nephrectomy and w/ L supcapsular hematoma w/ mass effect on L kidney; however he is doing relatively well w/ no dialysis x 4 days -he may be able to get through until 02/26 w/o need for dialysis; or may need temp cath; or may need no cath at this rate and simply observe (3) Anemia: not an epo candidate given active urothelial ca -monitor q24-48 hrs, transfuse prn (4) Renal hematoma, left: stable on imaging (5) Status post nephrectomy: increases esrd risk Subjective seen on rounds this am w/ at bedside; pt w/o complaints, though he was a bit drowsy today , more than yesterday. no voiding c/o, no sob, no pain Review of Systems Review of Systems: All systems reviewed & are unremarkable except as noted in HPI & below Physical Exam 2 Constitutional: well developed and well nourished on RA A& 0 x 2 not the best historian Eyes: EOM intact bilaterally ENMT: Ears: no external ear abnormality Nose: no external nose abnormality Mouth: + dry oral mucous membranes Neck: no nuchal rigidity Respiratory: normal respiratory effort Auscultation: + diminished lung sounds Cardiovascular: Rate/Rhythm: regular rhythm and + tachycardic (in 90s) Extremities: no edema Gastrointestinal (Abdomen): Inspection/Auscultation: normal bowel sounds Percussion/Palpation: abdomen soft; abdomen nontender Musculoskeletal: Extremities: strength 5/5 throughout Skin: no rashes, warm and dry Psychiatric: A+Ox3, euthymic affect Speech: normal rate/rhythm/volume of speech Affect: + flat affect Insight: + limited insight Judgement: + limited judgement Results & Data Vital Signs (Past 12 Hours) Vital Signs Temp Pulse Pulse Resp BP Pulse Ox 02/25/19 07:25 36.6 C 98 H 16 134/83 96 02/25/19 03:42 36.4 C L 86 20 118/75 97 02/24/19 23:59 87 02/24/19 23:40 36.6 C 94 H 18 127/73 95 Laboratory Results 02/25/19 07:31 02/25/19 07:31 (1) Anemia Anemia type: due to chronic kidney disease Chronic kidney disease stage: on chronic dialysis Qualified Code(s): N18.6 - End stage renal disease; D63.1 - Anemia in chronic kidney disease; Z99.2 - Dependence on renal dialysis
--- NOTE | 2019-02-25 10:12 | Pharmacy Report ---
Pharmacy Abx Dose Short Note - Date of Service February 25, 2019 - Assessment & Plan Assessment * 89 year old M receiving VANCOMYCIN + ZOSYN for treatment of possible infected tunneled HD catheter * Pt taken to OR 02/24 for removal of perm cath * Pt does have h/o L subcapsular hematoma of L kidney and is s/p R nephrectomy * Day # 3 of antimicrobial therapy * No growth in BLCX's thus far. Tunneled dialysis cath tip cx pending (gram stain revealed no organisms). * Nasal MRSA screen was negative. * He remains afebrile, non-hypotensive. Tachycardia noted (h/o a fib) * Patient has not received HD since 02/21 and no HD scheduled today. He may have a new dialysis cath placed tomorrow. Plan Vancomycin * Random vanco level = 13 this AM. * Last dose of Vanco (1750mg) given 02/23 @ 1241 * Patient is producing some urine therefore there is a small amount of renal elimination intact * Will give 500mg dose (6.7mg/kg) IV x 1 today and recheck random level w/ AM labs tomorrow to help guide redosing post-HD * Goal trough level for infected IV cath : 15 to 20 mcg/mL Zosyn * BMI < 35, eCrCl < 20 : continue 3.375gm ext-infusion Q 12 hrs Pharmacy will continue to follow and will adjust dose/frequency as necessary. Thank you.
[2019-02-25] MEDS ORDERED: CASPOFUNGIN 70 MG in SODIUM CHLORIDE 0.9% 250 ML IV ONE (13:45)
--- NOTE | 2019-02-25 14:56 | Infectious Disease Progress Nt ---
Date of Service February 25, 2019 Assessment & Plan (1) Infection of hemodialysis tunneled catheter: Patient admitted with fever with blood, urine, and catheter cultures now growing Jessi albicans. As discussed, has been started on caspofungin therapy. Will likely need in the range of 2 weeks of IV antibiotic therapy. Will follow. (2) Jessi infection, disseminated: Subjective Patient seen in follow-up for recurrent fevers. Now status post removal of hemodialysis catheter. Blood cultures, urine culture, and catheter culture also growing yeast. Patient offering no new specific complaints today.He has been afebrile and hemodynamically stable. Review of Systems Review of Systems: All systems reviewed & are unremarkable except as noted in HPI & below Physical Exam Constitutional: WD/WN, vitals as above comfortable; no acute distress Eyes: PERRL, conjunctivae normal, anicteric sclerae ENMT: external ear and nose normal, oropharynx normal Neck: trachea midline, no thyromegaly neck nontender Respiratory: normal respiratory effort, lungs clear to auscultation normal percussion; does not use accessory muscles Cardiovascular: Rate/Rhythm: regular rate and regular rhythm Heart Sounds: normal S1 and normal S2; no gallop, no murmur and no cardiac rub Vessels: normal peripheral pulses; no JVD Gastrointestinal (Abdomen): normal bowel sounds, soft, nontender, no hepatosplenomegaly Musculoskeletal: no cyanosis or clubbing, extremities motor strength 5/5 Spine: thoracic spine normal to inspection and lumbar spine normal to inspection; no cervical spinal tenderness Skin: no rashes, warm and dry normal turgor and + wound (Surgical dressing intact); no lesions Neurologic: patellar DTR's 2+ bilat, sensation intact no focal motor deficits Psychiatric: A+Ox3, euthymic affect Orientation: cooperative Lymphatic: no cervical or axillary lymphadenopathy no inguinal lymphadenopathy Results & Data Vital Signs (Past 12 Hours) Vital Signs Temp Pulse Pulse Resp BP Pulse Ox 02/25/19 12:15 36.6 C 103 H 16 102/59 L 96 02/25/19 07:25 36.6 C 102 H 98 H 16 134/83 96 02/25/19 03:42 36.4 C L 86 20 118/75 97 Laboratory Results Short CBC 02/25/19 Range/Units 07:31 WBC 7.13 (4.8-10.8) K/uL Hgb 9.4 L (14.0-18.0) g/dL Hct 30.0 L (42-52) % Plt Count 213 (130-400) K/uL BMP 02/25/19 07:31 Sodium 143 Potassium 3.1 L Chloride 108 H Carbon Dioxide 27 BUN 36 H Creatinine 3.38 H Glucose 105 H Calcium 8.2 L Diagnostic Findings Microbiology 02/23/19 10:24 Blood Aerobic Blood Culture - Preliminary No growth in Aerobic bottle after 48 hours. 02/23/19 10:24 Blood Anaerobic Blood Culture - Preliminary No growth in Anaerobic bottle after 48 hours. 02/24/19 09:30 Foreign Body Gram Stain - Final 02/24/19 09:30 Foreign Body Deep Wound Culture - Preliminary Jessi albicans 02/23/19 14:45 Blood Aerobic Blood Culture - Preliminary Yeast 02/23/19 14:45 Blood Anaerobic Blood Culture - Preliminary No growth in Anaerobic bottle after 24 hours. 02/24/19 Unknown Urine,Clean Catch Urine Culture - Preliminary Jessi albicans PG Care Time/CCT Total # of Minutes Spent Total Time Spent with Patient: Total time spent is greater than 50% in coordination of care (as documented) at patient's floor/unit and/or counseling patient:
[2019-02-25] MEDS ORDERED: POTASSIUM CHLORIDE 20 MEQ TABCR PO ONE (17:45)
[2019-02-25 20:35] LABS: BUN Creatinine Ratio 9.9 (10-20); Calcium 7.9 mg/dl (8.5-10.1); Est GFR (African American) 16.5; Est GFR (Non-African American) 14.2
[2019-02-25] MEDS: MAGNESIUM SULFATE / D5W 1 GM/100 ML BAG IV ONE ×2 (20:37→21:15)
[2019-02-25] MEDS: POTASSIUM CHLORIDE 10 MEQ TABCR PO ONE ×2 (20:37→21:15)
[2019-02-25] MEDS: INSULIN GLARGINE SOLOSTAR 100 UNITS/ML 3 ML PEN SC SCH (21:09)
[2019-02-25] MEDS: ATORVASTATIN 40 MG TAB PO SCH (21:09)
--- NOTE | 2019-02-25 21:16 | Hospitalist Progress Note ---
Date of Service February 25, 2019 Assessment & Plan (1) Sepsis: Secondary to fungemia Meeting SIRS criteria, pt initially presented with tachycardia, tachypnea, fever, hypotension WBC wnl and lactate wnl, however procal elevated (1.89) Pt having fever after HD for past week prior to admission, was started on IV Abx, Rocephin 02/19, then switched to Zosyn on 02/20 Concern for dialysis cath line infection, vs. perinephritic abscess/ infection (seems stable per current CT) vs. other source, concern for endocarditis Blood cltx - obtained in ED on February 23, positive for yeast, catheter tip culture, February 24, also positive for Jessi albicans, urine culture February 24-positive for Jessi albicans Now s/p removal of HD catheter (02/24) by vascular Will obtain Echo to r/o vegetations In ED started on vancomycin and zosyn, which was continued during the admission, stopped today (02/25) and caspofungin was started Concern for possible perinephric fluid infection, urology consulted Pharm and ID consulted, for medication management and dose adjustment for renal impairment Plan to review records from [facility] where pt was hospitalized recently If pt does not improve after line removal and Abx, will need to explore perin ephric fluid closer vs. other source (2) Anemia: chronic normocytic anemia, most likely secondary CKD/ anemia of chronic disease No signs of active bleeding current Hgb 9.4 Will cont. 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 Angelo cont. to follow (she also noted pt having post HD fevers, and recommended inpt eval and treatment) D/t his tenuous state no plan for HD at this time Concern for HD line infection, now pt is s/p cath. line removal (02/24/2019), will need temporary line placed prior to next HD Renal diet Cont. to monitor renal function Will try to avoid nephrotoxic agents, contrast, NSAIDs, etc, will renally dose meds as needed Mild electrolyte abnormalities Mild hypokalemia and hypocalcemia, likely secondary to above will cont. to monitor, and will replace as needed (4) Diabetes mellitus, type II: On insulin lantus 4 units qhs, will cont. will cont. low SSI will continue to closely monitor and adjust as needed (5) Asthma: Hx of mild intermittent asthma At home/rehab on ellipta daily and duonebs prn, will cont. (6) Dyslipidemia: At home on atorvastatin, will cont. CAD s/p CABG at home/rehab on metoprolol and atorvastatin will continue while inpt No current issues Afib Not on anticoagulation (per family/pt wishes) pt on metoprolol tartrate 25mg q12h, will cont. rate currently not well controlled, pt is tachycardic most likely 2/2 infectious process should resolve (back to baseline) after treating underlying condition (IV Abx,IV antifungal, line removal etc.) will cont. to closely monitor on tele (7) Constipation: No current issues At home takes bisacodyl prn, miralax prn, will continue Will continue to monitor (8) GERD (gastroesophageal reflux disease): At home on pantoprazole and famotidine, will continue No current issues (9) DVT prophylaxis: Currently resides at Rehab ([facility]) On subq heparin 5000 q8h, last dose yesterday AM Held for procedure, resumed, encourage ambulation (10) Discharge planning issues: Currently resides at Rehab ([facility]) Will obtain PT/OT eval prior to discharge Subjective No acute events overnight. This morning patient feels well, laying in bed comfortably, denies any fevers, chills, nausea, vomiting, abdominal pain, chest pain. He is ambulatory. Review of Systems Review of Systems: All systems reviewed - negative, pertinent see below Constitutional: no fever, no chills and no fatigue Respiratory: no chest congestion and no dyspnea Cardiovascular: no chest pain, no dyspnea, no palpitations and no edema Gastrointestinal: no abdominal pain, no nausea, no vomiting and no dysphagia Physical Exam Constitutional: well developed and well nourished; no acute distress Eyes: PERRL, conjunctivae normal, anicteric sclerae + anicteric sclerae ENMT: external ear and nose normal, oropharynx normal Neck: trachea midline, no thyromegaly Respiratory: normal respiratory effort; does not use accessory muscles Auscultation: + crackles (mild b/l); no wheezes Cardiovascular: Rate/Rhythm: + tachycardic (irregular) Heart Sounds: no murmur Extremities: + edema (mild 1+ above ankles) Chest (Breasts): Chest: + vascular access device or port (was on the Right side, now removed,no erythema, edema or any drainage noted) Gastrointestinal (Abdomen): Inspection/Auscultation: abdomen normal to inspection and normal bowel sounds; abdomen not distended Percussion/Palpation: abdomen soft; abdomen nontender, no guarding and abdomen not rigid Musculoskeletal: Head/Neck/Chest: normocephalic, head atraumatic and neck supple Extremities: extremities normal to inspection; normal muscle tone Skin: no rashes, warm and dry Neurologic: PERRL, EOMI, accommodation nl, no face palsy, no dysarthria Psychiatric: A+Ox3, euthymic affect Speech: normal rate/rhythm/volume of speech Genitourinary: no CVA tenderness Lymphatic: + lymphedema (mild 1+ above ankles); no cervical lymphadenopathy Results & Data Vital Signs (Past 12 Hours) Vital Signs Temp Pulse Pulse Pulse Resp BP BP 02/25/19 19:24 36.9 C 124 H 20 02/25/19 19:18 36.7 C 140 H 18 129/80 02/25/19 16:00 93 H 02/25/19 15:10 36.5 C 90 16 120/77 02/25/19 12:15 36.6 C 103 H 16 102/59 L Pulse Ox 02/25/19 19:24 97 02/25/19 19:18 90 02/25/19 16:00 02/25/19 15:10 96 02/25/19 12:15 96 Laboratory Results 02/25/19 02/25/19 02/25/19 Range/Units 20:44 20:41 20:09 WBC (4.8-10.8) K/uL RBC (4.7-6.1) M/uL Hgb (14.0-18.0) g/dL Hct (42-52) % MCV (80-100) fL MCH (25-34) pg MCHC (32-36) g/dL RDW Std Deviation (36.4-46.3) fL RDW Coeff of Froilan (11.5-14.5) % Plt Count (130-400) K/uL MPV (7.4-10.4) fL Immature Gran % (Auto) % Neut % (Auto) % Lymph % (Auto) % [place] % (Auto) % Eos % (Auto) % Baso % (Auto) % Immature Gran # (Auto) (0.00-0.02) K/uL Neut # (Auto) (1.4-6.5) K/uL Lymph # (Auto) (1.2-3.4) K/uL Barrow # (Auto) (0.11-0.59) K/uL Eos # (Auto) (0-0.5) K/uL Baso # (Auto) (0-0.2) K/uL Sodium 140 (136-145) mmol/L Potassium Pending (3.5-5.1) mmol/L Chloride 108 H (98-107) mmol/L Carbon Dioxide 27 (21-32) mmol/L Anion Gap 5.0 (3-11) BUN 36 H (7-18) mg/dl Creatinine 3.62 H (0.6-1.4) mg/dl Est Cr Clr Drug Dosing 13.0 ml/min Est GFR ( Amer) 16.5 Est GFR (Non-Af Amer) 14.2 BUN/Creatinine Ratio 9.9 L (10-20) Glucose 164 H (70-99) mg/dl POC Glucose 152 H (70-99) Calcium 7.9 L (8.5-10.1) mg/dl Magnesium Pending (1.8-2.4) mg/dl Random Vancomycin mcg/ml 02/25/19 02/25/19 02/25/19 Range/Units 16:25 11:33 07:52 WBC (4.8-10.8) K/uL RBC (4.7-6.1) M/uL Hgb (14.0-18.0) g/dL Hct (42-52) % MCV (80-100) fL MCH (25-34) pg MCHC (32-36) g/dL RDW Std Deviation (36.4-46.3) fL RDW Coeff of Froilan (11.5-14.5) % Plt Count (130-400) K/uL MPV (7.4-10.4) fL Immature Gran % (Auto) % Neut % (Auto) % Lymph % (Auto) % B[place] % (Auto) % Eos % (Auto) % Baso % (Auto) % Immature Gran # (Auto) (0.00-0.02) K/uL Neut # (Auto) (1.4-6.5) K/uL Lymph # (Auto) (1.2-3.4) K/uL Barrow # (Auto) (0.11-0.59) K/uL Eos # (Auto) (0-0.5) K/uL Baso # (Auto) (0-0.2) K/uL Sodium (136-145) mmol/L Potassium (3.5-5.1) mmol/L Chloride (98-107) mmol/L Carbon Dioxide (21-32) mmol/L Anion Gap (3-11) BUN (7-18) mg/dl Creatinine (0.6-1.4) mg/dl Est Cr Clr Drug Dosing ml/min Est GFR ( Amer) Est GFR (Non-Af Amer) BUN/Creatinine Ratio (10-20) Glucose (70-99) mg/dl POC Glucose 117 H 134 H 112 H (70-99) Calcium (8.5-10.1) mg/dl Magnesium (1.8-2.4) mg/dl Random Vancomycin mcg/ml 02/25/19 02/25/19 02/25/19 Range/Units 07:31 07:31 07:31 WBC 7.13 (4.8-10.8) K/uL RBC 3.50 L (4.7-6.1) M/uL Hgb 9.4 L (14.0-18.0) g/dL Hct 30.0 L (42-52) % MCV 85.7 (80-100) fL MCH 26.9 (25-34) pg MCHC 31.3 L (32-36) g/dL RDW Std Deviation 50.1 H (36.4-46.3) fL RDW Coeff of Froilan 15.9 H (11.5-14.5) % Plt Count 213 (130-400) K/uL MPV 10.3 (7.4-10.4) fL Immature Gran % (Auto) 0.6 % Neut % (Auto) 56.6 % Lymph % (Auto) 34.1 % Barrow % (Auto) 5.5 % Eos % (Auto) 2.9 % Baso % (Auto) 0.3 % Immature Gran # (Auto) 0.04 H (0.00-0.02) K/uL Neut # (Auto) 4.04 (1.4-6.5) K/uL Lymph # (Auto) 2.43 (1.2-3.4) K/uL Barrow # (Auto) 0.39 (0.11-0.59) K/uL Eos # (Auto) 0.21 (0-0.5) K/uL Baso # (Auto) 0.02 (0-0.2) K/uL Sodium 143 (136-145) mmol/L Potassium 3.1 L (3.5-5.1) mmol/L Chloride 108 H (98-107) mmol/L Carbon Dioxide 27 (21-32) mmol/L Anion Gap 8.0 (3-11) BUN 36 H (7-18) mg/dl Creatinine 3.38 H (0.6-1.4) mg/dl Est Cr Clr Drug Dosing 13.9 ml/min Est GFR ( Amer) 17.9 Est GFR (Non-Af Amer) 15.5 BUN/Creatinine Ratio 10.5 (10-20) Glucose 105 H (70-99) mg/dl POC Glucose (70-99) Calcium 8.2 L (8.5-10.1) mg/dl Magnesium (1.8-2.4) mg/dl Random Vancomycin 13.0 mcg/ml Microbiology Blood culture February 23, 2019, positive for yeast Catheter tip culture, February 24, positive for Jessi albicans Urine culture February 24, 2019, positive for Jessi albicans Medications Administered Current Inpatient Medications Acetaminophen (Tylenol) 500 mg PO Q4H PRN PRN Reason: Pain Stop: 03/25/19 16:05 Albuterol (Duoneb) 3 ml INH QID PRN PRN Reason: Shortness Of Breath Or Wheezing Stop: 03/25/19 16:05 Atorvastatin Calcium (Lipitor) 80 mg PO HS ULISES Stop: 03/26/19 20:59 Last Admin: 02/24/19 20:34 Dose: 80 mg Documented by: Bisacodyl (Dulcolax) 10 mg GA DAILY PRN PRN Reason: Constipation Stop: 03/25/19 16:05 Dextrose (Dextrose 50%) 25 - 50 ml IV UD PRN; Protocol PRN Reason: Hypoglycemia Protocol Stop: 03/25/19 17:59 Famotidine (Pepcid) 20 mg PO TuThSa@2100 [facility] Stop: 03/26/19 20:59 Last Admin: 02/24/19 20:34 Dose: 20 mg Documented by: Glucagon (Glucagen) 1 mg SQ UD PRN; Protocol PRN Reason: Hypoglycemia Protocol Stop: 03/25/19 17:59 Glucose (Glucose 40%) 15 - 30 gm PO UD PRN; Protocol PRN Reason: Hypoglycemia Protocol Stop: 03/25/19 17:59 Glucose (Dex4 Glucose) 4 - 8 tabs PO UD PRN; Protocol PRN Reason: Hypoglycemia Protocol Stop: 03/25/19 17:59 Guaifenesin (Mucinex) 600 mg PO Q12 [facility] Stop: 03/26/19 20:59 Last Admin: 02/25/19 08:09 Dose: 600 mg Documented by: Heparin Sodium (Porcine) (Heparin Sodium (Porcine)) 5,000 units SC BID [facility] Stop: 03/26/19 20:59 Last Admin: 02/25/19 08:05 Dose: 5,000 units Documented by: Caspofungin 50 mg/ Sodium (Chloride) 260 mls @ 260 mls/hr IV Q24H [facility] Stop: 03/08/19 13:59 Insulin Aspart (Novolog Flexpen) 0 units SC ACHS [facility] Stop: 03/25/19 16:29 Last Admin: 02/25/19 17:12 Dose: Not Given Documented by: Insulin Glargine (Lantus Solostar Pen) 4 units SC HS [facility] Stop: 03/26/19 20:59 Last Admin: 02/24/19 20:33 Dose: 4 units Documented by: Metoprolol Tartrate (Lopressor) 25 mg PO Q12 [facility] Stop: 03/27/19 19:59 Last Admin: 02/25/19 20:38 Dose: 25 mg Documented by: Miscellaneous (Carbohydrates For Hypoglycemia) 15 - 30 gm PO UD PRN PRN Reason: Hypoglycemia Treatment Stop: 03/25/19 17:59 Pantoprazole Sodium (Protonix) 40 mg PO BIDM [facility] Stop: 03/25/19 16:59 Last Admin: 02/25/19 17:11 Dose: 40 mg Documented by: Polyethylene Glycol (Miralax Powder Packet) 17 gm PO DAILY PRN PRN Reason: Constipation Stop: 03/25/19 16:05 Senna/Docusate Sodium (Senokot S) 1 tab PO BID PRN PRN Reason: Constipation Stop: 03/25/19 16:05 Tiotropium [place] (Spiriva) 1 puffs INH DAILY ULISES Stop: 03/26/19 09:59 Last Admin: 02/25/19 08:09 Dose: 1 puffs Documented by: (1) Sepsis Sepsis acute organ dysfunction status: unspecified Sepsis type: sepsis due to unspecified organism Qualified Code(s): A41.9 - Sepsis, unspecified organism (2) Anemia Anemia type: unspecified type Qualified Code(s): D64.9 - Anemia, unspecified
[2019-02-25 21:19] LABS: Magnesium 1.6 mg/dl (1.8-2.4); Potassium 3.5 mmol/L (3.5-5.1)
[2019-02-25] MEDS ORDERED: MAGNESIUM SULFATE / D5W 1 GM/100 ML BAG IV ONE (21:45)
[2019-02-26 06:12] LABS: Basophils # (auto) 0.01 K/uL (0-0.2); Basophils % (auto) 0.1 %; Eosinophils # (auto) 0.19 K/uL (0-0.5); Eosinophils % (auto) 1.7 %; Hematocrit (blood only) 31.2 % (42-52); Hemoglobin 9.7 g/dL (14.0-18.0); Immature Granulocytes # (auto) 0.03 K/uL (0.00-0.02); Immature Granulocytes % (auto) 0.3 %; Lymphocytes # (auto) 3.62 K/uL (1.2-3.4); Lymphocytes % (auto) 32.2 %; Mean Corpuscular Hemoglobin 26.7 pg (25-34); Mean Corpuscular Hgb Conc 31.1 g/dL (32-36); Monocytes # (auto) 0.51 K/uL (0.11-0.59); Monocytes % (auto) 4.5 %; Neutrophils # (auto) 6.87 K/uL (1.4-6.5); Neutrophils % (auto) 61.2 %; Platelet Count 252 K/uL (130-400); RDW Coefficient of Variation 15.9 % (11.5-14.5); RDW Standard Deviation 50.8 fL (36.4-46.3); Red Blood Count 3.63 M/uL (4.7-6.1); White Blood Count 11.23 K/uL (4.8-10.8)
[2019-02-26 06:38] LABS: BUN Creatinine Ratio 9.3 (10-20); Calcium 8.2 mg/dl (8.5-10.1); Creatinine Clr Calc Pharmacy 13.2 ml/min; Est GFR (African American) 16.8; Est GFR (Non-African American) 14.5; Magnesium 2.2 mg/dl (1.8-2.4); Potassium 3.5 mmol/L (3.5-5.1)
[2019-02-26] MEDS: INSULIN ASPART 100 UNITS/ML 3 ML PEN SC SCH ×4 (07:46→21:03)
[2019-02-26] MEDS: HEPARIN SOD 5,000 UNIT/0.5 ML VIAL SC SCH (07:47)
[2019-02-26] MEDS: guaiFENesin 600 MG TABCR PO SCH ×2 (07:47→21:04)
--- NOTE | 2019-02-26 07:47 | Nephrology Progress Note ---
Date of Service February 26, 2019 Assessment & Plan (1) ESRD (end stage renal disease): last HD was 02/21 w/ no fluid removal; mild hypokalemia today w/ otherwise acceptable chemistries, fluid status -chemistries, volume status acceptable today; would not do HD today -monitor daily for need for dialysis -- suspect he will NOT need it given clinical status despite minimal renal reserves >> s/p R nephrectomy and w/ L supcapsular hematoma w/ mass effect on L kidney; however he is doing relatively well w/ no dialysis x 5 days Present on Admission?: Yes (2) Intermittent fever: suspicious for occult line infection, since it has been occurring per outside providers only after HD (somewhat odd not happening during HD and no rigors reported) -blood, cath tip cxs in process >> cath tip, blood cx growing yeast >> pt on caspofungin -no F since admission -recommend f/u of bld cx results from prior to admission -infectious diseases following; further per them re w/u of fungemia -d/t + cx (and d/t little impression of urgent need for routine HD) cancel line placement today if not already done (3) Anemia: not an epo candidate given active urothelial ca -monitor q24-48 hrs, transfuse prn (4) Renal hematoma, left: stable on imaging (5) Status post nephrectomy: increases esrd risk Subjective seen on rounds this am at 0810; no c/o pain dyspnea, voiding difficulties; cxs w/ fungemia Review of Systems Review of Systems: All systems reviewed & are unremarkable except as noted in HPI & below Physical Exam Constitutional: well developed and well nourished on RA, oriented to self only not place or time Eyes: EOM intact bilaterally ENMT: Ears: no external ear abnormality Nose: no external nose abnormality Mouth: + dry oral mucous membranes Neck: no nuchal rigidity Respiratory: normal respiratory effort Auscultation: + diminished lung sounds Cardiovascular: Rate/Rhythm: regular rhythm and + tachycardic (in 90s) Extremities: no edema Gastrointestinal (Abdomen): Inspection/Auscultation: normal bowel sounds Percussion/Palpation: abdomen soft; abdomen nontender Musculoskeletal: Extremities: strength 5/5 throughout Skin: no rashes, warm and dry Psychiatric: Orientation: alert Speech: normal rate/rhythm/volume of speech Affect: + flat affect Insight: + limited insight Judgement: + limited judgement Results & Data Vital Signs (Past 12 Hours) Vital Signs Temp Pulse Pulse Resp BP Pulse Ox 02/26/19 07:24 37.1 C 102 H 18 130/76 95 02/26/19 04:13 37.1 C 115 H 20 126/73 96 02/25/19 23:59 100 H 02/25/19 23:00 36.5 C 112 H 20 127/74 95 Laboratory Results 02/26/19 05:43 02/26/19 05:43 (1) Anemia Anemia type: due to chronic kidney disease Chronic kidney disease stage: on chronic dialysis Qualified Code(s): N18.6 - End stage renal disease; D63.1 - Anemia in chronic kidney disease; Z99.2 - Dependence on renal dialysis
[2019-02-26] MEDS: PANTOprazole 40 MG TAB PO SCH ×2 (07:48→16:50)
[2019-02-26] MEDS: METOPROLOL TARTRATE 25 MG TAB PO SCH ×2 (07:48→21:04)
[2019-02-26] MEDS: TIOTROPIUM BROMIDE 5 PUFF/90 MCG INH INH SCH (07:48)
--- NOTE | 2019-02-26 08:47 | Hospitalist Progress Note ---
Date of Service February 26, 2019 Assessment & Plan (1) Sepsis: Secondary to fungemia Meeting SIRS criteria, pt initially presented with tachycardia, tachypnea, fever, hypotension WBC wnl and lactate wnl, however procal elevated (1.89) Pt having fever after HD for past week prior to admission, was started on IV Abx, Rocephin 02/19, then switched to Zosyn on 02/20 Concern for dialysis cath line infection, vs. perinephritic abscess/ infection vs. other source, concern for endocarditis Blood cltx - obtained in ED on February 23, positive for Jessi albicans, catheter tip culture, February 24, also positive for Jessi albicans, urine culture February 24-positive for Jessi albicans Now s/p removal of HD catheter (02/24) by vascular surg. Will obtain Echo to r/o vegetations In ED started on vancomycin and zosyn, which was continued during the admission, stopped on (02/25) and caspofungin was started Concern for possible perinephric fluid infection, urology consulted, recommend transfer to [facility] for further urologic evaluation and possible IR procedure /drainage Pharm and ID consulted, for medication management and dose adjustment for renal impairment (2) Anemia: chronic normocytic anemia, most likely secondary CKD/ anemia of chronic disease No signs of active bleeding current Hgb 9.7 Will cont. 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 Angelo cont. to follow (she also noted pt having post HD fevers, and recommended inpt eval and treatment) D/t his tenuous state no plan for HD at this time Concern for HD line infection, now pt is s/p cath. line removal (02/24/2019), will need temporary line placed prior to next HD Renal diet Cont. to monitor renal function Will try to avoid nephrotoxic agents, contrast, NSAIDs, etc, will renally dose meds as needed Mild electrolyte abnormalities Mild hypokalemia and hypocalcemia, likely secondary to above will cont. to monitor, and will replace as needed (4) Diabetes mellitus, type II: On insulin lantus 4 units qhs, will cont. will cont. low SSI will continue to closely monitor and adjust as needed (5) Asthma: Hx of mild intermittent asthma At home/rehab on ellipta daily and duonebs prn, will cont. (6) Dyslipidemia: At home on atorvastatin, will cont. CAD s/p CABG at home/rehab on metoprolol and atorvastatin will continue while inpt No current issues Afib Not on anticoagulation (per family/pt wishes) pt on metoprolol tartrate 25mg q12h, will cont. rate currently not well controlled, pt is tachycardic most likely 2/2 infectious process should resolve (back to baseline) after treating underlying condition (IV Abx,IV antifungal, line removal etc.) will cont. to closely monitor on tele (7) Constipation: No current issues At home takes bisacodyl prn, miralax prn, will continue Will continue to monitor (8) GERD (gastroesophageal reflux disease): At home on pantoprazole and famotidine, will continue No current issues (9) DVT prophylaxis: Currently resides at Rehab ([facility]) On subq heparin 5000 q8h, last dose yesterday AM Held for procedure, resumed, encourage ambulation (10) Discharge planning issues: Currently resides at Rehab ([facility]) Will obtain PT/OT eval prior to discharge Subjective No acute events overnight. This morning patient feels well, laying in bed comfortably, denies any fevers, chills, nausea, vomiting, abdominal pain, chest pain, or shortness of breath. He is participating with PT. Review of Systems Constitutional: no fever, no chills and no fatigue Respiratory: no cough and no dyspnea Cardiovascular: no chest pain, no dyspnea on exertion, no palpitations and no edema Gastrointestinal: no abdominal pain, no nausea and no vomiting Physical Exam Constitutional: well developed and well nourished; no acute distress Eyes: PERRL, conjunctivae normal, anicteric sclerae + anicteric sclerae ENMT: external ear and nose normal, oropharynx normal Neck: trachea midline, no thyromegaly Respiratory: normal respiratory effort; does not use accessory muscles Auscultation: + crackles (mild b/l); no wheezes Cardiovascular: Rate/Rhythm: + tachycardic (irregular) Heart Sounds: no murmur Extremities: + edema (mild 1+ above ankles) Chest (Breasts): Chest: + vascular access device or port (was on the Right side, now removed,no erythema, edema or any drainage noted) Gastrointestinal (Abdomen): Inspection/Auscultation: abdomen normal to inspection and normal bowel sounds; abdomen not distended Percussion/Palpation: abdomen soft; abdomen nontender, no guarding and abdomen not rigid Musculoskeletal: Head/Neck/Chest: normocephalic, head atraumatic and neck supple Extremities: extremities normal to inspection; normal muscle tone Skin: no rashes, warm and dry Neurologic: PERRL, EOMI, accommodation nl, no face palsy, no dysarthria Psychiatric: A+Ox3, euthymic affect Speech: normal rate/rhythm/volume of speech Genitourinary: no CVA tenderness Lymphatic: + lymphedema (mild 1+ above ankles); no cervical lymphadenopathy Results & Data Vital Signs (Past 12 Hours) Vital Signs Temp Pulse Pulse Resp BP Pulse Ox 02/26/19 07:24 37.1 C 102 H 18 130/76 95 02/26/19 04:13 37.1 C 115 H 20 126/73 96 02/25/19 23:59 100 H 02/25/19 23:00 36.5 C 112 H 20 127/74 95 Laboratory Results 02/26/19 02/26/19 02/26/19 Range/Units 05:59 05:43 05:43 WBC 11.23 H (4.8-10.8) K/uL RBC 3.63 L (4.7-6.1) M/uL Hgb 9.7 L (14.0-18.0) g/dL Hct 31.2 L (42-52) % MCV 86.0 (80-100) fL MCH 26.7 (25-34) pg MCHC 31.1 L (32-36) g/dL RDW Std Deviation 50.8 H (36.4-46.3) fL RDW Coeff of Froilan 15.9 H (11.5-14.5) % Plt Count 252 (130-400) K/uL MPV 10.0 (7.4-10.4) fL Immature Gran % (Auto) 0.3 % Neut % (Auto) 61.2 % Lymph % (Auto) 32.2 % [place] % (Auto) 4.5 % Eos % (Auto) 1.7 % Baso % (Auto) 0.1 % Immature Gran # (Auto) 0.03 H (0.00-0.02) K/uL Neut # (Auto) 6.87 H (1.4-6.5) K/uL Lymph # (Auto) 3.62 H (1.2-3.4) K/uL [place] # (Auto) 0.51 (0.11-0.59) K/uL Eos # (Auto) 0.19 (0-0.5) K/uL Baso # (Auto) 0.01 (0-0.2) K/uL Sodium (136-145) mmol/L Potassium (3.5-5.1) mmol/L Chloride (98-107) mmol/L Carbon Dioxide (21-32) mmol/L Anion Gap (3-11) BUN (7-18) mg/dl Creatinine (0.6-1.4) mg/dl Est Cr Clr Drug Dosing ml/min Est GFR ( Amer) Est GFR (Non-Af Amer) BUN/Creatinine Ratio (10-20) Glucose (70-99) mg/dl POC Glucose 118 H (70-99) Calcium (8.5-10.1) mg/dl Magnesium (1.8-2.4) mg/dl Albumin (3.4-5.0) gm/dl Specimen Hemolysis Random Vancomycin 15.0 mcg/ml Hep Bs Antigen Hep Bs Antibody Hep Bs Antibody, Quant 02/26/19 02/26/19 02/25/19 Range/Units 05:43 05:43 20:44 WBC (4.8-10.8) K/uL RBC (4.7-6.1) M/uL Hgb (14.0-18.0) g/dL Hct (42-52) % MCV (80-100) fL MCH (25-34) pg MCHC (32-36) g/dL RDW Std Deviation (36.4-46.3) fL RDW Coeff of Froilan (11.5-14.5) % Plt Count (130-400) K/uL MPV (7.4-10.4) fL Immature Gran % (Auto) % Neut % (Auto) % Lymph % (Auto) % [place] % (Auto) % Eos % (Auto) % Baso % (Auto) % Immature Gran # (Auto) (0.00-0.02) K/uL Neut # (Auto) (1.4-6.5) K/uL Lymph # (Auto) (1.2-3.4) K/uL [place] # (Auto) (0.11-0.59) K/uL Eos # (Auto) (0-0.5) K/uL Baso # (Auto) (0-0.2) K/uL Sodium 145 (136-145) mmol/L Potassium 3.5 (3.5-5.1) mmol/L Chloride 112 H (98-107) mmol/L Carbon Dioxide 25 (21-32) mmol/L Anion Gap 8.0 (3-11) BUN 33 H (7-18) mg/dl Creatinine 3.56 H (0.6-1.4) mg/dl Est Cr Clr Drug Dosing 13.2 ml/min Est GFR ( Amer) 16.8 Est GFR (Non-Af Amer) 14.5 BUN/Creatinine Ratio 9.3 L (10-20) Glucose 118 H (70-99) mg/dl POC Glucose 152 H (70-99) Calcium 8.2 L (8.5-10.1) mg/dl Magnesium 2.2 (1.8-2.4) mg/dl Albumin (3.4-5.0) gm/dl Specimen Hemolysis Random Vancomycin mcg/ml Hep Bs Antigen Pending Hep Bs Antibody Pending Hep Bs Antibody, Quant Pending 02/25/19 02/25/19 02/25/19 Range/Units 20:41 20:09 16:25 WBC (4.8-10.8) K/uL RBC (4.7-6.1) M/uL Hgb (14.0-18.0) g/dL Hct (42-52) % MCV (80-100) fL MCH (25-34) pg MCHC (32-36) g/dL RDW Std Deviation (36.4-46.3) fL RDW Coeff of Froilan (11.5-14.5) % Plt Count (130-400) K/uL MPV (7.4-10.4) fL Immature Gran % (Auto) % Neut % (Auto) % Lymph % (Auto) % [place] % (Auto) % Eos % (Auto) % Baso % (Auto) % Immature Gran # (Auto) (0.00-0.02) K/uL Neut # (Auto) (1.4-6.5) K/uL Lymph # (Auto) (1.2-3.4) K/uL [place] # (Auto) (0.11-0.59) K/uL Eos # (Auto) (0-0.5) K/uL Baso # (Auto) (0-0.2) K/uL Sodium 140 (136-145) mmol/L Potassium 3.5 (3.5-5.1) mmol/L Chloride 108 H (98-107) mmol/L Carbon Dioxide 27 (21-32) mmol/L Anion Gap 5.0 (3-11) BUN 36 H (7-18) mg/dl Creatinine 3.62 H (0.6-1.4) mg/dl Est Cr Clr Drug Dosing 13.0 ml/min Est GFR ( Amer) 16.5 Est GFR (Non-Af Amer) 14.2 BUN/Creatinine Ratio 9.9 L (10-20) Glucose 164 H (70-99) mg/dl POC Glucose 117 H (70-99) Calcium 7.9 L (8.5-10.1) mg/dl Magnesium 1.6 L (1.8-2.4) mg/dl Albumin (3.4-5.0) gm/dl Specimen Hemolysis Random Vancomycin mcg/ml Hep Bs Antigen Hep Bs Antibody Hep Bs Antibody, Quant 02/25/19 02/25/19 Range/Units 11:33 07:31 WBC (4.8-10.8) K/uL RBC (4.7-6.1) M/uL Hgb (14.0-18.0) g/dL Hct (42-52) % MCV (80-100) fL MCH (25-34) pg MCHC (32-36) g/dL RDW Std Deviation (36.4-46.3) fL RDW Coeff of Froilan (11.5-14.5) % Plt Count (130-400) K/uL MPV (7.4-10.4) fL Immature Gran % (Auto) % Neut % (Auto) % Lymph % (Auto) % [place] % (Auto) % Eos % (Auto) % Baso % (Auto) % Immature Gran # (Auto) (0.00-0.02) K/uL Neut # (Auto) (1.4-6.5) K/uL Lymph # (Auto) (1.2-3.4) K/uL [place] # (Auto) (0.11-0.59) K/uL Eos # (Auto) (0-0.5) K/uL Baso # (Auto) (0-0.2) K/uL Sodium (136-145) mmol/L Potassium (3.5-5.1) mmol/L Chloride (98-107) mmol/L Carbon Dioxide (21-32) mmol/L Anion Gap (3-11) BUN (7-18) mg/dl Creatinine (0.6-1.4) mg/dl Est Cr Clr Drug Dosing ml/min Est GFR ( Amer) Est GFR (Non-Af Amer) BUN/Creatinine Ratio (10-20) Glucose (70-99) mg/dl POC Glucose 134 H (70-99) Calcium (8.5-10.1) mg/dl Magnesium (1.8-2.4) mg/dl Albumin 1.8 L (3.4-5.0) gm/dl Specimen Hemolysis Random Vancomycin mcg/ml Hep Bs Antigen Hep Bs Antibody Hep Bs Antibody, Quant Medications Administered Current Inpatient Medications Acetaminophen (Tylenol) 500 mg PO Q4H PRN PRN Reason: Pain Stop: 03/25/19 16:05 Albuterol (Duoneb) 3 ml INH QID PRN PRN Reason: Shortness Of Breath Or Wheezing Stop: 03/25/19 16:05 Atorvastatin Calcium (Lipitor) 80 mg PO HS [facility] Stop: 03/26/19 20:59 Last Admin: 02/25/19 21:09 Dose: 80 mg Documented by: Bisacodyl (Dulcolax) 10 mg ME DAILY PRN PRN Reason: Constipation Stop: 03/25/19 16:05 Dextrose (Dextrose 50%) 25 - 50 ml IV UD PRN; Protocol PRN Reason: Hypoglycemia Protocol Stop: 03/25/19 17:59 Famotidine (Pepcid) 20 mg PO TuThSa@2100 [facility] Stop: 03/26/19 20:59 Last Admin: 02/24/19 20:34 Dose: 20 mg Documented by: Glucagon (Glucagen) 1 mg SQ UD PRN; Protocol PRN Reason: Hypoglycemia Protocol Stop: 03/25/19 17:59 Glucose (Glucose 40%) 15 - 30 gm PO UD PRN; Protocol PRN Reason: Hypoglycemia Protocol Stop: 03/25/19 17:59 Glucose (Dex4 Glucose) 4 - 8 tabs PO UD PRN; Protocol PRN Reason: Hypoglycemia Protocol Stop: 03/25/19 17:59 Guaifenesin (Mucinex) 600 mg PO Q12 [facility] Stop: 03/26/19 20:59 Last Admin: 02/26/19 07:47 Dose: Not Given Documented by: Heparin Sodium (Porcine) (Heparin Sodium (Porcine)) 5,000 units SC BID [facility] Stop: 03/26/19 20:59 Last Admin: 02/26/19 07:47 Dose: Not Given Documented by: Caspofungin 50 mg/ Sodium (Chloride) 260 mls @ 260 mls/hr IV Q24H [facility] Stop: 03/08/19 13:59 Insulin Aspart (Novolog Flexpen) 0 units SC ACHS [facility] Stop: 03/25/19 16:29 Last Admin: 02/26/19 07:46 Dose: Not Given Documented by: Insulin Glargine (Lantus Solostar Pen) 4 units SC HS [facility] Stop: 03/26/19 20:59 Last Admin: 02/25/19 21:09 Dose: 4 units Documented by: Metoprolol Tartrate (Lopressor) 25 mg PO Q12 [facility] Stop: 03/27/19 19:59 Last Admin: 02/26/19 07:48 Dose: 25 mg Documented by: Miscellaneous (Carbohydrates For Hypoglycemia) 15 - 30 gm PO UD PRN PRN Reason: Hypoglycemia Treatment Stop: 03/25/19 17:59 Pantoprazole Sodium (Protonix) 40 mg PO BIDM [facility] Stop: 03/25/19 16:59 Last Admin: 02/26/19 07:48 Dose: 40 mg Documented by: Polyethylene Glycol (Miralax Powder Packet) 17 gm PO DAILY PRN PRN Reason: Constipation Stop: 03/25/19 16:05 Senna/Docusate Sodium (Senokot S) 1 tab PO BID PRN PRN Reason: Constipation Stop: 03/25/19 16:05 Tiotropium [place] (Spiriva) 1 puffs INH DAILY [facility] Stop: 03/26/19 09:59 Last Admin: 02/26/19 07:48 Dose: 1 puffs Documented by: (1) Sepsis Sepsis acute organ dysfunction status: unspecified Sepsis type: sepsis due to unspecified organism Qualified Code(s): A41.9 - Sepsis, unspecified organism (2) Anemia Anemia type: unspecified type Qualified Code(s): D64.9 - Anemia, unspecified
--- NOTE | 2019-02-26 08:49 | Urology Consultation ---
Date of Consultation February 26, 2019 Assessment & Plan (1) Renal hematoma, left: 89o M with diffuse fungemia, solitary left kidney with known perinephric fluid collection vs hematoma with indwelling stent placement s/p ureteroscopy in December 2018 by [facility]. As previously stated, this hematoma is at high risk for becoming infected. This, as well his ureteral stent may present a source for ongoing fungemia. We recommend transfer to [facility] for ongoing urologic evaluation and care as well as for IR consultation for possible drain placement to address this concern. Fortunately, his kidney function appears to be at baseline, with adequate output. Please see additional comments per my attending physician, as indicated. Thank you for allowing us to participate in the acute care of Mr. Ferro. Please reconsult us with additional questions, concerns or changes in patient status. attending: Images reviewed with LEAD CONSULTANT, agree with above. Imaging relatively unchanged from prior CT scan, no evidence of worsening side. The possibility of a superinfection of the patient's known hematoma with fungal organisms is noted - management in this case would be drainage via interventional radiology. This would require transfer to an outside facility. My understanding is the patient has a history of R nephroureterectomy for urothelial malignancy and management of a metachronous left high grade urothelial CA with endoscopic management. This is not ideal management, but the alternative would be the leave the patient anephric. Indwelling stent is also a possible foreign body nidus for fungal organisms - the medium to intermediate plan for the patient's poor prognosis oncological situation is unclear. Should the patient be transferred to an outside facility for drainage of his perinephric abscess, this might also allow his primary urologists to reestablish management of his complex care. Thank you for allowing us to participate in this patient's acute care. History of Present Illness Reason for Consultation: perinephric fluid collection Requesting Physician: Dr. 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 Pt has known left subcapsular renal hematoma following left ureteroscopy with laser ablation of tumor and stent exchange in November or December of 2018 at [facility]. We have been consulted to assist in care regarding this perinephric fluid collection. Information gathered from chart review given pt's cognitive impairment. He is disoriented to time and place, no family at bedside. Patient admitted with fever with blood, urine, and catheter cultures now growing Jessi albicans, initiated on caspofungin therapy. He does state is in no pain, denies dysuria. Voiding into urinal without difficulty, visualized to be clear yellow today. Dr. Angelo with nephrology at bedside concurrently today. Allergies Allergy/AdvReac Type Severity Reaction Status Date / Time erythromycin base AdvReac Mild upset Verified 02/23/19 11:00 stomach BCG (Bacillus AdvReac PAINFUL Verified 02/23/19 11:00 [place]) vacc Home Medications Home Medications Medication Instructions Recorded Confirmed Type atorvastatin 80 mg PO DAILY 01/30/19 02/23/19 History cholecalciferol (vitamin D3) 2,000 unit PO DAILY 01/30/19 02/23/19 History [Vitamin D3] famotidine [Pepcid] 20 mg PO 3XWK 01/30/19 02/23/19 History insulin aspart U-100 [Novolog 0 unit SUBCUT ACHS 01/30/19 02/23/19 History U-100 Insulin aspart] insulin glargine [Lantus U-100 4 unit SUBCUT HS 01/30/19 02/23/19 History Insulin] ipratropium-albuterol 3 ml INHALATION QID PRN 01/30/19 02/23/19 History umeclidinium [Incruse Ellipta] 1 inh INHALATION DAILY 01/30/19 02/23/19 History acetaminophen [Tylenol Extra 500 mg PO Q4H PRN 02/17/19 02/23/19 History Strength] bisacodyl 10 mg AL DAILY PRN 02/17/19 02/23/19 History dextromethorphan-guaifenesin 10 ml PO Q4H PRN 02/17/19 02/23/19 History dextrose 50 % in water (D50W) 50 % IV DIRECTED PRN 02/17/19 02/23/19 History glucagon 1 mg SUBCUT DIRECTED PRN 02/17/19 02/23/19 History heparin (porcine) 5,000 unit SUBCUT Q8H 02/17/19 02/23/19 History heparin (porcine) 400 unit IV DIRECTED PRN 02/17/19 02/23/19 History melatonin 6 mg PO HS PRN 02/17/19 02/23/19 History pantoprazole [Protonix] 40 mg PO BIDM 02/17/19 02/23/19 History polyethylene glycol 3350 [Miralax] 17 g PO DAILY PRN 02/17/19 02/23/19 History sennosides-docusate sodium 1 tab PO BID PRN 02/17/19 02/23/19 History [Senokot-S] sodium phosphates [Fleet Enema] 118 ml AL DAILY PRN 02/17/19 02/23/19 History metoprolol tartrate 25 mg PO Q12 02/23/19 02/23/19 History piperacillin-tazobactam [Zosyn] 2.25 g IV Q12 02/23/19 02/23/19 History Patient History Medical History Chronic a-fib (Chronic) with RVR-no AC secondary to perinephrotic hematoma/GI bleed-rate controlled with metoprolol Anemia (Chronic) GERD (gastroesophageal reflux disease) (Chronic) Atrial fibrillation with rapid ventricular response Acute kidney injury superimposed on CKD Renal hematoma, left Sepsis (Acute) Anemia (Chronic) 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 Diabetes mellitus, type II (Chronic) Coronary artery disease (Chronic) "s/p CABG 2006" History of bladder carcinoma History of prostate cancer History of renal cell carcinoma Hypertension (Chronic) BPH (benign prostatic hyperplasia) (Chronic) Diverticular disease of colon (Chronic) Dyslipidemia (Chronic) Asthma (Chronic) Diabetes (Chronic) insulin dependent Arm pain, left CHF (congestive heart failure) Cancer of ureter Chest pain Generalized weakness H/O: GI bleed Hematoma of kidney Hypertension Left upper limb pain Leukocytosis Metabolic encephalopathy Neck pain Oliguria Perinephric hematoma Perinephric hematoma Pneumonia UTI (urinary tract infection) Vascular dialysis catheter in place Weakness Surgical History Status post cardiac catheterization "01/13/2010 [facility]: 60-70% stenosis left main 100% occlusion RCA severe proximal disease diagonal patent MENDOZA to LAD and SVG's to RCA and circ" Status post cataract extraction Status post coronary artery bypass grafting "2006 [place]: MENDOZA-LAD, SVG-RCA, SVG-circ" Status post nephrectomy "[facility] ~ 2014 renal Ca; s/p R nephrectomy" Status post appendectomy H/O transurethral resection of prostate History of colon resection Hx of CABG Hx of CABG Hx of tonsillectomy S/p nephrectomy RIGHT Family History Mother Heart disease Father Heart disease Social History Preferred Language: Polish Communication Ability: Impaired 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 Beliefs That Will Affect Care: None marital status: Current Living Situation: Rehab Current Living Situation Comment: at [facility] Other Information That Helps Us Care for You: No Feels Safe at Home: Yes Safety Concerns: Feels Safe At This Time Smoking Status: Former smoker Tobacco Type: cigarettes ; Second Hand Exposure: No ; Hx Alcohol Use: No Hx Substance Use: No Review of Systems Review of Systems: Unobtainable due to cognitive status Physical Exam Constitutional: no acute distress and not ill appearing Eyes: no nystagmus ENMT: Ears: no hearing impairment Neck: trachea midline Respiratory: no respiratory distress and no cough Cardiovascular: Vessels: no JVD Chest (Breasts): Chest: normal inspection of chest Gastrointestinal (Abdomen): Inspection/Auscultation: abdomen not distended and no abdominal edema Percussion/Palpation: abdomen soft; abdomen nontender Musculoskeletal: Head/Neck/Chest: normocephalic and head atraumatic Skin: no rashes, warm and dry Neurologic: awake; not confused and not obtunded Psychiatric: Orientation: alert and oriented x 3 Eye Contact: good eye contact Affect: no depressed affect Genitourinary: bladder normal to inspection; no CVA tenderness urine clear yellow in urinal Lymphatic: no lymphadenopathy and no lymphedema Results & Data Vital Signs (Past 12 Hours) Vital Signs Temp Pulse Pulse Resp BP Pulse Ox 02/26/19 07:24 37.1 C 102 H 18 130/76 95 02/26/19 04:13 37.1 C 115 H 20 126/73 96 02/25/19 23:59 100 H 02/25/19 23:00 36.5 C 112 H 20 127/74 95 PG Care Time/CCT Total # of Minutes Spent Total Time Spent with Patient: Total time spent is greater than 50% in coordination of care (as documented) at patient's floor/unit and/or counseling patient:
[2019-02-26 09:31] LABS: Hepatitis B Surface Ab Quant < 3.10 mIU/mL (>or=10mIU/mL Immune); Hepatitis B Surface Antibody Non-Immune
[2019-02-26 09:42] LABS: Hepatitis B Surface Antigen Neg (Neg)
[2019-02-26] MEDS: CASPOFUNGIN 50 MG in SODIUM CHLORIDE 0.9% 250 ML IV SCH (13:03)
[2019-02-26] MEDS ORDERED: POTASSIUM CHLORIDE 20 MEQ TABCR PO STA (19:32)
[2019-02-26] MEDS: INSULIN GLARGINE SOLOSTAR 100 UNITS/ML 3 ML PEN SC SCH (21:03)
[2019-02-26] MEDS: ATORVASTATIN 40 MG TAB PO SCH (21:03)
[2019-02-26] MEDS: FAMOTIDINE 20 MG TAB PO SCH (21:04)
[2019-02-27 05:47] LABS: Basophils # (auto) 0.04 K/uL (0-0.2); Basophils % (auto) 0.4 %; Eosinophils # (auto) 0.26 K/uL (0-0.5); Eosinophils % (auto) 2.9 %; Hematocrit (blood only) 26.6 % (42-52); Hemoglobin 8.3 g/dL (14.0-18.0); Immature Granulocytes # (auto) 0.04 K/uL (0.00-0.02); Immature Granulocytes % (auto) 0.4 %; Lymphocytes # (auto) 2.79 K/uL (1.2-3.4); Lymphocytes % (auto) 30.9 %; Mean Corpuscular Hemoglobin 26.9 pg (25-34); Mean Corpuscular Hgb Conc 31.2 g/dL (32-36); Mean Corpuscular Volume 86.1 fL (80-100); Mean Platelet Volume 9.5 fL (7.4-10.4); Monocytes # (auto) 0.43 K/uL (0.11-0.59); Monocytes % (auto) 4.8 %; Neutrophils # (auto) 5.47 K/uL (1.4-6.5); Neutrophils % (auto) 60.6 %; Platelet Count 237 K/uL (130-400); RDW Coefficient of Variation 16.2 % (11.5-14.5); RDW Standard Deviation 50.9 fL (36.4-46.3); Red Blood Count 3.09 M/uL (4.7-6.1); White Blood Count 9.03 K/uL (4.8-10.8)
[2019-02-27 06:17] LABS: BUN Creatinine Ratio 10.8 (10-20); Calcium 8.2 mg/dl (8.5-10.1); Creatinine Clr Calc Pharmacy 14.2 ml/min; Est GFR (African American) 18.4; Est GFR (Non-African American) 15.8; Potassium 3.5 mmol/L (3.5-5.1)
[2019-02-27 07:13] VITALS: TEMP 97.9
--- NOTE | 2019-02-27 07:43 | Nephrology Progress Note ---
Date of Service February 27, 2019 Assessment & Plan (1) ESRD (end stage renal disease): last HD was 02/21 w/ no fluid removal; mild hypokalemia today w/ otherwise acceptable chemistries, fluid status -chemistries, volume status acceptable today; would not do HD today -monitor daily for need for dialysis -- suspect he will NOT need it given clinical status despite minimal renal reserves >> s/p R nephrectomy and w/ L subcapsular hematoma w/ mass effect on L kidney; however he is doing relatively well w/ o recent tx >no hd indicated today; needs to be monitored for need >> if for transfer, recommend nephrology consult while there (2) Anemia: not an epo candidate given active urothelial ca -monitor q24-48 hrs, transfuse prn (3) Renal hematoma, left: stable on imaging (4) Status post nephrectomy: increases esrd risk (5) Jessi infection, disseminated: plan 2 wks caspofungin for C albicans disseminated and stent exchange Present on Admission?: Yes (6) Electrolyte abnormality: w/ mild hypernatremia, hyperchloremia >> gave 500 mL D5W x 1; recheck labs in am Present on Admission?: Yes Subjective seen on rounds late this afternoon. no complaints of sob, abd or chest pain, edema, voiding complaints. urology recommends [facility] [place] for [facility] exchange; this is in process of being set up Review of Systems Review of Systems: All systems reviewed & are unremarkable except as noted in HPI & below (limited by pt fatigue/ confusion/ [id number]) Physical Exam Constitutional: well developed and well nourished on RA nad Eyes: EOM intact bilaterally ENMT: Ears: no external ear abnormality Nose: no external nose abnormality Mouth: + dry oral mucous membranes Neck: no nuchal rigidity Respiratory: normal respiratory effort Auscultation: + diminished lung sounds Cardiovascular: Rate/Rhythm: regular rhythm and + tachycardic (in 90s) Extremities: no edema Gastrointestinal (Abdomen): Inspection/Auscultation: normal bowel sounds Percussion/Palpation: abdomen soft; abdomen nontender Musculoskeletal: Extremities: strength 5/5 throughout Skin: no rashes, warm and dry Psychiatric: Orientation: alert, oriented to person and cooperative Speech: normal rate/rhythm/volume of speech (but with some delay) Affect: euthymic affect Insight: + limited insight Judgement: + limited judgement Results & Data Vital Signs (Past 12 Hours) Vital Signs Temp Pulse Pulse Pulse Resp BP Pulse Ox 02/27/19 07:12 36.6 C 105 H 20 138/78 93 02/27/19 05:59 81 02/27/19 04:10 117 H 02/27/19 03:36 36.4 C L 84 16 125/74 96 02/27/19 01:43 81 02/27/19 00:07 36.6 C 94 H 20 122/67 96 02/26/19 23:59 89 Laboratory Results 02/27/19 05:29 02/27/19 05:29 (1) Anemia Anemia type: due to chronic kidney disease Chronic kidney disease stage: on chronic dialysis Qualified Code(s): N18.6 - End stage renal disease; D63.1 - Anemia in chronic kidney disease; Z99.2 - Dependence on renal dialysis
[2019-02-27] MEDS ORDERED: DEXTROSE 5% 500 ML IV SCH (07:45)
[2019-02-27] MEDS: INSULIN ASPART 100 UNITS/ML 3 ML PEN SC SCH ×3 (08:29→17:17)
[2019-02-27] MEDS: guaiFENesin 600 MG TABCR PO SCH (08:31)
[2019-02-27] MEDS: PANTOprazole 40 MG TAB PO SCH ×2 (08:31→17:13)
[2019-02-27] MEDS: TIOTROPIUM BROMIDE 5 PUFF/90 MCG INH INH SCH (08:31)
[2019-02-27] MEDS: METOPROLOL TARTRATE 25 MG TAB PO SCH (08:31)
--- NOTE | 2019-02-27 10:29 | Hospitalist Progress Note ---
Date of Service February 27, 2019 Assessment & Plan (1) Sepsis: Secondary to fungemia Meeting SIRS criteria, pt initially presented with tachycardia, tachypnea, fever, hypotension WBC wnl and lactate wnl, however procal elevated (1.89) Pt having fever after HD for past week prior to admission, was started on IV Abx, Rocephin 02/19, then switched to Zosyn on 02/20 Concern for dialysis cath line infection, vs. perinephritic abscess/ infection vs. other source, concern for endocarditis Blood cltx - obtained in ED on February 23, positive for Jessi albicans, catheter tip culture, February 24, also positive for Jessi albicans, urine culture February 24-positive for Jessi albicans Now s/p removal of HD catheter (02/24) by vascular surg. Will obtain Echo to r/o vegetations In ED started on vancomycin and zosyn, which was continued during the admission, stopped on (02/25) and caspofungin was started (per ID will need 2 week treatment) Concern for possible perinephric fluid infection, urology consulted, recommend transfer to [facility] for further urologic evaluation and possible IR procedure /drainage Pharm and ID consulted, for medication management and dose adjustment for renal impairment (2) Anemia: chronic normocytic anemia most likely secondary CKD/ anemia of chronic disease/multifactorial/very little blood loss from mild hematuria noted as well Hgb decreased to 8.3 today, previously >9, pt is hemodynamically stable Will cont. 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 Angelo cont. to follow (she also noted pt having post HD fevers, and recommended inpt eval and treatment) Concern for HD line infection, now pt is s/p cath. line removal (02/24/2019), will need temporary line placed prior to next HD No plan for HD at this time Renal diet Cont. to monitor renal function Will try to avoid nephrotoxic agents, contrast, NSAIDs, etc, will renally dose meds as needed Mild electrolyte abnormalities Mild hypokalemia and hypocalcemia, likely secondary to above will replace as needed will cont. to monitor, and will replace as needed (4) Diabetes mellitus, type II: On insulin lantus 4 units qhs, will cont. will cont. low SSI will continue to closely monitor and adjust as needed (5) Asthma: Hx of mild intermittent asthma At home/rehab on ellipta daily and duonebs prn, will cont. (6) Dyslipidemia: At home on atorvastatin, will cont. CAD s/p CABG at home/rehab on metoprolol and atorvastatin will continue while inpt No current issues Afib Not on anticoagulation (per family/pt wishes - hx of GI bleed) pt on metoprolol tartrate 25mg q12h, will cont. rate currently better controlled, previously tachycardic most likely 2/2 infectious process should resolve (back to baseline) after treating underlying condition (IV Abx,IV antifungal, line removal etc.) will cont. to closely monitor on tele (7) Constipation: No current issues At home takes bisacodyl prn, miralax prn, will continue Will continue to monitor (8) GERD (gastroesophageal reflux disease): At home on pantoprazole and famotidine, will continue No current issues (9) DVT prophylaxis: Currently resides at Rehab ([facility]) On subq heparin 5000 q8h, last dose yesterday AM Held for procedure, resumed, encourage ambulation Holding again as pt developed mild hematuria, pt is ambulatory, will cont. w/ SCDs (10) Discharge planning issues: Currently resides at Rehab ([facility]) Will obtain PT/OT eval prior to discharge Update: Pt will be transferred to [facility] for further evaluation and management, namely, plan for left ureteral stent exchange by urology and possible L perinephric fluid drainage by IR. Subjective No acute events overnight, patient is lying in bed and feels comfortable, in no acute distress. Denies any fevers, chills, chest pain, shortness of breath, nausea, vomiting, abdominal pain. Family discussion/coordination of care Called patient's , Rosanne, this morning. I updated her on patient's condition, current findings of fungemia and we discussed his prior hospitalizations as well. I discussed with her that urology was consulted here (at [facility]), and their recommendations of transferring patient to [facility] (where the patient was treated before, and recently discharged, on February 11). At that time he was transferred to [facility] for IR drainage however procedure was not done. I talked to Crystal Doss POSTBED STITCHER with urology this morning, and plan to discuss further with Dr. Marie (urology) as well so we can coordinate the care for the patient in the best possible way. At this time patient's Rosanne, is not inclined to transfer patient outside of [facility]. Update: After further conversation with urology, in summary, there are 2 possible sources of infection, perinephric fluid as mentioned before and left ureteral stent which could be replaced. However given patient's complicated status, and stent placed at [facility], the recommendations would be to do this procedure there. Also discussed, that given the patient's improving clinical status, these procedures do not seem to be urgent. We will communicate this information to patient and his family and will decide on further management, plan to involve ID to help as well with care management and coordination. Discussed case with Dr. Gooden, ID specialist who was consulted on the case, who also recommends stent exchange/or removal, and perinephric fluid drainage. Contacted [facility] about possible transfer, and discussed the case with Dr. Shaw from urology. Dr. Shaw is willing to accept the patient for left ureteral stent exchange. Plan to transfer to internal medicine service at [facility] to Dr. Coleman, for continued medical management. Review of Systems Review of Systems: All systems reviewed - negative, pertinent see below Constitutional: no fever, no chills and no fatigue Respiratory: no cough and no dyspnea Cardiovascular: no chest pain and no palpitations Gastrointestinal: no abdominal pain, no nausea and no vomiting Genitourinary: + hematuria; no flank pain Physical Exam Constitutional: well developed and well nourished; no acute distress Eyes: PERRL, conjunctivae normal, anicteric sclerae + anicteric sclerae ENMT: external ear and nose normal, oropharynx normal Neck: trachea midline, no thyromegaly Respiratory: normal respiratory effort; does not use accessory muscles Auscultation: + crackles (mild b/l); no wheezes Cardiovascular: Rate/Rhythm: + tachycardic (irregular) Heart Sounds: no murmur Extremities: + edema (mild 1+ above ankles) Chest (Breasts): Chest: + vascular access device or port (was on the Right side, now removed,no erythema, edema or any drainage noted) Gastrointestinal (Abdomen): Inspection/Auscultation: abdomen normal to inspection and normal bowel sounds; abdomen not distended Percussio n/Palpation: abdomen soft; abdomen nontender, no guarding and abdomen not rigid Musculoskeletal: Head/Neck/Chest: normocephalic, head atraumatic and neck supple Extremities: extremities normal to inspection; normal muscle tone Skin: no rashes, warm and dry Neurologic: PERRL, EOMI, accommodation nl, no face palsy, no dysarthria Psychiatric: A+Ox3, euthymic affect Speech: normal rate/rhythm/volume of speech Genitourinary: no CVA tenderness Lymphatic: + lymphedema (mild 1+ above ankles); no cervical lymphadenopathy Results & Data Vital Signs (Past 12 Hours) Vital Signs Temp Pulse Pulse Pulse Resp BP Pulse Ox 02/27/19 07:12 36.6 C 105 H 20 138/78 93 02/27/19 05:59 81 02/27/19 04:10 117 H 02/27/19 03:36 36.4 C L 84 16 125/74 96 02/27/19 01:43 81 02/27/19 00:07 36.6 C 94 H 20 122/67 96 02/26/19 23:59 89 Laboratory Results 02/27/19 02/27/19 02/26/19 Range/Units 05:29 05:29 20:37 WBC 9.03 (4.8-10.8) K/uL RBC 3.09 L (4.7-6.1) M/uL Hgb 8.3 L (14.0-18.0) g/dL Hct 26.6 L (42-52) % MCV 86.1 (80-100) fL MCH 26.9 (25-34) pg MCHC 31.2 L (32-36) g/dL RDW Std Deviation 50.9 H (36.4-46.3) fL RDW Coeff of Froilan 16.2 H (11.5-14.5) % Plt Count 237 (130-400) K/uL MPV 9.5 (7.4-10.4) fL Immature Gran % (Auto) 0.4 % Neut % (Auto) 60.6 % Lymph % (Auto) 30.9 % Hartley % (Auto) 4.8 % Eos % (Auto) 2.9 % Baso % (Auto) 0.4 % Immature Gran # (Auto) 0.04 H (0.00-0.02) K/uL Neut # (Auto) 5.47 (1.4-6.5) K/uL Lymph # (Auto) 2.79 (1.2-3.4) K/uL Hartley # (Auto) 0.43 (0.11-0.59) K/uL Eos # (Auto) 0.26 (0-0.5) K/uL Baso # (Auto) 0.04 (0-0.2) K/uL Sodium 147 H (136-145) mmol/L Potassium 3.5 (3.5-5.1) mmol/L Chloride 114 H (98-107) mmol/L Carbon Dioxide 28 (21-32) mmol/L Anion Gap 6.0 (3-11) BUN 36 H (7-18) mg/dl Creatinine 3.31 H (0.6-1.4) mg/dl Est Cr Clr Drug Dosing 14.2 ml/min Est GFR ( Amer) 18.4 Est GFR (Non-Af Amer) 15.8 BUN/Creatinine Ratio 10.8 (10-20) Glucose 118 H (70-99) mg/dl POC Glucose 146 H (70-99) Calcium 8.2 L (8.5-10.1) mg/dl 02/26/19 02/26/19 Range/Units 16:21 11:19 WBC (4.8-10.8) K/uL RBC (4.7-6.1) M/uL Hgb (14.0-18.0) g/dL Hct (42-52) % MCV (80-100) fL MCH (25-34) pg MCHC (32-36) g/dL RDW Std Deviation (36.4-46.3) fL RDW Coeff of Froilan (11.5-14.5) % Plt Count (130-400) K/uL MPV (7.4-10.4) fL Immature Gran % (Auto) % Neut % (Auto) % Lymph % (Auto) % Hartley % (Auto) % Eos % (Auto) % Baso % (Auto) % Immature Gran # (Auto) (0.00-0.02) K/uL Neut # (Auto) (1.4-6.5) K/uL Lymph # (Auto) (1.2-3.4) K/uL Hartley # (Auto) (0.11-0.59) K/uL Eos # (Auto) (0-0.5) K/uL Baso # (Auto) (0-0.2) K/uL Sodium (136-145) mmol/L Potassium (3.5-5.1) mmol/L Chloride (98-107) mmol/L Carbon Dioxide (21-32) mmol/L Anion Gap (3-11) BUN (7-18) mg/dl Creatinine (0.6-1.4) mg/dl Est Cr Clr Drug Dosing ml/min Est GFR ( Amer) Est GFR (Non-Af Amer) BUN/Creatinine Ratio (10-20) Glucose (70-99) mg/dl POC Glucose 111 H 142 H (70-99) Calcium (8.5-10.1) mg/dl Medications Administered Current Inpatient Medications Acetaminophen (Tylenol) 500 mg PO Q4H PRN PRN Reason: Pain Stop: 03/25/19 16:05 Albuterol (Duoneb) 3 ml INH QID PRN PRN Reason: Shortness Of Breath Or Wheezing Stop: 03/25/19 16:05 Atorvastatin Calcium (Lipitor) 80 mg PO HS [facility] Stop: 03/26/19 20:59 Last Admin: 02/26/19 21:03 Dose: 80 mg Documented by: Bisacodyl (Dulcolax) 10 mg [place] DAILY PRN PRN Reason: Constipation Stop: 03/25/19 16:05 Dextrose (Dextrose 50%) 25 - 50 ml IV UD PRN; Protocol PRN Reason: Hypoglycemia Protocol Stop: 03/25/19 17:59 Famotidine (Pepcid) 20 mg PO TuThSa@2100 [facility] Stop: 03/26/19 20:59 Last Admin: 02/26/19 21:04 Dose: 20 mg Documented by: Glucagon (Glucagen) 1 mg SQ UD PRN; Protocol PRN Reason: Hypoglycemia Protocol Stop: 03/25/19 17:59 Glucose (Glucose 40%) 15 - 30 gm PO UD PRN; Protocol PRN Reason: Hypoglycemia Protocol Stop: 03/25/19 17:59 Glucose (Dex4 Glucose) 4 - 8 tabs PO UD PRN; Protocol PRN Reason: Hypoglycemia Protocol Stop: 03/25/19 17:59 Guaifenesin (Mucinex) 600 mg PO Q12 [facility] Stop: 03/26/19 20:59 Last Admin: 02/27/19 08:31 Dose: 600 mg Documented by: Caspofungin 50 mg/ Sodium (Chloride) 260 mls @ 260 mls/hr IV Q24H [facility] Stop: 03/08/19 13:59 Last Infusion: 02/26/19 14:07 Dose: Infused Documented by: Dextrose (D5w) 500 mls @ 70 mls/hr IV .Q7H9M [facility] Stop: 02/27/19 14:53 Last Admin: 02/27/19 08:45 Dose: 70 mls/hr Documented by: Insulin Aspart (Novolog Flexpen) 0 units SC ACHS [facility] Stop: 03/25/19 16:29 Last Admin: 02/27/19 08:29 Dose: 1 units Documented by: Insulin Glargine (Lantus Solostar Pen) 4 units SC HS [facility] Stop: 03/26/19 20:59 Last Admin: 02/26/19 21:03 Dose: 4 units Documented by: Metoprolol Tartrate (Lopressor) 25 mg PO Q12 [facility] Stop: 03/27/19 19:59 Last Admin: 02/27/19 08:31 Dose: 25 mg Documented by: Miscellaneous (Carbohydrates For Hypoglycemia) 15 - 30 gm PO UD PRN PRN Reason: Hypoglycemia Treatment Stop: 03/25/19 17:59 Pantoprazole Sodium (Protonix) 40 mg PO BIDM [facility] Stop: 03/25/19 16:59 Last Admin: 02/27/19 08:31 Dose: 40 mg Documented by: Polyethylene Glycol (Miralax Powder Packet) 17 gm PO DAILY PRN PRN Reason: Constipation Stop: 03/25/19 16:05 Senna/Docusate Sodium (Senokot S) 1 tab PO BID PRN PRN Reason: Constipation Stop: 03/25/19 16:05 Tiotropium [place] (Spiriva) 1 puffs INH DAILY [facility] Stop: 03/26/19 09:59 Last Admin: 02/27/19 08:31 Dose: 1 puffs Documented by: (1) Sepsis Sepsis acute organ dysfunction status: unspecified Sepsis type: sepsis due to unspecified organism Qualified Code(s): A41.9 - Sepsis, unspecified organism (2) Anemia Anemia type: unspecified type Qualified Code(s): D64.9 - Anemia, unspecified
--- NOTE | 2019-02-27 10:44 | Communication Note ---
Date of Service: February 27, 2019 Pt was not formally evaluated and examined today. Case discussed in detail with Dr. Lopez and Dr. Marie separately. Pt was recently evaluated by [facility], discharged on 02/11, plan for conservative management at that time. Last stent exchange per records was completed on 12/16/28, on 3-month schedule with plan for outpatient MRI on 03/12/19. Our recommendations are as follows: If patient is clinically improving then transfer to [facility] should not be acutely necessary for the time being. However, if there is suspicion for ongoing incompletely source of fungemia, we recommend patient would consider transfer to [facility] for evaluation for stent exchange and/or IR drainage of perinephric hematoma. Pt has a complex history and has been managed previously by the Urology service at [facility].
--- NOTE | 2019-02-27 14:28 | Infectious Disease Progress Nt ---
Date of Service February 27, 2019 Assessment & Plan (1) Infection of hemodialysis tunneled catheter: Patient admitted with fever with blood, urine, and catheter cultures now growing Jessi albicans. As discussed, has been started on caspofungin therapy. Will likely need in the range of 2 weeks of IV antibiotic therapy. Will follow. (2) Jessi infection, disseminated: Subjective Patient seen in follow-up for candidemia. Now on caspofungin, tolerating without apparent difficulty. Remains afebrile. Follow-up blood cultures are no growth to date.Discussion undergoing regarding possible transfer to [facility] for stent change and possible drainage of collection seen on CT. Review of Systems Review of Systems: All systems reviewed & are unremarkable except as noted in HPI & below Physical Exam Constitutional: WD/WN, vitals as above + ill appearing and comfortable; no acute distress Eyes: PERRL, conjunctivae normal, anicteric sclerae ENMT: external ear and nose normal, oropharynx normal Neck: trachea midline, no thyromegaly neck nontender Respiratory: normal respiratory effort, lungs clear to auscultation normal percussion; does not use accessory muscles Cardiovascular: Rate/Rhythm: regular rate, regular rhythm and + irregularly irregular Heart Sounds: normal S1 and normal S2; no gallop, no murmur and no cardiac rub Vessels: normal peripheral pulses; no JVD Extremities: + edema (Ankles) Gastrointestinal (Abdomen): normal bowel sounds, soft, nontender, no hepatosplenomegaly Musculoskeletal: no cyanosis or clubbing, extremities motor strength 5/5 Spine: thoracic spine normal to inspection and lumbar spine normal to inspection; no cervical spinal tenderness Skin: no rashes, warm and dry normal turgor and + wound (Surgical dressing intact); no lesions Neurologic: patellar DTR's 2+ bilat, sensation intact no focal motor deficits Psychiatric: A+Ox3, euthymic affect Orientation: cooperative Lymphatic: no cervical or axillary lymphadenopathy no inguinal lymphadenopathy Results & Data Vital Signs (Past 12 Hours) Vital Signs Temp Pulse Pulse Pulse Resp BP Pulse Ox 02/27/19 11:27 36.6 C 81 19 119/69 99 02/27/19 07:25 103 H 02/27/19 07:12 36.6 C 105 H 20 138/78 93 02/27/19 05:59 81 02/27/19 04:10 117 H 02/27/19 03:36 36.4 C L 84 16 125/74 96 Laboratory Results Short CBC 02/27/19 Range/Units 05:29 WBC 9.03 (4.8-10.8) K/uL Hgb 8.3 L (14.0-18.0) g/dL Hct 26.6 L (42-52) % Plt Count 237 (130-400) K/uL BMP 02/27/19 05:29 Sodium 147 H Potassium 3.5 Chloride 114 H Carbon Dioxide 28 BUN 36 H Creatinine 3.31 H Glucose 118 H Calcium 8.2 L Diagnostic Findings Microbiology 02/26/19 21:03 Blood Fungal Smear - Final 02/23/19 10:24 Blood Aerobic Blood Culture - Preliminary Yeast 02/23/19 10:24 Blood Anaerobic Blood Culture - Preliminary No growth in Anaerobic bottle after 48 hours. 02/24/19 09:30 Foreign Body Gram Stain - Final 02/24/19 09:30 Foreign Body Deep Wound Culture - Final Jessi albicans 02/23/19 14:45 Blood Aerobic Blood Culture - Preliminary Jessi albicans 02/23/19 14:45 Blood Anaerobic Blood Culture - Preliminary No growth in Anaerobic bottle after 48 hours. 02/24/19 Unknown Urine,Clean Catch Urine Culture - Final Jessi albicans PG Care Time/CCT Total # of Minutes Spent Total Time Spent with Patient: Total time spent is greater than 50% in coordination of care (as documented) at patient's floor/unit and/or counseling patient:
[2019-02-27] MEDS: CASPOFUNGIN 50 MG in SODIUM CHLORIDE 0.9% 250 ML IV SCH (14:59)
[2019-02-27 15:19] VITALS: O2SAT 97
[2019-02-27] MEDS ORDERED: POTASSIUM CHLORIDE 20 MEQ TABCR PO STA (16:35)
--- NOTE | 2019-02-27 17:30 | Discharge Summary ---
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 fib(not on anticoagulation), dyslipidemia, recurrent urothelial carcinoma (initially diag nosed in the ) status post right nephrectomy,with last recurrence in August 2018 status post surgery and immunotherapy, chronic anemia, history of left renal sub-capsular hematoma who presents today after evaluation by his director client, Dr. Angelo, who was concerned of infectious process. Patient has had fevers for the past week after dialysis session, he would also become tachycardic and hypotensive. He was started initially on IV antibiotics by Dr. Cullen (can be contacted at her cell [phone]), physician at [facility]. He received Rocephin on February 19, then it was switched to Zosyn. Recently patient was admitted to [facility] and also transferred to [facility] due to sepsis, altered mental status secondary to sepsis, concern for source of infection being left renal subcapsular hematoma. Per records available, he was transferred to [facility] for IR drainage however he was treated conservatively with IV antibiotics and discharged on February 11 back to [facility]. At this time patient does not have any mental status changes, and overall says he feels well. He did have fevers of 102-103 F after each dialysis session for the past week, patient himself denies any chills, sweats, weakness, dizziness, nausea, vomiting, abdominal pain, chest pain, difficulty breathing. He states that he feels well overall. In the ED patient was found tachycardic in low 100s (and in A. fib), tachypneic with respirations over 20 per minute, with systolic blood pressures in the 90s and low 100s. White blood cell count and lactate within normal limits, however pro calcitonin elevated at 1.89. CT of the abdomen and pelvis showed essentially unchanged images without any notable progression. He received IV antibiotics, vancomycin and Zosyn. Admission Exam Per Admitting Provider Constitutional: well developed, well nourished and + ill appearing Eyes: PERRL, conjunctivae normal, anicteric sclerae ENMT: external ear and nose normal, oropharynx normal Neck: supple, no cervical lad, full ROM Respiratory: normal respiratory effort; does not use accessory muscles Auscultation: + crackles (b/l); no wheezes Cardiovascular: Rate/Rhythm: + tachycardic (irregular) Heart Sounds: no murmur Extremities: + edema (mild 1+ above ankles) Chest (Breasts): Chest: + vascular access device or port (on the Right side, no erythema, edema or any drainage noted) Gastrointestinal (Abdomen): Inspection/Auscultation: abdomen normal to inspe ction and normal bowel sounds; abdomen not distended Percussion/Palpation: abdomen soft; abdomen nontender, no guarding and abdomen not rigid Musculoskeletal: Head/Neck/Chest: normocephalic, head atraumatic and neck supple Extremities: extremities normal to inspection and + abnormal muscle tone Skin: no rashes, warm and dry splinter hemorrhage -R thumb Neurologic: PERRL, EOMI, accommodation nl, no face palsy, no dysarthria no sensory loss noted Psychiatric: A+Ox3, euthymic affect Speech: normal rate/rhythm/volume of speech Genitourinary: no CVA tenderness Lymphatic: + lymphedema (mild 1+ above ankles); no cervical lymphadenopathy Principal Diagnosis Sepsis secondary to fungemia, Anemia, ESRD, DM type2, CAD s/p CABG, Afib, Hx of recurrent urothelial ca Discharge Exam Constitutional well developed and well nourished; no acute distress Eyes PERRL, conjunctivae normal, anicteric sclerae ENMT external ear and nose normal, oropharynx normal Neck trachea midline, no thyromegaly Respiratory normal respiratory effort; does not use accessory muscles Auscultation: + crackles (mild b/l); no wheezes Cardiovascular Rate/Rhythm: + tachycardic (irregular) Heart Sounds: no murmur Extremities: + edema (mild 1+ above ankles) Chest (Breasts) Chest: + vascular access device or port (was on the Right side, now removed,no erythema, edema or any drainage noted) Gastrointestinal (Abdomen) Inspection/Auscultation: abdomen normal to inspection and normal bowel sounds; abdomen not distended Percussion/Palpation: abdomen soft; abdomen nontender, no guarding and abdomen not rigid Musculoskeletal Head/Neck/Chest: normocephalic, head atraumatic and neck supple Extremities: extremities normal to inspection; normal muscle tone Skin no rashes, warm and dry Neurologic PERRL, EOMI, accommodation nl, no face palsy, no dysarthria Psychiatric A+Ox3, euthymic affect Speech: normal rate/rhythm/volume of speech Genitourinary no CVA tenderness Lymphatic + lymphedema (mild 1+ above ankles); no cervical lymphadenopathy Discharge Data Allergies Allergy/AdvReac Type Severity Reaction Status Date / Time erythromycin base AdvReac Mild upset Verified 02/23/19 11:00 stomach BCG (Bacillus AdvReac PAINFUL Verified 02/23/19 11:00 Calmet[place]-Catalino) vacc Consultations 02/23/19 11:40 ED Decision to Admit Stat 02/23/19 13:30 Consult Nephrology Routine 02/23/19 14:17 Consult Vascular Surgery Routine 02/23/19 16:06 Consult Case Management - Discharge Planning Routine Consult Infectious Diseases Routine 02/25/19 13:29 Consult Urology Routine Procedures Performed Operation Date: 02/24/19 08:30 Actual Procedures p Perm Catheter Removal, Moderate Sedation [id number](Right) - Cole Gomes MD Operation Date: 02/26/19 13:00 <No data on this case meets the specified criteria> Ordered Studies 02/23/19 13:07 CT abd pelvis wo con Stat FINDINGS: Slide Developer topogram: Unremarkable. Lung bases: Partially visualized tip of a central venous catheter terminates in the right atrium. Coronary artery and aortic valve calcification. Normal heart size. Trace right and moderate simple left pleural effusion. Extensive passive atelectasis in the lung bases more so on the left. Calcified granuloma in the right lower lobe. Liver: Normal morphology. Normal density. Punctate calcification suggest a history of granulomatous disease Biliary: No gross biliary ductal dilatation allowing for noncontrast technique. Gallbladder contains gallstones. Pancreas: Moderate parenchymal atrophy. Spleen: Punctate calcification suggest a history of granulomatous disease. Adrenal glands: Normal noncontrast appearance. Kidneys and ureters: The right kidney is surgically absent. The left kidney demonstrates a subcapsular fluid collection as on prior exam, measuring up to 12.3 x 8.4 cm in maximal axial dimensions, previously 12.2 x 9.3. This may have perinephric extension inferiorly. Redemonstration of the round exophytic component at the superior pole the right kidney with nondependent low density rim. This is at the site of a prior exophytic simple cyst and most likely represents posttraumatic changes of the cyst. The nondependent low density is unchanged from prior and is doubtful to represent gas. More likely this represents trace fat likely fat necrosis in the posttraumatic setting. Maggie margie of the left renal parenchyma as on prior exam. A left ureteral stent remains in place with reactive urothelial thickening. No left hydronephrosis. Bladder: Incompletely evaluated secondary to underdistention. Left ureteral stent terminates in the bladder. Pelvic organs: Prostate enlargement likely secondary to benign prostatic hyperplasia. Bowel: Limited diverticulosis of the proximal sigmoid colon. The appendix is likely surgically absent. No bowel obstruction. Postsurgical changes of an enteroenteric anastomosis in the right anterior abdomen. Peritoneal cavity: No free fluid or intraperitoneal gas. Presacral fat infiltration and/or fluid may represent edema related to the left renal pathology and is similar to prior. Lymph nodes: No gross lymphadenopathy allowing for noncontrast technique. Vasculature: Atherosclerosis of the normal caliber abdominal aorta. Abdominal wall: Multiple foci of gas within the subcutaneous fat of the anterior abdominal wall likely relate to medication administration. Gynecomastia also noted. Musculoskeletal: Degenerative changes of the spine. Partially visualized median sternotomy IMPRESSION: 1. Similar appearance of the involving left renal subcapsular hematoma. 2. Stable appearance of the nondependent low density within the exophytic cyst at the upper pole the left kidney likely representing posttraumatic fat necrosis associated with a prior exophytic cyst. 3. No left hydronephrosis. Left ureteral stent remains in place with reactive urothelial change likely related to the stent. Correlate with urinalysis to exclude the presence of superimposed infection. 4. Surgically absent right kidney. 5. Moderate left pleural effusion with passive atelectasis as on prior. 6. Presumably dependent changes at the right lung base are also atelectasis. 7. Evidence of old granulomatous disease. 02/24/19 08:00 EV cvc remov tunnel wo prt/relations specialist Routine Hospital Course (1) Sepsis: Secondary to fungemia Meeting SIRS criteria, pt initially presented with tachycardia, tachypnea, fever, hypotension WBC wnl and lactate wnl, however procal elevated (1.89) Pt having fever after HD for past week prior to admission, was started on IV Abx, Rocephin 02/19, then switched to Zosyn on 02/20 Concern for dialysis cath line infection, vs. perinephritic abscess/ infection vs. other source, concern for endocarditis Blood cltx - obtained in ED on February 23, positive for Jessi albicans, catheter tip culture, February 24, also positive for Jessi albicans, urine culture February 24-positive for Jessi albicans Now s/p removal of HD catheter (02/24) by vascular surg. Will obtain Echo to r/o vegetations In ED started on vancomycin and zosyn, which was continued during the admission, stopped on (02/25) and caspofungin was started (per ID will need 2 week treatment) Concern for possible perinephric fluid infection, urology consulted, recommend transfer to [facility] for further urologic evaluation and possible IR procedure /drainage Pharm and ID consulted, for medication management and dose adjustment for renal impairment (2) Anemia: chronic normocytic anemia most likely secondary CKD/ anemia of chronic disease/multifactorial/very little blood loss from mild hematuria noted as well Hgb decreased to 8.3 today, previously >9, pt is hemodynamically stable Will cont. 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 Angelo cont. to follow (she also noted pt having post HD fevers, and recommended inpt eval and treatment) Concern for HD line infection, now pt is s/p cath. line removal (02/24/2019), will need temporary line placed prior to next HD No plan for HD at this time Renal diet Cont. to monitor renal function Will try to avoid nephrotoxic agents, contrast, NSAIDs, etc, will renally dose meds as needed Mild electrolyte abnormalities Mild hypokalemia and hypocalcemia, likely secondary to above will replace as needed will cont. to monitor, and will replace as needed (4) Diabetes mellitus, type II: On insulin lantus 4 units qhs, will cont. will cont. low SSI will continue to closely monitor and adjust as needed (5) Asthma: Hx of mild intermittent asthma At home/rehab on ellipta daily and duonebs prn, will cont. (6) Dyslipidemia: At home on atorvastatin, will cont. CAD s/p CABG at home/rehab on metoprolol and atorvastatin will continue while inpt No current issues Afib Not on anticoagulation (per family/pt wishes - hx of GI bleed) pt on metoprolol tartrate 25mg q12h, will cont. rate currently better controlled, previously tachycardic most likely 2/2 infectious process should resolve (back to baseline) after treating underlying condition (IV Abx,IV antifungal, line removal etc.) will cont. to closely monitor on tele (7) Constipation: No current issues At home takes bisacodyl prn, miralax prn, will continue Will continue to monitor (8) GERD (gastroesophageal reflux disease): At home on pantoprazole and famotidine, will continue No current issues (9) DVT prophylaxis: Currently resides at Rehab ([facility]) On subq heparin 5000 q8h, last dose yesterday AM Held for procedure, resumed, encourage ambulation Holding again as pt developed mild hematuria, pt is ambulatory, will cont. w/ SCDs (10) Discharge planning issues: Currently resides at Rehab ([facility]) Will obtain PT/OT eval prior to discharge Update: Pt will be transferred to [facility] for further evaluation and management, namely, plan for left ureteral stent exchange by urology and possible L perinephric fluid drainage by IR. Total Time Total Time Spent Total Time Spent (In Minutes): 60 min Total Time Includes: Examination of the Patient, Discharge Planning, Medication Reconciliation, Communication With Other Providers and Other (Communication with family) Discharge Plan Discharge Items Patient Disposition: Transfer Acute Care Hospital Reason For Visit: CONCERN FOR BACTEREMIA/INFECTION Discharge Diagnosis: Sepsis secondary to fungemia, Anemia, ESRD, DM type2, CAD s/p CABG, Afib, Hx of recurrent urothelial ca Condition on Discharge: Fair Activity: As commented below Activity Comment: as tolerated Non-emergency contact: Hospitalist Call non-emergency contact if: you have any medication questions Follow-up/Referrals: Reed Real DO [Primary Care Provider] - Diet: Dialysis Renal Addtl Attending Provider Instructions: Pt will be transferred to [facility] for further evaluation and management, namely, plan for left ureteral stent exchange by urology and possible L perinephric fluid drainage by IR. Pending Studies at Discharge: Yes Studies:: Blood cultures (02/26) - pending (NGTD) Stand-Alone Forms: [facility] Skilled Items Patient informed of condition?: Yes DNR: No Discharge Level of Care: Other Communicable Disease: No Discharge Prognosis: Other Lines: Peripheral IV Urinary Catheter: No Medications and DC Order Prescriptions: Continued Novolog U-100 Insulin aspart 100 unit/mL Solution SUBCUT ACHS RF: 0 atorvastatin 80 mg Tablet 80 mg PO DAILY RF: 0 ipratropium-albuterol 0.5 mg-3 mg(2.5 mg base)/3 mL Solution For Nebulization 3 ml INHALATION QID PRN (Reason: Shortness Of Breath Or Wheezing) RF: 0 Lantus U-100 Insulin 100 unit/mL Solution 4 unit SUBCUT HS RF: 0 famotidine [Pepcid] 20 mg Tablet 20 mg PO 3XWK RF: 0 cholecalciferol (vitamin D3) [Vitamin D3] 2,000 unit Tablet 2,000 unit PO DAILY RF: 0 Incruse Ellipta 62.5 mcg/actuation Blister With Device 1 inh INHALATION DAILY RF: 0 acetaminophen [Tylenol Extra Strength] 500 mg Tablet 500 mg PO Q4H PRN (Reason: Pain) RF: 0 bisacodyl 10 mg Suppository 10 mg NV DAILY PRN (Reason: Constipation) RF: 0 sennosides-docusate sodium [Senokot-S] 8.6-50 mg Tablet 1 tab PO BID PRN (Reason: Constipation) RF: 0 pantoprazole [Protonix] 40 mg Tablet,Delayed Release (Dr/Ec) 40 mg PO BIDM RF: 0 glucagon 1 mg/0.2 mL Syringe 1 mg SUBCUT DIRECTED PRN (Reason: Hypoglycemia) RF: 0 melatonin 3 mg Tablet 6 mg PO HS PRN (Reason: Sleep) RF: 0 polyethylene glycol 3350 [Miralax] 17 gram/dose Powder 17 g PO DAILY PRN (Reason: Constipation) RF: 0 Fleet Enema 19-7 gram/118 mL Enema 118 ml NV DAILY PRN (Reason: Constipation) RF: 0 metoprolol tartrate 25 mg Tablet 25 mg PO Q12 RF: 0 Discontinued dextromethorphan-guaifenesin 10-100 mg/5 mL Liquid 10 ml PO Q4H PRN (Reason: Cough) RF: 0 dextrose 50 % in water (D50W) Syringe 50 % IV DIRECTED PRN (Reason: Hypoglycemia) RF: 0 heparin (porcine) 5,000 unit/mL Syringe 5,000 unit SUBCUT Q8H RF: 0 heparin (porcine) 1,000 unit/mL Solution 400 unit IV DIRECTED PRN (Reason: dialysis) RF: 0 piperacillin-tazobactam [Zosyn] 2.25 gram Recon Soln 2.25 g IV Q12 RF: 0 Discharge Orders: Discharge Order (Routine); Ordered 02/27/19 Ordered By: Stevie Lopez Admission Data Admit Date/Time: 02/23/19 14:17 Attending Provider: Stevie Lopez Admit Provider: Stevie Lopez Primary Care Provider: Reed Real Other Providers: Hector Gooden ; Jil Angelo ; John Harris ; Shana Palomo ; Shannon Love ; Jaime Whaley ; Cole Gomes ; Stevie Lopez ; [facility] ; Billie Olea ; Brady Marie I.
[2019-02-27 18:47] VITALS: BP 119/69; PULSE 81
== END 2019-02-27 19:20 | disposition short-term general hospital (02) | DRG 314 ==
LOC: ED 09:40 → 2S 14:17 → SUATTDRO 14:17 → 2S 15:01